=== PATIENT | female | born 1950 | race Caucasian/White ===

== ENCOUNTER 2019-08-09 06:57 | Observation (INO) | payer MEDICARE, SELFPAY ==
[2019-08-09] VITALS (11 sets, daily range): BP systolic 95–142; BP diastolic 59–87; PULSE 62–210; RESP 15–19; TEMP 36.4–36.6; O2SAT 92–100; BMI 33.6
--- NOTE | 2019-08-09 07:05 | ED_ITS ---
Entered by Idalia Carreon, acting as scribe for Bertin Pineda DO HPI - Arrhythmia/Palpitations General: Chief Complaint: Chest Pain Stated Complaint: Chest pain Time Seen by Provider: 08/09/19 07:04 Source: patient and family Mode of arrival: ambulatory Limitations: no limitations History of Present Illness: HPI narrative: 69 yo female presents with a high heart rate and palpitations. pt states she woke up and felt her heart racing. pt states nothing made this better or worse. pt has had nausea in ED. pt denies any other symptoms at this time. pt has a HX of atrial fib. 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) Duration: constant Severity: moderate Context: occurred during rest Arrhythmia history: atrial fibrillation Associated symptoms: Reports nausea and short of breath; Deny anxiety or syncope Review of Systems Const: Denies: fever, chills, body aches, fatigue, malaise or night sweats Eyes: Denies: change in vision or blurry vision ENMT: Denies: throat pain, oral sores/lesions, dental pain, nasal discharge or nasal congestion Card: Denies: edema, syncope or leg pain with exertion Resp: Denies: productive cough, non-productive cough or wheezing GI: Reports: nausea; Denies: abdominal pain, vomiting blood, coffee grounds in vomit, difficulty sw allowing, heartburn/indigestion, diarrhea, constipation, cramping, blood in stool or black tarry stool : Denies: flank pain, painful urination, urinary frequency, urinary urgency, urinary incontinence or blood in urine Musc: Denies: neck pain, back pain, extremity pain, extremity swelling, joint pain or joint swelling Skin/Breast: Denies: rash, itching or redness Neuro: Denies: headache, numbness in extremities, weakness in extremities, changes in sensation, lack of coordination, difficulty walking, frequent falls, dizziness, vertigo or confusion Psych: Denies: anxiety, depression, loss of interest, visual hallucinations, auditory hallucinations, suicidal ideation or homicidal ideation Endo: Denies: excessive urination, excessive thirst, tired all the time or cold intolerance Sergey/Lymph: Denies: easy bruising, easy bleeding, petechiae, enlarged lymph nodes or tender lymph nodes PFSH ED PFSH: Statuses (acute, chronic, etc) shown below reflect problem list status as previously entered and may not be historically accurate Medical History Atrial fibrillation (Acute) Physical Exam Const: COMMON NORMALS: average body habitus, oriented x3 and alert GENERAL APPEARANCE: cooperative, comfortable, well kempt and well developed NUTRITIONAL APPEARANCE: obese ORIENTATION/CONSCIOUSNESS: Yes awake, Yes oriented to person and Yes oriented to place HENMT: COMMON NORMALS: normocephalic, head/scalp atraumatic, EAC's normal, TM's normal bilaterally, external nose normal, moist oral mucous membranes and oropharynx normal HEAD & SCALP: normocephalic and atraumatic NOSE: external nose normal EXTERNAL AUDITORY CANAL: EAC's normal TYMPANIC MEMBRANE: TM's normal bilaterally MOUTH: oral and palatal mucosa normal, lip normal and tongue normal THROAT: posterior oropharynx normal and tonsils normal Eye: COMMON NORMALS: PERRL, EOMs intact bilaterally, conjunctivae normal and no scleral icterus CONJUNCTIVA: Yes conjunctivae normal PUPIL: Yes PERRL Neck/C-Spine: COMMON NORMALS: full ROM, no lymphadenopathy, supple, no meningeal signs and thyroid normal THYROID: thyroid normal and asymmetrical Lymph: LYMPHATIC: no lymphadenopathy noted Resp: COMMON NORMALS: normal respiratory effort, no retractions, no use of accessory muscles and clear to auscultation bilaterally AUSCULTATION: clear to auscultation bilaterally Cardio: RATE: tachycardic (212) RHYTHM: abnormal rhythm GI: COMMON NORMALS: normal to inspection, nondistended, normoactive bowel sounds, soft to palpation and no hepatosplenomegaly PALPATION: Yes soft and Yes no hepatosplenomegaly : COMMON NORMALS: Yes no CVA tenderness BLADDER/KIDNEY EXAM: Yes no CVA tenderness Back/Pelvis: COMMON NORMALS: no CVA tenderness LUMBAR SPINE/LOWER BACK: Yes normal to inspection Extremity: COMMON NORMALS: no clubbing, cyanosis or edema, no calf tenderness and no pedal edema Neuro: COMMON NORMALS: oriented x3 SENSORIUM/ORIENTATION: Yes alert, Yes oriented to person and Yes oriented to place MENINGEAL SIGNS: Yes no meningeal signs Psych: APPEARANCE: Yes well kempt Skin: COMMON NORMALS: no rashes or lesions noted and skin turgor normal GENERAL SKIN EXAM: no rashes or lesions noted and turgor normal Course ED course: On initial presentation patient was in SVT. IV placed bilaterally in the antecubital fossa patient given 6 mg of adenosine with no significant response this was given in the right arm was given another 12 mg of adenosine again with no significant response at that point a question whether or not the IV was patent nurse did find that it was infiltrated. Patient was given 12 mg of adenosine in the left arm with conversion to a normal sinus rhythm with tach ycardia initially in the 130s but it settled down to the 80s after that. The troponin came back with a delta of almost 34 decided to monitor the patient overnight and repeat stress testing Vital Signs: Vital signs: Vital Signs Temperature 97.9 F 08/09/19 11:21 Pulse Rate 70 08/09/19 11:21 Respiratory Rate 16 08/09/19 11:21 Blood Pressure 133/87 08/09/19 11:21 Pulse Oximetry 98 08/09/19 11:21 MDM - Arrhythmia/Palpitations Lab Data: Labs: Lab Results 08/09/19 08/09/19 08/09/19 Range/Units 07:38 07:38 07:38 WBC 5.6 (4.0-10.0) 10^3/ uL RBC 3.54 L (4.1-5.3) 10^6/u L Hgb 10.3 L (11.5-15.3) g/dL Hct 32.2 L (37.0-47.0) % MCV 91.0 (81-99) fL MCH 29.1 (28.0-34.0) pg MCHC 32.0 (30.0-36.0) g/dL RDW 12.9 (12.1-15.1) % Plt Count 198 (130-400) 10^3/c mm MPV 11.2 H (7.4-10.4) fL Neut % (Auto) 58.1 % Lymph % (Auto) 31.8 % [place] % (Auto) 7.1 % Eos % (Auto) 2.1 % Baso % (Auto) 0.5 % Neut # (Auto) 3.3 (1.8-7.7) 10^3/u L Lymph # (Auto) 1.8 (0.8-4.8) 10^3/u L [place] # (Auto) 0.4 (0.2-0.9) 10^3/u L Eos # (Auto) 0.1 (0.0-0.8) 10^3/u L Baso # (Auto) 0.0 (0.0-0.1) 10^3/u L Nucleated RBC % (a uto) 0 % Nucleated RBCs # 0.0 /100WBC Sodium 138 (136-145) mmol/L Potassium 2.8 L* (3.5-5.1) mmol/L Chloride 104 (98-107) mmol/L Carbon Dioxide 18 L (22-29) mmol/L Anion Gap 18.8 (5-19) BUN 25 H (8-23) mg/dL Creatinine 1.1 H (0.5-0.9) mg/dL GFR Calculation 49.4 L (90-130) mL/min Glucose 195 H (74-106) mg/dL Calcium 8.3 L (8.8-10.2) mg/Dl Magnesium (1.7-2.3) mg/dL Total Bilirubin 0.5 (0.15-1.2) mg/dL AST 13 (0-32) U/L ALT 11 (0-33) U/L Alkaline Phosphata se 65 (35-105) IU/L Troponin T Baselin e 18 H (0-10) ng/mL Troponin T 120 Min [place] (0-10) ng/mL Delta Troponin T (0-10) ABS# Total Protein 6.1 L (6.6-8.7) g/dL Albumin 3.7 (3.5-5.2) g/dL Globulin 2.4 (1.3-4.6) g/dL 08/09/19 08/09/19 Range/Units 09:37 09:37 WBC (4.0-10.0) 10^3/ uL RBC (4.1-5.3) 10^6/u L Hgb (11.5-15.3) g/dL Hct (37.0-47.0) % MCV (81-99) fL MCH (28.0-34.0) pg MCHC (30.0-36.0) g/dL RDW (12.1-15.1) % Plt Count (130-400) 10^3/c mm MPV (7.4-10.4) fL Neut % (Auto) % Lymph % (Auto) % [place] % (Auto) % Eos % (Auto) % Baso % (Auto) % Neut # (Auto) (1.8-7.7) 10^3/u L Lymph # (Auto) (0.8-4.8) 10^3/u L [place] # (Auto) (0.2-0.9) 10^3/u L Eos # (Auto) (0.0-0.8) 10^3/u L Baso # (Auto) (0.0-0.1) 10^3/u L Nucleated RBC % (a uto) % Nucleated RBCs # /100WBC Sodium (136-145) mmol/L Potassium 5.2 H (3.5-5.1) mmol/L Chloride (98-107) mmol/L Carbon Dioxide (22-29) mmol/L Anion Gap (5-19) BUN (8-23) mg/dL Creatinine (0.5-0.9) mg/dL GFR Calculation (90-130) mL/min Glucose (74-106) mg/dL Calcium (8.8-10.2) mg/Dl Magnesium 1.8 (1.7-2.3) mg/dL Total Bilirubin (0.15-1.2) mg/dL AST (0-32) U/L ALT (0-33) U/L Alkaline Phosphata se (35-105) IU/L Troponin T Baselin e (0-10) ng/mL Troponin T 120 Min [place] 51.98 H (0-10) ng/mL Delta Troponin T 33.98 H* (0-10) ABS# Total Protein (6.6-8.7) g/dL Albumin (3.5-5.2) g/dL Globulin (1.3-4.6) g/dL Imaging Data^: CXR: Radiologist's impression: [address] [address] XRay Report Signed Patient: Mindy Cueva AUnnuvia #: [id number] : 1Acct#:[id number] Age/Sex: 69 / FADM Date: 08/09/19 Loc: ERRoom/Bed: Attending Dr: Ordering Provider/Ordering MD: Bertin Pineda DO Date of Service: 08/09/19 Procedure(s): XR chest 1V portable [id number] Accession Number(s): [id number] Report Number: [id number] PROCEDURE INFORMATION: Exam: XR Chest, 1 View Exam date and time: 08/09/2019 7:45 AM Age: 69 years old Clinical indication: Chest pain; Type not specified; Additional info: Chest pain, svt TECHNIQUE: Imaging protocol: XR of the chest Views: 1 view. COMPARISON: CR Chest 2 views* [id number] 02/11/2018 10:20 AM FINDINGS: There is moderate hiatal hernia. Otherwise no focal pulmonary consolidation is demonstrated on this single frontal image. No significant obscuration of the lateral costophrenic angles is demonstrated. No significant vascular congestion is demonstrated. Visualized cardiac silhouette size appears within normal limits. Thoracic aorta is unfolded. XR/XR chest 1V portable [id number] IMPRESSION: No acute pulmonary process is demonstrated. There is moderate hiatal hernia. Dictated By:Alexsandra Neely MD Signed By:Alexsandra Neely MDSigned Date/Time:08/09/19829 DD/ 9 Discharge Plan Discharge Patient Disposition: Admitted As Inpatient Admit Provider: Aditya Lange Clinical Impression: Sustained SVT, Acute non-ST elevation myocardial infarction (NSTEMI) Condition: Stable Referrals: Yoshi Fulton MD [Primary Care Provider] - Sacha Gaytan DO [Family Provider] - Interventions: ED Discharge Assessment Last Done: 08/09/19 11:21 Discharge Date/Time: 08/09/19 11:23 Coding Level of Care Code ED Child Nutrition Assistant for Chg Fwd Exam Problem Focused The documentation recorded by the Lauri acosta Bridget Annette, accurately reflects the service I personally performed and the decisions made by Edwin hdez Curtis L, DO Aug 09, 2019 06:57
[2019-08-09] MEDS: adenosine 3 mg/mL SDV 2mL 6 MG (07:13)
[2019-08-09] MEDS: adenosine 3 mg/mL SDV 2mL 12 MG IVP ×2 (07:15→07:17)
--- NOTE | 2019-08-09 07:20 | XRR_ITS ---
PROCEDURE INFORMATION: Exam: XR Chest, 1 View Exam date and time: 08/09/2019 7:45 AM Age: 69 years old Clinical indication: Chest pain; Type not specified; Additional info: Chest pain, svt TECHNIQUE: Imaging protocol: XR of the chest Views: 1 view. COMPARISON: CR Chest 2 views* [id number] 02/11/2018 10:20 AM FINDINGS: There is moderate hiatal hernia. Otherwise no focal pulmonary consolidation is demonstrated on this single frontal image. No significant obscuration of the lateral costophrenic angles is demonstrated. No significant vascular congestion is demonstrated. Visualized cardiac silhouette size appears within normal limits. Thoracic aorta is unfolded. XR/XR chest 1V portable [id number] IMPRESSION: No acute pulmonary process is demonstrated. There is moderate hiatal hernia.
--- NOTE | 2019-08-09 07:22 | ECG_ITS ---
Measurements Intervals [place] Rate: 73 P: 48 W[place]: 173 QRS: -6 QRSD: 76 T: 30 QT: 391 QTc: 431 SINUS RHYTHM INFERIOR MYOCARDIAL INFARCTION [40+ ms Q WAVE AND/OR ST/T ABNORMALITY IN II/aVF], OF INDETERMINATE AGE WITH POSTERIOR EXTENSION Compared to ECG 08/09/2019 09:10:09 No significant changes Electronically Signed On 08-10-2019 9:23:29 STRIPPING MACHINE OPERATOR by Kurtis Palomares M.D. [id number]
[2019-08-09 07:43] LABS: Basophils % 0.5 %; Eosinophils # 0.1 10^3/uL (0.0-0.8); Eosinophils % 2.1 %; Hematocrit 32.2 % (37.0-47.0); Hemoglobin 10.3 g/dL (11.5-15.3); Lymphocytes # 1.8 10^3/uL (0.8-4.8); Lymphocytes % 31.8 %; Mean Corpuscular Hemoglobin 29.1 pg (28.0-34.0); Mean Platelet Volume 11.2 fL (7.4-10.4); Monocytes # 0.4 10^3/uL (0.2-0.9); Monocytes % 7.1 %; Neutrophils # 3.3 10^3/uL (1.8-7.7); Neutrophils % 58.1 %; Nucleated Red Blood Cells % 0 %; Platelet Count 198 10^3/cmm (130-400); Red Blood Count 3.54 10^6/uL (4.1-5.3); Red Cell Distribution Width 12.9 % (12.1-15.1); White Blood Count 5.6 10^3/uL (4.0-10.0)
[2019-08-09 08:07] LABS: Alanine Aminotransferase 11 U/L (0-33); Albumin Level 3.7 g/dL (3.5-5.2); Alkaline Phosphatase 65 IU/L (35-105); Anion Gap 18.8 (5-19); Aspartate Amino Transferase 13 U/L (0-32); Blood Urea Nitrogen 25 mg/dL (8-23); Calcium 8.3 mg/Dl (8.8-10.2); Carbon Dioxide 18 mmol/L (22-29); Chloride 104 mmol/L (98-107); Globulin 2.4 g/dL (1.3-4.6); Glomerular Filtration Rate 49.4 mL/min (90-130); Glucose 195 mg/dL (74-106); Sodium 138 mmol/L (136-145); Total Bilirubin 0.5 mg/dL (0.15-1.2); Total Protein 6.1 g/dL (6.6-8.7)
[2019-08-09 08:08] LABS: Troponin(5th) Baseline 18 ng/mL (0-10)
[2019-08-09 08:13] LABS: Potassium 2.8 mmol/L (3.5-5.1)
[2019-08-09] MEDS: potassium chloride oral liq 20 mEq/15 mL UDC 60 MEQ PO (08:48)
--- NOTE | 2019-08-09 09:22 | ECG_ITS ---
Measurements Intervals [place] Rate: 84 P: 42 [place]: 185 QRS: -10 QRSD: 79 T: 27 QT: 364 QTc: 431 SINUS RHYTHM INFERIOR MYOCARDIAL INFARCTION , OF INDETERMINATE AGE WITH POSTERIOR EXTENSION [40+ ms Q WAVE AND/OR ST/T ABNORMALITY IN II/aV Compared to ECG 02/11/2018 10:15:41 No significant changes Electronically Signed On 08-09-2019 11:34:04 APPRENTICE by Kurtis Palomares M.D. [id number]
[2019-08-09 10:05] LABS: Troponin 5 2HR 51.98 ng/mL (0-10)
[2019-08-09 10:23] LABS: Troponin 5 2HR Delta 33.98 ABS# (0-10)
[2019-08-09 11:04] LABS: Magnesium 1.8 mg/dL (1.7-2.3); Potassium 5.2 mmol/L (3.5-5.1)
--- NOTE | 2019-08-09 11:42 | P.HP_ITS ---
Providers/Chief Complaint Admitting Physician: Aditya Lange Primary Care Provider: Yoshi Fulton Chief Complaint: Chest pain History of Present Illness Mindy Cueva is a 69 year old female with past medical history of [place] in 2015, episode of atrial fibrillation at that time, but not since, normally following with Dr. Florian in office, also with hypertension, chronic lower back pain, anxiety, gout presented to the emergency department after an episode of severe palpitations, tachycardia, chest discomfort at home. Reports it started around 6 AM. She says she woke up asymptomatic, then when rising from a chair to walk to the restroom began experiencing the above symptoms. Reports that she felt her heart was beating very fast which is unusual for her. She reports that she has been having some episodes of heartburn the week prior, however, otherwise has been in her usual state of health. Does report some very mild dry cough which has not been very bothersome to her. She denies any recent changes in her medications. In ER noted to be in SVT, heart rates in 220s, for which received a dose of adenosine, although first dose was ineffective, dose was attempted to be repeated, however, IV infiltrated, had to be replaced to the other arm, then after third (second effective) dose heart rates dropped down to 130s, then converted back to sinus rhythm in the 80s. Her symptoms resolved. She denies any remaining feelings of palpitations or chest discomfort. No shortness of breath. Noted to be hypokalemic, potassium 2.8 for which she received 60 mill equivalent oral liquid replacement. Troponin noted to be elevated in ER, baseline with trace elevation at 18, but with positive delta of 33.98, up to 51.98 troponin at 2 hours. Request for observation was made by ER physician. Review of Systems Const: Denies: fever, chills, body aches or malaise Eyes: Denies: change in vision or eye redness ENMT: Denies: throat pain, oral sores/lesions or ear pain Card: Denies: chest pain, edema, pre-syncope or shortness of breath on exertion Resp: Reports: non-productive cough (Mild); Denies: shortness of breath, productive cough, change in phlegm color or coughing up blood GI: Reports: heartburn/indigestion (Last week); Denies: abdominal pain, nausea, vomiting, diarrhea, constipation, blood in stool or black tarry stool : Denies: flank pain, urinary frequency or blood in urine Musc: Denies: back pain, joint swelling or redness Skin/Breast: Denies: rash, sores or new lesion Neuro: Denies: headache, numbness in extremities, weakness in extremities, dizziness, confusion or seizure-like activity Endo: Denies: excessive urination or excessive thirst Sergey/Lymph: Denies: easy bleeding or purpura All/Imm: Denies: hives, throat swelling or tongue swelling Medications/Allergies Home Medications Medication Instructions Recorded Confirmed Last Taken Type allopurinol 100 mg PO DAILY 08/09/19 08/09/19 08/09/19 History alprazolam 0.5 mg PO BID PRN 08/09/19 08/09/19 08/08/19 History aspirin 2 tab PO DAILY 08/09/19 08/09/19 08/09/19 History ibuprofen 800 mg PO TID 08/09/19 08/09/19 08/08/19 History lisinopril 10 mg PO DAILY 08/09/19 08/09/19 08/09/19 History metoprolol tartrate 50 mg PO BID 08/09/19 08/09/19 08/09/19 History tramadol 50 mg PO Q4H PRN 08/09/19 08/09/19 Unknown History triamterene-hydrochlorothiazid 1 tab PO DAILY 08/09/19 08/09/19 08/08/19 History Allergies Allergy/AdvReac Type Severity Reaction Status Date / Time No Known Allergies Allergy Verified 08/09/19 07:09 PFSH Acute PFSH: Statuses (acute, chronic, etc) shown below reflect problem list status as previously entered and may not be historically accurate Medical History (Updated 08/09/19 @ 12:17 by Aditya Lange MD) Acute non-ST elevation myocardial infarction (NSTEMI) (Acute) Anxiety (Chronic) Atrial fibrillation (Acute) Chronic low back pain (Chronic) Gout (Chronic) HTN (hypertension) (Chronic) Surgical History History of appendectomy (Acute) History of back surgery (Acute) History of cholecystectomy (Acute) Status post right knee replacement (Acute) Family History Mother Cerebral hemorrhage Myocardial infarction Social History (Updated 08/09/19 @ 12:16 by Aditya Lange MD) Smoking and tobacco status: never smoked Alcohol intake: never Substance/Drug Use: never Household members: spouse Marital status: Current occupational status: retired Vitals/I&O/Wt Last Vital Signs Temp 97.9 F 08/09/19 11:21 Pulse 70 08/09/19 11:21 Resp 16 08/09/19 11:21 BP 133/87 08/09/19 11:21 Pulse Ox 98 08/09/19 11:21 Weight last 48 hrs Weight 97.522 kg Physical Exam Const: COMMON NORMALS: no apparent distress and oriented x3 NUTRITIONAL APPEARANCE: overweight HENMT: COMMON NORMALS: oropharynx normal Neck/C-Spine: COMMON NORMALS: no JVD Resp: COMMON NORMALS: normal respiratory effort and clear to auscultation bilaterally AUSCULTATION: clear to auscultation bilaterally Cardio: COMMON NORMALS: no JVD, regular rhythm, S1 normal heart sound, S2 normal heart sound and no murmurs RHYTHM: regular rhythm HEART SOUNDS: S1 normal and S2 normal GI: COMMON NORMALS: normal to inspection, nondistended, normoactive bowel sounds, soft to palpation and non-tender PALPATION: Yes soft Extremity: COMMON NORMALS: no joint enlargement and no pedal edema Neuro: COMMON NORMALS: oriented x3 and moves all extremities Skin: COMMON NORMALS: no rashes or lesions noted GENERAL SKIN EXAM: no rashes or lesions noted Data : 08/09/19 07:38 08/09/19 09:37 A&P Assessment and plan (1) Troponin level elevated: After episode of sustained SVT. She was symptomatic during the episode, currently without any chest pressure. There is minimal elevation of troponin, with significant delta, although level at 2 hours still only 51.98. She has history of coronary disease, with last stress test and angiogram in 2014. She is placed in observation, we will complete the troponin and EKG series. Monitor for recurrence of any symptoms. Assess with TTE. She is agreeable with plan for subsequent assessment by stress testing for risk stratification for progression of coronary disease sometime early next week. Status: Acute Code(s): R79.89 - Other specified abnormal findings of blood chemistry (2) Sustained SVT: Resolved after 2 doses of adenosine (1 dose ineffective due to infiltrated IV). Currently in sinus rhythm, heart rates in the 80s. Asymptomatic. Hypokalemic. This was replaced. Monitor on telemetry. Assess TTE. Hold HCTZ for now. May need potassium supplementation at home. Check TSH. Has some dry cough, however, without any sign of pneumonia, no sign of active infection or sepsis on vital signs or laboratory work-up. Status: Acute Code(s): I47.1 - Supraventricular tachycardia (3) Hypokalemia: Replaced. Check magnesium. Hold HCTZ. Status: Acute Code(s): E87.6 - Hypokalemia (4) HTN (hypertension): Status: Chronic Code(s): I10 - Essential (primary) hypertension (5) Gout: Status: Chronic Code(s): M10.9 - Gout, unspecified (6) Anxiety: Status: Chronic Code(s): F41.9 - Anxiety disorder, unspecified (7) Chronic low back pain: Status: Chronic Code(s): M54.5 - Low back pain; G89.29 - Other chronic pain Attestations Medical Necessity Statement*: Place in observation. Coding Level of Care Code Acute Dredge Pipe Installer for Chg Fwd Diagnoses Troponin level elevated R79.89 Sustained SVT I47.1 Hypokalemia E87.6 HTN (hypertension) I10 Gout M10.9 Anxiety F41.9 Chronic low back pain M54.5; G89.29
--- NOTE | 2019-08-09 12:12 | USCV_ITS ---
Mindy Cueva Age: 69 Gender: F : 1950 Exam Date: 08/09/2019 12:35 Ordering Phys: Aditya Lange MD Technologist: Maureen Winn Exam Location: [facility] [place] Indication: SVT BP: 133 / 87 HR: 67 Rhythm: Sinus Technical Quality: Technically difficult study MEASUREMENTS (Male / Female) Normal Values 2D ECHO LV Diastolic Diameter PLAX 3.6 cm 4.2 - 5.9 / 3.9 - 5.3 cm LV Systolic Diameter PLAX 1.8 cm LV Chamber Size 3.4 cm IVS Diastolic Thickness 1.5 cm 0.6 - 1.0 / 0.6 - 0.9 cm IVS Systolic Thickness 2.1 cm LVPW Diastolic Thickness 0.9 cm 0.6 - 1.0 / 0.6 - 0.9 cm LVPW Systolic Thickness 1.0 cm RV Chamber Size 2.3 cm LVOT Diameter 2.0 cm LV Ejection Fraction 2D Teich 81.1 % LA Diameter 2.2 cm LA Width 3.2 cm LA Height 5.1 cm RA Width 3.1 cm RA Height 4.3 cm Aorta at Sinotubular Diameter 2.8 cm M-MODE LV Diastolic Diameter MM 4.2 cm 4.2 - 5.9 / 3.9 - 5.3 cm LV Systolic Diameter MM 2.2 cm LV Ejection Fraction MM Teich 78.3 % IVS Diastolic Thickness MM 1.3 cm 0.6 - 1.0 / 0.6 - 0.9 cm IVS Systolic Thickness MM 1.6 cm LVPW Diastolic Thickness MM 1.1 cm 0.6 - 1.0 / 0.6 - 0.9 cm LVPW Systolic Thickness MM 1.5 cm RV Diastolic Diameter MM 2.0 cm Aortic Annulus Diameter 3.1 cm LA Ao Ratio MM 0.7 MV E Point Septal Separation 0.4 cm DOPPLER AV Peak Velocity 88.0 cm/s LVOT Peak Velocity 54.0 cm/s AV Area Cont Eq vti 1.9 cm squared AV Area Cont Eq pk 1.9 cm squared MV Area PHT 4.4 cm squared Mitral E to A Ratio 1.6 MV E' Velocity 9.0 cm/s Mitral E to MV E' Ratio 7.2 Mitral E to LV E' Lateral Ratio 6.7 Mitral E to LV E' Septal Ratio 7.8 TR Peak Velocity 224.0 cm/s TR Peak Gradient 20.1 mmHg TV Peak E Velocity 70.0 cm/s Right Atrial Pressure 3.0 mmHg Pulmonary Artery Systolic Pressu 23.1 mmHg PV Peak Velocity 51.0 cm/s RV Acceleration Time 0.1 s RV Ejection Time 0.3 s RV AcT/ET 0.2 FINDINGS Left Ventricle Normal left ventricular size, systolic function and wall thickness, with no regional wall motion abnormalities. Normal left ventricular wall thickness. Normal diastolic filling pattern. Left ventricular ejection fraction is estimated at 65 %. Right Ventricle The right ventricle is normal in size and function. Normal right ventricular systolic pressure. Right Atrium The right atrium is normal in size. Left Atrium The left atrium is normal in size. Mitral Valve Structurally normal mitral valve. Mild mitral valve regurgitation. Aortic Valve Structurally normal aortic valve without significant sclerosis or stenosis. There is no aortic regurgitation. Tricuspid Valve Structurally normal tricuspid valve. Mild tricuspid valve regurgitation. Pulmonic Valve Pulmonic valve not well visualized. Pericardium Normal pericardium without effusion. Aorta Normal ascending aorta dimension. CONCLUSIONS Normal left ventricular size, systolic function and wall thickness, with no regional wall motion abnormalities. Normal left ventricular wall thickness. Normal diastolic filling pattern. Left ventricular ejection fraction is estimated at 65 %. Structurally normal mitral valve. Mild mitral valve regurgitation. There are no prior echocardiogram studies to compare. Dr. Kurtis Palomares MD (Electronically Signed) Final Date: 10 August 2019 09:13 S
[2019-08-09] MEDS: heparin 5,000 unit/mL INJ 1 mL 5000 UNIT SUBCUT ×2 (14:14→21:40)
[2019-08-09 14:17] LABS: Troponin 5 6HR 73.58 ng/L (0-10)
[2019-08-09 14:21] LABS: Troponin 5 6HR Delta 55.58 ng/L (0-12)
[2019-08-09 15:39] LABS: Chol HDL Ratio 4.85 mg/dL (0.0-4.40); Cholesterol 223 mg/dL (0-200); HDL Cholesterol 46 mg/dL (60-100); LDL Cholesterol Calculated 130 mg/dL (50-129); LDL HDL Ratio 2.83 RATIO (0.00-3.22); Magnesium 1.8 mg/dL (1.7-2.3); Triglycerides 235 mg/dL (0-150)
[2019-08-09] MEDS: metoprolol tartrate 25 mg Tablet PO (17:48)
[2019-08-10] VITALS: BP 112/73; PULSE 78; RESP 17; TEMP 36.9; O2SAT 97
[2019-08-10 04:00] VITALS: BP 107/77; PULSE 77; RESP 18; TEMP 36.7; O2SAT 95
[2019-08-10] MEDS: heparin 5,000 unit/mL INJ 1 mL 5000 UNIT SUBCUT (04:43)
[2019-08-10 05:08] VITALS: BMI 33.8
[2019-08-10 05:32] LABS: Anion Gap 14.9 (5-19); Blood Urea Nitrogen 20 mg/dL (8-23); Calcium 9.8 mg/Dl (8.8-10.2); Carbon Dioxide 23 mmol/L (22-29); Chloride 104 mmol/L (98-107); Glomerular Filtration Rate 49.4 mL/min (90-130); Glucose 116 mg/dL (74-106); Potassium 3.9 mmol/L (3.5-5.1); Sodium 138 mmol/L (136-145)
[2019-08-10 08:00] VITALS: BP 108/71; PULSE 86; RESP 21; O2SAT 94
[2019-08-10] MEDS: metoprolol tartrate 25 mg Tablet PO (09:12)
[2019-08-10] MEDS: aspirin 81 mg EC Tablet PO (09:12)
[2019-08-10] MEDS: allopurinol 100 mg Tablet PO (09:13)
[2019-08-10 12:00] VITALS: BP 121/81; PULSE 88; RESP 18
--- NOTE | 2019-08-10 12:26 | P.DS_ITS ---
Discharge Providers Date of Admission: 08/09/19 10:39 Date of Discharge: 08/10/19 Attending Provider at Admission: Aditya Lange Attending Provider at Discharge: Aditya Lange Primary Care Provider: Yoshi Fulton Diagnoses at Discharge Discharge Diagnosis (1) Troponin level elevated: Status: Acute (2) Sustained SVT: Status: Acute (3) Hypokalemia: Status: Acute (4) HTN (hypertension): Status: Chronic (5) Gout: Status: Chronic (6) Anxiety: Status: Chronic (7) Chronic low back pain: Status: Chronic Reason for Visit Reason for Visit: Reason For Visit: Chest pain Physical Exam Const: COMMON NORMALS: no apparent distress and oriented x3 NUTRITIONAL APPEARANCE: overweight HENMT: COMMON NORMALS: oropharynx normal Neck/C-Spine: COMMON NORMALS: no JVD Resp: COMMON NORMALS: normal respiratory effort and clear to auscultation bilaterally AUSCULTATION: clear to auscultation bilaterally Cardio: COMMON NORMALS: no JVD, regular rhythm, S1 normal heart sound, S2 normal heart sound and no murmurs RHYTHM: regular rhythm HEART SOUNDS: S1 normal and S2 normal GI: COMMON NORMALS: normal to inspection, nondistended, normoactive bowel sounds, soft to palpation and non-tender PALPATION: Yes soft Extremity: COMMON NORMALS: no joint enlargement and no pedal edema Neuro: COMMON NORMALS: oriented x3 and moves all extremities Skin: COMMON NORMALS: no rashes or lesions noted GENERAL SKIN EXAM: no rashes or lesions noted Discharge Data Data Completed and Pending: Completed Studies During Hospitalization Category Date Time Status XR chest 1V obi ble [id number] Stat Exams 08/09/19 07:20 Completed CV echo complete* [id number] Routine Ultrasound 08/09/19 12:12 Completed Labs from last 24 hours 08/10/19 08/09/19 08/09/19 04:35 13:32 13:32 Sodium 138 Potassium 3.9 Chloride 104 Carbon Dioxide 23 Anion Gap 14.9 BUN 20 Creatinine 1.1 H GFR Calculation 49.4 L Glucose 116 H Calcium 9.8 Magnesium 1.8 Troponin I 6 Hour 73.58 H Troponin I Hi Sens Del 55.58 H* Triglycerides 235 H Cholesterol 223 H LDL Cholesterol, C alc 130 H HDL Cholesterol 46 L LDL/HDL Ratio 2.83 Cholesterol/HDL Ra rafita 4.85 H TSH 2.30 Vitals: Last Vital Signs Temp 98.1 F 08/10/19 04:00 Pulse 86 08/10/19 08:00 Resp 21 H 08/10/19 08:00 BP 108/71 08/10/19 08:00 Pulse Ox 94 08/10/19 08:00 Discharge Plan Discharge Patient Disposition: Home, Self-Care Condition: Stable Prescriptions: New Slow-Mag 71.5 mg tablet,delayed release (DR/EC) 71.5 mg PO BID Qty: 20 RF: 0 potassium chloride [Klor-Con M20] 20 mEq tablet,ER particles/crystals 20 meq PO DAILY Qty: 7 RF: 0 atorvastatin 40 mg tablet 40 mg PO QPM Qty: 30 RF: 0 Continued allopurinol 100 mg tablet 100 mg PO DAILY RF: 0 tramadol 50 mg Tablet 50 mg PO Q4H PRN (Reason: Pain) RF: 0 alprazolam 0.5 mg tablet 0.5 mg PO BID PRN (Reason: Anxiety) RF: 0 aspirin 81 mg Tablet,Chewable 2 tab PO DAILY RF: 0 Changed metoprolol tartrate 50 mg tablet 25 mg PO BID Qty: 0 RF: 0 Held ibuprofen 800 mg tablet 800 mg PO TID RF: 0 Hold Instructions: Resume on 08/17/19. Discontinued lisinopril 10 mg tablet 10 mg PO DAILY RF: 0 triamterene-hydrochlorothiazid 37.5-25 mg tablet 1 tab PO DAILY RF: 0 Discharge Orders: Discharge Order (Routine); Ordered 08/10/19 Ordered By: Aditya Lange Other Ambulatory Orders: Sestamibi Stress Test Request (Routine) Timeframe: 1 Day Facility: [facility] - Location: Cardiac Diagnostic Laboratory Ordered By: Aditya Lange Referrals: Yoshi Fulton MD [Primary Care Provider] - Sacha Gaytan DO [Family Provider] - 4-7 days Tommy Florian MD [Physician] - 1 week (SVT, abnormal troponin, stress test) Discharge Diet: Cardiac and Low Salt Activity Restrictions/Additional Instructions: Lisinopril, triamterene-HCTZ are on hold for now since blood pressures are well controlled, to avoid low blood pressures. Since blood pressures on the soft side, metoprolol dose is decreased to 25 mg. Please continue to maintain low- salt, heart healthy diet. Please continue to monitor blood pressures 3 times daily, record values to bring to her appointment. If your blood pressure levels arise, restart lisinopril first, if still elevated the next day consider restarting triamterene-HCTZ. In case of recurrence of symptoms of palpitations, non-resolving chest pain, or other abnormal symptoms seek medical attention without delay. Discharge Attestations Time Spent in Discharge Care*: greater than 30 min Quality Metrics Clinical Quality Measures During this hospital stay, did patient experience: None Coding Level of Care Code Acute Drapery Inspector for Chg Fwd Diagnoses Troponin level elevated R79.89 Sustained SVT I47.1 Hypokalemia E87.6 HTN (hypertension) I10 Gout M10.9 Anxiety F41.9 Chronic low back pain M54.5; G89.29
--- NOTE | 2019-08-10 12:42 | PC.CHAP ---
Pastoral Care Encounter/Spiritual Assessment Type of Contact [] Declined rumper visit [] Patient/Family/Request visit [] Outpatient visit [] Follow-up visit [] Physician referral [] Code/Alert [] Routine visit [] Staff referral [] Actively dying [] Patient sleeping [] Family support [] [] Out of room [] Palliative care [] [] Receiving care in room [] Pre-surgical visit [] Trauma [] Long length of stay [] ICU visit [] Other: Relational/Emotional Strength [x] Patient feels connected with others/family/visitors/staff [] Distress [] Loneliness/isolation [] Abandonment Spirituality of Patient [x] Person of Jackie [] Attends Jain of their Jackie [x] Believes in Prayer [] Reads Bible or Mu-Ism materials [] There are Spiritual issues to be addressed Vascular Radiologist Interventions [x] Prayer [x] Active listening [x] Non-anxious presence [x] Spiritual/emotional support [] Crisis/trauma care [] Spiritual counseling [] Bereavement support [] Provided bereavement packet [] Provided Bible/devotional materials [] Provided toy/stuffed animal, coloring book to patient or family member [x] Completed spiritual assessment [] Provided Communion [] Anointing/[place] [] Salvation [] Other: Impact on Illness or Injury [] Angry [] Fearful [] Anxious [] Often cries [] Exhaustion [] Unable to work [] Unable to attend gnosticism [] Unable to walk/stand [] Unable to read [] Unable to drive [] Unable to eat/drink [] Unable to sleep [] Unable to be with family [x] Other: 4 family members present. Summary Chaplains prayed with patient and family members present. Time spent with patient 15 minutes.
--- NOTE | 2019-08-10 12:49 | PM.DCS ---
Discharge Providers Date of Admission: 08/09/19 10:39 Date of Discharge: 08/10/19 Attending Provider at Admission: Adtiya Lange Attending Provider at Discharge: Aditya Lange Primary Care Provider: Sacha Fulton Diagnoses at Discharge Discharge Diagnosis (1) Troponin level elevated: Status: Acute (2) Sustained SVT: Status: Acute (3) Hypokalemia: Status: Acute (4) HTN (hypertension): Status: Chronic (5) Gout: Status: Chronic (6) Anxiety: Status: Chronic (7) Chronic low back pain: Status: Chronic Reason for Visit Reason for Visit: Reason For Visit: Chest pain Hospital Course Hospital Course: 69-year-old pleasant lady with reported history of possible small heart attack in the past, around 2014, at which point she had a coronary angiogram, although on review reported with normal coronaries, history of episode of atrial fibrillation at that time, but without recurrence, HTN, chronic low back pain 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 Her symptoms of chest pressure which were present during tachycardia had resolved. She did have troponin abnormality secondary to cardiac demand, 18-51.98-73.58. She was noted hypokalemic which was replaced. TSH was normal. HCTZ was held. In the hospital blood pressures with low sodium diet were soft, and her blood pressure medications are being held. She started on potassium and magnesium replacement. Due to troponin leak she is continued on aspirin, metoprolol with decreased dose down to 25 mg. She is remained asymptomatic, is feeling well and is wanting to return home. Due to troponin leak stress test will be assessed for possible underlying coronary disease developed since 2014. Please follow the results. Due to hypercholesterolemia she is started on statin. Physical Exam Const: COMMON NORMALS: no apparent distress and oriented x3 NUTRITIONAL APPEARANCE: overweight HENMT: COMMON NORMALS: oropharynx normal Neck/C-Spine: COMMON NORMALS: no JVD Resp: COMMON NORMALS: normal respiratory effort and clear to auscultation bilaterally AUSCULTATION: clear to auscultation bilaterally Cardio: COMMON NORMALS: no JVD, regular rhythm, S1 normal heart sound, S2 normal heart sound and no murmurs RHYTHM: regular rhythm HEART SOUNDS: S1 normal and S2 normal GI: COMMON NORMALS: normal to inspection, nondistended, normoactive bowel sounds, soft to palpation and non-tender PALPATION: Yes soft Extremity: COMMON NORMALS: no joint enlargement and no pedal edema Neuro: COMMON NORMALS: oriented x3 and moves all extremities Skin: COMMON NORMALS: no rashes or lesions noted GENERAL SKIN EXAM: no rashes or lesions noted Discharge Data Data Completed and Pending: Completed Studies During Hospitalization Category Date Time Status XR chest 1V obi ble [id number] Stat Exams 08/09/19 07:20 Completed CV echo complete* [id number] Routine Ultrasound 08/09/19 12:12 Completed Labs from last 24 hours 08/10/19 08/09/19 08/09/19 04:35 13:32 13:32 Sodium 138 Potassium 3.9 Chloride 104 Carbon Dioxide 23 Anion Gap 14.9 BUN 20 Creatinine 1.1 H GFR Calculation 49.4 L Glucose 116 H Calcium 9.8 Magnesium 1.8 Troponin I 6 Hour 73.58 H Troponin I Hi Sens Del 55.58 H* Triglycerides 235 H Cholesterol 223 H LDL Cholesterol, C alc 130 H HDL Cholesterol 46 L LDL/HDL Ratio 2.83 Cholesterol/HDL Ra rafita 4.85 H TSH 2.30 Vitals: Last Vital Signs Temp 98.1 F 08/10/19 04:00 Pulse 86 08/10/19 08:00 Resp 21 H 08/10/19 08:00 BP 108/71 08/10/19 08:00 Pulse Ox 94 08/10/19 08:00 Discharge Plan Discharge Patient Disposition: Home, Self-Care Condition: Stable Prescriptions: New Slow-Mag 71.5 mg tablet,delayed release (DR/EC) 71.5 mg PO BID Qty: 20 RF: 0 potassium chloride [Klor-Con M20] 20 mEq tablet,ER particles/crystals 20 meq PO DAILY Qty: 7 RF: 0 atorvastatin 40 mg tablet 40 mg PO QPM Qty: 30 RF: 0 Continued allopurinol 100 mg tablet 100 mg PO DAILY RF: 0 tramadol 50 mg Tablet 50 mg PO Q4H PRN (Reason: Pain) RF: 0 alprazolam 0.5 mg tablet 0.5 mg PO BID PRN (Reason: Anxiety) RF: 0 aspirin 81 mg Tablet,Chewable 2 tab PO DAILY RF: 0 Changed metoprolol tartrate 50 mg tablet 25 mg PO BID Qty: 0 RF: 0 Held ibuprofen 800 mg tablet 800 mg PO TID RF: 0 Hold Instructions: Resume on 08/17/19. Discontinued lisinopril 10 mg tablet 10 mg PO DAILY RF: 0 triamterene-hydrochlorothiazid 37.5-25 mg tablet 1 tab PO DAILY RF: 0 Discharge Orders: Discharge Order (Routine); Ordered 08/10/19 Ordered By: Aditya Lange Other Ambulatory Orders: Sestamibi Stress Test Request (Routine) Timeframe: 1 Day Facility: [facility] - Location: Cardiac Diagnostic Laboratory Ordered By: Aditya Lange Referrals: Yoshi Fulton MD [Primary Care Provider] - Tommy Florian MD [Physician] - 1 week (SVT, abnormal troponin, stress test) Sacha Gaytan DO [Family Provider] - 4-7 days Discharge Diet: Cardiac and Low Salt Activity Restrictions/Additional Instructions: Lisinopril, triamterene-HCTZ are on hold for now since blood pressures are well controlled, to avoid low blood pressures. Since blood pressures on the soft side, metoprolol dose is decreased to 25 mg. Please continue to maintain low-salt, heart healthy diet. Please continue to monitor blood pressures 3 times daily, record values to bring to her appointment. If your blood pressure levels arise, restart lisinopril first, if still elevated the next day consider restarting triamterene-HCTZ. In case of recurrence of symptoms of palpitations, non-resolving chest pain, or other abnormal symptoms seek medical attention without delay. Discharge Attestations Time Spent in Discharge Care*: greater than 30 min Quality Metrics Clinical Quality Measures During this hospital stay, did patient experience: None Coding Level of Care Code Acute Decorating Supervisor for Chg Fwd Diagnoses Troponin level elevated R79.89 Sustained SVT I47.1 Hypokalemia E87.6 HTN (hypertension) I10 Gout M10.9 Anxiety F41.9 Chronic low back pain M54.5; G89.29
[2019-08-10 13:22] VITALS: PULSE 83; O2SAT 96
[2019-08-10 13:42] VITALS: BP 121/81; PULSE 83; RESP 18; TEMP 36.7; O2SAT 96
== END 2019-08-10 14:28 | disposition home or self-care (01) ==
LOC: ER 07:12 → CSU 11:22
PROVIDERS: Admitting Provider Internal Medicine; Emergency Provider Family Medicine; Family Provider Electrodiagnostic Medicine; PCP Specialist; Visit Provider Internal Medicine
DX: I47.1 Supraventricular tachycardia (principal); R79.89 Other specified abnormal findings of blood chemistry; E87.6 Hypokalemia; I10 Essential (primary) hypertension; M10.9 Gout, unspecified; F41.9 Anxiety disorder, unspecified; I48.91 Unspecified atrial fibrillation; I25.2 Old myocardial infarction; R07.89 Other chest pain; G89.29 Other chronic pain; M54.5 Low back pain; Z79.82 Long term (current) use of aspirin
CPT/HCPCS: 12345; 36415; 71045; 80048; 80053; 80061; 83735; 84132; 84443; 84484; 85025; 93005; 93306; 96372; 96374; 99283; 99291; G0378; J0153; J1644

== ENCOUNTER 2019-08-19 08:01 | Outpatient (CLI) | payer MEDICARE, SELFPAY ==
--- NOTE | 2019-08-19 08:28 | ECG_ITS ---
NAME OF STUDY: LEXISCAN SESTAMIBI STRESS TEST INDICATION: Chest Pain, NOTE: Please note that this is the electrocardiogram portion of the Lexiscan/Sestamibi stress test. The perfusion scan will be documented separately. DATA: Baseline heart rate was 98 beats per minute. Baseline blood pressure was 146/90 millimeters of mercury. Target heart rate was 152. Maximum heart rate achieved was 122. which was 80 % of the predicted target heart rate. Maximum blood pressure was 166/95 millimeters of mercury. The reason for ending the test was completion of the protocol. The patient did not experience any symptoms. ELECTROCARDIOGRAM: BASELINE: Sinus rhythm. Normal axis. Otherwise, no ST-T changes suggestive of ischemia noted. No arrhythmia noted. EXERCISE: After Lexiscan injection, no ST-T changes suggestive of ischemic noted. No arrhythmia noted. 1. EKG not suggestive of ischemia 2. Lexiscan injection unremarkable. 3. Perfusion scan will be documented separately. Electronically Signed On 08-19-2019 10:22:14 MUSIC VIDEO DIRECTOR by Tommy Florian M.D. [id number]
--- NOTE | 2019-08-19 08:28 | NMCV_ITS ---
NM genesis perf SPECT r/s* [id number] Mindy Cueva Age: 69 Gender: F : 1950 Exam Date: 08/19/2019 09:16 Ordering Phys: Aditya Lange MD Technologist: KARON Mora Exam Location: [facility] Indications: Abnormal troponin, difficulty ambulating STRESS TEST Please see separate stress test report in [facility] for full findings IMAGE PROTOCOL Rest/Stress 1 Lexiscan Day Radiopharmaceutical Dose (mCi) Administration Site Administered by Rest: Tc-99m 10.5 IV KARON Mora Sestamibi Stress:Tc-99m 32.6 IV KARON Mora Sestamibi Rest: 19-Aug-2019 60 Discovery 630 Stress: 19-Aug-2019 60 Discovery 630 0.4mg Lexiscan. Images obtained in supine and prone position. SPECT RESULTS Technical Quality: Good Raw Data Analysis: Breast attenuation Image Corrections: Patient motion artifact - motion correction applied to supine stress images Summed Stress Score: 2 Summed Rest Score: 1 Summed Difference Score: 1 PERFUSION FINDINGS SPECT images demonstrate homogeneous tracer distribution throughout the myocardium. FUNCTIONAL RESULTS (calculated via Gated SPECT) Stress Image LV EF (%): 100 Stress EDV (mL):40 TID: 0.88 Stress ESV (mL):0 Rest Image LV EF (%): 95 FUNCTIONAL FINDINGS: There is normal left ventricular systolic function. IMPRESSIONS Myocardial perfusion imaging is normal and low probability for obstructive coronary artery disease. EKG segment will be document separately. Tommy Florian MD (Electronically Signed) Final Date: 19 August 2019 19:10 S
[2019-08-19 08:31] VITALS: BMI 28.5
[2019-08-19 10:03] VITALS: BP 165/86; PULSE 110
[2019-08-19] MEDS: regadenoson 0.4 Mg/5 ml Syringe IVP (10:03)
== END 2019-08-19 08:02 | disposition home or self-care (01) ==
LOC: CDL 08:04
PROVIDERS: Family Provider Electrodiagnostic Medicine; PCP Specialist; Visit Provider Internal Medicine
DX: R79.89 Other specified abnormal findings of blood chemistry (principal); R07.9 Chest pain, unspecified
CPT/HCPCS: 78452; 93017; A9500; J2785

== ENCOUNTER 2020-07-24 20:50 | Observation (INO) | payer MEDICARE, SELFPAY ==
[2020-07-24] VITALS (8 sets, daily range): BP systolic 124–182; BP diastolic 84–106; PULSE 92–141; RESP 17–20; TEMP 36.6–36.7; O2SAT 94–100; BMI 34.4
--- NOTE | 2020-07-24 21:03 | XRR_ITS ---
PROCEDURE INFORMATION: Exam: XR Chest, 1 View Exam date and time: 07/24/2020 9:24 PM Age: 70 years old Clinical indication: Chest pain; Type not specified; Additional info: Cp TECHNIQUE: Imaging protocol: XR of the chest Views: 1 view. COMPARISON: CR XR chest 1V portable [id number] 08/09/2019 7:34 AM FINDINGS: Lungs: Lungs are clear. Pleural space: There is no pleural effusion or pneumothorax. Heart/Mediastinum: There is a small sliding-type hiatal hernia. Cardiomediastinal contours are unremarkable. Bones/joints: Bones are unremarkable. XR/XR chest 1V portable [id number] IMPRESSION: 1. No acute findings. 2. Hiatal hernia.
--- NOTE | 2020-07-24 21:03 | ECG_ITS ---
[facility] Test Date: 2020-07-24 Pat Name: Mindy Cueva Department: Room: 259 Gender: Female Machine Pan Greaser: : 1950 Requested By: Jeremy Bridges Order Number: [id number] Antony MD: Juarez Gotti M.D. Measurements Intervals [place] Rate: 127 P: 46 MS: 148 QRS: -17 QRSD: 75 T: 53 QT: 312 QTc: 455 Interpretive Statements SINUS TACHYCARDIA INFERIOR MYOCARDIAL INFARCTION [40+ ms Q WAVE AND/OR ST/T ABNORMALITY IN II/aVF], OF INDETERMINATE AGE Compared to ECG 08/09/2019 14:07:41 Sinus tachycardia now present Electronically Signed On 07-25-2020 17:53:27 QUALITY IMPROVEMENT MANAGER by Juarez Gotti M.D. [id number]
[2020-07-24 21:28] LABS: Basophils # 0.1 10^3/uL (0.0-0.1); Basophils % 0.3 %; Eosinophils % 0.1 %; Hematocrit 22.2 % (37.0-47.0); Lymphocytes # 2.9 10^3/uL (0.8-4.8); Lymphocytes % 15.2 %; Mean Corpuscular HGB Conc 26.1 g/dL (30.0-36.0); Mean Corpuscular Hemoglobin 18.9 pg (28.0-34.0); Mean Corpuscular Volume 72.3 fL (81-99); Mean Platelet Volume 10.2 fL (7.4-10.4); Monocytes # 0.9 10^3/uL (0.2-0.9); Monocytes % 4.8 %; Neutrophils # 14.74 10^3/uL (1.8-7.7); Neutrophils % 77.8 %; Nucleated Red Blood Cells # 0.1 /100WBC; Nucleated Red Blood Cells % 0.6 %; Platelet Count 354 10^3/cmm (130-400); Red Blood Count 3.07 10^6/uL (4.1-5.3); Red Cell Distribution Width 19.9 % (12.1-15.1); White Blood Count 18.9 10^3/uL (4.0-10.0)
[2020-07-24] MEDS: metoprolol tartrate 1 mg/1 mL SDV 5 mL 5 MG IV (21:31)
[2020-07-24 21:41] LABS: INR 1.06 (0.8-1.2)
[2020-07-24 21:44] LABS: D Dimer 0.74 ug/mIFEU (0-0.59)
[2020-07-24 21:49] LABS: Troponin(5th) Baseline 7 ng/L (0-10)
--- NOTE | 2020-07-24 21:52 | PC.NURSE ---
Pt c/o about feeling weak and just out of it .
[2020-07-24 21:54] LABS: Hemoglobin 5.8 g/dL (11.5-15.3)
[2020-07-24 21:57] LABS: Alanine Aminotransferase 13 U/L (0-33); Albumin Level 3.9 g/dL (3.5-5.2); Alkaline Phosphatase 87 IU/L (35-105); Blood Urea Nitrogen 31 mg/dL (8-23); Calcium 8.9 mg/dL (8.5-10.5); Carbon Dioxide 21 mmol/L (22-29); Chloride 98 mmol/L (98-107); Creatine Phosphokinase 46 U/L (26-192); Globulin 2.4 g/dL (1.3-4.6); Glomerular Filtration Rate 62.1 mL/min (90-130); Glucose 264 mg/dL (65-115); NT Pro B Type Natriuretic Pept 67 pg/mL (0-125); Osmolality Calculated 296 mOsm/kg (285-295); Sodium 135 mmol/L (136-145); Thyroid Stimulating Hormone 2.16 uIU/mL (0.27-4.20); Total Bilirubin 0.3 mg/dL (0.15-1.2); Total Protein 6.3 g/dL (6.6-8.7)
[2020-07-24 22:00] LABS: Anion Gap 20.9 (5-19); Aspartate Amino Transferase 30 U/L (0-32); Potassium 4.9 mmol/L (3.5-5.1)
--- NOTE | 2020-07-24 22:21 | PC.NURSE ---
Pt aware of low blood count, has hx of anemia with testing and no answer why per pt.
--- NOTE | 2020-07-24 22:39 | W.ED.CHESTPA ---
HPI - Chest Pain General: Chief Complaint: Chest Pain Stated Complaint: covid+ on 06/23/chest pressure/sob Time Seen by Provider: 07/24/20 21:02 History of Present Illness: HPI narrative: 70-year-old female with no prior history of coronary disease. She presents with chest discomfort radiating down her left arm today. She has been short of breath increasing over the past 4 to 6 weeks. She was tested positive for COVID-19 on 06/23. She says she has been sick since 2-weeks before then, but has progressively and slowly gotten worse. She has noticed significant shortness of breath even with trying to make it down the [place]ro in her house or to the bathroom. She complains of generalized weakness. Her daughter has noted that she is pale as well. He does have a history of anemia but does not know what her last or most recent blood count was. She does have a history of PSVT. MD complaint: chest pain Pertinent past history: other Onset (ago): day(s) Timing of current episode: episodic and increasing Prior episodes: No Onset: during rest and during exertion Pain location: left chest Pain radiation: left arm Quality: heaviness Relieving factors: nothing Exacerbating factors: exertion Context: recent illness Associated symptoms: Reports dyspnea; Deny fever(s), nausea, palpitations or vomiting Review of Systems Const: Denies: fever(s) or chills Eyes: Denies: change in vision Card: Reports: chest pain; Denies: palpitations, edema or swelling of feet/ankles Resp: Reports: dyspnea GI: Denies: nausea or vomiting Neuro: Reports: weakness in extremities; Denies: numbness in extremities [facility] ED PFSH: Medical History (Updated 07/25/20 @ 02:03 by Jeremy Saldivar DO) Acute non-ST elevation myocardial infarction (NSTEMI) Anxiety Atrial fibrillation Chronic low back pain Family history of heart disease Gout HTN (hypertension) Hyperlipidemia Paroxysmal SVT (supraventricular tachycardia) Surgical History (Updated 07/25/20 @ 00:58 by Tommy Carrington MD) History of appendectomy History of back surgery History of cholecystectomy S/P shoulder surgery left Status post glaucoma surgery Status post right knee replacement Family History Mother Cerebral hemorrhage Myocardial infarction Social History Smoking and tobacco status: never smoked Alcohol intake: never Household members: spouse Marital status: Current occupational status: retired Physical Exam Const: GENERAL APPEARANCE: ill appearing and other (pale) ORIENTATION/CONSCIOUSNESS: Yes oriented to person, Yes oriented to place and Yes oriented to time HENMT: COMMON NORMALS: normocephalic, external ears normal and Normal external nose present HEAD & SCALP: normocephalic FACE & SINUS: normal facial exam NOSE: Normal external nose present and No nasal discharge present EXTERNAL EAR: Yes external ears normal Eye: COMMON NORMALS: Equal, round and reactive pupils present, EOMs intact bilaterally and conjunctivae normal EYELID: eyelids normal CONJUNCTIVA: Yes conjunctivae normal PUPIL: Yes Equal, round and reactive pupils present Neck/C-Spine: GENERAL: No tracheal deviation Chest: COMMONS NORMALS: normal inspection of the chest CHEST: No tenderness Resp: COMMON NORMALS: clear to auscultation bilaterally EFFORT & INSPECTION: Yes tachypneic, No respiratory distress, No retractions, No uses accessory muscles and No tracheal deviation AUSCULTATION: clear to auscultation bilaterally, no rhonchi, no wheezes and lung sounds not diminished Cardio: COMMON NORMALS: regular rate and regular rhythm RATE: regular rate and tachycardic RHYTHM: regular rhythm HEART SOUNDS: Murmur heart sound present (flow) PERIPHERAL PULSES: radial pulses present GI: INSPECTION: No abdominal distension AUSCULTATION: No Hyperactive bowel sounds present and No Hypoactive bowel sounds present PALPATION: No Guarding due to palpation present (GI) and No Rigid due to palpation PERCUSSION: no dullness to percussion and no tympanic to percussion Neuro: SENSORIUM/ORIENTATION: Yes oriented to person, Yes oriented to place and Yes oriented to time Psych: COMMON NORMALS: mental status grossly normal Skin: COMMON NORMALS: no rashes or lesions noted GENERAL SKIN EXAM: no rashes or lesions noted Course Consultations: Consultation #1: marina Vital Signs: Vital signs: Vital Signs Temperature 97.6 F 07/25/20 01:30 Pulse Rate 114 H 07/25/20 01:30 Respiratory Rate 18 07/25/20 01:30 Blood Pressure 156/86 07/25/20 01:30 Pulse Oximetry 96 07/25/20 01:30 MDM - Chest Pain MDM Narrative: Medical decision making narrative: 70-year-old female with increasing shortness of breath and chest pain. Her EKG showed a sinus tachycardia without acute ST change. Her white blood cell count is 18.9. She has been on steroids, however. Her hemoglobin is 5.8. This is likely the cause of most of her symptoms. Her chest x-ray is negative for any acute change. She is crossmatched for 2 units of blood. She will be observed in the hospital for transfusion and further anemia work-up. Lab Data: Labs: Lab Results 07/24/20 07/24/20 07/24/20 Range/Units 21:20 21:20 21:20 WBC 18.9 H (4.0-10.0) 10^3/ uL RBC 3.07 L (4.1-5.3) 10^6/u L Hgb 5.8 L* (11.5-15.3) g/dL Hct 22.2 L (37.0-47.0) % MCV 72.3 L (81-99) fL MCH 18.9 L (28.0-34.0) pg MCHC 26.1 L (30.0-36.0) g/dL RDW 19.9 H (12.1-15.1) % Plt Count 354 (130-400) 10^3/c mm MPV 10.2 (7.4-10.4) fL Neut % (Auto) 77.8 % Lymph % (Auto) 15.2 % [place] % (Auto) 4.8 % Eos % (Auto) 0.1 % Baso % (Auto) 0.3 % Neut # (Auto) 14.74 H (1.8-7.7) 10^3/u L Lymph # (Auto) 2.9 (0.8-4.8) 10^3/u L [place] # (Auto) 0.9 (0.2-0.9) 10^3/u L Eos # (Auto) 0.0 (0.0-0.8) 10^3/u L Baso # (Auto) 0.1 (0.0-0.1) 10^3/u L Nucleated RBC % (a uto) 0.6 % Nucleated RBCs # 0.1 /100WBC PT 14.10 (12.1-14.9) SECO NDS INR 1.06 (0.8-1.2) APTT 25.0 (23.9-36.7) SECO NDS D-Dimer 0.74 H (0-0.59) ug/mIFE U Sodium 135 L (136-145) mmol/L Potassium 4.9 (3.5-5.1) mmol/L Chloride 98 (98-107) mmol/L Carbon Dioxide 21 L (22-29) mmol/L Anion Gap 20.9 H (5-19) BUN 31 H (8-23) mg/dL Creatinine 0.9 (0.5-0.9) mg/dL GFR Calculation 62.1 L (90-130) mL/min Glucose 264 H (65-115) mg/dL Calculated Osmolal ity 296 H (285-295) mOsm/k g Calcium 8.9 (8.5-10.5) mg/dL Iron (37-145) ug/dL TIBC mcg/dl % Saturation (20-50) % Unsat Iron Binding (112-347) ug/dL Ferritin (15-150) ng/mL Total Bilirubin 0.3 (0.15-1.2) mg/dL AST 30 (0-32) U/L ALT 13 (0-33) U/L Alkaline Phosphata se 87 (35-105) IU/L Creatine Kinase 46 (26-192) U/L Troponin T Baselin e (0-10) ng/L Troponin T 120 Min [place] (0-10) ng/L Delta Troponin T (0-10) ABS# NT-Pro-B Natriuret Pep 67 (0-125) pg/mL Total Protein 6.3 L (6.6-8.7) g/dL Albumin 3.9 (3.5-5.2) g/dL Globulin 2.4 (1.3-4.6) g/dL Vitamin B12 (232-1245) pg/mL TSH 2.16 (0.27-4.20) uIU/ mL Blood Type Rho(D) Type Antibody Screen Crossmatch 07/24/20 07/24/20 07/24/20 Range/Units 21:20 21:20 22:08 WBC (4.0-10.0) 10^3/ uL RBC (4.1-5.3) 10^6/u L Hgb (11.5-15.3) g/dL Hct (37.0-47.0) % MCV (81-99) fL MCH (28.0-34.0) pg MCHC (30.0-36.0) g/dL RDW (12.1-15.1) % Plt Count (130-400) 10^3/c mm MPV (7.4-10.4) fL Neut % (Auto) % Lymph % (Auto) % [place] % (Auto) % Eos % (Auto) % Baso % (Auto) % Neut # (Auto) (1.8-7.7) 10^3/u L Lymph # (Auto) (0.8-4.8) 10^3/u L [place] # (Auto) (0.2-0.9) 10^3/u L Eos # (Auto) (0.0-0.8) 10^3/u L Baso # (Auto) (0.0-0.1) 10^3/u L Nucleated RBC % (a uto) % Nucleated RBCs # /100WBC PT (12.1-14.9) SECO NDS INR (0.8-1.2) APTT (23.9-36.7) SECO NDS D-Dimer (0-0.59) ug/mIFE U Sodium (136-145) mmol/L Potassium (3.5-5.1) mmol/L Chloride (98-107) mmol/L Carbon Dioxide (22-29) mmol/L Anion Gap (5-19) BUN (8-23) mg/dL Creatinine (0.5-0.9) mg/dL GFR Calculation (90-130) mL/min Glucose (65-115) mg/dL Calculated Osmolal ity (285-295) mOsm/k g Calcium (8.5-10.5) mg/dL Iron 17 L (37-145) ug/dL TIBC 478 mcg/dl % Saturation 3.5 L (20-50) % Unsat Iron Binding 461 H (112-347) ug/dL Ferritin 5 L (15-150) ng/mL Total Bilirubin (0.15-1.2) mg/dL AST (0-32) U/L ALT (0-33) U/L Alkaline Phosphata se (35-105) IU/L Creatine Kinase (26-192) U/L Troponin T Baselin e 7 (0-10) ng/L Troponin T 120 Min [place] (0-10) ng/L Delta Troponin T (0-10) ABS# NT-Pro-B Natriuret Pep (0-125) pg/mL Total Protein (6.6-8.7) g/dL Albumin (3.5-5.2) g/dL Globulin (1.3-4.6) g/dL Vitamin B12 290 (232-1245) pg/mL TSH (0.27-4.20) uIU/ mL Blood Type O Positive Rho(D) Type Positive Antibody Screen Negative Crossmatch See Detail 07/24/20 Range/Units 23:04 WBC (4.0-10.0) 10^3/ uL RBC (4.1-5.3) 10^6/u L Hgb (11.5-15.3) g/dL Hct (37.0-47.0) % MCV (81-99) fL MCH (28.0-34.0) pg MCHC (30.0-36.0) g/dL RDW (12.1-15.1) % Plt Count (130-400) 10^3/c mm MPV (7.4-10.4) fL Neut % (Auto) % Lymph % (Auto) % [place] % (Auto) % Eos % (Auto) % Baso % (Auto) % Neut # (Auto) (1.8-7.7) 10^3/u L Lymph # (Auto) (0.8-4.8) 10^3/u L [place] # (Auto) (0.2-0.9) 10^3/u L Eos # (Auto) (0.0-0.8) 10^3/u L Baso # (Auto) (0.0-0.1) 10^3/u L Nucleated RBC % (a uto) % Nucleated RBCs # /100WBC PT (12.1-14.9) SECO NDS INR (0.8-1.2) APTT (23.9-36.7) SECO NDS D-Dimer (0-0.59) ug/mIFE U Sodium (136-145) mmol/L Potassium (3.5-5.1) mmol/L Chloride (98-107) mmol/L Carbon Dioxide (22-29) mmol/L Anion Gap (5-19) BUN (8-23) mg/dL Creatinine (0.5-0.9) mg/dL GFR Calculation (90-130) mL/min Glucose (65-115) mg/dL Calculated Osmolal ity (285-295) mOsm/k g Calcium (8.5-10.5) mg/dL Iron (37-145) ug/dL TIBC mcg/dl % Saturation (20-50) % Unsat Iron Binding (112-347) ug/dL Ferritin (15-150) ng/mL Total Bilirubin (0.15-1.2) mg/dL AST (0-32) U/L ALT (0-33) U/L Alkaline Phosphata se (35-105) IU/L Creatine Kinase (26-192) U/L Troponin T Baselin e (0-10) ng/L Troponin T 120 Min [place] 8.21 (0-10) ng/L Delta Troponin T 1.21 (0-10) ABS# NT-Pro-B Natriuret Pep (0-125) pg/mL Total Protein (6.6-8.7) g/dL Albumin (3.5-5.2) g/dL Globulin (1.3-4.6) g/dL Vitamin B12 (232-1245) pg/mL TSH (0.27-4.20) uIU/ mL Blood Type Rho(D) Type Antibody Screen Crossmatch Discharge Plan Discharge Patient Disposition: Admitted As Inpatient Admit Provider: Tommy Carrington Clinical Impression: Acute on chronic anemia Chest pain Qualifiers: Chest pain type: unspecified Qualified Code(s): R07.9 - Chest pain, unspecified Condition: Stable Coding Level of Care Code ED Mandarin Chinese Teacher for g Fwd Exam Comprehensive
--- NOTE | 2020-07-24 23:03 | ECG_ITS ---
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 Measurements Intervals [place] Rate: 94 P: 38 DE: 155 QRS: -5 QRSD: 73 T: 41 QT: 346 QTc: 434 Interpretive Statements SINUS RHYTHM POSSIBLE RIGHT VENTRICULAR CONDUCTION DELAY [RSR (QR) IN V1/V2] MINIMAL VOLTAGE CRITERIA FOR LVH, CONSIDER NORMAL VARIANT [MEETS CRITERIA IN ONE OF: R(aVL), S(V1), R(V5), R(V5/V6)+S(V1)] SEPTAL MYOCARDIAL INFARCTION , OF INDETERMINATE AGE [40+ ms Q WAVE IN V1/V2] Compared to ECG 08/09/2019 14:07:41 No significant changes Electronically Signed On 07-25-2020 18:00:46 FIREFIGHTER by Juarez Gotti M.D. [id number]
[2020-07-24] MEDS: acetaminophen 325 mg Tablet 650 MG PO (23:28)
[2020-07-24] MEDS: diphenhydrAMINE 50 mg/mL SDV 1mL 12.5 MG IVP (23:28)
[2020-07-24] MEDS: sodium chloride 0.9% 100 mL Bag 50 ML IV (23:29)
--- NOTE | 2020-07-24 23:33 | P.HP_ITS ---
Providers/Chief Complaint Primary Care Provider: Joseline Dominique APN Chief Complaint: covid+ on 06/23/chest pressure/sob History of Present Illness Mindy Cueva is a 70 year old female who has history of chronic microcytic anemia recently had EGD and colonoscopy about 3 months ago which revealed normal EGD and 3 polyps were removed, tubular adenoma, presented today with chief complaint of generalized fatigue and presyncope. Patient is stating that her hemoglobin has been trickling down for last 6 months for which she went for EGD and colonoscopy that was done at [place]. She is currently not taking any iron tablets. She has not noticed any hematuria, hematemesis, hemoptysis, dark-colored stool or bright bleed per rectum. No history of splenomegaly, bone marrow cancers, she is endorsing adequate p.o. intake, no po stmenopausal bleeding. Today when she was in the shower she started feeling extremely short of breath and weak, she thought she will pass out hence she supported herself in the bathroom, she also experienced diaphoresis, chest discomfort which was radiating towards left arm she is describing as achy in nature, it lasted until she rested, she also felt nauseous but no vomiting. She was in the middle of her shower when all these events took place. Due to these concerns she decided to come to the hospital for further evaluation. She did not experience any syncopal events. Currently she is only taking baby aspirin otherwise not taking NSAIDs. There is history of peptic ulcer disease or H. pylori infection. Of note, she was tested positive for COVID-19 pneumonia on 06/23 for which she has received ceftriaxone, azithromycin and steroid burst course. Diagnostics in the ER revealed leukocytosis, hemoglobin 5.8, microcytosis, no active bleeding was noticed, anion gap 20.9, iron panel was requested which is consistent with iron deficiency anemia x-ray unremarkable other than hiatal jean ia, TSH normal, negative EKG for any ischemia or infarction, troponins not significantly high Review of Systems Const: Reports: chills, body aches, fatigue and malaise; Denies: fever(s) Eyes: Denies: change in vision ENMT: Denies: throat pain Card: Reports: chest pain and dyspnea on exertion; Denies: irregular heart rhythm, swelling of feet/ankles or orthopnea Resp: Reports: dyspnea GI: Reports: nausea; Denies: abdominal pain, diarrhea or constipation : Denies: flank pain Musc: Denies: neck pain or extremity swelling Skin/Breast: Denies: skin tenderness or sores Neuro: Denies: headache(s) Psych: Denies: anxiety Endo: Denies: polyuria Sergey/Lymph: Denies: easy bruising All/Imm: Denies: urticaria Medications/Allergies Home Medications Medication Instructions Recorded Confirmed Last Taken Type alprazolam 0.5 mg PO BID PRN 08/09/19 02/17/20 08/08/19 History tramadol 50 mg PO Q4H PRN 08/09/19 02/17/20 Unknown History atorvastatin 40 mg PO QPM #30 tab 08/10/19 02/17/20 Unknown Rx magnesium chloride [Slow-Mag] 71.5 mg PO BID #20 tab 08/10/19 02/17/20 Unknown Rx potassium chloride [Klor-Con M20] 20 meq PO DAILY #7 tab 08/10/19 02/17/20 Unknown Rx aspirin 81 mg tablet,delayed 81 mg PO QDAY 08/20/19 02/17/20 Unknown History release lisinopril 20 mg tablet 20 mg PO QDAY 08/20/19 02/17/20 Unknown History nitroglycerin 0.4 mg sublingual 0.4 mg SUBLINGUAL DIRECTED tab 08/20/19 02/17/20 Unknown History tablet allopurinol 100 mg tablet 300 mg PO DAILY tab 02/17/20 02/17/20 Unknown History metoprolol tartrate 50 mg tablet 50 mg PO BID #180 tab 02/17/20 02/17/20 Unknown Rx pantoprazole 40 mg tablet,delayed 40 mg PO DAILY tab 02/17/20 02/17/20 Unknown History release triamterene 37.5 1 tab PO DAILY PRN tab 02/17/20 02/17/20 Unknown History mg-hydrochlorothiazide 25 mg tablet Allergies Allergy/AdvReac Type Severity Reaction Status Date / Time No Known Allergies Allergy Verified 02/17/20 15:08 PFSH Acute PFSH: Medical History Acute non-ST elevation myocardial infarction (NSTEMI) Anxiety Atrial fibrillation Chronic low back pain Gout HTN (hypertension) Hyperlipidemia Paroxysmal SVT (supraventricular tachycardia) Surgical History History of appendectomy History of back surgery History of cholecystectomy Status post right knee replacement Family History Mother Cerebral hemorrhage Myocardial infarction Social History Smoking and tobacco status: never smoked Alcohol intake: never Household members: spouse Marital status: Current occupational status: retired Vitals/I&O/Wt Last Vital Signs Temp 98.0 F 07/24/20 20:57 Pulse 96 07/24/20 22:30 Resp 20 H 07/24/20 22:30 BP 129/85 07/24/20 22:30 Pulse Ox 98 07/24/20 22:30 Weight last 48 hrs Weight 99.79 kg Physical Exam Narrative: EXAM NARRATIVE: Very pleasant middle-aged female Well-hydrated, well-built, no active distress S1, S2 no sinus tachycardia or signs of heart failure Abdomen soft nontender bowel sound present Right focal point tenderness around right subcostal area Pallor positive no sign of active bleeding Lower extremity no edema gangrene ulcer No neurological deficit Appropriate mood and affect Awake alert oriented x3 GCS 15 Bilateral breath sounds without adventitious rhonchi or crackles No active joint pains or swelling Data : 07/24/20 21:20 07/24/20 21:20 A&P Assessment and plan (1) Microcytic anemia: Status: Acute (2) Acute on chronic anemia: Status: Acute Additional A&P Information Acute on chronic microcytic anemia In July last year her hemoglobin was 10 current hemoglobin 5.8 Symptomatic anemia Recent EGD colonoscopy did not reveal active source of bleeding No history of GI cancer Not taking NSAIDs no history of peptic ulcer disease liver cirrhosis, hepatitis Iron panel is consistent with iron deficiency anemia B12 low normal will request methylmalonic acid level and folic acid level I do suspect leukocytosis is compensated response to anemia no active signs of sepsis or infection Protonix 40 IV twice daily N.p.o. Transfuse 2 units PRBC Requested fecal occult blood test, patient denying any active source of b leeding, dark stool or bright bleed per rectum No splenomegaly on clinical exam, her diet includes multivitamin, does not look cachectic, she is well-built with high BMI I do not suspect poor p.o. intake or malabsorption to be the cause of ideations anemia No active signs of hemolytic anemia bilirubin normal Hemodynamically stable, I do suspect this is chronic bleeding, there is no bone marrow suppression signs, no active signs of infection, she would benefit from enteroscopy Recent COVID-19 pneumonia Received ceftriaxone azithromycin and steroid burst therapy Short-term steroid therapy would unlikely to cause gastric ulcer and bleeding Chest discomfort: I do believe this is secondary to anemia due to increase work of heart, EKG without ischemic or infarctive changes troponin not significantly high DVT prophylaxis SCDs N.p.o. Full code Attestations Medical Necessity Statement*: Anticipating discharge in less than 48 hours need blood transfusion for symptomatic anemia Time Spent in Patient Care: (>than 50% of time spent in counselling and/or direct pt care on unit) . 50mins Coding Level of Care Code Acute Curing Machine Operator for Chg Fwd Diagnoses Microcytic anemia D50.9 Acute on chronic anemia D64.9
[2020-07-24 23:38] LABS: Troponin 5 2HR 8.21 ng/L (0-10); Troponin 5 2HR Delta 1.21 ABS# (0-10)
--- NOTE | 2020-07-24 23:47 | PC.NURSE ---
Verified blood transfusion, with LATRELL Kurtz. Pt signed consent and review S/S of reaction to blood transfusion. Pt pre-medicated with Bendryl and Tylenol
--- NOTE | 2020-07-24 23:52 | PC.NURSE ---
Admitting provider at bedside
[2020-07-25] VITALS (17 sets, daily range): BP systolic 102–156; BP diastolic 67–95; PULSE 73–114; RESP 12–21; TEMP 36.4–37.4; O2SAT 92–99
[2020-07-25] LABS: Ferritin 5 ng/mL (15-150); Iron 17 ug/dL (37-145)
[2020-07-25 00:02] LABS: Percent Saturation 3.5 % (20-50); Total Iron Binding Capacity 478 mcg/dl; Unsaturated Iron Binding 461 ug/dL (112-347)
[2020-07-25 00:15] LABS: Vitamin B12 290 pg/mL (232-1245)
--- NOTE | 2020-07-25 01:05 | PC.NURSE ---
blood completed no Reaction noted. Pt stated I feel better Less weakness
[2020-07-25 02:03] LABS: Folate Level 18.3 ng/mL (4.8-37.3)
[2020-07-25] MEDS: lisinopril 20 mg Tablet PO ×2 (03:09→08:44)
[2020-07-25 06:59] LABS: Basophils # 0.1 10^3/uL (0.0-0.1); Basophils % 0.3 %; Eosinophils # 0.1 10^3/uL (0.0-0.8); Eosinophils % 0.5 %; Hematocrit 26.9 % (37.0-47.0); Lymphocytes # 3.5 10^3/uL (0.8-4.8); Lymphocytes % 24.5 %; Mean Corpuscular HGB Conc 28.6 g/dL (30.0-36.0); Mean Corpuscular Hemoglobin 21.5 pg (28.0-34.0); Mean Corpuscular Volume 75.1 fL (81-99); Mean Platelet Volume 9.6 fL (7.4-10.4); Monocytes % 7.1 %; Neutrophils # 9.48 10^3/uL (1.8-7.7); Nucleated Red Blood Cells # 0.1 /100WBC; Nucleated Red Blood Cells % 0.8 %; Platelet Count 276 10^3/cmm (130-400); Red Blood Count 3.58 10^6/uL (4.1-5.3); Red Cell Distribution Width 19.4 % (12.1-15.1); White Blood Count 14.4 10^3/uL (4.0-10.0)
[2020-07-25 07:12] LABS: Hemoglobin 7.7 g/dL (11.5-15.3)
[2020-07-25 07:57] LABS: Blood Urea Nitrogen 28 mg/dL (8-23); Calcium 8.7 mg/dL (8.5-10.5); Carbon Dioxide 26 mmol/L (22-29); Chloride 103 mmol/L (98-107); Glomerular Filtration Rate 71.1 mL/min (90-130); Glucose 123 mg/dL (65-115); Osmolality Calculated 295 mOsm/kg (285-295); Sodium 139 mmol/L (136-145)
[2020-07-25 07:58] LABS: Troponin 5 6HR 8.68 ng/L (0-10)
[2020-07-25 08:12] LABS: Troponin 5 6HR Delta 1.7 ng/L (0-12)
[2020-07-25] MEDS: pantoprazole 40 mg SDV IVP ×2 (08:43→23:41)
[2020-07-25] MEDS: cyanocobalamin 1,000 mcg Tablet 500 MCG PO (08:44)
[2020-07-25] MEDS: metoprolol tartrate 50 mg Tablet PO ×2 (08:44→17:24)
--- NOTE | 2020-07-25 10:59 | P.PN_ITS ---
Subjective Subjective: Interval history: Deny any SOB,dizziness, chest pain, nausea, vomiting, black stool.BRBPR. S/P 2 U PRBC . Vitals and labs have been reviewed Vitals/I&O/Wt Last Vital Signs Temp 97.9 F 07/25/20 08:00 Pulse 86 07/25/20 08:00 Resp 16 07/25/20 08:00 BP 120/79 07/25/20 08:00 Pulse Ox 95 07/25/20 08:00 07/24/20 07/25/20 07/25/20 22:59 06:59 14:59 Intake Total 700 / 700 Output Total 200 / 200 Balance 500 / 500 Weight last 48 hrs Weight 99.79 kg Physical Exam Const: COMMON NORMALS: patient oriented x3 HENMT: COMMON NORMALS: normocephalic, atraumatic, hearing grossly normal bilaterally and external ears normal HEAD & SCALP: normocephalic and atraumatic EXTERNAL EAR: Yes external ears normal Eye: COMMON NORMALS: no scleral icterus GENERAL EYE: appearance normal, both eyes and all related structures Chest: COMMONS NORMALS: normal inspection of the chest and normal palpation of entire chest wall CHEST: Yes Symmetrical chest wall rise Resp: COMMON NORMALS: normal respiratory effort, No retractions, No use of accessory muscles and clear to auscultation bilaterally EFFORT & INSPECTION: Yes symmetric chest movement AUSCULTATION: clear to auscultation bilaterally Cardio: COMMON NORMALS: regular rate, regular rhythm, S1 normal heart sound present, S2 normal heart sound present, No gallops present (Cardio), No murmurs present (Cardio), No rub (Cardio) and Peripheral pulses 2+ throughout RATE: regular rate RHYTHM: regular rhythm HEART SOUNDS: S1 normal heart sound present and S2 normal heart sound present PERIPHERAL PULSES: Peripheral pulses 2+ throughout GI: COMMON NORMALS: Normal to inspection, nondistended, normoactive bowel sounds present, Soft to palpation, non-tender, No hepatosplenomegaly present and no masses AUSCULTATION: Yes normoactive bowel sounds PALPATION: Yes Soft to palpation and Yes No hepatosplenomegaly present RECTAL EXAM: deferred Extremity: COMMON NORMALS: no clubbing, cyanosis or edema and no pedal edema Neuro: COMMON NORMALS: patient oriented x3 Data : 07/25/20 06:42 07/25/20 06:42 A&P Assessment and plan (1) Microcytic anemia: Severe Symptomatic Microcytic IVAN Status: Acute (2) Acute on chronic anemia: Status: Acute Additional A&P Information Acute on chronic microcytic anemia In July last year her hemoglobin was 10 current hemoglobin 5.8 Symptomatic anemia Recent EGD colonoscopy did not reveal active source of bleeding No history of GI cancer Not taking NSAIDs no history of peptic ulcer disease liver cirrhosis, hepatitis Iron panel is consistent with iron deficiency anemia B12 low normal will request methylmalonic acid level and folic acid level I do suspect leukocytosis is compensated response to anemia no active signs of sepsis or infection Protonix 40 IV twice daily Transfuse 2 units PRBC Requested fecal occult blood test, patient denying any active source of bleeding, dark stool or bright bleed per rectum No splenomegaly on clinical exam, her diet includes multivitamin, does not look cachectic, she is well-built with high BMI I do not suspect poor p.o. intake or malabsorption to be the cause of ideations anemia No active signs of hemolytic anemia bilirubin normal Hemodynamically stable, I do suspect this is chronic bleeding, there is no bone marrow suppression signs, no active signs of infection, she would benefit from enteroscopy Recent COVID-19 pneumonia Received ceftriaxone azithromycin and steroid burst therapy Short-term steroid therapy would unlikely to cause gastric ulcer and bleeding Chest discomfort: I do believe this is secondary to anemia due to increase work of heart, EKG without ischemic or infarctive changes troponin not significantly high DVT prophylaxis SCDs CLD . Full code Attestations Medical Necessity Statement*: Patient needs to be in hospital for the management of severe Iron deficiency anemia Coding Level of Care Code Acute Help Desk Assistant for [facility] Fwd Diagnoses Microcytic anemia D50.9 Acute on chronic anemia D64.9
[2020-07-25] MEDS: ferric carboxy (IVPB) 750 MG in sodium chloride 0.9% (100 ml) 100 ML 460 MG IV (14:15)
[2020-07-25] MEDS: cyanocobalamin 1,000 mcg/mL SDV 1000 MCG SUBCUT (22:16)
[2020-07-26] VITALS: BP 105/68; PULSE 67; RESP 18; TEMP 36.6; O2SAT 92
[2020-07-26 04:00] VITALS: BP 103/70; PULSE 69; RESP 18; TEMP 36.6; O2SAT 94
[2020-07-26 05:38] LABS: Basophils # 0.1 10^3/uL (0.0-0.1); Basophils % 0.6 %; Eosinophils # 0.3 10^3/uL (0.0-0.8); Eosinophils % 2.2 %; Hematocrit 27.4 % (37.0-47.0); Hemoglobin 7.7 g/dL (11.5-15.3); Lymphocytes # 3.3 10^3/uL (0.8-4.8); Lymphocytes % 27.8 %; Mean Corpuscular HGB Conc 28.1 g/dL (30.0-36.0); Mean Corpuscular Hemoglobin 21.6 pg (28.0-34.0); Mean Corpuscular Volume 76.8 fL (81-99); Mean Platelet Volume 9.7 fL (7.4-10.4); Monocytes # 0.9 10^3/uL (0.2-0.9); Monocytes % 7.2 %; Neutrophils # 7.22 10^3/uL (1.8-7.7); Nucleated Red Blood Cells # 0.1 /100WBC; Nucleated Red Blood Cells % 0.7 %; Platelet Count 266 10^3/cmm (130-400); Red Blood Count 3.57 10^6/uL (4.1-5.3); Red Cell Distribution Width 20.4 % (12.1-15.1); White Blood Count 11.8 10^3/uL (4.0-10.0)
[2020-07-26 06:11] LABS: Alanine Aminotransferase 8 U/L (0-33); Albumin Level 3.5 g/dL (3.5-5.2); Alkaline Phosphatase 71 IU/L (35-105); Anion Gap 12.8 (5-19); Aspartate Amino Transferase 10 U/L (0-32); Blood Urea Nitrogen 24 mg/dL (8-23); Calcium 8.6 mg/dL (8.5-10.5); Carbon Dioxide 25 mmol/L (22-29); Chloride 102 mmol/L (98-107); Globulin 2.3 g/dL (1.3-4.6); Glomerular Filtration Rate 49.2 mL/min (90-130); Glucose 102 mg/dL (65-115); Osmolality Calculated 286 mOsm/kg (285-295); Potassium 3.8 mmol/L (3.5-5.1); Sodium 136 mmol/L (136-145); Total Bilirubin 0.4 mg/dL (0.15-1.2); Total Protein 5.8 g/dL (6.6-8.7)
[2020-07-26 08:00] VITALS: BP 106/69; PULSE 65; RESP 18; TEMP 36.3; O2SAT 94
[2020-07-26] MEDS: pantoprazole DR 40 mg Tablet PO ×2 (08:34→18:38)
[2020-07-26] MEDS: cyanocobalamin 1,000 mcg Tablet 500 MCG PO (08:34)
[2020-07-26] MEDS: metoprolol tartrate 50 mg Tablet PO ×2 (08:34→18:38)
[2020-07-26] MEDS: lisinopril 20 mg Tablet PO (08:34)
--- NOTE | 2020-07-26 11:00 | PC.NURSE ---
Front Desk Auxiliary entered patient room for rounding. Patient asked when physician was going to be in to see her today. I informed patient that she had a different hospitalist from yesterday. The name of the hospitalists that would be seeing her today was Dr. Marinelli. I explained to patient that sometimes doctors have complicated cases on other floors of the hospital and they get caught up with them. I assured patient that Dr. Marinelli would be in to see her as soon as she could.
[2020-07-26 12:00] VITALS: BP 110/73; PULSE 67; RESP 16; TEMP 36.6; O2SAT 93
--- NOTE | 2020-07-26 14:00 | PC.NURSE ---
Patient called nurse into room and voiced that she was upset a doctor had not been in to see her yet. Patient stated that her daughters have tried to call up here and get an update on what is going on and they have gotten nowhere. I apologized to patient and informed her that I was unaware that they had tried calling to speak with me but I would make sure to reach out to them barbie and update them the best I could. I also informed patient that I would be contacting Dr. Marinelli and get an update as to when she may be up to the floor to see patient. Patient appreciative. Dr. Marinelli notified that patient was becoming upset and would like to be seen soon. Dr. Marinelli presented to the floor and spoke to this nurse in person in regards to patient's case. Dr. Marinelli stated that she had a few other patient's to see and then she would go to see patient.
--- NOTE | 2020-07-26 15:29 | PM.PN ---
Subjective Subjective: Interval history: Chart reviewed, VSS, afebrile, stable Hg at 7.7, noted slight worsening in Cr today. at bedside, patient tearful and upset as apparently she assumed she was going to be seen by provider earlier this AM and reports that she does not know what is going on despite being hospitalized for 2 days. This provider attempted to explain care plan, with constant interruptions from patient and , stating they should have sought care at [facility] where she was seen previously. Eventually asked provider to leave and want to be discharged. About an hour later, contacted by patient care nurse who states that patient would now like alternative provider. Given time ([id number]), will need to follow up on this in the morning. Medications: Reviewed: Yes Medication Review Details: Active Medications Generic Name Dose Route Start Last Admin Trade Name Freq PRN Reason Stop Dose Admin Alprazolam 0.5 mg 07/25/20 01:22 Alprazolam 0.5 M g Tablet PO BID PRN Anxiety Atorvastatin Calci um 40 mg 07/25/20 18:00 07/25/20 17:30 Atorvastatin 40 Mg Tablet PO Not Given QPM DARRICK Cyanocobalamin 500 mcg 07/25/20 09:00 07/26/20 08:34 Cyanocobalamin 1 ,000 Mcg Tablet PO 500 mcg DAILY DARRICK Administration Cyanocobalamin 1,000 mcg 07/25/20 21:00 07/25/20 22:16 Cyanocobalamin 1 ,000 Mcg/Ml Sdv SUBCUT 07/31/20 21:01 1,000 mcg Q24H DARRICK Administration Ferric Sodium Gluc everette 125 mg 110 mls @ 110 mls /hr 07/26/20 15:30 / Sodium Chlorid e IV 08/02/20 16:29 Q24H DARRICK Lisinopril 20 mg 07/25/20 01:22 07/26/20 08:34 Lisinopril 20 Mg Tablet PO 20 mg DAILY DARRICK Administration Metoprolol Tartrat e 50 mg 07/25/20 09:00 07/26/20 08:34 Metoprolol Tartr ate 50 Mg Tablet PO 50 mg BID DARRICK Administration Nitroglycerin 0.4 mg 07/25/20 01:22 Nitroglycerin 0. 4 Mg Sublingual Ta blet SUBLINGUAL DIRECTED DARRICK Pantoprazole Sodiu m 40 mg 07/26/20 09:00 07/26/20 08:[address] 40 Mg Tablet PO 40 mg BID DARRICK Administration No Known Allergies Allergy (Verified 07/25/20 10:48) Vitals/I&O/Wt Last Vital Signs Temp 97.9 F 07/26/20 12:00 Pulse 67 07/26/20 12:00 Resp 16 07/26/20 12:00 BP 110/73 07/26/20 12:00 Pulse Ox 93 07/26/20 12:00 07/26/20 07/26/20 07/26/20 06:59 14:59 22:59 Intake Total 720 / 720 Balance 720 / 720 Weight last 48 hrs Weight 99.79 kg Physical Exam Narrative: EXAM NARRATIVE: -minimal PE given events mentioned above Const: COMMON NORMALS: no acute distress, patient oriented x3 and alert GENERAL APPEARANCE: cooperative and comfortable NUTRITIONAL APPEARANCE: obese morbidly obese ORIENTATION/CONSCIOUSNESS: Yes awake OTHER: -anxious, tearful and emotional HENMT: COMMON NORMALS: normocephalic, atraumatic and hearing grossly normal bilaterally HEAD & SCALP: normocephalic and atraumatic Eye: COMMON NORMALS: Equal, round and reactive pupils present and conjunctivae normal CONJUNCTIVA: Yes conjunctivae normal PUPIL: Yes Equal, round and reactive pupils present Neck/C-Spine: GENERAL: Yes normal visual inspection and Yes trachea midline Resp: COMMON NORMALS: normal respiratory effort, No retractions and No use of accessory muscles EFFORT & INSPECTION: Yes able to speak in complete sentences, Yes symmetric chest movement and No tachypneic OTHER: -on RA GI: INSPECTION: Yes central obesity Extremity: COMMON NORMALS: normal to inspection, no clubbing, cyanosis or edema and no pedal edema Neuro: COMMON NORMALS: patient oriented x3, moves all extremities, no focal motor deficits and no sensory deficits noted SENSORIUM/ORIENTATION: Yes alert Psych: COMMON NORMALS: mental status grossly normal, Normal thought process present, cooperative, normal affect and speech normal SPEECH: Yes normal speech THOUGHT PROCESS: Normal thought process present Skin: COMMON NORMALS: no rashes or lesions noted, no jaundice, no petechiae and no mottling GENERAL SKIN EXAM: no rashes or lesions noted Data : 07/26/20 04:48 07/26/20 04:48 Micro: Microbiology 07/26/20 09:43 Occult Blood (FIT) - Final Stool Routine Collection A&P Assessment and plan (1) Acute on chronic blood loss anemia: -has known hx of chronic blood loss anemia; prior baseline Hg from about 1 yr ago was 10 -reported recent EGD (about 3 months ago) which was normal, noted tubular adenoma and removal of 3 polyps following colonoscopy. No active bleeding source -may benefit from small capsule endoscopy -s/p 2 units of PRBCs -H/H stable at 7.7; continue to monitor closely; may need additional blood products -low normal B12, on supplementation -continue iron replacement, iron panel noted -no active bleeding currently -no NSAIDS, antiplaletet therapy, AC due to bleeding risk; previously on ASA 81 mg -on PPI Status: Acute (2) HTN (hypertension): -VSS: continue to monitor -continue oral hypertensives Status: Chronic Qualifiers: Hypertension type: essential hypertension Qualified Code(s): I10 - Essential (primary) hypertension (3) Hyperlipidemia: -continue statin Status: Chronic Qualifiers: Hyperlipidemia type: unspecified Qualified Code(s): E78.5 - Hyperlipidemia, unspecified (4) CKD (chronic kidney disease) stage 2, GFR 60-89 ml/min: -renal function at baseline Status: Chronic Additional A&P Information -Morbid obesity: BMI-35 kg/m2 -hx of SVT; on BB, Echo: EF=65%, no RWMA, mild MR, mild TR -recent COVID-19 pneumonia (06/23); treated with course of steroids, antibiotics (Ceftriaxone, Azithromycin); respiratory status stable -cardiac diet as tolerated -GI ppx with PPI -DVT ppx with SCDs, no AC due to bleeding risk -Dispo: home -Code status: FULL code Attestations Medical Necessity Statement*: Patient requires hospitalization for continued monitoring of hemoglobin given acute on chronic blood loss anemia, may require transfusion of additional blood products. Time Spent in Patient Care: 16 - 35 minutes (>than 50% of time spent in counselling and/or direct pt care on unit). Coding Level of Care Code Acute Dye Can Operator for [facility] Fwd Exam Comprehensive Diagnoses Acute on chronic blood loss anemia D62 HTN (hypertension) I10 Hypertension type: essential hypertension Hyperlipidemia E78.5 Hyperlipidemia type: unspecified CKD (chronic kidney disease) stage 2, GFR 60-89 ml/min N18.2
[2020-07-26 16:00] VITALS: BP 115/76; PULSE 71; RESP 17; TEMP 36.9; O2SAT 90
--- NOTE | 2020-07-26 16:30 | PC.NURSE ---
New order in patient chart for patient to be given IV iron gluconate. Tissue Technician presented to patient room and started to provide medication education to patient. Patient stopped nurse and asked Is the doctor going to be in to see me ? I apologized to the patient and that I had assumed the doctor had been in. Patient reports that she has not seen a doctor as of yet and that she is not going to take the IV iron until she is told by a doctor why she needs it. It had been explained to patient earlier today that her hemoglobin levels are still low. Patient was reminded that she understands that the medication is to help correct her low hemoglobin levels but she still wants to see a doctor. Patient stresses that she is not upset with any of the nurses. Patient reports that she is only upset that she is being left to lay in her room without being told anything and that she would assume to leave and seek treatment elsewhere if this is how she is going to be treated by the doctor. Dr. Marinelli notified again that the patient is requesting to see her and that she is refusing to take the IV iron gluconate until she is seen. Dr. Marinelli was also informed that patient is so upset that she is talking about leaving and seeking treatment elsewhere. Dr. Marinelli said she had several other patients to see then she would be in to see patient. Patient updated and Nursing Dry Boss Mindy spoke with patient. Patient informed Mindy that she would just assume not be seen by Dr. Marinelli at this point. Patient was informed that staff would try to get someone in to see patient as soon as they could.
--- NOTE | 2020-07-26 17:00 | PC.NURSE ---
Dr. Zamarripa notified that patient is requesting to be seen by another provider if Dr. Marinelli could not see her soon. Dr. Zamarripa is unable to come to the floor at this time due to patient load on another unit. Dr. Marinelli in to see patient shortly after and told nurse after seeing patient that if she wants to leave AMA then she could but she would not be putting in discharge orders for patient to leave the facility as she is not medically stable. Nurse went into patient room to follow up with patient about her visit with Dr. Marinelli. Patient was not happy with the way Dr. Marinelli spoke to her. Patient reported that she made it seem like she had no idea why she was even in the hospital and does not trust to be treated by her. I asked patient if she was thinking about leaving the facility. Patient stated that she does not want to leave and that she knows she needs medical treatment and that she knows insurance may not cover her stay if she chooses to leave against medical advice. Patient states she would like to stay as long as she is going to be seen by another provider. I informed patient that we could definitely start that process but she would not be seen by another provider until tomorrow morning at an undetermined time. Dr. Marinelli informed that patient is requesting another provider to see her. Dr. Marinelli stated that she would talk to Dr. Zamarripa tomorrow and see if another provider would take her case. Patient is ok with this plan.
[2020-07-26 20:15] VITALS: BP 137/80; PULSE 81; RESP 18; TEMP 37.2; O2SAT 96
[2020-07-26] MEDS: cyanocobalamin 1,000 mcg/mL SDV 1000 MCG SUBCUT (22:09)
[2020-07-27] VITALS (8 sets, daily range): BP systolic 99–118; BP diastolic 61–76; PULSE 69–80; RESP 18–20; TEMP 36.4–36.6; O2SAT 95–99
[2020-07-27 05:26] LABS: Basophils # 0.1 10^3/uL (0.0-0.1); Basophils % 0.5 %; Eosinophils # 0.2 10^3/uL (0.0-0.8); Eosinophils % 1.4 %; Hematocrit 29.5 % (37.0-47.0); Hemoglobin 8.2 g/dL (11.5-15.3); Lymphocytes # 2.8 10^3/uL (0.8-4.8); Lymphocytes % 22.2 %; Mean Corpuscular HGB Conc 27.8 g/dL (30.0-36.0); Mean Corpuscular Hemoglobin 21.6 pg (28.0-34.0); Mean Corpuscular Volume 77.8 fL (81-99); Monocytes % 7.7 %; Neutrophils # 8.41 10^3/uL (1.8-7.7); Nucleated Red Blood Cells # 0.1 /100WBC; Nucleated Red Blood Cells % 0.5 %; Platelet Count 296 10^3/cmm (130-400); Red Blood Count 3.79 10^6/uL (4.1-5.3); White Blood Count 12.6 10^3/uL (4.0-10.0)
[2020-07-27 05:53] LABS: Alanine Aminotransferase 9 U/L (0-33); Albumin Level 3.6 g/dL (3.5-5.2); Alkaline Phosphatase 75 IU/L (35-105); Anion Gap 12.7 (5-19); Aspartate Amino Transferase 11 U/L (0-32); Blood Urea Nitrogen 21 mg/dL (8-23); Calcium 8.8 mg/dL (8.5-10.5); Carbon Dioxide 26 mmol/L (22-29); Chloride 104 mmol/L (98-107); Globulin 2.5 g/dL (1.3-4.6); Glomerular Filtration Rate 49.2 mL/min (90-130); Glucose 82 mg/dL (65-115); Osmolality Calculated 290 mOsm/kg (285-295); Potassium 3.7 mmol/L (3.5-5.1); Sodium 139 mmol/L (136-145); Total Bilirubin 0.4 mg/dL (0.15-1.2); Total Protein 6.1 g/dL (6.6-8.7)
[2020-07-27] MEDS: cyanocobalamin 1,000 mcg Tablet 500 MCG PO (09:27)
[2020-07-27] MEDS: pantoprazole DR 40 mg Tablet PO (09:28)
[2020-07-27] MEDS: lisinopril 20 mg Tablet PO (09:28)
[2020-07-27] MEDS: metoprolol tartrate 50 mg Tablet PO (09:28)
--- NOTE | 2020-07-27 12:16 | PM.DCS ---
Discharge Providers Date of Admission: 07/25/20 00:38 Date of Discharge: July 27, 2020 Attending Provider at Admission: Tommy Carrington MD Attending Provider at Discharge: Marco Zamarripa MD Primary Care Provider: Joseline Dominique APN Diagnoses at Discharge Discharge Diagnosis (1) Acute on chronic blood loss anemia: Status: Acute (2) HTN (hypertension): Status: Chronic Qualifiers: Hypertension type: essential hypertension Qualified Code(s): I10 - Essential (primary) hypertension (3) Hyperlipidemia: Status: Chronic Qualifiers: Hyperlipidemia type: unspecified Qualified Code(s): E78.5 - Hyperlipidemia, unspecified (4) CKD (chronic kidney disease) stage 2, GFR 60-89 ml/min: Status: Chronic Reason for Visit Reason for Visit: covid+ on 06/23/chest pressure/sob Hospital Course Hospital Course Mindy is a 70-year-old female who presented to the hospital on July 24 with fatigue, shortness of breath on exertion. And work-up in the emergency department significant anemia was noted. She had recently undergone an EGD and colonoscopy demonstrating a hiatal hernia and several colon polyps which were removed. She denied any blood in her stool. She reported she had been anemic for at least a year or more. She also related a history of a recent Covid infection earlier in June. Hemoglobin was 5.8. She was transfused 2 units of packed red blood cells. Stool Hemoccult was done and negative. Anemia was microcytic, and panel demonstrated significant iron deficiency. She was transfused iron at the hospital. Subsequent days of her hospital stay her hemoglobin remained stable. Symptomatology was improved. It was thought she could be discharged on July 27 for follow-up with hematology for her anemia as well as her primary care provider for another CBC in 3 days. Her Protonix was increased to twice daily. She was taken off aspirin. She was told to avoid all anti-inflammatories. Lisinopril was also decreased on discharge secondary to soft blood pressures. Further work-up for anemia will be directed by hematology as an outpatient. Physical Exam Narrative: EXAM NARRATIVE: General exam no apparent distress Cardiovascular regular rate and rhythm without murmur Lungs clear Abdomen is soft, positive bowel sounds Extremities no cyanosis clubbing or edema Discharge Data Data Completed and Pending: Completed Studies During Hospitalization Category Date Time Status XR chest 1V obi ble [id number] Stat Exams 07/24/20 21:03 Completed Pending at discharge Category Date Time Status CMP [Comprehensiv e Metabolic Panel] AM LABS Lab 07/28/20 04:00 Ordered Complete Blood Co unt w/Auto AM LABS Lab 07/28/20 04:00 Ordered Methylmalonic Aci d Stat Lab 07/25/20 06:42 Received Labs from last 24 hours 07/27/20 07/27/20 04:43 04:43 WBC 12.6 H RBC 3.79 L Hgb 8.2 L Hct 29.5 L MCV 77.8 L MCH 21.6 L MCHC 27.8 L RDW 22.0 H Plt Count 296 MPV 10.0 Neut % (Auto) 67.0 Lymph % (Auto) 22.2 [place] % (Auto) 7.7 Eos % (Auto) 1.4 Baso % (Auto) 0.5 Neut # (Auto) 8.41 H Lymph # (Auto) 2.8 [place] # (Auto) 1.0 H Eos # (Auto) 0.2 Baso # (Auto) 0.1 Nucleated RBC % (a uto) 0.5 Nucleated RBCs # 0.1 Sodium 139 Potassium 3.7 Chloride 104 Carbon Dioxide 26 Anion Gap 12.7 BUN 21 Creatinine 1.1 H GFR Calculation 49.2 L Glucose 82 Calculated Osmolal ity 290 Calcium 8.8 Total Bilirubin 0.4 AST 11 ALT 9 Alkaline Phosphata se 75 Total Protein 6.1 L Albumin 3.6 Globulin 2.5 Vitals: Last Vital Signs Temp 97.5 F L 07/27/20 11:29 Pulse 80 07/27/20 11:34 Resp 20 H 07/27/20 11:29 BP 112/67 07/27/20 11:34 Pulse Ox 95 07/27/20 11:29 Discharge Plan Discharge Patient Disposition: Home Condition: Stable Prescriptions: New lisinopril 10 mg tablet 10 mg PO DAILY Qty: 30 RF: 0 pantoprazole 40 mg Tablet,Delayed Release (Dr/Ec) 40 mg PO BID Qty: 60 RF: 0 ferrous sulfate 325 mg (65 mg iron) tablet 325 mg PO BID Qty: 60 RF: 0 Continued tramadol 50 mg Tablet 50 mg PO Q4H PRN (Reason: Pain) RF: 0 alprazolam 0.5 mg tablet 0.5 mg PO BID PRN (Reason: Anxiety) RF: 0 multivitamin Tablet 1 tab PO DAILY@08 RF: 0 terbinafine HCl 250 mg tablet 250 mg PO DAILY@08 RF: 0 Vitamin C 500 mg Tablet 500 mg PO DAILY@08 RF: 0 metoprolol tartrate 50 mg tablet 50 mg PO Q12H RF: 0 allopurinol 300 mg tablet 300 mg PO DAILY@08 RF: 0 albuterol sulfate 90 mcg/actuation HFA aerosol inhaler 2 puff INHALATION QID PRN (Reason: Shortness Of Breath) RF: 0 ondansetron 4 mg tablet,disintegrating 4 mg PO TID PRN (Reason: Nausea) RF: 0 Discontinued nitroglycerin [Nitrostat] 0.4 mg tablet, sublingual 0.4 mg SUBLINGUAL DIRECTED PRN (Reason: Chest Pain) RF: 0 lisinopril 20 mg tablet 20 mg PO DAILY@08 RF: 0 pantoprazole 40 mg tablet,delayed release (DR/EC) 40 mg PO DAILY@08 RF: 0 triamterene-hydrochlorothiazid 37.5-25 mg tablet 1 tab PO DAILY@08 RF: 0 aspirin [Adult Low Dose Aspirin] 81 mg tablet,delayed release (DR/EC) 81 mg PO DAILY@08 RF: 0 azithromycin 250 mg tablet See Rx Instructions .ROUTE .COMPLEX RF: 0 methylprednisolone 4 mg tablets,dose pack See Rx Instructions .ROUTE .COMPLEX RF: 0 Discharge Orders: Discharge Order (Routine); Ordered 07/27/20 Ordered By: Marco Zamarripa Referrals: Lisandro Goodrich MD [Hospitalist] - 2 weeks (follow up of anemia) Dominique,MERRILL Trevizo [Primary Care Provider] - 4-7 days (CBC on Sunday for follow-up) Discharge Diet: Cardiac Discharge Activity: Increase activity as tolerated Activity Restrictions/Additional Instructions: Take all medicine as prescribed. Avoid all anti-inflammatories. Keep follow-up 3 to 5 days with CBC. 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
[2020-07-29 09:28] LABS: Methylmalonic Acid 321 nmol/L (87-318)
== END 2020-07-27 15:06 | disposition home or self-care (01) ==
LOC: ER 21:09 → MEDSURG 07-25 00:38
PROVIDERS: Internal Medicine; Admitting Provider Internal Medicine; Emergency Provider Emergency Medicine; PCP Nurse Practitioner Family; Visit Provider Internal Medicine
DX: D50.9 Iron deficiency anemia, unspecified (principal); D64.9 Anemia, unspecified; D62 Acute posthemorrhagic anemia; E78.5 Hyperlipidemia, unspecified; I12.9 Hypertensive chronic kidney disease with stage 1 through stage 4 chronic kidney disease, or unspecified chronic kidney disease; N18.2 Chronic kidney disease, stage 2 (mild); Z79.82 Long term (current) use of aspirin; I48.91 Unspecified atrial fibrillation; Z86.19 Personal history of other infectious and parasitic diseases; E66.01 Morbid (severe) obesity due to excess calories; Z68.35 Body mass index [BMI] 35.0-35.9, adult
CPT/HCPCS: 12345; 36415; 36430; 71045; 80048; 80053; 82274; 82550; 82607; 82728; 82746; 83540; 83550; 83880; 83921; 84443; 84484; 85025; 85378; 85610; 85730; 86850; 86900; 86920; 93005; 96365; 96372; 96375; 99283; 99285; C9113; G0378; J1200; J1439; J3420; J3490; P9016

== ENCOUNTER 2020-08-04 12:27 | Outpatient (CLI) | payer MEDICARE, SELFPAY ==
[2020-08-04 12:59] LABS: Basophils % 0.5 %; Eosinophils % 0.4 %; Hematocrit 30.6 % (37.0-47.0); Hemoglobin 8.8 g/dL (11.5-15.3); Lymphocytes # 2.7 10^3/uL (0.8-4.8); Lymphocytes % 34.1 %; Mean Corpuscular HGB Conc 28.8 g/dL (30.0-36.0); Mean Corpuscular Hemoglobin 24.1 pg (28.0-34.0); Mean Corpuscular Volume 83.8 fL (81-99); Mean Platelet Volume 9.9 fL (7.4-10.4); Monocytes # 0.7 10^3/uL (0.2-0.9); Monocytes % 8.5 %; Nucleated Red Blood Cells % 0 %; Platelet Count 248 10^3/cmm (130-400); Red Blood Count 3.65 10^6/uL (4.1-5.3); Red Cell Distribution Width 28.5 % (12.1-15.1); White Blood Count 7.9 10^3/uL (4.0-10.0)
--- NOTE | 2020-08-04 14:38 | ONC CON_ITS ---
Dr. Roberto New Patient Note Patient: Mindy Cueva Unit #: [id number]: [id number] Dicatated By: Randy Roberto M.D.Date of Visit: Aug 04, 2020 Onc MED New Patient/Consult Referring Physician: Marco Zamarripa M.D. History of Present Illness: Ms. Mindy Cueva, is a 70-year-old female with a history of progressive anemia since November 2019, as per patient initially she was told about low hemoglobin and her PMD has been following but recently she started feeling weak and tired and off and on lightheaded subsequently had a fall, and eventually started having chest discomfort radiating to her left arm finally went to [facility] on July 25, 2020 and her lab work-up done in [facility] showed white blood count 18.9 hemoglobin 5.8 g hematocrit 23.9 MCV 72.3 platelets 354,000 iron studies shows iron 17, iron saturation 3.5% ferritin 5, TIBC 478, she was admitted to hospital she was given 2 units of packed RBCs and parenteral iron x1 and discharged home on oral iron. As per patient she had her CBC done in her PMDs office last week and her hemoglobin was 9.6 g. Patient denies any melena or hematochezia, denies any hemoptysis or hematemesis denies any jaundice patient had EGD and colonoscopy done in [place], as per patient it showed mild hiatal hernia and polyps in the colon. Denies alcohol use or smoking Denies any night sweats, denies any recurrent fever denies any weight loss. Denies any peripheral lymphadenopathy denies any vaginal bleeding denies any dysuria or hematuria Past Medical History: Ms. Cueva's medical history consists of anxiety, atrial fibrillation, chronic kidney disease (stage 2), chronic low back pain, gout, hyperlipidemia, hypertension, myocardial infarction, paroxysmal SVT, and Covid 19 in 2020. Past Surgical History: Ms. Cueva's surgical/procedural history consists of appendectomy, back surgery, cholecystectomy, glaucoma surgery, left shoulder surgery, and right knee replacement. Medications: Albuterol Sulfate HFA 2 Puff(s) (of 108 (90 base) mcg/act) Aerosol, solution Inhalation four times a day, Allopurinol 1 Tablet (of 300 mg) Oral daily, ALPRAZolam 1 Tablet (of 0.5 mg) Oral b.i.d. PRN, Ferrous Sulfate 1 Tablet (of 325 (65 fe) mg) Oral b.i.d., Lisinopril 1 Tablet (of 10 mg) Oral daily, Metoprolol Tartrate 1 Tablet (of 50 mg) Oral q 12 hours, Multivitamin 1 Tablet Oral daily, Ondansetron HCl 1 Tablet (of 4 mg) Oral t.i.d. PRN, Pantoprazole Sodium 1 Tablet (of 40 mg) Tablet, enteric coated Oral b.i.d., Terbinafine HCl 1 Tablet (of 250 mg) Oral daily, traMADol HCl 1 Tablet (of 50 mg) Oral q 4 hours PRN, Vitamin C 1 Capsule (of 500 mg) Oral daily Allergies: No Known Allergies. Social History: Ms. Cueva is . Ms. Cueva has never smoked. She has no history of drinking. Family History: There is no documented family history. Review Of Symptoms: Constitutional - Appetite is good and weight is stable. No fever, night sweats, or hot flashes. Energy level is fair, ENMT - No sinus congestion/drainage. No mouth sores. No sore throat. Positive for difficulty swallowing, Hematologic/Lymphatic - No abnormal bruising or bleeding, Respiratory - Positive for shortness of breath. No cough. No pleuritic pain or hemoptysis, Cardiovascular - No angina pain. No palpitations, Gastrointestinal - Positive for nausea, no vomiting. Positive for heartburn and acid reflux. No diarrhea or constipation. No blood in the stool or black stools, Genitourinary (F) - No dysuria or hematuria. No urinary frequency. No urgency or incontinence, Musculoskeletal - Positive for joint pain, Neurologic - No headache. Positive for dizziness. No numbness or tingling. No other focal neurologic symptoms, Psychiatric - Positive for anxiety and insomnia. Vital Signs: Performed on Aug 04, 2020 13:48: 0, 35.15 (HIGH), 2.12 sq.m, 67 in, 96 %, 118 /min (HIGH), 16 /min, 157/88 mm(hg) (HIGH), 100.3 F (HIGH), and 224.4 lbs (HIGH). Performance Status: 1 - No physically strenuous activity, but ambulatory and able to carry out light or sedentary work (e.g. office work, light house work). (ECOG) Physical Examination: ENMT - No mouth sores, no thrush, no jaundice, Respiratory - Lungs are clear to auscultation, Cardiovascular - Regular rate and rhythm of heart, Abdomen - Soft, bowel sounds present, Extremities - No visible edema. Lab/Imaging: Most recent lab results are not available for this patient. Impression: Microcytic hypochromic anemia due to iron deficiency per labs done on July 25, 2020 in [facility] hemoglobin was 5.8 g hematocrit 22.2 MCV 72.3 iron studies done showed ferritin 5, iron saturation 3.5%, iron 17, TIBC 478, Patient was given 2 units of packed RBCs and parenteral iron x1 History of atrial fibrillation, history of chronic back pain, next history of hypertension Paroxysmal SVTs Plan: Discussed with patient regarding her labs white blood count 7.9 hemoglobin 8.8 hematocrit 30.6 platelets 248,000 MCV 83.8 Clinically, patient is doing reasonably well, her follow-up labs shows hemoglobin 8.8 g compared to 9.6 g in her PMDs office last week but patient denies any evidence of GI bleeding, no melena or hematochezia but darker stools due to oral iron, clinically it appears patient may be losing blood from GI tract especially unexplored small bowel area as EGD and colonoscopy showed no active bleeding site. We will obtain records from Dr. Alcala, human resources operations manager in [facility] and also inquire if they do capsule endoscopy to assess small bowel for AVM or other pathology, if not, will refer her to [place] for small bowel capsule endoscopy. Patient will return to clinic in 1 week with CBC and iron studies and B12, patient was given loading dose of B12 with weekly B12 injection x3 for B12 on the low side of normal range and will continue with monthly maintenance dose of B12.She was also advised to stop oral iron due to related side effects If her iron studies shows low iron, will consider parenteral iron weekly x2 Patient was advised to conserve energy until her hemoglobin improves and also call us in case there is a worsening of symptoms or any evidence of bleeding. Patient is off aspirin since discharge from the hospital. Signed By: Randy Roberto M.D. <<Signature on File>>
== END 2020-08-04 12:28 | disposition home or self-care (01) ==
LOC: ONCMED 12:31
PROVIDERS: PCP Nurse Practitioner Family; Visit Provider Internal Medicine Hematology & Oncology
DX: D50.9 Iron deficiency anemia, unspecified (principal); I48.91 Unspecified atrial fibrillation; G89.29 Other chronic pain; M54.5 Low back pain; I10 Essential (primary) hypertension; I47.1 Supraventricular tachycardia; Z79.899 Other long term (current) drug therapy
CPT/HCPCS: 36415; 85025; 99204

== ENCOUNTER 2020-08-08 11:28 | Inpatient (IN) | payer MEDICARE, SELFPAY ==
[2020-08-08] VITALS (17 sets, daily range): BP systolic 107–152; BP diastolic 70–86; PULSE 68–106; RESP 14–24; TEMP 36.6–39.2; O2SAT 90–100; BMI 34.4
--- NOTE | 2020-08-08 12:07 | ED_ITS ---
HPI - Weakness General: Chief complaint: Weakness Stated complaint: WEAKNESS, N/V Time Seen by Provider: 08/08/20 11:44 Source: patient and family (daughter) Mode of arrival: ambulatory Limitations: no limitations History of Present Illness: HPI Narrative: This patient is a 70-year-old female with a history of chronic kidney disease, hypertension, who was recently diagnosed 6 weeks ago with COVID-19. About 2 weeks ago she was admitted to the hospital for severe anemia requiring 2 units of packed red blood cells. Further evaluation of the cause of the anemia showed she was iron deficient and she was also given an iron infusion. She has since followed up with the refrigeration brazer/solderer outpatient and he is working her up. She had a colonoscopy which was negative for any cause of bleeding. For the last few days she has been really weak and not able to get out of bed much. The daughter says that she has had episodes of coughing spells and last night coughed up to 1 hour continuously. Her daughter said this morning her pulse rate was 120 and her oxygen saturation was about 84%. MD Complaint: generalized weakness Onset (ago): week(s) Duration: constant Location: generalized Migration: none Relieving factors: none Exacerbating factors: none Context: recent illness Associated symptoms: Denies chest pain, chills, confusion, melena, decreased appetite, diaphoresis, dysuria, easy bruising, fever(s), headache(s), myalgias, nausea, rash, short of breath, syncope or vomiting Review of Systems General: Reports: 10 or more systems reviewed and unremarkable except in HPI and below Const: Denies: fever(s), chills or diaphoresis Eyes: Denies: change in vision or blurry vision ENMT: Denies: throat pain, enlarged tonsils, odynophagia, hoarseness, mouth pain or swelling of lips/tongue Card: Denies: chest pain or syncope Resp: Denies: dyspnea, productive cough or non-productive cough GI: Denies: nausea, vomiting or melena : Denies: dysuria Musc: Denies: neck pain, back pain or extremity swelling Skin/Breast: Denies: rash, pruritus or erythema Neuro: Denies: headache(s) or confusion Endo: Denies: polyuria, polydipsia or tired all the time Sergey/Lymph: Denies: easy bruising PFSH ED PFSH: Medical History Acute non-ST elevation myocardial infarction (NSTEMI) Anxiety Atrial fibrillation Chronic low back pain Family history of heart disease Gout HTN (hypertension) Hyperlipidemia Paroxysmal SVT (supraventricular tachycardia) Surgical History History of appendectomy History of back surgery History of cholecystectomy S/P shoulder surgery left Status post glaucoma surgery Status post right knee replacement Family History Mother Cerebral hemorrhage Myocardial infarction Social History Smoking and tobacco status: never smoked Alcohol intake: never Household members: spouse Marital status: Current occupational status: retired Physical Exam Const: COMMON NORMALS: no acute distress, average body habitus, patient oriented x3, no limitations, healthy appearing, alert and well nourished HENMT: COMMON NORMALS: normocephalic, atraumatic and moist oral mucous membranes HEAD & SCALP: normocephalic and atraumatic Eye: COMMON NORMALS: Equal, round and reactive pupils present, EOMs intact bilaterally, conjunctivae normal and no scleral icterus CONJUNCTIVA: Yes conjunctivae normal PUPIL: Yes Equal, round and reactive pupils present Neck/C-Spine: COMMON NORMALS: no meningeal signs and no JVD Resp: COMMON NORMALS: normal respiratory effort, No retractions, No use of accessory muscles, clear to auscultation bilaterally and percussion normal AUSCULTATION: clear to auscultation bilaterally PERCUSSION: percussion normal Cardio: COMMON NORMALS: no JVD, regular rate, regular rhythm, S1 normal heart sound present, S2 normal heart sound present, No gallops present (Cardio), No clicks present (Cardio), No murmurs present (Cardio), No rub (Cardio) and Peripheral pulses 2+ throughout RATE: regular rate RHYTHM: regular rhythm HEART SOUNDS: S1 normal heart sound present and S2 normal heart sound present PERIPHERAL PULSES: Peripheral pulses 2+ throughout GI: COMMON NORMALS: Normal to inspection, nondistended, normoactive bowel sounds present, Soft to palpation, non-tender, No hepatosplenomegaly present, no masses and no bruits PALPATION: Yes Soft to palpation and Yes No hepatosplenomegaly present Extremity: COMMON NORMALS: normal to inspection, full ROM, capillary refill normal, no calf tenderness and no pedal edema Neuro: COMMON NORMALS: patient oriented x3 SENSORIUM/ORIENTATION: Yes alert MENINGEAL SIGNS: Yes no meningeal signs Skin: COMMON NORMALS: no rashes or lesions noted, no wounds, turgor normal, no jaundice, no petechiae and no mottling GENERAL SKIN EXAM: no rashes or lesions noted and turgor normal Course Reevaluation(s): Reevaluation #1: Discussed her lab and imaging findings with her - she continues to be anemic but of concern is that her hemoglobin has dropped from 8.8 to 7.0 in about 4 days with no obvious cause of her bleeding. She also likely has a UTI but that will not explain the drop in hemoglobin. I discussed potential disposition options-admission to the hospital for further evaluation and monitoring of her hemoglobin and possible blood transfusion versus discharge and follow-up with her outpatient providers. The patient really wanted to be discharged home as she has an appointment with her primary care provider tomorrow and with the refrigeration brazer/solderer in 4 days. She understands that her symptoms could worsen especially as she is significantly anemic, however she still insists on being discharged. She will return if her symptoms get worse. Based on my interaction with her and going through her chart she appears to be a reliable patient who will follow up appropriately tomorrow and I think it is reasonable for her to be discharged. She is however strongly counseled to return for any concerns, even if it's today. Patient and her daughter voiced understanding and they are in agreement with the plan. Her hemoglobin is not really low enough to require transfusion but it is just on the cusp. Time: 14:36 Reevaluation #2: Patient changed her mind and would like to be admitted to the hospital even if it is just overnight for evaluation. She would like to be safe. We will call the hospitalist on admit the patient. Time: 15:21 Consultations: Consultation #1: Discussed the patient with Dr. White and he kindly accepted the patient to his service. Time: 15:37 Vital Signs: Vital signs: Vital Signs Temperature 98.8 F 08/08/20 19:10 Pulse Rate 68 01/17/21 21:33 Respiratory Rate 18 08/08/20 21:33 Blood Pressure 107/70 08/08/20 21:25 Pulse Oximetry 95 08/08/20 21:33 MDM - Weakness MDM Narrative: Medical decision making narrative: Ms. Cueva is a 70-year-old female patient with a recent history of anemia requiring 2 units of blood transfusion. She presents today with generalized weakness and extreme fatigue. On evaluation she was noted to be significantly anemic, with a hemoglobin of 7. 4 days ago her hemoglobin was 8.8. She was also noted to be hypoxic and required oxygen at 2 L/min. Investigations in the emergency department at her prior hospital admission did not reveal any cause for her anemia. She also has a UTI. She is admitted to the hospitalist service for further evaluation and management. Medical Records: Attestation: I reviewed the patient's medical records. Lab Data: Attestation: I reviewed the patient's lab results. Labs: Lab Results 08/08/20 08/08/20 08/08/20 Range/Units 11:53 12:12 12:12 WBC 6.6 (4.0-10.0) 10^3/ uL RBC 2.82 L (4.1-5.3) 10^6/u L Hgb 7.0 L (11.5-15.3) g/dL Hct 24.4 L (37.0-47.0) % MCV 86.5 (81-99) fL MCH 24.8 L (28.0-34.0) pg MCHC 28.7 L (30.0-36.0) g/dL RDW 29.4 H (12.1-15.1) % Plt Count 285 (130-400) 10^3/c mm MPV 10.1 (7.4-10.4) fL Neut % (Auto) 68.5 % Lymph % (Auto) 21.3 % Kingman % (Auto) 9.0 % Eos % (Auto) 0.0 % Baso % (Auto) 0.3 % Neut # (Auto) 4.49 (1.8-7.7) 10^3/u L Lymph # (Auto) 1.4 (0.8-4.8) 10^3/u L Kingman # (Auto) 0.6 (0.2-0.9) 10^3/u L Eos # (Auto) 0.0 (0.0-0.8) 10^3/u L Baso # (Auto) 0.0 (0.0-0.1) 10^3/u L Nucleated RBC % (a uto) 0 % Nucleated RBCs # 0.0 /100WBC ESR (0-15) mm/hr PT 13.10 (12.1-14.9) SECO NDS INR 0.97 (0.8-1.2) Specimen Type Sample Site ABG pH (7.35-7.45) ABG pCO2 (35-45) mmHg ABG pO2 (80.0-100.0) mmH g ABG HCO3 (22-26) mmol/L ABG Base Excess (-2.0-2.0) mmol/ L Errol Test Hematocrit (37-47) % O2 Delivery Device FiO2 % Observer Electrical Prospecting ID Sodium (136-145) mmol/L Potassium (3.5-5.1) mmol/L Chloride (98-107) mmol/L Carbon Dioxide (22-29) mmol/L Anion Gap (5-19) BUN (8-23) mg/dL Creatinine (0.5-0.9) mg/dL GFR Calculation (90-130) mL/min Glucose (65-115) mg/dL Calculated Osmolal ity (285-295) mOsm/k g Calcium (8.5-10.5) mg/dL Magnesium (1.7-2.3) mg/dL Total Bilirubin (0.15-1.2) mg/dL AST (0-32) U/L ALT (0-33) U/L Alkaline Phosphata se (35-105) IU/L Creatine Kinase (26-192) U/L C-Reactive Protein (0.0-4.9) mg/L NT-Pro-B Natriuret Pep (0-125) pg/mL Total Protein (6.6-8.7) g/dL Albumin (3.5-5.2) g/dL Globulin (1.3-4.6) g/dL Procalcitonin (0-0.5) ng/mL TSH (0.27-4.20) uIU/ mL Urine Color Dark yellow (Yellow) Urine Appearance Hazy A (CLEAR) Urine pH 5 (5-7) Ur Specific Gravit y 1.020 (1.005-1.030) Urine Protein Neg (Negative) Urine Glucose (UA) Norm (Normal) Urine Ketones Negative (Negative) Urine Blood Neg (Negative) Urine Nitrate Negative (Negative) Urine Bilirubin Neg (Negative) Urine Urobilinogen 4 H (Negative) mg/dL Ur Leukocyte Philomena ase 1+ H (Negative) Urine RBC None (0-2) /hpf Urine WBC 40-55 H (0-5) /hpf Ur Squamous Epith Cells 5-10 H (0-5) /hpf Amorphous Sediment Not Reportable Urine Bacteria 2+ H (NONE) /hpf Urine Mucus 1+ /hpf Blood Type Rho(D) Type Antibody Screen Crossmatch 08/08/20 08/08/20 08/08/20 Range/Units 12:12 12:12 12:12 WBC (4.0-10.0) 10^3/ uL RBC (4.1-5.3) 10^6/u L Hgb (11.5-15.3) g/dL Hct (37.0-47.0) % MCV (81-99) fL MCH (28.0-34.0) pg MCHC (30.0-36.0) g/dL RDW (12.1-15.1) % Plt Count (130-400) 10^3/c mm MPV (7.4-10.4) fL Neut % (Auto) % Lymph % (Auto) % Kingman % (Auto) % Eos % (Auto) % Baso % (Auto) % Neut # (Auto) (1.8-7.7) 10^3/u L Lymph # (Auto) (0.8-4.8) 10^3/u L Kingman # (Auto) (0.2-0.9) 10^3/u L Eos # (Auto) (0.0-0.8) 10^3/u L Baso # (Auto) (0.0-0.1) 10^3/u L Nucleated RBC % (a uto) % Nucleated RBCs # /100WBC ESR 72 H (0-15) mm/hr PT (12.1-14.9) SECO NDS INR (0.8-1.2) Specimen Type Sample Site ABG pH (7.35-7.45) ABG pCO2 (35-45) mmHg ABG pO2 (80.0-100.0) mmH g ABG HCO3 (22-26) mmol/L ABG Base Excess (-2.0-2.0) mmol/ L Errol Test Hematocrit (37-47) % O2 Delivery Device FiO2 % Observer Electrical Prospecting ID Sodium 135 L (136-145) mmol/L Potassium 3.3 L (3.5-5.1) mmol/L Chloride 97 L (98-107) mmol/L Carbon Dioxide 27 (22-29) mmol/L Anion Gap 14.3 (5-19) BUN 12 (8-23) mg/dL Creatinine 0.9 (0.5-0.9) mg/dL GFR Calculation 62.1 L (90-130) mL/min Glucose 130 H (65-115) mg/dL Calculated Osmolal ity 282 L (285-295) mOsm/k g Calcium 7.9 L (8.5-10.5) mg/dL Magnesium 1.7 (1.7-2.3) mg/dL Total Bilirubin 0.6 (0.15-1.2) mg/dL AST 19 (0-32) U/L ALT 11 (0-33) U/L Alkaline Phosphata se 69 (35-105) IU/L Creatine Kinase 129 (26-192) U/L C-Reactive Protein 80.4 H 83.1 H (0.0-4.9) mg/L NT-Pro-B Natriuret Pep 144 H (0-125) pg/mL Total Protein 6.1 L (6.6-8.7) g/dL Albumin 3.2 L (3.5-5.2) g/dL Globulin 2.9 (1.3-4.6) g/dL Procalcitonin 0.15 0.15 (0-0.5) ng/mL TSH 1.75 (0.27-4.20) uIU/ mL Urine Color (Yellow) Urine Appearance (CLEAR) Urine pH (5-7) Ur Specific Gravit y (1.005-1.030) Urine Protein (Negative) Urine Glucose (UA) (Normal) Urine Ketones (Negative) Urine Blood (Negative) Urine Nitrate (Negative) Urine Bilirubin (Negative) Urine Urobilinogen (Negative) mg/dL Ur Leukocyte Philomena ase (Negative) Urine RBC (0-2) /hpf Urine WBC (0-5) /hpf Ur Squamous Epith Cells (0-5) /hpf Amorphous Sediment Urine Bacteria (NONE) /hpf Urine Mucus /hpf Blood Type Rho(D) Type Antibody Screen Crossmatch 08/08/20 08/08/20 Range/Units 12:12 12:16 WBC (4.0-10.0) 10^3/ uL RBC (4.1-5.3) 10^6/u L Hgb (11.5-15.3) g/dL Hct (37.0-47.0) % MCV (81-99) fL MCH (28.0-34.0) pg MCHC (30.0-36.0) g/dL RDW (12.1-15.1) % Plt Count (130-400) 10^3/c mm MPV (7.4-10.4) fL Neut % (Auto) % Lymph % (Auto) % Kingman % (Auto) % Eos % (Auto) % Baso % (Auto) % Neut # (Auto) (1.8-7.7) 10^3/u L Lymph # (Auto) (0.8-4.8) 10^3/u L Kingman # (Auto) (0.2-0.9) 10^3/u L Eos # (Auto) (0.0-0.8) 10^3/u L Baso # (Auto) (0.0-0.1) 10^3/u L Nucleated RBC % (a uto) % Nucleated RBCs # /100WBC ESR (0-15) mm/hr PT (12.1-14.9) SECO NDS INR (0.8-1.2) Specimen Type Arterial Sample Site Radial, left ABG pH 7.46 H (7.35-7.45) ABG pCO2 40.7 (35-45) mmHg ABG pO2 53.8 L (80.0-100.0) mmH g ABG HCO3 28.8 H (22-26) mmol/L ABG Base Excess 4.6 H (-2.0-2.0) mmol/ L Errol Test Pos Hematocrit 21.1 L (37-47) % O2 Delivery Device Room air FiO2 21.0 % Observer Electrical Prospecting ID Ed Sodium (136-145) mmol/L Potassium (3.5-5.1) mmol/L Chloride (98-107) mmol/L Carbon Dioxide (22-29) mmol/L Anion Gap (5-19) BUN (8-23) mg/dL Creatinine (0.5-0.9) mg/dL GFR Calculation (90-130) mL/min Glucose (65-115) mg/dL Calculated Osmolal ity (285-295) mOsm/k g Calcium (8.5-10.5) mg/dL Magnesium (1.7-2.3) mg/dL Total Bilirubin (0.15-1.2) mg/dL AST (0-32) U/L ALT (0-33) U/L Alkaline Phosphata se (35-105) IU/L Creatine Kinase (26-192) U/L C-Reactive Protein (0.0-4.9) mg/L NT-Pro-B Natriuret Pep (0-125) pg/mL Total Protein (6.6-8.7) g/dL Albumin (3.5-5.2) g/dL Globulin (1.3-4.6) g/dL Procalcitonin (0-0.5) ng/mL TSH (0.27-4.20) uIU/ mL Urine Color (Yellow) Urine Appearance (CLEAR) Urine pH (5-7) Ur Specific Gravit y (1.005-1.030) Urine Protein (Negative) Urine Glucose (UA) (Normal) Urine Ketones (Negative) Urine Blood (Negative) Urine Nitrate (Negative) Urine Bilirubin (Negative) Urine Urobilinogen (Negative) mg/dL Ur Leukocyte Philomena ase (Negative) Urine RBC (0-2) /hpf Urine WBC (0-5) /hpf Ur Squamous Epith Cells (0-5) /hpf Amorphous Sediment Urine Bacteria (NONE) /hpf Urine Mucus /hpf Blood Type O Positive Rho(D) Type Positive Antibody Screen Negative Crossmatch See Detail Imaging Data^: CT Abd/Pel: Attestation: I personally reviewed and interpreted this imaging study as follows: Radiologist's impression: [address] [address] [address] Scan Report Signed Patient: Mindy Cueva AUnit #: [id number] : 1Acct#:[id number] Age/Sex: 70 / FADM Date: 08/08/20 Loc: ERRoom/Bed: Attending Dr: Ordering Provider/Ordering MD: Danika Martinez MD, [facility] Date of Service: 08/08/20 Procedure(s): CT angio abdomen pelvis 37721 Accession Number(s): [id number] Report Number: [id number] PROCEDURE INFORMATION: Exam: CT Angiography Abdomen and Pelvis With Contrast Exam date and time: 08/08/2020 1:30 PM Age: 70 years old Clinical indication: Sternal or substernal pain; Abdominal pain; Generalized; Prior surgery; Additional info: Abdominal pain, anemia TECHNIQUE: Imaging protocol: Computed tomographic angiography of the abdomen and pelvis with intravenous contrast material. 3D rendering (Not supervised by radiologist): MIP and/or 3D reconstructed images were created by the technologist. Radiation optimization: All CT scans at this facility use at least one of these dose optimization techniques: automated exposure control; mA and/or kV adjustment per patient size (includes targeted exams where dose is matched to clinical indication); or iterative reconstruction. Contrast material: OMNIPAQUE 350; Contrast volume: 95 ml; Contrast route: INTRAVENOUS (IV); COMPARISON: CR (CHEST, ) 08/08/2020 12:23 PM RADIATION DOSE METRICS: Total DLP (mGy-cm): 1413.12 FINDINGS: Lungs: There is bibasilar atelectasis. Mediastinal space: There is a large hiatal hernia. Aorta: No aortic aneurysm. No aortic dissection. Celiac trunk and mesenteric arteries: No occlusion or significant stenosis. Renal arteries: No occlusion or significant stenosis. Right iliac arteries: No occlusion or significant stenosis. Left iliac arteries: No occlusion or significant stenosis. Liver: There is decreased density of the liver indicating fatty liver. No liver masses are seen. Gallbladder and bile ducts: Cholecystectomy. Normal bile ducts. Pancreas: Unremarkable. No mass. No ductal dilation. Spleen: Unremarkable. No splenomegaly. Adrenals: Unremarkable. No mass. Kidneys and ureters: Unremarkable. No solid mass. No hydronephrosis. Stomach and bowel: Unremarkable. No obstruction. No mucosal thickening. Appendix: No evidence of appendicitis. Intraperitoneal space: Unremarkable. No free air. No significant fluid collection. Lymph nodes: Unremarkable. No enlarged lymph nodes. Urinary bladder: Unremarkable. No mass. Reproductive: Hysterectomy. No adnexal masses. 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 Soft tissues: Tiny fat containing umbilical hernia. CT/CT angio abdomen pelvis 82392 IMPRESSION: 1. Fatty liver. 2. Large hiatal hernia. 3. Bibasilar atelectasis. 4. Normal abdominal aortogram. 5. No acute abnormalities are seen in the abdomen and pelvis. Radiation Dose CTDIVOL = (mGy): DLP = 1413.12 (mGy-cm) Dictated By:Randolph Amaya Signed By:Mellisa Amaya Date/Time:08/08/20 140 DD/ 140 CXR: Attestation: I personally reviewed and interpreted this imaging study as follows: Radiologist's impression: [address] [address] XRay Report Signed Patient: Mindy Cueva #: [id number] : 1950cct#:[id number] Age/Sex: 70 / FADM Date: 08/08/20 Loc: ERRoom/Bed: Attending Dr: Ordering Provider/Ordering MD: Danika [place] [facility] [place] Service: 08/08/20 Procedure(s): XR chest 2V* 81417 Accession Number(s): [id number] Report Number: [id number] PROCEDURE INFORMATION: Exam: XR Chest, 2 Views Exam date and time: 08/08/2020 12:29 PM Age: 70 years old Clinical indication: Cough; Additional info: Cough, weakness TECHNIQUE: Imaging protocol: XR of the chest Views: 2 views. COMPARISON: CR (CHEST, ) 07/24/2020 9:13 PM FINDINGS: Lungs: Unremarkable. No consolidation. Pleural space: Unremarkable. No pleural effusion. No pneumothorax. Heart/Mediastinum: There is a hiatal hernia. The heart is normal in size. Bones/joints: Unremarkable. XR/XR chest 2V* [id number] IMPRESSION: Hiatal hernia. No acute abnormality. Dictated By:Randolph Amaya Signed By:Mellisa Amaya Date/Time:08/08/20 1248 DD/ 1246 EKG Data^: EKG 1: Attestation: I personally reviewed and interpreted this EKG as follows: EKG interpretation date: 08/08/20 EKG interpretation time: 12:19 Prior EKG tracings: not available for review Interpretation: Sinus tachycardia. Heart rate [address] changes. Normal axis. Discharge Plan Discharge Patient Disposition: Admitted As Inpatient Admit Provider: Armani Jauregui Clinical Impression: Acute on chronic anemia, UTI (urinary tract infection), Pre-syncope Condition: Stable Coding Level of Care Code ED Design Tech for Chg Fwd Exam Comprehensive
--- NOTE | 2020-08-08 12:15 | ECG_ITS ---
[facility] Test Date: 2020-08-08 Pat Name: Mindy Cueva Department: Room: Gender: Female Whipped Topping Mixer: : 1950 Requested By: Danika Martinez I Order Number: [id number] Antony MD: Nancy Read M.D. Measurements Intervals Independence Rate: 103 P: 29 OR: 153 QRS: -14 QRSD: 85 T: 31 QT: 314 QTc: 413 Interpretive Statements SINUS TACHYCARDIA ABNORMAL RHYTHM ECG Compared to ECG 07/24/2020 23:09:28 Sinus rhythm no longer present Myocardial infarct finding no longer present Electronically Signed On 08-08-2020 20:21:49 NURSERY TEACHER by Nancy Read M.D. [id number]
[2020-08-08 12:26] LABS: ABG PCO2 40.7 mmHg (35-45); ABG PH Result 7.46 (7.35-7.45); Arterial Blood Gas Hematocrit 21.1 % (37-47); Base Excess ABG 4.6 mmol/L (-2.0-2.0); Blood Gas Allen Test Pos; Blood Gas Sample Type Arterial; HCO3 ABG 28.8 mmol/L (22-26); PO2 ABG 53.8 mmHg (80.0-100.0)
[2020-08-08 12:27] LABS: Blood Gas Operator Identificat ED; Blood Gas Sample Site Radial, left; Oxygen Device ROOM AIR
[2020-08-08 12:35] LABS: Basophils % 0.3 %; Hematocrit 24.4 % (37.0-47.0); Lymphocytes # 1.4 10^3/uL (0.8-4.8); Lymphocytes % 21.3 %; Mean Corpuscular HGB Conc 28.7 g/dL (30.0-36.0); Mean Corpuscular Hemoglobin 24.8 pg (28.0-34.0); Mean Corpuscular Volume 86.5 fL (81-99); Mean Platelet Volume 10.1 fL (7.4-10.4); Monocytes # 0.6 10^3/uL (0.2-0.9); Neutrophils # 4.49 10^3/uL (1.8-7.7); Neutrophils % 68.5 %; Nucleated Red Blood Cells % 0 %; Platelet Count 285 10^3/cmm (130-400); Red Blood Count 2.82 10^6/uL (4.1-5.3); Red Cell Distribution Width 29.4 % (12.1-15.1); White Blood Count 6.6 10^3/uL (4.0-10.0)
[2020-08-08 12:45] LABS: Urine Appearance Hazy (CLEAR); pH Urine 5 (5-7)
[2020-08-08 12:46] LABS: Add Urine Microscopic? YES; Bilirubin Urine Neg (Negative); Blood Urine Neg (Negative); Glucose Urine UA Norm (Normal); Ketones Urine Negative (Negative); Leukocyte Esterase Urine 1+ (Negative); Nitrate Urine Negative (Negative); Protein Urine Neg (Negative); Urine Color Dark Yellow (Yellow); Urobilinogen Urine 4 mg/dL (Negative)
[2020-08-08 12:47] LABS: WBC Urine 40-55 /hpf (0-5)
[2020-08-08 12:48] LABS: Add Urine Culture? Yes; Bacteria Urine 2+ /hpf; Mucus Urine 1+ /hpf
[2020-08-08 12:49] LABS: INR 0.97 (0.8-1.2)
[2020-08-08 13:02] LABS: NT Pro B Type Natriuretic Pept 144 pg/mL (0-125); Procalcitonin 0.15 ng/mL (0-0.5); Thyroid Stimulating Hormone 1.75 uIU/mL (0.27-4.20)
--- NOTE | 2020-08-08 13:03 | PC.NURSE ---
No acute distress. Resting with lights off. Daughter at bedside.
[2020-08-08 13:13] LABS: Alanine Aminotransferase 11 U/L (0-33); Albumin Level 3.2 g/dL (3.5-5.2); Alkaline Phosphatase 69 IU/L (35-105); Anion Gap 14.3 (5-19); Aspartate Amino Transferase 19 U/L (0-32); Blood Urea Nitrogen 12 mg/dL (8-23); C Reactive Protein 80.4 mg/L (0.0-4.9); Calcium 7.9 mg/dL (8.5-10.5); Carbon Dioxide 27 mmol/L (22-29); Chloride 97 mmol/L (98-107); Creatine Phosphokinase 129 U/L (26-192); Globulin 2.9 g/dL (1.3-4.6); Glomerular Filtration Rate 62.1 mL/min (90-130); Glucose 130 mg/dL (65-115); Magnesium 1.7 mg/dL (1.7-2.3); Osmolality Calculated 282 mOsm/kg (285-295); Potassium 3.3 mmol/L (3.5-5.1); Sodium 135 mmol/L (136-145); Total Bilirubin 0.6 mg/dL (0.15-1.2); Total Protein 6.1 g/dL (6.6-8.7)
--- NOTE | 2020-08-08 13:25 | CTR_ITS ---
PROCEDURE INFORMATION: Exam: CT Angiography Abdomen and Pelvis With Contrast Exam date and time: 08/08/2020 1:30 PM Age: 70 years old Clinical indication: Sternal or substernal pain; Abdominal pain; Generalized; Prior surgery; Additional info: Abdominal pain, anemia TECHNIQUE: Imaging protocol: Computed tomographic angiography of the abdomen and pelvis with intravenous contrast material. 3D rendering (Not supervised by radiologist): MIP and/or 3D reconstructed images were created by the technologist. Radiation optimization: All CT scans at this facility use at least one of these dose optimization techniques: automated exposure control; mA and/or kV adjustment per patient size (includes targeted exams where dose is matched to clinical indication); or iterative reconstruction. Contrast material: OMNIPAQUE 350; Contrast volume: 95 ml; Contrast route: INTRAVENOUS (IV); COMPARISON: CR (CHEST, ) 08/08/2020 12:23 PM RADIATION DOSE METRICS: Total DLP (mGy-cm): 1413.12 FINDINGS: Lungs: There is bibasilar atelectasis. Mediastinal space: There is a large hiatal hernia. Aorta: No aortic aneurysm. No aortic dissection. Celiac trunk and mesenteric arteries: No occlusion or significant stenosis. Renal arteries: No occlusion or significant stenosis. Right iliac arteries: No occlusion or significant stenosis. Left iliac arteries: No occlusion or significant stenosis. Liver: There is decreased density of the liver indicating fatty liver. No liver masses are seen. Gallbladder and bile ducts: Cholecystectomy. Normal bile ducts. Pancreas: Unremarkable. No mass. No ductal dilation. Spleen: Unremarkable. No splenomegaly. Adrenals: Unremarkable. No mass. Kidneys and ureters: Unremarkable. No solid mass. No hydronephrosis. Stomach and bowel: Unremarkable. No obstruction. No mucosal thickening. Appendix: No evidence of appendicitis. Intraperitoneal space: Unremarkable. No free air. No significant fluid collection. Lymph nodes: Unremarkable. No enlarged lymph nodes. Urinary bladder: Unremarkable. No mass. Reproductive: Hysterectomy. No adnexal masses. 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 Soft tissues: Tiny fat containing umbilical hernia. CT/CT angio abdomen pelvis 31654 IMPRESSION: 1. Fatty liver. 2. Large hiatal hernia. 3. Bibasilar atelectasis. 4. Normal abdominal aortogram. 5. No acute abnormalities are seen in the abdomen and pelvis. Radiation Dose CTDIVOL = (mGy): DLP = 1413.12 (mGy-cm)
[2020-08-08] MEDS: iohexol 350 mg/mL 100 mL Btl IV (13:45)
[2020-08-08] MEDS: cefTRIAXone 1,000 MG in sodium chloride 0.9% (plus) 50 ML 100 MG IV (14:48)
--- NOTE | 2020-08-08 16:43 | P.HP_ITS ---
Providers/Chief Complaint Admitting Physician: Armani Jauregui MD Primary Care Provider: Joseline Dominique APN Chief Complaint: COVID SYMPTOMS, WEAKNESS, N/V History of Present Illness Mindy Cueva is a 70 year old female with a past medical history of chronic anemia, atrial fibrillation, chronic low back pain, gout, hypertension, paroxysmal SVT, GERD, gout, who presents to [facility] due to complaints of fatigue, weakness, malaise. Patient states that this morning her daughter checked up on her, found that her oxygen saturations were low 80s on room air, heart rates were in the 120s, she was looking unwell, so she decided to bring her to the emergency room. Patient for the last 6 months has been feeling fatigue, malaise, lightheadedness, dizziness. She tells me that this fatigue weakness has become so pronounced that with taking a few steps she just feels so tired, she does feel short of breath also with a few steps. She tells me that a few days ago, she was going into the garage, when she turned around and she felt lightheaded, denies passing out, but did fall and hit her head. She tells me that she has had some presyncopal episodes, some near misses, near falls. She has an ongoing work-up for anemia, on her last admission she required 2 units PRBC, her colonoscopy and EGD was unremarkable, she is supposed to have a capsule endoscopy, there is no plans on having a bone marrow biopsy as of yet. Denies any bloody or black stools. Denies any personal family history of colon cancer. Denies any personal family history of any significant cancers. She did test positive for Covid in May, she did not require any admission, but received Rocephin and azithromycin. She did have a fever this morning. Does complain of dysuria. Review of Systems Const: Reports: fever(s) and malaise; Denies: chills or fatigue Eyes: Denies: change in vision or blurry vision ENMT: Denies: nasal congestion Card: Reports: pre-syncope and dyspnea on exertion; Denies: chest pain or palpitations Resp: Reports: dyspnea; Denies: productive cough, non-productive cough or wheezing GI: Denies: abdominal pain, nausea, vomiting, hematemesis, diarrhea, constipation, hematochezia or melena : Denies: flank pain, dysuria or urinary frequency Musc: Denies: neck pain or back pain Skin/Breast: Denies: rash Neuro: Denies: headache(s), dizziness or vertigo Psych: Denies: anxiety or depression Endo: Denies: polyuria or polydipsia Medications/Allergies Home Medications Medication Instructions Recorded Confirmed Last Taken Type alprazolam 0.5 mg PO BID PRN 08/09/19 08/08/20 08/08/20 History tramadol 50 mg PO Q4H PRN 08/09/19 08/08/20 08/07/20 History albuterol sulfate 2 puff INHALATION QID PRN 07/25/20 08/08/20 Unknown History allopurinol 300 mg PO DAILY@08 07/25/20 08/08/20 08/07/20 History ascorbic acid (vitamin C) [Vitamin 500 mg PO DAILY@08 07/25/20 08/08/20 08/07/20 History C] metoprolol tartrate 50 mg PO Q12H 07/25/20 08/08/20 08/07/20 History multivitamin 1 tab PO DAILY@08 07/25/20 08/08/20 08/07/20 History ondansetron 4 mg PO TID PRN 07/25/20 08/08/20 08/07/20 History ferrous sulfate 325 mg PO BID@0800,1800 08/08/20 08/08/20 08/07/20 History lisinopril 10 mg PO DAILY@0800 08/08/20 08/08/20 08/07/20 History pantoprazole 40 mg PO BID@0800,1800 08/08/20 08/08/20 08/07/20 History Allergies Allergy/AdvReac Type Severity Reaction Status Date / Time No Known Allergies Allergy Verified 07/25/20 10:48 PFSH Acute PFSH: Medical History Acute non-ST elevation myocardial infarction (NSTEMI) Anxiety Atrial fibrillation Chronic low back pain Family history of heart disease Gout HTN (hypertension) Hyperlipidemia Paroxysmal SVT (supraventricular tachycardia) Surgical History History of appendectomy History of back surgery History of cholecystectomy S/P shoulder surgery left Status post glaucoma surgery Status post right knee replacement Family History Mother Cerebral hemorrhage Myocardial infarction Social History Smoking and tobacco status: never smoked Alcohol intake: never Household members: spouse Marital status: Current occupational status: retired Vitals/I&O/Wt Last Vital Signs Temp 100.1 F H 08/08/20 16:37 Pulse 93 08/08/20 16:37 Resp 16 08/08/20 16:37 BP 121/84 08/08/20 16:37 Pulse Ox 98 08/08/20 16:37 08/08/20 08/08/20 08/08/20 06:59 14:59 22:59 Intake Total 50 / 50 Balance 50 / 50 Weight last 48 hrs Weight 99.79 kg Physical Exam Const: COMMON NORMALS: no acute distress and patient oriented x3 GENERAL APPEARANCE: cooperative and comfortable HENMT: COMMON NORMALS: normocephalic HEAD & SCALP: normocephalic Eye: COMMON NORMALS: Equal, round and reactive pupils present and EOMs intact bilaterally GENERAL EYE: appearance normal, both eyes and all related s tructures PUPIL: Yes Equal, round and reactive pupils present OTHER: conjunctivae pallor Neck/C-Spine: COMMON NORMALS: full ROM, no lymphadenopathy, no JVD and Thyroid normal THYROID: Thyroid normal Lymph: LYMPHATIC: no lymphadenopathy noted Resp: COMMON NORMALS: normal respiratory effort, No retractions, No use of accessory muscles and clear to auscultation bilaterally AUSCULTATION: clear to auscultation bilaterally Cardio: COMMON NORMALS: no JVD, regular rate, regular rhythm, S1 normal heart sound present, S2 normal heart sound present, No gallops present (Cardio), No clicks present (Cardio) and No murmurs present (Cardio) RATE: regular rate RHYTHM: regular rhythm HEART SOUNDS: S1 normal heart sound present and S2 normal heart sound present GI: COMMON NORMALS: Normal to inspection, nondistended, normoactive bowel sounds present, Soft to palpation, non-tender and No hepatosplenomegaly present PALPATION: Yes Soft to palpation and Yes No hepatosplenomegaly present Extremity: COMMON NORMALS: normal to inspection, full ROM and no pedal edema Neuro: COMMON NORMALS: patient oriented x3, CN's II-XII intact bilaterally, moves all extremities and no focal motor deficits Psych: COMMON NORMALS: mental status grossly normal, Normal thought process p resent and cooperative THOUGHT PROCESS: Normal thought process present Data : 08/08/20 12:12 08/08/20 12:12 A&P Assessment and plan (1) Acute on chronic anemia: -Had a unremarkable EGD and colonoscopy on last admission -Is set to have a capsule endoscopy, but she has to go up to [place] to have it scheduled -No plans for bone marrow biopsy -On last admission received 2 units PRBC -Has received IV Venofer here, currently on oral iron -Gets B12 injections -No bloody or black stools -CTA of the abdomen pelvis had no acute findings, hiatal hernia, fatty liver Plan: -Transfuse 1 unit PRBC -Monitor hemoglobin -Continue Protonix 40 twice daily -Full code -SCDs for DVT prophylaxis, anticoagulation contraindicated due to anemia Status: Acute (2) Hypokalemia: Will give oral potassium Status: Acute (3) Hypoxia: -Hypoxia seen on ABG on room air -Currently on 2 L -Had Covid back in May -Chest x-ray unremarkable for no focal pneumonia -Echocardiogram this year showed no diastolic dysfunction, EF of 65% -Given her history of Covid, will do a CT angiogram of the chest tomorrow to rule out pulmonary emboli, cannot do one today as she already received a CTA of abdomen pelvis Status: Acute (4) CKD (chronic kidney disease) stage 2, GFR 60-89 ml/min: Start some gentle IV hydration Status: Chronic (5) HTN (hypertension): Continue home meds Status: Chronic Qualifiers: Hypertension type: essential hypertension Qualified Code(s): I10 - Essential (primary) hypertension (6) Hyperlipidemia: Status: Chronic Qualifiers: Hyperlipidemia type: unspecified Qualified Code(s): E78.5 - Hyperlipidemia, unspecified (7) Paroxysmal SVT (supraventricular tachycardia): Status: Acute (8) Fall: Likely secondary to anemia, TSH within normal limits, sodium within normal limits, will do CT of the head as she hit her head Status: Acute (9) Pre-syncope: Likely related to anemia Status: Acute (10) UTI (urinary tract infection): Start Rocephin, urine cultures, blood cultures, pro-John, ESR, CRP,'s rapid flu, Covid, Covid PCR, given fever 100.1 Status: Acute Attestations Medical Necessity Statement*: Patient requires hospitalization for hypoxia, an emia, hypokalemia, fevers, falls, presyncope Coding Level of Care 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
--- NOTE | 2020-08-08 16:52 | CTR_ITS ---
PROCEDURE INFORMATION: Exam: CT Head Without Contrast Exam date and time: 08/08/2020 5:13 PM Age: 70 years old Clinical indication: Injury or trauma; Fall; Blunt trauma (contusions or hematomas); Consciousness not specified TECHNIQUE: Imaging protocol: Computed tomography of the head without contrast. Radiation optimization: All CT scans at this facility use at least one of these dose optimization techniques: automated exposure control; mA and/or kV adjustment per patient size (includes targeted exams where dose is matched to clinical indication); or iterative reconstruction. COMPARISON: No relevant prior studies available. RADIATION DOSE METRICS: Total DLP (mGy-cm): 781.27 FINDINGS: Brain: There are mild periventricular and subcortical lucencies consistent with chronic microvascular ischemic changes. The mckeon-white differentiation is maintained. No hemorrhage. No edema. Multiple hyperdensities with calcifications in the scalp likely representing sebaceous cysts. Cerebral ventricles: No ventriculomegaly. Bones/joints: Unremarkable. No acute fracture. Paranasal sinuses: Visualized sinuses are unremarkable. No fluid levels. Mastoid air cells: Visualized mastoid air cells are well aerated. Soft tissues: See Brain finding. CT/CT head wo con* [id number] IMPRESSION: No acute intracranial abnormality. Chronic microvascular ischemic changes. Radiation Dose CTDIVOL = (mGy): DLP = 781.27 (mGy-cm)
--- NOTE | 2020-08-08 16:53 | USCV_ITS ---
Anay Mindy Age: 70 Gender: F : 1950 Exam Date: 08/08/2020 17:24 Ordering Phys: Armani Jauregui MD Technologist: Maureen Winn Exam Location: [facility] [place] Indication: Pre-syncope, fall Risk Factors: Unknown Previous Vascular Surgery: None Right Brachial BP: / Left Brachial BP: / Right Left Velocity (cm/s) Spectral Plaque Velocity (cm/s) Spectral Plaque Syst/Diast Broadening Syst/Diast Broadening 78.30/ 29.80 Prox CCA 80.50 / 30.90 71.70/ 29.80 Mid CCA 82.70 / 32.00 88.20/ 35.30 Distal CCA 84.90 / 29.80 69.50/ 23.20 Prox ICA 61.70 / 28.70 93.30/ 40.80 Mid ICA 93.70 / 37.50 73.90/ 32.20 Distal ICA 65.80 / 33.90 77.00 ECA 67.30 1.06 ICA/CCA 1.10 Antegrade Vertebral Antegrade 59.00/ 26.40 cm/s 66.80/ 20.20 cm/s Tri Subclavian Tri 83.80 101.2 0 FINDINGS Comparison: none available. See measurements listed above. Minimal plaques bilaterally at the bifurcations and internal carotid arteries. Intimal thickening in the common carotid arteries bilaterally. Antegrade flow in the vertebral arteries bilaterally Normal Doppler flow velocities in the external carotid and the subclavian arteries bilaterally with normal Doppler flow signals CONCLUSIONS Minimal plaques bilaterally at the bifurcations and internal carotid arteries. No significant stenosis, based on the above findings Dr Nancy Read MD FAC (Electronically Signed) Final Date: 08 August 2020 20:15 S
[2020-08-08 17:46] LABS: Procalcitonin 0.15 ng/mL (0-0.5)
[2020-08-08 17:57] LABS: C Reactive Protein 83.1 mg/L (0.0-4.9)
[2020-08-08 18:05] LABS: Erythrocyte Sedimentation Rate 72 mm/hr (0-15)
[2020-08-08] MEDS: potassium chloride ER 20 mEq Tablet 40 MEQ PO (19:23)
[2020-08-08] MEDS: metoprolol tartrate 50 mg Tablet PO (19:24)
[2020-08-08] MEDS: pantoprazole DR 40 mg Tablet PO (19:28)
[2020-08-08] MEDS: ferrous sulfate EC 325 mg Tablet PO (19:28)
[2020-08-08] MEDS: sodium chloride 0.9% (100 ml) 100 ML 75 ML (19:32)
[2020-08-08] MEDS: sodium chloride 0.9% 1,000 ML 75 ML IV (21:50)
[2020-08-08] MEDS: pneumococcal (23 valent) SDV 0.5 mL IM (21:52)
[2020-08-08 22:51] LABS: Influenza A by IFA Negative (Negative); Influenza B by IFA Negative (Negative)
[2020-08-09] VITALS (13 sets, daily range): BP systolic 97–120; BP diastolic 62–77; PULSE 67–98; RESP 16–18; TEMP 36.7–38.6; O2SAT 93–99
[2020-08-09 06:42] LABS: Basophils % 0.2 %; Eosinophils % 0.5 %; Hematocrit 24.7 % (37.0-47.0); Hemoglobin 7.3 g/dL (11.5-15.3); Lymphocytes # 1.5 10^3/uL (0.8-4.8); Lymphocytes % 25.7 %; Mean Corpuscular HGB Conc 29.6 g/dL (30.0-36.0); Mean Corpuscular Hemoglobin 25.9 pg (28.0-34.0); Mean Corpuscular Volume 87.6 fL (81-99); Mean Platelet Volume 10.7 fL (7.4-10.4); Monocytes # 0.5 10^3/uL (0.2-0.9); Monocytes % 8.7 %; Neutrophils # 3.87 10^3/uL (1.8-7.7); Neutrophils % 64.6 %; Nucleated Red Blood Cells % 0 %; Platelet Count 256 10^3/cmm (130-400); Red Blood Count 2.82 10^6/uL (4.1-5.3)
[2020-08-09 06:54] LABS: Anion Gap 9.1 (5-19); Blood Urea Nitrogen 15 mg/dL (8-23); Calcium 7.5 mg/dL (8.5-10.5); Carbon Dioxide 28 mmol/L (22-29); Chloride 103 mmol/L (98-107); Glomerular Filtration Rate 62.1 mL/min (90-130); Glucose 132 mg/dL (65-115); Osmolality Calculated 285 mOsm/kg (285-295); Potassium 4.1 mmol/L (3.5-5.1); Sodium 136 mmol/L (136-145)
[2020-08-09] MEDS: iohexol 350 mg/mL 100 mL Btl IV (08:52)
[2020-08-09] MEDS: ascorbic acid 500 mg Tablet PO (09:20)
[2020-08-09] MEDS: multivitamin therapeutic Tablet 1 TAB PO (09:20)
[2020-08-09] MEDS: pantoprazole DR 40 mg Tablet PO ×2 (09:20→18:29)
[2020-08-09] MEDS: ferrous sulfate EC 325 mg Tablet PO ×2 (09:20→18:29)
[2020-08-09] MEDS: lisinopril 10 mg Tablet PO (09:20)
[2020-08-09] MEDS: allopurinol 300 mg Tablet PO (09:20)
--- NOTE | 2020-08-09 10:38 | PC.OT ---
Patient MOd I with all ADL's and mobility. NO OT needs identified.
--- NOTE | 2020-08-09 11:09 | P.PN_ITS ---
Subjective Subjective: Interval history: Last 24 H : Patient is spiking Temperature:Tmax: 102.5 She deny any chest pain,SOB,Nausea,vomiting,abdominal pain, urinary complain. Her other vitals and labs have been reviewed. Medications: Reviewed: Yes Vitals/I&O/Wt Last Vital Signs Temp 99.1 F 08/09/20 07:31 Pulse 78 08/09/20 09:05 Resp 18 08/09/20 09:05 BP 106/70 08/09/20 07:31 Pulse Ox 98 08/09/20 09:05 08/08/20 08/09/20 08/09/20 22:59 06:59 14:59 Intake Total 700 / 700 240 / 240 Output Total 0 / 0 Balance 700 / 700 0 / 700 240 / 240 Weight last 48 hrs Weight 99.79 kg Physical Exam Const: COMMON NORMALS: patient oriented x3 HENMT: COMMON NORMALS: normocephalic and atraumatic HEAD & SCALP: normocephalic and atraumatic Chest: COMMONS NORMALS: normal inspection of the chest CHEST: Yes Symmetrical chest wall rise Resp: COMMON NORMALS: normal respiratory effort, No retractions, No use of accessory muscles and clear to auscultation bilaterally EFFORT & INSPECTION: Yes symmetric chest movement AUSCULTATION: clear to auscultation bilaterally Cardio: COMMON NORMALS: regular rate, regular rhythm, S1 normal heart sound present, S2 normal heart sound present, No gallops present (Cardio), No murmurs present (Cardio), No rub (Cardio) and Peripheral pulses 2+ throughout RATE: regular rate RHYTHM: regular rhythm HEART SOUNDS: S1 normal heart sound present and S2 normal heart sound present PERIPHERAL PULSES: Peripheral p ulses 2+ throughout GI: COMMON NORMALS: Normal to inspection, nondistended, normoactive bowel sounds present, Soft to palpation, non-tender, No hepatosplenomegaly present and no masses AUSCULTATION: Yes normoactive bowel sounds PALPATION: Yes Soft to palpation and Yes No hepatosplenomegaly present RECTAL EXAM: deferred Extremity: COMMON NORMALS: no clubbing, cyanosis or edema and no pedal edema Neuro: COMMON NORMALS: patient oriented x3 Data : 08/09/20 05:50 08/09/20 05:50 Micro: Microbiology 08/08/20 11:53 Urine Culture - Preliminary Urine,Clean Catch 01/17/21 21:31 Blood Culture - Preliminary Blood SPECIMEN COLLECTED 08/08/20 21:30 Blood Culture - Preliminary Blood SPECIMEN COLLECTED A&P Assessment and plan (1) Sepsis: Sepsis likley 08/24 to PNA/UTI r/o other causes ( Possible G.I translocation from GIB ) Patient is currently on 2ls Oxygen Temp Kenrick C.T chest : Is consistent with PNA Blood Culture : NTD Sputum Culture: Pending Urine Culture :Pending Procal : 0.15 Lactic acid :Pending 2D echo : MRSA PCR rapid flu:Negative Covid PCR:Pending Vancomycin ( 08/09) Zosyn (08/09 ) Status: Acute (2) Acute on chronic anemia: -Had a unremarkable EGD and colonoscopy on last admission -Is set to have a capsule endoscopy, but she has to go up to [place] to have it scheduled -No plans for bone marrow biopsy -On last admission received 2 units PRBC -Has received IV Venofer here, currently on oral iron -Gets B12 injections -No bloody or black stools -CTA of the abdomen pelvis had no acute findings, hiatal hernia, fatty liver Plan: -Transfuse 2 unit PRBC -Monitor hemoglobin -Continue Protonix 40 twice daily -Full code -SCDs for DVT prophylaxis, anticoagulation contraindicated due to anemia Status: Acute (3) UTI (urinary tract infection): Status: Acute Qualifiers: Hematuria presence: without hematuria Urinary tract infection type: acute cystitis Qualified Code(s): N30.00 - Acute cystitis without hematuria (4) Hypoxia: -Hypoxia seen on ABG on room air -Currently on 2 L -Had Covid back in May -Echocardiogram ( 08/09) : showed no diastolic dysfunction, EF of 65% -CT angiogram of the chest:No P.E. Numerous scattered opacifications throughout both lobes. These are groundglass opacifications with areas of increasing con solidation or pneumonia. Mild dependent changes and pleural thickening at the lung bases. Bilateral hilar lymph nodes are mildly prominent. The largest at the RIGHT hilum measures 11 mm. Bronchial wall thickening extends along the RIGHT lower lobe bronchovascular bundle. Status: Acute (5) Hypokalemia: Will give oral potassium Status: Acute (6) CKD (chronic kidney disease) stage 2, GFR 60-89 ml/min: Start some gentle IV hydration Status: Chronic (7) HTN (hypertension): Continue home meds Status: Chronic Qualifiers: Hypertension type: essential hypertension Qualified Code(s): I10 - Essential (primary) hypertension (8) Hyperlipidemia: Status: Chronic Qualifiers: Hyperlipidemia type: unspecified Qualified Code(s): E78.5 - Hyperlipidemia, unspecified (9) Paroxysmal SVT (supraventricular tachycardia): Status: Acute (10) Fall: Likely secondary to anemia, TSH within normal limits, sodium within normal limits, will do CT of the head as she hit her head Status: Acute (11) Pre-syncope: Likely related to anemia. 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
--- NOTE | 2020-08-09 12:00 | CT_ITS ---
WS: [id number] CT CHEST ANGIOGRAPHY WITH REFORMATS HISTORY: hypoxia TECHNIQUE: Contiguous axial images are obtained through the chest during arterial injection of intrav enous contrast. Images are reconstructed to evaluate the pulmonary arteries. MIP imaging also reviewe d. All CT scans at [facility] use at least one of these dose optimization techniques: aut omated exposure control; mA and/or kV adjustment per patient size (includes targeted exams where dose is matched to clinical indication); or iterative reconstruction. CONTRAST: Omnipaque 350; 95 mL IV. DLP: 577.37 mGy.cm COMPARISON: None available. Very good opacification of the pulmonary artery. No pulmonary emboli. Normal size pulmonary artery. M ild atherosclerosis thoracic aorta with no aneurysm. Mild enlargement of the heart. No pericardial or pleural effusion. There are numerous scattered opacifications throughout both lobes. These are groun dglass opacifications with areas of increasing consolidation or pneumonia. Mild dependent changes and pleural thickening at the lung bases. Bilateral hilar lymph nodes are mildly prominent. The largest at the RIGHT hilum measures 11 mm. Bronchial wall thickening extends along the RIGHT lower lobe bronc hovascular bundle. 1 cm LEFT thyroid nodule. Large hiatal hernia. Hepatomegaly and mild hepatic steatosis. Prior cholecystectomy. No adrenal mass. Mild perinephric str anding around the upper poles of each kidney. Nonobstructing calcifications in the upper poles. Pancr eas is mildly atrophic. No osteoblastic or osteolytic bone disease. CT/CT angio chest PE protcl [id number] IMPRESSION: 1. No pulmonary embolism. 2. Diffuse pulmonary opacifications consistent with history of Covid. 3. Indeterminate hilar lymph nodes. Probably reactive. 4. Large hiatal hernia. 5. Prior cholecystectomy. 6. Hepatomegaly and hepatic steatosis.
[2020-08-09] MEDS: sodium chloride 0.9% 1,000 ML 75 ML IV (14:28)
[2020-08-09] MEDS: cefTRIAXone 1,000 MG in sodium chloride 0.9% (plus) 50 ML 100 MG IV (14:28)
[2020-08-09] MEDS: ALPRAZolam 0.5 mg Tablet PO (18:29)
--- NOTE | 2020-08-09 20:22 | PC.NURSE ---
updated daughter on pt condition, labs, vitals, and treatment, along with treatment goals. daughter was upset due to having delay receiving blood due to miscommunication between nurse and physician. daughter suggested an occult sample to be collected and to ask physician about possibility of this.
--- NOTE | 2020-08-09 22:42 | PC.PHAR ---
Vancomycin is dosed at 1000mg IVPB every 12 hours to produce a predicted trough level of 16.93 (population based pharmacokinetic analysis). A trough level has been ordered from the lab to be obtained before the fourth dose to confirm and adjust if needed.
[2020-08-09] MEDS: sodium chloride 0.9% (100 ml) 100 ML 50 ML (22:53)
[2020-08-09] MEDS: acetaminophen 325 mg Tablet 650 MG PO ×2 (23:15)
[2020-08-10] VITALS (21 sets, daily range): BP systolic 107–135; BP diastolic 63–84; PULSE 71–93; RESP 16–20; TEMP 36.6–38.2; O2SAT 80–98
[2020-08-10] MEDS: vancomycin 1,000 MG in sodium chloride 0.9% 250 ML 250 MG IV ×3 (01:15→23:13)
[2020-08-10] MEDS: FUROsemide 10 mg/mL SDV 2mL 20 MG IVP (02:58)
[2020-08-10] MEDS: piperacillin-tazobactam 3.375 GM in sodium chloride 0.9% (plus) 50 ML IV ×3 (02:59→17:20)
[2020-08-10] MEDS: sodium chloride 0.9% (100 ml) 100 ML 150 ML (05:14)
[2020-08-10] MEDS: metoprolol tartrate 50 mg Tablet PO ×2 (07:15→17:20)
[2020-08-10 07:35] LABS: Basophils % 0.3 %; Eosinophils % 0.5 %; Hematocrit 34.2 % (37.0-47.0); Hemoglobin 10.1 g/dL (11.5-15.3); Lymphocytes # 1.7 10^3/uL (0.8-4.8); Lymphocytes % 25.2 %; Mean Corpuscular HGB Conc 29.5 g/dL (30.0-36.0); Mean Corpuscular Volume 87.9 fL (81-99); Mean Platelet Volume 9.9 fL (7.4-10.4); Monocytes # 0.5 10^3/uL (0.2-0.9); Monocytes % 8.1 %; Neutrophils # 4.27 10^3/uL (1.8-7.7); Neutrophils % 65.3 %; Nucleated Red Blood Cells % 0 %; Platelet Count 266 10^3/cmm (130-400); Red Blood Count 3.89 10^6/uL (4.1-5.3); Red Cell Distribution Width 24.1 % (12.1-15.1); White Blood Count 6.5 10^3/uL (4.0-10.0)
[2020-08-10 08:06] LABS: Alanine Aminotransferase 10 U/L (0-33); Albumin Level 2.9 g/dL (3.5-5.2); Alkaline Phosphatase 71 IU/L (35-105); Anion Gap 13.8 (5-19); Aspartate Amino Transferase 20 U/L (0-32); Blood Urea Nitrogen 12 mg/dL (8-23); Calcium 7.7 mg/dL (8.5-10.5); Carbon Dioxide 26 mmol/L (22-29); Chloride 100 mmol/L (98-107); Glomerular Filtration Rate 49.2 mL/min (90-130); Glucose 121 mg/dL (65-115); Osmolality Calculated 283 mOsm/kg (285-295); Potassium 3.8 mmol/L (3.5-5.1); Sodium 136 mmol/L (136-145); Total Bilirubin 0.6 mg/dL (0.15-1.2); Total Protein 5.9 g/dL (6.6-8.7)
[2020-08-10 08:21] LABS: Lactate (Lactic Acid level) 1.6 mmol/L (0.5-2.2)
[2020-08-10] MEDS: allopurinol 300 mg Tablet PO (09:15)
[2020-08-10] MEDS: lisinopril 10 mg Tablet PO (09:15)
[2020-08-10] MEDS: ascorbic acid 500 mg Tablet PO (09:15)
[2020-08-10] MEDS: multivitamin therapeutic Tablet 1 TAB PO (09:15)
[2020-08-10] MEDS: ferrous sulfate EC 325 mg Tablet PO ×2 (09:15→17:20)
[2020-08-10] MEDS: pantoprazole DR 40 mg Tablet PO ×2 (09:15→17:20)
[2020-08-10 15:10] LABS: Coronavirus Test Green County DETECTED
[2020-08-10] MEDS: acetaminophen 325 mg Tablet 650 MG PO (17:20)
[2020-08-10] MEDS: albuterol 8 gm MDI 2 PUFF INHALATION ×2 (17:34→20:30)
[2020-08-10] MEDS: FUROsemide 10 mg/mL SDV 4mL 40 MG IVP (17:55)
--- NOTE | 2020-08-10 18:16 | XR_ITS ---
WS: [id number] Portable AP supine chest, 08/10/2020 Clinical Data: sob Comparison: AP chest, 08/08/2020 Findings: Bilateral pulmonary opacities are present. The heart is enlarged. The aortic arch and desce nding aorta are tortuous. There is a hiatal hernia behind the heart. No nodules, masses or effusions are seen. There are monitor leads on the chest wall. XR/XR chest 1V portable [id number] Impression: 1. Bilateral interstitial pulmonary opacities consistent with pneumonia. 2. Cardiomegaly and atherosclerosis.
--- NOTE | 2020-08-10 18:48 | ECG_ITS ---
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 Measurements Intervals [place] Rate: 80 P: 48 CA: 168 QRS: 1 QRSD: 84 T: 43 QT: 362 QTc: 420 Interpretive Statements SINUS RHYTHM Compared to ECG 08/08/2020 12:19:33 Sinus tachycardia no longer present Electronically Signed On 08-20-2020 22:17:59 EPIC SPECIALIST by Gladis Bello M.D. [id number]
--- NOTE | 2020-08-10 21:05 | PC.NURSE ---
RT IN ROOM WITH PT.
--- NOTE | 2020-08-10 21:16 | PM.PN ---
Subjective Subjective: Interval history: was felling SOB as well she has been more tired today. She continues to have temperature spike. Tmax: 100.7 Medications: Reviewed: Yes Vitals/I&O/Wt Last Vital Signs Temp 98.5 F 08/10/20 20:00 Pulse 80 08/10/20 20:40 Resp 20 H 08/10/20 20:40 BP 107/63 08/10/20 20:00 Pulse Ox 94 08/10/20 20:40 08/10/20 08/10/20 08/10/20 06:59 14:59 22:59 Intake Total 1150 / 2390 530 / 530 240 / 770 Balance 1150 / 2390 530 / 530 240 / 770 Physical Exam Const: COMMON NORMALS: patient oriented x3 HENMT: COMMON NORMALS: normocephalic, atraumatic, hearing grossly normal bilaterally and external ears normal HEAD & SCALP: normocephalic and atraumatic EXTERNAL EAR: Yes external ears normal Eye: COMMON NORMALS: no scleral icterus GENERAL EYE: appearance normal, both eyes and all related structures Chest: COMMONS NORMALS: normal inspection of the chest and normal palpation of entire chest wall CHEST: Yes Symmetrical chest wall rise Resp: COMMON NORMALS: normal respiratory effort, No retractions and clear to auscultation bilaterally EFFORT & INSPECTION: Yes symmetric chest movement AUSCULTATION: clear to auscultation bilaterally Cardio: COMMON NORMALS: regular rate, regular rhythm, S1 normal heart sound present, S2 normal heart sound present, No gallops present (Cardio), No murmurs present (Cardio), No rub (Cardio) and Peripheral pulses 2+ throughout RATE: regular rate RHYTHM: regular rhythm HEART SOUNDS: S1 normal heart sound present and S2 normal heart sound present PERIPHERAL PULSES: Peripheral pulses 2+ throughout OTHER: B/L Crackles present in both lung valderrama. Predominantly at bases. GI: COMMON NORMALS: Normal to inspection, nondistended, normoactive bowel sounds present, Soft to palpation, non-tender, No hepatosplenomegaly present and no masses AUSCULTATION: Yes normoactive bowel sounds PALPATION: Yes Soft to palpation and Yes No hepatosplenomegaly present RECTAL EXAM: deferred Extremity: COMMON NORMALS: no clubbing, cyanosis or edema and no pedal edema Neuro: COMMON NORMALS: patient oriented x3 Data : 08/10/20 07:27 08/10/20 07:27 Micro: Microbiology 08/08/20 11:53 Urine Culture - Final Urine,Clean Catch 08/08/20 21:31 Blood Culture - Preliminary Blood NEGATIVE TO DATE 08/08/20 21:30 Blood Culture - Preliminary Blood NEGATIVE TO DATE A&P Assessment and plan (1) Sepsis: Sepsis likley 2/2 to PNA/UTI r/o other causes ( Possible G.I translocation from GIB ) Patient is currently on 2ls Oxygen Temp Kenrick C.T chest : Is consistent with PNA Blood Culture : NTD Repeat Blood Culture ordered on 08/10 Repeat Sputum culture Repaet urine culture Procal : 0.15 Lactic acid :Pending 2D Echo : Technically difficult study.but grossly fine,with Preserved E.F MRSA PCR Xray chest pending Trend Troponin Repeat ABG : pH : 7.47 , pco2: 34, po2; 73 ON 2ls NC rapid flu:Negative Covid PCR:Positive Vancomycin ( 08/09) Zosyn (08/09 ) Azit:(08/10) Solumedrol 60 i.v daily Lasix 40 mg I.V * 1DOSE Advair/Spirivia/Ventolin q4h Status: Acute (2) Acute on chronic anemia: -Had a unremarkable EGD and colonoscopy on last admission -Is set to have a capsule endoscopy, but she has to go up to [place] to have it scheduled -No plans for bone marrow biopsy -On last admission received 2 units PRBC -Has received IV Venofer here, currently on oral iron -Gets B12 injections -No bloody or black stools -CTA of the abdomen pelvis had no acute findings, hiatal hernia, fatty liver Plan: -Transfuse 2 unit PRBC -Monitor hemoglobin -Continue Protonix 40 twice daily -Full code -SCDs for DVT prophylaxis, anticoagulation contraindicated due to anemia Status: Acute (3) UTI (urinary tract infection): Status: Acute Qualifiers: Hematuria presence: without hematuria Urinary tract infection type: acute cystitis Qualified Code(s): N30.00 - Acute cystitis without hematuria (4) Hypoxia: -Hypoxia seen on ABG on room air -Currently on 2 L -Had Covid back in May -Echocardiogram ( 08/09) : showed no diastolic dysfunction, EF of 65% -CT angiogram of the chest:No P.E. Numerous scattered opacifications throughout both lobes. These are groundglass opacifications with areas of increasing consolidation or pneumonia. Mild dependent changes and pleural thickening at the lung bases. Bilateral hilar lymph nodes are mildly prominent. The largest at the RIGHT hilum measures 11 mm. Bronchial wall thickening extends along the RIGHT lower lobe bronchovascular bundle. Status: Acute (5) Hypokalemia: Will give oral potassium Status: Acute (6) CKD (chronic kidney disease) stage 2, GFR 60-89 ml/min: Start some gentle IV hydration Status: Chronic (7) HTN (hypertension): Continue home meds Status: Chronic Qualifiers: Hypertension type: essential hypertension Qualified Code(s): I10 - Essential (primary) hypertension (8) Hyperlipidemia: Status: Chronic Qualifiers: Hyperlipidemia type: unspecified Qualified Code(s): E78.5 - Hyperlipidemia, unspecified (9) Paroxysmal SVT (supraventricular tachycardia): Status: Acute (10) Fall: Likely secondary to anemia, TSH within normal limits, sodium within normal limits, will do CT of the head as she hit her head Status: Acute (11) Pre-syncope: Likely related to anemia. CV carotid duplex: Non occlusive Status: Acute Additional A&P Information DVT PPX:SCD Code status :Full Code Disposition :Home Attestations Medical Necessity Statement*: Patient needs to be in hospital for the management of Sepsis and R/F Coding Level of Care Code Acute Color Printer Operator for Chg Fwd Diagnoses Sepsis A41.9 Acute on chronic anemia D64.9 UTI (urinary tract infection) N30.00 Hematuria presence: without hematuria Urinary tract infection type: acute cystitis Hypoxia R09.02 Hypokalemia E87.6 CKD (chronic kidney disease) stage 2, GFR 60-89 ml/min N18.2 HTN (hypertension) I10 Hypertension type: essential hypertension Hyperlipidemia E78.5 Hyperlipidemia type: unspecified Paroxysmal SVT (supraventricular tachycardia) I47.1 Fall W19.XXXA Pre-syncope R55
[2020-08-10] MEDS: azithromycin 500 MG in sodium chloride 0.9% 250 ML 250 MG IV (21:20)
[2020-08-10 21:41] LABS: ABG PCO2 34.4 mmHg (35-45); ABG PH Result 7.47 (7.35-7.45); Alveolar-Arterial Oxygen Gradi 4.5 mmHg (5-10); Arterial Blood Gas Hematocrit 31.4 % (37-47); Base Excess ABG 1.4 mmol/L (-2.0-2.0); Blood Gas Allen Test Pos; Blood Gas Sample Site Brachial, left; Blood Gas Sample Type Arterial; Carboxyhemoglobin 1.5 %THgb (0.4-20.1); HCO3 ABG 24.9 mmol/L (22-26); HGB O2 Sat 95.1 % (95-100); Ionized Calcium Level - ABG 1.1 mmol/L (1.1-1.4); Methemoglobin 0.6 % (0.4-1.5); Oxygen Device NC; Oxygen Saturation ABG 97.1; PO2 ABG 73.6 mmHg (80.0-100.0); Potassium Level - ABG 3.2 mmol/L (3.5-5.0); Total Hemoglobin 10.2 g/dL (12-16)
--- NOTE | 2020-08-10 22:27 | USCV_ITS ---
Mindy Cueva Age: 70 Gender: F : 1950 Exam Date: 08/10/2020 06:20 Ordering Phys: Lg Madison MD Technologist: Lore Stein Exam Location: [facility] [place] Indication: SOB BP: 126 / 81 HR: 85 Rhythm: Sinus Technical Quality: Technically difficult study MEASUREMENTS (Male / Female) Normal Values 2D ECHO LV Diastolic Diameter PLAX 3.9 cm 4.2 - 5.9 / 3.9 - 5.3 cm LV Systolic Diameter PLAX 3.0 cm LV Chamber Size 2.8 cm IVS Diastolic Thickness 1.1 cm 0.6 - 1.0 / 0.6 - 0.9 cm IVS Systolic Thickness 1.1 cm LVPW Diastolic Thickness 1.4 cm 0.6 - 1.0 / 0.6 - 0.9 cm LVPW Systolic Thickness 1.3 cm RV Chamber Size 3.1 cm LVOT Diameter 2.0 cm LV Ejection Fraction 2D Teich 45.2 % LV Ejection Fraction MOD 2C 66.3 % LV Ejection Fraction 2C AL 67.7 % LA Diameter 3.1 cm LA Width 2.8 cm LA Height 4.8 cm RA Width 3.1 cm RA Height 4.0 cm Aorta at Sinotubular Diameter 3.1 cm M-MODE LV Diastolic Diameter MM 5.3 cm 4.2 - 5.9 / 3.9 - 5.3 cm LV Systolic Diameter MM 3.4 cm LV Ejection Fraction MM Teich 64.4 % IVS Diastolic Thickness MM 1.2 cm 0.6 - 1.0 / 0.6 - 0.9 cm IVS Systolic Thickness MM 1.7 cm LVPW Diastolic Thickness MM 1.4 cm 0.6 - 1.0 / 0.6 - 0.9 cm LVPW Systolic Thickness MM 1.8 cm RV Diastolic Diameter MM 2.1 cm Aortic Annulus Diameter 3.3 cm LA Ao Ratio MM 1.1 MV E Point Septal Separation 0.3 cm DOPPLER AV Peak Velocity 118.0 cm/s LVOT Peak Velocity 81.0 cm/s AV Area Cont Eq vti 2.1 cm squared AV Area Cont Eq pk 2.2 cm squared MV Area PHT 3.6 cm squared Mitral E to A Ratio 1.1 MV E' Velocity 41.0 cm/s Mitral E to MV E' Ratio 7.1 Mitral E to LV E' Lateral Ratio 7.4 Mitral E to LV E' Septal Ratio 6.9 TR Peak Velocity 197.6 cm/s TR Peak Gradient 15.6 mmHg TR Mean Velocity 165.3 cm/s TR Mean Gradient 11.9 mmHg TR Velocity Time Integral 65.1 cm TV Peak E Velocity 70.0 cm/s Right Atrial Pressure 3.0 mmHg Pulmonary Artery Systolic Pressu 18.6 mmHg PV Peak Velocity 60.0 cm/s RV Acceleration Time 0.2 s RV Ejection Time 0.3 s RV AcT/ET 0.5 FINDINGS Left Ventricle Normal left ventricular size and systolic function with no regional wall motion abnormalities. LVEF is 55 to 60%. Normal diastolic filling pattern. Right Ventricle The right ventricle is normal in size and function. Right Atrium The right atrium is normal in size. Left Atrium The left atrium is normal in size. Mitral Valve Structurally normal mitral valve without significant stenosis or prolapse. There is trace mitral regurgitation. Aortic Valve Structurally normal aortic valve without significant sclerosis or stenosis. There is no aortic regurgitation. Tricuspid Valve Structurally normal tricuspid valve without significant stenosis. There is trace tricuspid regurgitation. RVSP is 20- 25 mmHg. Pulmonic Valve Structurally normal pulmonic valve without significant stenosis. There is no pulmonic regurgitation. Pericardium Normal pericardium without effusion. Aorta Normal ascending aorta dimension. CONCLUSIONS LV systolic function is normal with EF of 55 to 60%. Normal diastolic function. Trace mitral and tricuspid regurgitation. Normal RVSP. Compared to prior study from 08/09/2019, no significant changes are seen. Juarez Gotti MD (Electronically Signed) Final Date: 10 August 2020 09:32 S
[2020-08-11] VITALS (92 sets, daily range): BP systolic 98–134; BP diastolic 57–83; PULSE 76–99; RESP 16–19; TEMP 36.2–37.6; O2SAT 91–98
[2020-08-11] MEDS: albuterol 8 gm MDI 2 PUFF INHALATION ×5 (00:35→20:30)
[2020-08-11] MEDS: piperacillin-tazobactam 3.375 GM in sodium chloride 0.9% (plus) 50 ML IV ×3 (01:19→18:19)
[2020-08-11 02:06] LABS: Troponin(5th) Baseline 10 ng/L (0-10)
[2020-08-11 04:21] LABS: Basophils % 0.1 %; Eosinophils % 0.1 %; Hematocrit 33.5 % (37.0-47.0); Hemoglobin 10.1 g/dL (11.5-15.3); Lymphocytes # 0.8 10^3/uL (0.8-4.8); Lymphocytes % 12.5 %; Mean Corpuscular HGB Conc 30.1 g/dL (30.0-36.0); Mean Corpuscular Hemoglobin 26.2 pg (28.0-34.0); Mean Platelet Volume 10.8 fL (7.4-10.4); Monocytes # 0.2 10^3/uL (0.2-0.9); Monocytes % 2.8 %; Neutrophils # 5.62 10^3/uL (1.8-7.7); Neutrophils % 83.9 %; Nucleated Red Blood Cells % 0 %; Platelet Count 279 10^3/cmm (130-400); Red Blood Count 3.85 10^6/uL (4.1-5.3); Red Cell Distribution Width 23.9 % (12.1-15.1); White Blood Count 6.7 10^3/uL (4.0-10.0)
[2020-08-11 04:54] LABS: Alanine Aminotransferase 13 U/L (0-33); Albumin Level 2.7 g/dL (3.5-5.2); Alkaline Phosphatase 69 IU/L (35-105); Aspartate Amino Transferase 25 U/L (0-32); Blood Urea Nitrogen 13 mg/dL (8-23); Calcium 7.5 mg/dL (8.5-10.5); Carbon Dioxide 24 mmol/L (22-29); Chloride 100 mmol/L (98-107); Globulin 3.3 g/dL (1.3-4.6); Glomerular Filtration Rate 49.2 mL/min (90-130); Glucose 185 mg/dL (65-115); Osmolality Calculated 285 mOsm/kg (285-295); Sodium 135 mmol/L (136-145); Total Bilirubin 0.6 mg/dL (0.15-1.2)
[2020-08-11 04:59] LABS: Troponin 5 2HR 10.19 ng/L (0-10); Troponin 5 2HR Delta 0.19 ABS# (0-10)
[2020-08-11 05:42] LABS: Anion Gap 14.6 (5-19); Potassium 3.6 mmol/L (3.5-5.1)
[2020-08-11] MEDS: metoprolol tartrate 50 mg Tablet PO ×2 (05:48→18:00)
[2020-08-11 08:05] LABS: Troponin 5 6HR 11.15 ng/L (0-10)
[2020-08-11] MEDS: multivitamin therapeutic Tablet 1 TAB PO (08:11)
[2020-08-11] MEDS: ascorbic acid 500 mg Tablet PO (08:11)
[2020-08-11] MEDS: pantoprazole DR 40 mg Tablet PO ×2 (08:11→18:00)
[2020-08-11 08:19] LABS: Troponin 5 6HR Delta 1.15 ng/L (0-12)
[2020-08-11 08:42] LABS: SARS Covid-2 Antigen Negative (Negative)
[2020-08-11] MEDS: lisinopril 10 mg Tablet PO (09:33)
[2020-08-11] MEDS: allopurinol 300 mg Tablet PO (09:33)
[2020-08-11] MEDS: ferrous sulfate EC 325 mg Tablet PO ×2 (09:33→18:02)
[2020-08-11] MEDS: FUROsemide 10 mg/mL SDV 4mL 40 MG IVP (10:57)
[2020-08-11] MEDS: vancomycin 1,000 MG in sodium chloride 0.9% 250 ML 250 MG IV ×2 (12:02→23:36)
[2020-08-11] MEDS: azithromycin 500 MG in sodium chloride 0.9% 250 ML 250 MG IV (18:02)
--- NOTE | 2020-08-11 18:23 | USCV_ITS ---
Anay Mindy Age: 70 Gender: F : 1950 Exam Date: 08/11/2020 07:17 Ordering Phys: Lg Madison MD Technologist: Juan Ramon Thomas Exam Location: [facility] – [place] Indication: dvt PROCEDURES: Venous duplex imaging was performed in only the left lower extremity. The following venous structures were evaluated: common femoral vein, profunda vein, proximal portion of the greater saphenous vein, superficial femoral vein, and the popliteal vein. In addition, the posterior tibial and peroneal trunk were evaluated. Serial compression, augmentation maneuvers, and spectral Doppler flow evaluation were performed. FINDINGS: DVT noted in the left posterior tibial veins. All other veins examined appear free of thrombus at this time. CONCLUSIONS DVT left posterior tibial vein. Dr. Breana Bronson DO (Electronically Signed) Final Date: 11 August 2020 08:14 S
--- NOTE | 2020-08-11 21:31 | P.PN_ITS ---
Subjective Subjective: Interval history: SOB has improved,she has remained afebrile in the last 12 hrs. Tmax: 100.7. Has good urine output : 2650 ml . H/H has remained stable. Other Vitals and labs have been reviewed. Medications: Reviewed: Yes Vitals/I&O/Wt Last Vital Signs Temp 97.2 F L 08/11/20 07:08 Pulse 90 08/11/20 20:35 Resp 18 08/11/20 20:30 BP 115/83 08/11/20 16:00 Pulse Ox 93 08/11/20 20:30 08/11/20 08/11/20 08/11/20 06:59 14:59 22:59 Intake Total 300 / 1620 780 / 780 640 / 1420 Output Total 1000 / 1000 1650 / 1650 Balance -700 / 620 780 / 780 -1010 / -230 Physical Exam Const: COMMON NORMALS: patient oriented x3 HENMT: COMMON NORMALS: normocephalic, atraumatic, hearing grossly normal bilaterally and external ears normal HEAD & SCALP: normocephalic and atraumatic EXTERNAL EAR: Yes external ears normal Eye: COMMON NORMALS: no scleral icterus GENERAL EYE: appearance normal, both eyes and all related structures Chest: COMMONS NORMALS: normal inspection of the chest and normal palpation of entire chest wall CHEST: Yes Symmetrical chest wall rise Resp: COMMON NORMALS: normal respiratory effort, No retractions and clear to auscultation bilaterally EFFORT & INSPECTION: Yes symmetric chest movement AUSCULTATION: clear to auscultation bilaterally Cardio: COMMON NORMALS: regular rate, regular rhythm, S1 normal heart sound present, S2 normal heart sound present, No gallops present (Cardio), No murmurs present (Cardio), No rub (Cardio) and Peripheral pulses 2+ throughout RATE: regular rate RHYTHM: regular rhythm HEART SOUNDS: S1 normal heart sound present and S2 normal heart sound present PERIPHERAL PULSES: Peripheral pulses 2+ throughout OTHER: B/L Crackles present in both lung valderrama. Predominantly at bases. GI: COMMON NORMALS: Normal to inspection, nondistended, normoactive bowel sounds present, Soft to palpation, non-tender, No hepatosplenomegaly present and no masses AUSCULTATION: Yes normoactive bowel sounds PALPATION: Yes Soft to palpation and Yes No hepatosplenomegaly present RECTAL EXAM: deferred Extremity: COMMON NORMALS: no clubbing, cyanosis or edema and no pedal edema Neuro: COMMON NORMALS: patient oriented x3 Urinary Catheter Management^: Yuen: Cath Placed During This Visit: yes Reason for Continuing Indwelling Catheter: Accurate Measurement of Urinary Output in Critically Ill Patients Urinary Catheter Date of Insertion: 08/10/20 Urinary Catheter Time of Insertion: 22:15 Data : 08/11/20 03:15 08/11/20 03:15 Micro: Microbiology 08/10/20 00:48 Blood Culture - Preliminary Blood SPECIMEN COLLECTED 08/10/20 00:56 Blood Culture - Preliminary Blood SPECIMEN COLLECTED 08/10/20 22:15 Legionella Urinary Antigen - Final Urine,Voided Bacterial Antigens - Final A&P Assessment and plan (1) Sepsis: Sepsis likley 2/ to PNA/UTI r/o other causes Patient is currently on 2ls Oxygen Temp Kenrick C.T chest : Is consistent with PNA Xray chest ( 08/10 ) : Consistent with B/L Air space disease Blood Culture : NTD Repeat Blood Culture ordered on 08/10:NTD Repeat Sputum culture Repaet urine culture Urine Legionella :Negative Urine bacterial ag :Negative rapid flu:Negative Covid PCR:Positive Procal : 0.15 Lactic acid : 1.6 2D Echo : Technically difficult study.but grossly fine,with Preserved E.F MRSA PCR :Pending Troponin: 10, 10.19, Delta :0.19, 6H:11.15 , 6H D: 1.15 Repeat ABG : pH : 7.47 , pco2: 34, po2; 73 ON 2ls NC Vancomycin ( 08/09) Zosyn (08/09 ) Azit:(08/10) Solumedrol 60 i.v daily Lasix 40 mg I.V Daily Advair/Spirivia/Ventolin q4h Status: Acute (2) Acute on chronic anemia: -Had a unremarkable EGD and colonoscopy on last admission -Is set to have a capsule endoscopy, but she has to go up to [place] to have it scheduled -No plans for bone marrow biopsy -On last admission received 2 units PRBC -Has received IV Venofer here, currently on oral iron -Gets B12 injections -No bloody or black stools -CTA of the abdomen pelvis had no acute findings, hiatal hernia, fatty liver Plan: -Transfuse 2 unit PRBC -Monitor hemoglobin -Continue Protonix 40 twice daily -Full code -SCDs for DVT prophylaxis, anticoagulation contraindicated due to anemia Status: Acute (3) DVT (deep venous thrombosis): B/L L/E Doppler Vein ( 08/10 ) : Ac DVT left posterior tibial vein. Case discussed with .Currently will hold Ac as she is being worked up for possible G.I Bleed and has required multiple units Blood transfusion. Benefits outweigh risk. No need for IVC Filter as the clot is below knee. Plan is to do repeat Doppler in 1 week. She will continue to follow as outpatient. Status: Acute (4) Heart failure: Decompensated HFpEF. B/L Crackles present in both lung valderrama SOB Plan : Continue Lasix 40 mg I.V Daily Status: Acute (5) UTI (urinary tract infection): Status: Acute Qualifiers: Hematuria presence: without hematuria Urinary tract infection type: acute cystitis Qualified Code(s): N30.00 - Acute cystitis without hematuria (6) Hypoxia: -Hypoxia seen on ABG on room air -Currently on 2 L -Had Covid back in May -Echocardiogram ( 08/09) : showed no diastolic dysfunction, EF of 65% -CT angiogram of the chest:No P.E. Numerous scattered opacifications throughout both lobes. These are groundglass opacifications with areas of increasing consolidation or pneumonia. Mild dependent changes and pleural thickening at the lung bases. Bilateral hilar lymph nodes are mildly prominent. The largest at the RIGHT hilum measures 11 mm. Bronchial wall thickening extends along the RIGHT lower lobe bronchovascular bundle. Status: Acute (7) Hypokalemia: Will give oral potassium Status: Acute (8) CKD (chronic kidney disease) stage 2, GFR 60-89 ml/min: Start some gentle IV hydration Status: Chronic (9) HTN (hypertension): Continue home meds Status: Chronic Qualifiers: Hypertension type: essential hypertension Qualified Code(s): I10 - Essential (primary) hypertension (10) Hyperlipidemia: Status: Chronic Qualifiers: Hyperlipidemia type: unspecified Qualified Code(s): E78.5 - Hyperli pidemia, unspecified (11) Paroxysmal SVT (supraventricular tachycardia): Status: Acute (12) Fall: Likely secondary to anemia, TSH within normal limits, sodium within normal limits, will do CT of the head as she hit her head Status: Acute (13) Pre-syncope: Likely related to anemia. CV carotid duplex: Non occlusive Status: Acute Additional A&P Information DVT PPX:SCD Code status :Full Code Disposition :Home Attestations Medical Necessity Statement*: Patient needs to be in hospital for the managment of R/F 2/2 PNA Coding Level of Care Code Acute Drier Transfer Car Operator for Chg Fwd Diagnoses Sepsis A41.9 Acute on chronic anemia D64.9 DVT (deep venous thrombosis) I82.409 Heart failure I50.9 UTI (urinary tract infection) N30.00 Hematuria presence: without hematuria Urinary tract infection type: acute cystitis Hypoxia R09.02 Hypokalemia E87.6 CKD (chronic kidney disease) stage 2, GFR 60-89 ml/min N18.2 HTN (hypertension) I10 Hypertension type: essential hypertension Hyperlipidemia E78.5 Hyperlipidemia type: unspecified Paroxysmal SVT (supraventricular tachycardia) I47.1 Fall W19.XXXA Pre-syncope R55
[2020-08-11 23:14] LABS: Vancomycin Trough 16.2 ug/mL (10-15)
[2020-08-12] VITALS (153 sets, daily range): BP systolic 100–122; BP diastolic 66–85; PULSE 75–115; RESP 13–29; TEMP 36.4–36.8; O2SAT 87–96
[2020-08-12] MEDS: albuterol 8 gm MDI 2 PUFF INHALATION ×6 (00:46→20:09)
[2020-08-12] MEDS: piperacillin-tazobactam 3.375 GM in sodium chloride 0.9% (plus) 50 ML IV ×3 (02:06→18:59)
[2020-08-12 03:48] LABS: Basophils % 0.1 %; Hematocrit 32.5 % (37.0-47.0); Lymphocytes # 0.9 10^3/uL (0.8-4.8); Lymphocytes % 13.5 %; Mean Corpuscular HGB Conc 30.8 g/dL (30.0-36.0); Mean Corpuscular Hemoglobin 26.4 pg (28.0-34.0); Mean Corpuscular Volume 85.8 fL (81-99); Mean Platelet Volume 10.4 fL (7.4-10.4); Monocytes # 0.3 10^3/uL (0.2-0.9); Monocytes % 4.8 %; Neutrophils % 80.9 %; Nucleated Red Blood Cells % 0 %; Platelet Count 320 10^3/cmm (130-400); Red Blood Count 3.79 10^6/uL (4.1-5.3); Red Cell Distribution Width 23.2 % (12.1-15.1); White Blood Count 6.8 10^3/uL (4.0-10.0)
[2020-08-12 04:17] LABS: Alanine Aminotransferase 13 U/L (0-33); Albumin Level 2.8 g/dL (3.5-5.2); Alkaline Phosphatase 68 IU/L (35-105); Anion Gap 13.6 (5-19); Aspartate Amino Transferase 20 U/L (0-32); Blood Urea Nitrogen 18 mg/dL (8-23); Calcium 7.7 mg/dL (8.5-10.5); Carbon Dioxide 26 mmol/L (22-29); Chloride 102 mmol/L (98-107); Globulin 3.2 g/dL (1.3-4.6); Glomerular Filtration Rate 49.2 mL/min (90-130); Glucose 323 mg/dL (65-115); Osmolality Calculated 300 mOsm/kg (285-295); Potassium 3.6 mmol/L (3.5-5.1); Sodium 138 mmol/L (136-145); Total Bilirubin 0.3 mg/dL (0.15-1.2)
[2020-08-12] MEDS: metoprolol tartrate 50 mg Tablet PO ×2 (06:18→18:57)
[2020-08-12] MEDS: pantoprazole DR 40 mg Tablet PO ×2 (09:18→19:01)
[2020-08-12] MEDS: ferrous sulfate EC 325 mg Tablet PO ×2 (09:19→18:57)
[2020-08-12] MEDS: ascorbic acid 500 mg Tablet PO (09:19)
[2020-08-12] MEDS: allopurinol 300 mg Tablet PO (09:19)
[2020-08-12] MEDS: multivitamin therapeutic Tablet 1 TAB PO (09:19)
[2020-08-12] MEDS: lisinopril 10 mg Tablet PO (09:19)
[2020-08-12] MEDS: FUROsemide 10 mg/mL SDV 4mL 40 MG IVP ×2 (09:20→18:58)
--- NOTE | 2020-08-12 11:11 | P.PN_ITS ---
Subjective Subjective: Interval history: SOB has improved,she has remained afebrile Has good urine output. H/H has remained stable. Other Vitals and labs have been reviewed. Medications: Reviewed: Yes Vitals/I&O/Wt Last Vital Signs Temp 97.9 F 08/12/20 08:00 Pulse 92 08/12/20 08:58 Resp 18 08/12/20 08:57 BP 120/84 08/12/20 08:00 Pulse Ox 96 08/12/20 08:57 08/11/20 08/12/20 08/12/20 22:59 06:59 14:59 Intake Total 860 / 1640 320 / 1960 480 / 480 Output Total 1700 / 1700 675 / 2375 Balance -840 / -60 -355 / -415 480 / 480 Physical Exam Const: COMMON NORMALS: patient oriented x3 HENMT: COMMON NORMALS: normocephalic and atraumatic HEAD & SCALP: normocephalic and atraumatic Eye: GENERAL EYE: appearance normal, both eyes and all related structures Chest: CHEST: Yes Symmetrical chest wall rise Resp: COMMON NORMALS: normal respiratory effort OTHER: B/L Crackles Present in both lung valderrama predominantly at bases Cardio: COMMON NORMALS: regular rate, regular rhythm, S1 normal heart sound present, S2 normal heart sound present, No gallops present (Cardio), No murmurs present (Cardio), No rub (Cardio) and Peripheral pulses 2+ throughout RATE: regular rate RHYTHM: regular rhythm HEART SOUNDS: S1 normal heart sound present and S2 normal heart sound present PERIPHERAL PULSES: Peripheral pulses 2+ throughout GI: COMMON NORMALS: Normal to inspection, nondistended, normoactive bowel sounds present, Soft to palpation, non-tender, No hepatosplenomegaly present and no masses AUSCULTATION: Yes normoactive bowel sounds PALPATION: Yes Soft to palpation and Yes No hepatosplenomegaly present RECTAL EXAM: deferred Extremity: COMMON NORMALS: no clubbing, cyanosis or edema and no pedal edema Neuro: COMMON NORMALS: patient oriented x3 Urinary Catheter Management^: Yuen: Cath Placed During This Visit: yes Reason for Continuing Indwelling Catheter: Accurate Measurement of Urinary Output in Critically Ill Patients Urinary Catheter Date of Insertion: 08/10/20 Urinary Catheter Time of Insertion: 22:15 Data : 08/12/20 02:50 08/12/20 02:50 Micro: Microbiology 08/10/20 22:15 Urine Culture - Preliminary Urine Catheterized 08/10/20 00:48 Blood Culture - Preliminary Blood NEGATIVE TO DATE 08/10/20 00:56 Blood Culture - Preliminary Blood NEGATIVE TO DATE A&P Assessment and plan (1) Sepsis: Sepsis [facility] 08/24 to PNA/UTI r/o other causes Patient is currently on 2ls Oxygen Temp Kenrick C.T chest : Is consistent with PNA Xray chest ( 08/10 ) : Consistent with B/L Air space disease Blood Culture : NTD Repeat Blood Culture ordered on 08/10:NTD Repeat Sputum culture Repaet urine culture: Negative ( T. D ) Urine Legionella :Negative Urine bacterial ag :Negative rapid flu:Negative Covid PCR:Positive Rapid :Negative Procal : 0.15 Lactic acid : 1.6 2D Echo : Technically difficult study.but grossly fine,with Preserved E.F MRSA PCR :Pending Troponin: 10, 10.19, Delta :0.19, 6H:11.15 , 6H D: 1.15 Repeat ABG : pH : 7.47 , pco2: 34, po2; 73 ON 2ls NC Vancomycin ( 08/09) Zosyn (08/09 ) Azit:(08/10) Solumedrol 60 i.v daily Lasix 40 mg I.V Daily Advair/Spirivia/Ventolin q4h Status: Acute (2) Acute on chronic anemia: -Had a unremarkable EGD and colonoscopy on last admission -Is set to have a capsule endoscopy in aug at [place] ( Dr. Alcala ) -No plans for bone marrow biopsy -On last admission received 2 units PRBC -Has received IV Venofer here -Oral iron stopped per hematology recommendation -Gets B12 injections -No bloody or black stools -CTA of the abdomen pelvis had no acute findings, hiatal hernia, fatty liver Plan: -Transfuse to maintain h/h 7 -Monitor hemoglobin -Continue Protonix 40 twice daily -Full code -SCDs for DVT prophylaxis, anticoagulation contraindicated due to anemia Status: Acute (3) DVT (deep venous thrombosis): B/L L/E Doppler Vein ( 08/10 ) : Sarthak DVT left posterior tibial vein. Case discussed with .Currently will hold Ac as she is being worked up for possible G.I Bleed and has required multiple units Blood transfusion. Benefits outweigh risk. No need for IVC Filter as the clot is below knee. Plan is to do repeat Doppler in 1 week. She will continue to follow as outpatient. Status: Acute (4) Heart failure: Decompensated HFpEF. B/L Crackles present in both lung valderrama SOB Plan : Continue Lasix 40 mg I.V Daily I/O Daily weight Status: Acute (5) UTI (urinary tract infection): Status: Acute Qualifiers: Hematuria presence: without hematuria Urinary tract infection type: acute cystitis Qualified Code(s): N30.00 - Acute cystitis without hematuria (6) Hypoxia: -Hypoxia seen on ABG on room air -Currently on 2 L -Had Covid back in May -Echocardiogram ( 08/09) : showed no diastolic dysfunction, EF of 65% -CT angiogram of the chest:No P.E. Numerous scattered opacifications throughout both lobes. These are groundglass opacifications with areas of increasing consolidation or pneumonia. Mild dependent changes and pleural thickening at the lung bases. Bilateral hilar lymph nodes are mildly prominent. The largest at the RIGHT hilum measures 11 mm. Bronchial wall thickening extends along the RIGHT lower lobe bronchovascular bundle. Status: Acute (7) Hypokalemia: Will give oral potassium Status: Acute (8) CKD (chronic kidney disease) stage 2, GFR 60-89 ml/min: Start some gentle IV hydration Status: Chronic (9) HTN (hypertension): Continue home meds Status: Chronic Qualifiers: Hypertension type: essential hypertension Qualified Code(s): I10 - Essential (primary) hypertension (10) Hyperlipidemia: Status: Chronic Qualifiers: Hyperlipidemia type: unspecified Qualified Code(s): E78.5 - Hyperlipidemia, unspecified (11) Paroxysmal SVT (supraventricular tachycardia): Status: Acute (12) Fall: Likely secondary to anemia, TSH within normal limits, sodium within normal limits, will do CT of the head as she hit her head Status: Acute (13) Pre-syncope: Likely related to anemia. CV carotid duplex: Non occlusive Status: Acute Additional A&P Information DVT PPX:SCD Code status :Full Code Disposition :Home Attestations Medical Necessity Statement*: Patient needs to be in hospital for the management of sepsis 2/2 PNA/UTI Coding Level of Care Code Acute Rf Microwave Engineer for Chg Fwd Exam Comprehensive Diagnoses Sepsis A41.9 Acute on chronic anemia D64.9 DVT (deep venous thrombosis) I82.409 Heart failure I50.9 UTI (urinary tract infection) N30.00 Hematuria presence: without hematuria Urinary tract infection type: acute cystitis Hypoxia R09.02 Hypokalemia E87.6 CKD (chronic kidney disease) stage 2, GFR 60-89 ml/min N18.2 HTN (hypertension) I10 Hypertension type: essential hypertension Hyperlipidemia E78.5 Hyperlipidemia type: unspecified Paroxysmal SVT (supraventricular tachycardia) I47.1 Fall W19.XXXA Pre-syncope R55
[2020-08-12] MEDS: vancomycin 1,000 MG in sodium chloride 0.9% 250 ML 250 MG IV (11:20)
[2020-08-12] MEDS: azithromycin 500 MG in sodium chloride 0.9% 250 ML 250 MG IV (18:57)
--- NOTE | 2020-08-12 19:15 | PC.NURSE ---
Evening meds late due to pt. refusing to take meds from primary nurse. Charge nurse, administered evening meds.
[2020-08-12] MEDS: vancomycin 1,000 MG in sodium chloride 0.9% 250 ML 125 MG IV (22:56)
[2020-08-13] VITALS (80 sets, daily range): BP systolic 113–134; BP diastolic 70–90; PULSE 65–91; RESP 11–41; TEMP 36.4–36.8; O2SAT 86–96
[2020-08-13] MEDS: albuterol 8 gm MDI 2 PUFF INHALATION ×7 (01:00→23:11)
[2020-08-13] MEDS: piperacillin-tazobactam 3.375 GM in sodium chloride 0.9% (plus) 50 ML IV ×3 (02:47→20:32)
[2020-08-13] MEDS: metoprolol tartrate 50 mg Tablet PO ×2 (05:41→17:45)
--- NOTE | 2020-08-13 08:43 | PC.SOCIAL ---
IMM Update Pg.2 of IMM updated and reviewed with patient over the phone. She verbalized understanding. Initialed, dated, and timed, and attached to facesheet to be scanned into EMR.
[2020-08-13] MEDS: ascorbic acid 500 mg Tablet PO (09:02)
[2020-08-13] MEDS: allopurinol 300 mg Tablet PO (09:02)
[2020-08-13] MEDS: lisinopril 10 mg Tablet PO (09:02)
[2020-08-13] MEDS: multivitamin therapeutic Tablet 1 TAB PO (09:02)
[2020-08-13] MEDS: acetaminophen 325 mg Tablet 650 MG PO (09:02)
[2020-08-13] MEDS: FUROsemide 10 mg/mL SDV 4mL 40 MG IVP ×2 (09:03→20:30)
[2020-08-13] MEDS: pantoprazole DR 40 mg Tablet PO ×2 (09:09→17:25)
[2020-08-13] MEDS: ferrous sulfate EC 325 mg Tablet PO ×2 (09:09→17:25)
[2020-08-13 10:13] LABS: Magnesium 2.1 mg/dL (1.7-2.3)
--- NOTE | 2020-08-13 12:14 | PM.PN ---
Subjective Subjective: Interval history: SOB has improved,she has remained afebrile Has good urine output. H/H has remained stable. Other Vitals and labs have been reviewed. Medications: Reviewed: Yes Vitals/I&O/Wt Last Vital Signs Temp 98.3 F 08/13/20 11:20 Pulse 75 08/13/20 11:20 Resp 20 H 08/13/20 11:20 BP 117/87 08/13/20 11:20 Pulse Ox 95 08/13/20 11:20 08/12/20 08/13/20 08/13/20 22:59 06:59 14:59 Intake Total 530 / 1790 350 / 2140 120 / 120 Output Total 1200 / 1200 2050 / 3250 450 / 450 Balance -670 / 590 -1700 / -1110 -330 / -330 Physical Exam Const: COMMON NORMALS: patient oriented x3 HENMT: COMMON NORMALS: normocephalic and atraumatic HEAD & SCALP: normocephalic and atraumatic Eye: COMMON NORMALS: no scleral icterus GENERAL EYE: appearance normal, both eyes and all related structures Chest: COMMONS NORMALS: normal inspection of the chest and normal palpation of entire chest wall CHEST: Yes Symmetrical chest wall rise Resp: COMMON NORMALS: normal respiratory effort EFFORT & INSPECTION: Yes symmetric chest movement OTHER: B/L Crackles Present in both lung valderrama predominantly at bases Cardio: COMMON NORMALS: regular rate, regular rhythm, S1 normal heart sound present, S2 normal heart sound present, No gallops present (Cardio), No murmurs present (Cardio), No rub (Cardio) and Peripheral pulses 2+ throughout RATE: regular rate RHYTHM: regular rhythm HEART SOUNDS: S1 normal heart sound present and S2 normal heart sound present PERIPHERAL PULSES: Peripheral pulses 2+ throughout OTHER: B/L Crackles present in both lung valderrama. Predominantly at bases. GI: COMMON NORMALS: Normal to inspection, nondistended, normoactive bowel sounds present, Soft to palpation, non-tender, No hepatosplenomegaly present and no masses AUSCULTATION: Yes normoactive bowel sounds PALPATION: Yes Soft to palpation and Yes No hepatosplenomegaly present RECTAL EXAM: deferred Extremity: COMMON NORMALS: no clubbing, cyanosis or edema and no pedal edema Neuro: COMMON NORMALS: patient oriented x3 Urinary Catheter Management^: Yuen: Cath Placed During This Visit: yes Reason for Continuing Indwelling Catheter: Accurate Measurement of Urinary Output in Critically Ill Patients Urinary Catheter Date of Insertion: 08/10/20 Urinary Catheter Time of Insertion: 22:15 Data : 08/13/20 11:30 08/13/20 11:30 Micro: Microbiology 08/10/20 22:15 Urine Culture - Final Urine Catheterized A&P Assessment and plan (1) Sepsis: Sepsis likley 2/2 to PNA/UTI r/o other causes Patient is currently on 2ls Oxygen Temp Kenrick C.T chest : Is consistent with PNA Xray chest ( 08/10 ) : Consistent with B/L Air space disease Blood Culture : NTD Repeat Blood Culture ordered on 08/10:NTD Repeat Sputum culture Repaet urine culture: Negative ( T. D ) Urine Legionella :Negative Urine bacterial ag :Negative rapid flu:Negative Covid PCR:Positive Rapid :Negative Procal : 0.15 Lactic acid : 1.6 2D Echo : Technically difficult study.but grossly fine,with Preserved E.F MRSA PCR :Pending Troponin: 10, 10.19, Delta :0.19, 6H:11.15 , 6H D: 1.15 Repeat ABG : pH : 7.47 , pco2: 34, po2; 73 ON 2ls NC Vancomycin ( 08/09) Zosyn (08/09 ) Azit:(08/10-08/12) Solumedrol 40 i.v daily Lasix Increased to 40 mg I.V Q12 H DAILY from 40 mg I.V Daily Advair/Spirivia/Ventolin q4h Status: Acute (2) Acute on chronic anemia: -Had a unremarkable EGD and colonoscopy on last admission -Is set to have a capsule endoscopy in aug at [place] ( Dr. Alcala ) -No plans for bone marrow biopsy -On last admission received 2 units PRBC -Has received IV Venofer here -Oral iron stopped per hematology recommendation -Gets B12 injections -No bloody or black stools -CTA of the abdomen pelvis had no acute findings, hiatal hernia, fatty liver Plan: -Transfuse to maintain h/h 7 -Monitor hemoglobin -Continue Protonix 40 twice daily -Full code -SCDs for DVT prophylaxis, anticoagulation contraindicated due to anemia Status: Acute (3) DVT (deep venous thrombosis): B/L L/E Doppler Vein ( 1/19 ) : Ac DVT left posterior tibial vein. Case discussed with .Currently will hold Ac as she is being worked up for possible G.I Bleed and has required multiple units Blood transfusion. Benefits outweigh risk. No need for IVC Filter as the clot is below knee. Plan is to do repeat Doppler in 1 week. She will continue to follow as outpatient. Status: Acute (4) Heart failure: Decompensated HFpEF. B/L Crackles present in both lung valderrama SOB Plan : Lasix 40 mg I.V q12 h Daily I/O Daily weight Status: Acute (5) UTI (urinary tract infection): Status: Acute Qualifiers: Hematuria presence: without hematuria Urinary tract infection type: acute cystitis Qualified Code(s): N30.00 - Acute cystitis without hematuria (6) Hypoxia: -Hypoxia seen on ABG on room air -Currently on 2 L -Had Covid back in May -Echocardiogram ( 08/09) : showed no diastolic dysfunction, EF of 65% -CT angiogram of the chest:No P.E. Numerous scattered opacifications throughout both lobes. These are groundglass opacifications with areas of increasing consolidation or pneumonia. Mild dependent changes and pleural thickening at the lung bases. Bilateral hilar lymph nodes are mildly prominent. The largest at the RIGHT hilum measures 11 mm. Bronchial wall thickening extends along the RIGHT lower lobe bronchovascular bundle. Status: Acute (7) Hypokalemia: Will give oral potassium Status: Acute (8) CKD (chronic kidney disease) stage 2, GFR 60-89 ml/min: Start some gentle IV hydration Status: Chronic (9) HTN (hypertension): Continue home meds Status: Chronic Qualifiers: Hypertension type: essential hypertension Qualified Code(s): I10 - Essential (primary) hypertension (10) Hyperlipidemia: Status: Chronic Qualifiers: Hyperlipidemia type: unspecified Qualified Code(s): E78.5 - Hyperlipidemia, unspecified (11) Paroxysmal SVT (supraventricular tachycardia): Status: Acute (12) Fall: Likely secondary to anemia, TSH within normal limits, sodium within normal limits, will do CT of the head as she hit her head Status: Acute (13) Pre-syncope: Likely related to anemia. CV carotid duplex: Non occlusive Status: Acute (14) Abdominal pain: RUQ Abdominal Pain Likely MSK U/S Abdomen LFT : Normal Status: Acute Additional A&P Information DVT PPX:SCD Code status :Full Code Disposition :Home Attestations Medical Necessity Statement*: Patient needs to be in hospital for the management of Sepsis,PNA, Heart failure Coding Level of Care Code Acute Fancy Needleworker for Chg Fwd Diagnoses Sepsis A41.9 Acute on chronic anemia D64.9 DVT (deep venous thrombosis) I82.409 Heart failure I50.9 UTI (urinary tract infection) N30.00 Hematuria presence: without hematuria Urinary tract infection type: acute cystitis Hypoxia R09.02 Hypokalemia E87.6 CKD (chronic kidney disease) stage 2, GFR 60-89 ml/min N18.2 HTN (hypertension) I10 Hypertension type: essential hypertension Hyperlipidemia E78.5 Hyperlipidemia type: unspecified Paroxysmal SVT (supraventricular tachycardia) I47.1 Fall W19.XXXA Pre-syncope R55 Abdominal pain R10.9
[2020-08-13 12:24] LABS: Basophils % 0.1 %; Hematocrit 33.8 % (37.0-47.0); Hemoglobin 10.3 g/dL (11.5-15.3); Lymphocytes # 1.4 10^3/uL (0.8-4.8); Lymphocytes % 11.6 %; Mean Corpuscular HGB Conc 30.5 g/dL (30.0-36.0); Mean Corpuscular Hemoglobin 25.9 pg (28.0-34.0); Mean Corpuscular Volume 85.1 fL (81-99); Mean Platelet Volume 10.6 fL (7.4-10.4); Monocytes # 0.8 10^3/uL (0.2-0.9); Monocytes % 6.4 %; Neutrophils # 9.53 10^3/uL (1.8-7.7); Nucleated Red Blood Cells % 0 %; Platelet Count 400 10^3/cmm (130-400); Red Blood Count 3.97 10^6/uL (4.1-5.3); Red Cell Distribution Width 23.3 % (12.1-15.1); White Blood Count 11.8 10^3/uL (4.0-10.0)
[2020-08-13 12:50] LABS: Alanine Aminotransferase 15 U/L (0-33); Albumin Level 3.1 g/dL (3.5-5.2); Alkaline Phosphatase 70 IU/L (35-105); Anion Gap 16.8 (5-19); Aspartate Amino Transferase 20 U/L (0-32); Blood Urea Nitrogen 23 mg/dL (8-23); Calcium 8.2 mg/dL (8.5-10.5); Carbon Dioxide 28 mmol/L (22-29); Chloride 95 mmol/L (98-107); Globulin 2.8 g/dL (1.3-4.6); Glomerular Filtration Rate 49.2 mL/min (90-130); Glucose 336 mg/dL (65-115); Osmolality Calculated 299 mOsm/kg (285-295); Potassium 3.8 mmol/L (3.5-5.1); Sodium 136 mmol/L (136-145); Total Bilirubin 0.3 mg/dL (0.15-1.2); Total Protein 5.9 g/dL (6.6-8.7)
[2020-08-13] MEDS: vancomycin 1,000 MG in sodium chloride 0.9% 250 ML 125 MG IV ×2 (13:39→22:02)
[2020-08-13] MEDS: azithromycin 500 MG in sodium chloride 0.9% 250 ML 250 MG IV (17:21)
[2020-08-14] VITALS (24 sets, daily range): BP systolic 105–129; BP diastolic 72–93; PULSE 61–86; RESP 11–22; TEMP 36.7–36.9; O2SAT 89–95
[2020-08-14] MEDS: piperacillin-tazobactam 3.375 GM in sodium chloride 0.9% (plus) 50 ML IV ×3 (02:57→18:06)
[2020-08-14] MEDS: albuterol 8 gm MDI 2 PUFF INHALATION ×6 (04:05→23:40)
[2020-08-14 04:38] LABS: Basophils % 0.2 %; Hematocrit 32.4 % (37.0-47.0); Hemoglobin 9.9 g/dL (11.5-15.3); Lymphocytes # 1.3 10^3/uL (0.8-4.8); Lymphocytes % 13.1 %; Mean Corpuscular HGB Conc 30.6 g/dL (30.0-36.0); Mean Corpuscular Hemoglobin 25.8 pg (28.0-34.0); Mean Corpuscular Volume 84.6 fL (81-99); Mean Platelet Volume 10.3 fL (7.4-10.4); Monocytes # 0.7 10^3/uL (0.2-0.9); Monocytes % 6.5 %; Neutrophils # 8.02 10^3/uL (1.8-7.7); Neutrophils % 78.4 %; Nucleated Red Blood Cells % 0 %; Platelet Count 411 10^3/cmm (130-400); Red Blood Count 3.83 10^6/uL (4.1-5.3); White Blood Count 10.2 10^3/uL (4.0-10.0)
[2020-08-14 05:07] LABS: Alanine Aminotransferase 20 U/L (0-33); Albumin Level 2.9 g/dL (3.5-5.2); Alkaline Phosphatase 78 IU/L (35-105); Anion Gap 15.6 (5-19); Aspartate Amino Transferase 24 U/L (0-32); Blood Urea Nitrogen 27 mg/dL (8-23); Carbon Dioxide 30 mmol/L (22-29); Chloride 95 mmol/L (98-107); Globulin 3.1 g/dL (1.3-4.6); Glomerular Filtration Rate 44.5 mL/min (90-130); Glucose 383 mg/dL (65-115); Osmolality Calculated 305 mOsm/kg (285-295); Potassium 3.6 mmol/L (3.5-5.1); Sodium 137 mmol/L (136-145); Total Bilirubin 0.3 mg/dL (0.15-1.2)
[2020-08-14] MEDS: metoprolol tartrate 50 mg Tablet PO ×2 (05:49→18:05)
--- NOTE | 2020-08-14 07:00 | USR_ITS ---
PROCEDURE INFORMATION: Exam: US Abdomen Complete Exam date and time: 08/14/2020 8:03 AM Age: 70 years old Clinical indication: Abdominal pain; Prior surgery; Surgery date: 6+ months; Surgery type: Cholecystectomy, appy; Additional info: Ruq pain TECHNIQUE: Imaging protocol: Real-time ultrasound of the abdomen with image documentation. COMPARISON: CT angio abdomen pelvis [id number] 08/08/2020 1:30 PM FINDINGS: Liver: Fatty infiltration of the liver. Gallbladder: Status post cholecystectomy. Common bile duct: Normal caliber of the incompletely visualized common bile duct measuring 5 mm in diameter. Pancreas: Fatty infiltration of the pancreas which is partially obscured by bowel gas. Kidneys: lobulated renal morphology. No hydronephrosis. Spleen: No splenomegaly. Aorta: No abdominal aortic aneurysm. Inferior vena cava: Unremarkable IVC. US/US abdomen complete* [id number] IMPRESSION: No acute sonographic abnormality in the visualized abdomen.
--- NOTE | 2020-08-14 07:14 | XRR_ITS ---
PROCEDURE INFORMATION: Exam: XR Chest, 1 View Exam date and time: 08/14/2020 7:42 AM Age: 70 years old Clinical indication: Shortness of breath; Additional info: Pna TECHNIQUE: Imaging protocol: XR of the chest Views: 1 view. COMPARISON: CR XR chest 1V portable [id number] 08/10/2020 11:51 PM FINDINGS: Lungs: Interval improvement in left sided airspace disease. Residual interstitial prominence. Pleural space: no significant pleural effusion. Heart/Mediastinum: Hiatal hernia. No cardiomegaly. Bones/joints: Degenerative change. XR/XR chest 1V portable [id number] IMPRESSION: Interval improvement in left sided airspace disease.
--- NOTE | 2020-08-14 09:18 | PM.PN ---
Subjective Subjective: Interval history: SOB has improved,she has remained afebrile Has good urine output. H/H has remained stable. Other Vitals and labs have been reviewed. Medications: Reviewed: Yes Vitals/I&O/Wt Last Vital Signs Temp 98.0 F 08/14/20 04:01 Pulse 79 08/14/20 08:57 Resp 18 08/14/20 08:57 BP 105/75 08/14/20 04:01 Pulse Ox 93 08/14/20 08:57 08/13/20 08/14/20 08/14/20 22:59 06:59 14:59 Intake Total 1640 / 1950 148 / 2098 240 / 240 Output Total 2600 / 3050 250 / 3300 Balance -960 / -1100 -102 / -1202 240 / 240 Physical Exam Const: COMMON NORMALS: patient oriented x3 HENMT: COMMON NORMALS: normocephalic and atraumatic HEAD & SCALP: normocephalic and atraumatic Eye: COMMON NORMALS: no scleral icterus GENERAL EYE: appearance normal, both eyes and all related structures Chest: COMMONS NORMALS: normal inspection of the chest and normal palpation of entire chest wall CHEST: Yes Symmetrical chest wall rise Resp: COMMON NORMALS: normal respiratory effort EFFORT & INSPECTION: Yes symmetric chest movement OTHER: B/L Crackles Present in both lung valderrama predominantly at bases Cardio: COMMON NORMALS: regular rate, regular rhythm, S1 normal heart sound present, S2 normal heart sound present, No gallops present (Cardio), No murmurs present (Cardio), No rub (Cardio) and Peripheral pulses 2+ throughout RATE: regular rate RHYTHM: regular rhythm HEART SOUNDS: S1 normal heart sound present and S2 normal heart sound present PERIPHERAL PULSES: Peripheral pulses 2+ throughout OTHER: B/L Crackles present in both lung valderrama. Predominantly at bases. GI: COMMON NORMALS: Normal to inspection, nondistended, normoactive bowel sounds present, Soft to palpation, non-tender, No hepatosplenomegaly present and no masses AUSCULTATION: Yes normoactive bowel sounds PALPATION: Yes Soft to palpation and Yes No hepatosplenomegaly present RECTAL EXAM: deferred Extremity: COMMON NORMALS: no clubbing, cyanosis or edema and no pedal edema Neuro: COMMON NORMALS: patient oriented x3 Urinary Catheter Management^: Yuen: Cath Placed During This Visit: yes Reason for Continuing Indwelling Catheter: Accurate Measurement of Urinary Output in Critically Ill Patients Urinary Catheter Date of Insertion: 08/10/20 Urinary Catheter Time of Insertion: 22:15 Data : 08/14/20 03:15 08/14/20 03:15 Micro: Microbiology 08/08/20 21:31 Blood Culture - Final Blood NO GROWTH AFTER 5 DAYS 08/08/20 21:30 Blood Culture - Final Blood NO GROWTH AFTER 5 DAYS 08/10/20 22:15 Urine Culture - Final Urine Catheterized A&P Assessment and plan (1) Sepsis: Sepsis likley 2/ to PNA/UTI r/o other causes Patient is currently on 2ls Oxygen Temp Kenrick C.T chest : Is consistent with PNA Xray chest ( 08/10 ) : Consistent with B/L Air space disease Blood Culture : NTD Repeat Blood Culture ordered on 08/10:NTD Repeat Sputum culture Repaet urine culture: Negative ( T. D ) Urine Legionella :Negative Urine bacterial ag :Negative rapid flu:Negative Covid PCR:Positive Rapid :Negative Procal : 0.15 Lactic acid : 1.6 2D Echo : Technically difficult study.but grossly fine,with Preserved E.F MRSA PCR :Pending Troponin: 10, 10.19, Delta :0.19, 6H:11.15 , 6H D: 1.15 Repeat ABG : pH : 7.47 , pco2: 34, po2; 73 ON 2ls NC Vancomycin ( 08/09-08/14) Zosyn (08/09 ) Azit:(08/10-08/12) Solumedrol 40 i.v daily ( Stopped on 08/14 ) Lasix Increased to 40 mg I.V Q12 H DAILY from 40 mg I.V Daily Advair/Spirivia/Ventolin q4h Status: Acute (2) Acute on chronic anemia: -Had a unremarkable EGD and colonoscopy on last admission -Is set to have a capsule endoscopy in aug at [place] ( Dr. Alacla ) -No plans for bone marrow biopsy -On last admission received 2 units PRBC -Has received IV Venofer here -Oral iron stopped per hematology recommendation -Gets B12 injections -No bloody or black stools -CTA of the abdomen pelvis had no acute findings, hiatal hernia, fatty liver Plan: -Transfuse to maintain h/h 7 -Monitor hemoglobin -Continue Protonix 40 twice daily -Full code -SCDs for DVT prophylaxis, anticoagulation contraindicated due to anemia Status: Acute (3) DVT (deep venous thrombosis): B/L L/E Doppler Vein ( 08/10 ) : Ac DVT left posterior tibial vein. Case discussed with .Currently will hold Ac as she is being worked up for possible G.I Bleed and has required multiple units Blood transfusion. Benefits outweigh risk. No need for IVC Filter as the clot is below knee. Plan is to do repeat Doppler in 1 week. She will continue to follow as outpatient. Status: Acute (4) Heart failure: Decompensated HFpEF. B/L Crackles present in both lung valderrama SOB Plan : Lasix 40 mg I.V q12 h Daily I/O Daily weight Status: Acute (5) UTI (urinary tract infection): Status: Acute Qualifiers: Hematuria presence: without hematuria Urinary tract infection type: acute cystitis Qualified Code(s): N30.00 - Acute cystitis without hematuria (6) Hypoxia: -Hypoxia seen on ABG on room air -Currently on 2 L -Had Covid back in May -Echocardiogram ( 08/09) : showed no diastolic dysfunction, EF of 65% -CT angiogram of the chest:No P.E. Numerous scattered opacifications throughout both lobes. These are groundglass opacifications with areas of increasing consolidation or pneumonia. Mild dependent changes and pleural thickening at the lung bases. Bilateral hilar lymph nodes are mildly prominent. The largest at the RIGHT hilum measures 11 mm. Bronchial wall thickening extends along the RIGHT lower lobe bronchovascular bundle. Status: Acute (7) Hypokalemia: Will give oral potassium Status: Acute (8) CKD (chronic kidney disease) stage 2, GFR 60-89 ml/min: Start some gentle IV hydration Status: Chronic (9) HTN (hypertension): Continue home meds Status: Chronic Qualifiers: Hypertension type: essential hypertension Qualified Code(s): I10 - Essential (primary) hypertension (10) Hyperlipidemia: Status: Chronic Qualifiers: Hyperlipidemia type: unspecified Qualified Code(s): E78.5 - Hyperlipidemia, unspecified (11) Paroxysmal SVT (supraventricular tachycardia): Status: Acute (12) Fall: Likely secondary to anemia, TSH within normal limits, sodium within normal limits, will do CT of the head as she hit her head Status: Acute (13) Pre-syncope: Likely related to anemia. CV carotid duplex: Non occlusive Status: Acute (14) Abdominal pain: RUQ Abdominal Pain Likely MSK U/S Abdomen: WNL LFT : Normal Status: Acute Additional A&P Information DVT PPX:SCD Code status :Full Code Disposition :Home Attestations Medical Necessity Statement*: Patient needs to be in hospital for the mangement of r/f 2/2 PNA/CHF Exacerbation Coding Level of Care Code Acute Hazardous Waste Material Technician for Chg Fwd Exam Comprehensive Diagnoses Sepsis A41.9 Acute on chronic anemia D64.9 DVT (deep venous thrombosis) I82.409 Heart failure I50.9 UTI (urinary tract infection) N30.00 Hematuria presence: without hematuria Urinary tract infection type: acute cystitis Hypoxia R09.02 Hypokalemia E87.6 CKD (chronic kidney disease) stage 2, GFR 60-89 ml/min N18.2 HTN (hypertension) I10 Hypertension type: essential hypertension Hyperlipidemia E78.5 Hyperlipidemia type: unspecified Paroxysmal SVT (supraventricular tachycardia) I47.1 Fall W19.XXXA Pre-syncope R55 Abdominal pain R10.9
[2020-08-14] MEDS: ascorbic acid 500 mg Tablet PO (10:35)
[2020-08-14] MEDS: FUROsemide 10 mg/mL SDV 4mL 40 MG IVP ×2 (10:35→20:37)
[2020-08-14] MEDS: allopurinol 300 mg Tablet PO (10:36)
[2020-08-14] MEDS: multivitamin therapeutic Tablet 1 TAB PO (10:36)
[2020-08-14] MEDS: lisinopril 10 mg Tablet PO (10:36)
[2020-08-14] MEDS: pantoprazole DR 40 mg Tablet PO ×2 (10:36→18:05)
[2020-08-14] MEDS: ferrous sulfate EC 325 mg Tablet PO ×2 (10:39→18:05)
[2020-08-14] MEDS: vancomycin 1,000 MG in sodium chloride 0.9% 250 ML 125 MG IV (11:56)
[2020-08-15] VITALS (11 sets, daily range): BP systolic 100–120; BP diastolic 66–88; PULSE 64–80; RESP 12–18; TEMP 36.4–37.1; O2SAT 87–95
[2020-08-15] MEDS: piperacillin-tazobactam 3.375 GM in sodium chloride 0.9% (plus) 50 ML IV ×2 (02:31→10:39)
[2020-08-15] MEDS: albuterol 8 gm MDI 2 PUFF INHALATION ×3 (03:05→16:11)
[2020-08-15 05:27] LABS: Basophils % 0.3 %; Eosinophils % 0.1 %; Hemoglobin 11.3 g/dL (11.5-15.3); Lymphocytes # 1.8 10^3/uL (0.8-4.8); Lymphocytes % 15.2 %; Mean Corpuscular HGB Conc 30.5 g/dL (30.0-36.0); Mean Corpuscular Hemoglobin 26.2 pg (28.0-34.0); Mean Corpuscular Volume 85.6 fL (81-99); Mean Platelet Volume 10.1 fL (7.4-10.4); Monocytes # 0.7 10^3/uL (0.2-0.9); Monocytes % 5.6 %; Neutrophils # 8.89 10^3/uL (1.8-7.7); Neutrophils % 74.4 %; Nucleated Red Blood Cells % 0 %; Platelet Count 419 10^3/cmm (130-400); Red Blood Count 4.32 10^6/uL (4.1-5.3); Red Cell Distribution Width 22.6 % (12.1-15.1); White Blood Count 11.9 10^3/uL (4.0-10.0)
[2020-08-15 05:51] LABS: Alanine Aminotransferase 27 U/L (0-33); Albumin Level 3.1 g/dL (3.5-5.2); Alkaline Phosphatase 79 IU/L (35-105); Aspartate Amino Transferase 25 U/L (0-32); Blood Urea Nitrogen 28 mg/dL (8-23); Calcium 8.4 mg/dL (8.5-10.5); Carbon Dioxide 32 mmol/L (22-29); Chloride 93 mmol/L (98-107); Globulin 3.2 g/dL (1.3-4.6); Glomerular Filtration Rate 49.2 mL/min (90-130); Glucose 375 mg/dL (65-115); Osmolality Calculated 303 mOsm/kg (285-295); Sodium 136 mmol/L (136-145); Total Bilirubin 0.4 mg/dL (0.15-1.2); Total Protein 6.3 g/dL (6.6-8.7)
[2020-08-15] MEDS: FUROsemide 10 mg/mL SDV 4mL 40 MG IVP (08:42)
--- NOTE | 2020-08-15 09:26 | PC.NURSE ---
IMM Update Pg. 2 of IMM updated and reviewed with patient over the phone, verbalized understanding.
[2020-08-15] MEDS: allopurinol 300 mg Tablet PO (10:37)
[2020-08-15] MEDS: multivitamin therapeutic Tablet 1 TAB PO (10:37)
[2020-08-15] MEDS: ascorbic acid 500 mg Tablet PO (10:37)
[2020-08-15] MEDS: lisinopril 10 mg Tablet PO (10:38)
[2020-08-15] MEDS: ferrous sulfate EC 325 mg Tablet PO (10:38)
[2020-08-15] MEDS: pantoprazole DR 40 mg Tablet PO (10:38)
--- NOTE | 2020-08-15 14:41 | PM.DCS ---
Discharge Providers Date of Admission: 08/10/20 08:26 Date of Discharge: August 15, 2020 Attending Provider at Admission: Armani Jauregui MD Attending Provider at Discharge: Lg Madison MD Primary Care Provider: Joseline Dominique APN Diagnoses at Discharge Discharge Diagnosis (1) Sepsis: Status: Resolved (2) Acute on chronic anemia: Status: Chronic (3) DVT (deep venous thrombosis): Status: Acute (4) Heart failure: Status: Chronic (5) UTI (urinary tract infection): Status: Resolved Qualifiers: Hematuria presence: without hematuria Urinary tract infection type: acute cystitis Qualified Code(s): N30.00 - Acute cystitis without hematuria (6) Hypoxia: Status: Chronic (7) CKD (chronic kidney disease) stage 2, GFR 60-89 ml/min: Status: Chronic (8) HTN (hypertension): Status: Chronic Qualifiers: Hypertension type: essential hypertension Qualified Code(s): I10 - Essential (primary) hypertension (9) Hyperlipidemia: Status: Chronic Qualifiers: Hyperlipidemia type: unspecified Qualified Code(s): E78.5 - Hyperlipidemia, unspecified (10) Paroxysmal SVT (supraventricular tachycardia): Status: Chronic Reason for Visit Reason for Visit: COVID SYMPTOMS, WEAKNESS, N/V Hospital Course Hospital Course 70 year old female with PMH COVID- 19,HFpEF, HTN, Gout, Paroxysmal SVT, chronic back pain,chronic microcytic anemia recently had EGD and colonoscopy about 3 months ago which revealed normal EGD and 3 polyps were removed, tubular adenoma, presented today with chief complaint of generalized fatigue and presyncope. Patient is stating that her hemoglobin has been trickling down for last 6 months for which she went for EGD and colonoscopy that was done at [place]. She is currently not taking any iron tablets. She has not noticed any hematuria, hematemesis, hemoptysis, dark-colored stool or bright bleed per rectum. No history of splenomegaly, bone marrow cancers, she is endorsing adequate p.o. intake, no postmenopausal bleeding.On the day of admission when she was in the shower she started feeling extremely short of breath and weak, she thought she will pass out hence she supported herself in the bathroom, she also experienced diaphoresis, chest discomfort which was radiating towards left arm she is describing as achy in nature, it lasted until she rested, she also felt nauseous but no vomiting.She was admitted for the management of Acute on chronic microcytic anemia and intially was transfused 1Us PRBC and was started on I.V Protonix. FOBT has been negative. CTA of the abdomen pelvis had no acute findings, hiatal hernia, fatty liver.As she was on hypoxic and was needing 2ls oxygen and given her COVID -19 history CTA chest was done and P.E was ruled out. CTA chest as well as subsequent xray chest was more in line with PNA as well decompensated HFpEF. she was also persistently spiking temperature,hence she was managed for sepsis 2/2 PNA/UTI as well as Decompensated HFpEF.She was started on vancomycin,zosyn as well as azithromycin along with lasix I.V as well solumedrol I.V along with inhalers.Cultures were negative, urine bacterial antigen as well as urine legionella antigen was negative.At the time of discharge she has not spiked temperature for multiples days.She was discharged on levofloxacin 500 mg po daily for 5 days. She was euvloemic at the time of discharge and will continue to tyler lasix 40 mg po q12 h daily along with oral pottasium.She has appointment with tomorrow. During this hospital saty she was also diagnosed with LT l/e DVT ( left posterior tibial veins ),as per discussion with it will be prudent to monitor the DVT for now as she is not a candidate for Ac given her Pending G.I Bleed work up. She will have a repeat lower extremity doppler done in a week to see the status of the DVT.She will follow with for the further work up.Prior to discharge 6 mins walk test was done and she has qualified for 2 ls oxygen via NC on exertion. She will also follow with as an outpatient. She has responded well to the above medical management and is being discharged in stable condition to home. Physical Exam Const: COMMON NORMALS: patient oriented x3 HENMT: COMMON NORMALS: normocephalic and atraumatic HEAD & SCALP: normocephalic and atraumatic Resp: COMMON NORMALS: normal respiratory effort OTHER: Minimal B/L Basal crackles present in both valderrama Cardio: COMMON NORMALS: regular rate, regular rhythm, S1 normal heart sound present, S2 normal heart sound present, No gallops present (Cardio), No murmurs present (Cardio), No rub (Cardio) and Peripheral pulses 2+ throughout RATE: regular rate RHYTHM: regular rhythm HEART SOUNDS: S1 normal heart sound present and S2 normal heart sound present PERIPHERAL PULSES: Peripheral pulses 2+ throughout GI: COMMON NORMALS: Normal to inspection, nondistended, normoactive bowel sounds present, Soft to palpation, non-tender, No hepatosplenomegaly present and no masses AUSCULTATION: Yes normoactive bowel sounds PALPATION: Yes Soft to palpation and Yes No hepatosplenomegaly present RECTAL EXAM: deferred Extremity: COMMON NORMALS: no clubbing, cyanosis or edema and no pedal edema Neuro: COMMON NORMALS: patient oriented x3 Urinary Catheter Management^: Yuen: Cath Placed During This Visit: yes Reason for Continuing Indwelling Catheter: Accurate Measurement of Urinary Output in Critically Ill Patients Urinary Catheter Date of Insertion: 08/10/20 Urinary Catheter Time of Insertion: 22:15 Discharge Data Data Completed and Pending: Completed Studies During Hospitalization Category Date Time Status CT angio abdomen pelvis [id number] Urgen t Cat Scan 08/08/20 13:[address] angio chest PE protcl [id number] Rout ine Cat Scan 08/09/20 12:[address] head wo con* 7 0450 Routine Cat Scan 08/08/20 16:52 Completed XR chest 1V obi ble [id number] Routine Exams 08/10/20 18:16 Completed XR chest 1V obi ble [id number] Routine Exams 08/14/20 07:14 Completed XR chest 2V* 7104 6 Urgent Exams 08/08/20 12:06 Completed CV carotid duplex BI* [id number] Routine Ultrasound 08/08/20 16:53 Completed CV echo complete* [id number] Routine Ultrasound 08/10/20 22:27 [place] [id number] Routin e Ultrasound 08/11/20 18:23 Completed US abdomen comple te* [id number] Routine Ultrasound 08/14/20 07:00 Completed Pending at discharge Category Date Time Status Blood Culture Sta t Lab 08/10/20 00:48 Results Complete Blood Co unt w/Auto AM LABS Lab 08/16/20 04:00 Ordered Comprehensive Met abolic Panel AM LA BS Lab 08/16/20 04:00 Ordered Sputum Culture Ro utine Lab 08/09/20 22:23 Uncollected Labs from last 24 hours 08/15/20 08/15/20 04:45 04:45 WBC 11.9 H RBC 4.32 Hgb 11.3 L Hct 37.0 MCV 85.6 MCH 26.2 L MCHC 30.5 RDW 22.6 H Plt Count 419 H MPV 10.1 Neut % (Auto) 74.4 Lymph % (Auto) 15.2 Victoria % (Auto) 5.6 Eos % (Auto) 0.1 Baso % (Auto) 0.3 Neut # (Auto) 8.89 H Lymph # (Auto) 1.8 Victoria # (Auto) 0.7 Eos # (Auto) 0.0 Baso # (Auto) 0.0 Nucleated RBC % (a uto) 0 Nucleated RBCs # 0.0 Sodium 136 Potassium 3.0 L Chloride 93 L Carbon Dioxide 32 H Anion Gap 14.0 BUN 28 H Creatinine 1.1 H GFR Calculation 49.2 L Glucose 375 H Calculated Osmolal ity 303 H Calcium 8.4 L Total Bilirubin 0.4 AST 25 ALT 27 Alkaline Phosphata se 79 Total Protein 6.3 L Albumin 3.1 L Globulin 3.2 Vitals: Last Vital Signs Temp 97.8 F 08/15/20 11:36 Pulse 74 08/15/20 11:36 Resp 16 08/15/20 11:36 BP 120/88 08/15/20 11:36 Pulse Ox 87 L 08/15/20 14:00 Discharge Plan Discharge Patient Disposition: Home Condition: Stable Prescriptions: New Advair Diskus 250-50 mcg/dose Blister With Device 1 puff inhalation BID.RESPIRATORY 30 Days RF: 0 Spiriva with HandiHaler 18 mcg Capsule, W/Inhalation Device 18 mcg inhalation DAILY.RESPIRATORY 30 Days Qty: 30 RF: 0 Lasix 40 mg tablet 40 mg PO BID Qty: 60 RF: 0 levofloxacin 500 mg tablet 500 mg PO DAILY 5 Days RF: 0 Klor-Con 20 mEq packet 20 meq PO DAILY Qty: 30 RF: 0 Continued tramadol 50 mg Tablet 50 mg PO Q4H PRN (Reason: Pain) RF: 0 alprazolam 0.5 mg tablet 0.5 mg PO BID PRN (Reason: Anxiety) RF: 0 multivitamin Tablet 1 tab PO DAILY@08 RF: 0 ascorbic acid (vitamin C) [Vitamin C] 500 mg Tablet 500 mg PO DAILY@08 RF: 0 metoprolol tartrate 50 mg tablet 50 mg PO Q12H RF: 0 allopurinol 300 mg tablet 300 mg PO DAILY@08 RF: 0 albuterol sulfate 90 mcg/actuation HFA aerosol inhaler 2 puff INHALATION QID PRN (Reason: Shortness Of Breath) RF: 0 ondansetron 4 mg tablet,disintegrating 4 mg PO TID PRN (Reason: Nausea) RF: 0 pantoprazole 40 mg tablet,delayed release (DR/EC) 40 mg PO BID@0800,1800 RF: 0 lisinopril 10 mg tablet 10 mg PO DAILY@0800 RF: 0 Discontinued ferrous sulfate 325 mg (65 mg iron) tablet 325 mg PO BID@0800,1800 RF: 0 Discharge Orders: Discharge Order (Routine); Ordered 08/15/20 Ordered By: Lg Madison Other Ambulatory Orders: DME: Oxygen (Order) Location: None Selected Ordered By: Lg Madison Referrals: Dr. Alcala [Other] - 09/15/20 4:00 pm (This appointment is scheduled for you to come in and do a Capsule Endoscopy. The appointment is for September 15 2020 at 4:00 PM. ) Mesha Kilgore MD [Referring] - 08/18/20 12:30 pm (Establishing Care Apt. ) Zaheer Blanco MD [Physician] - 2 weeks Tommy Florian MD [Physician] - 1 week Discharge Diet: Low Salt Discharge Activity: Increase activity as tolerated Patient Instructions: Hypertension, Heart Failure (DC), Deep Venous Thrombosis (DC), Anemia (DC), Hyperlipidemia (DC) Discharge Attestations Time Spent in Discharge Care*: greater than 30 min Specific Discharge Activities: educating patient, educating and/or supporting family/caregiver, discussing with pcp/other providers, discussing with machine adjuster leader case trim/social workers/dc planners, documenting/other paperwork and evaluating patient/reviewing data Status at Discharge: Cognitive status at discharge: cognitively intact, Behavioral status at discharge: cooperative, Functional status at discharge: independent ambulation Overall status at discharge: patient is back to baseline Quality Metrics Clinical Quality Measures During this hospital stay, did patient experience: None Coding Level of Care Code Acute 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
== END 2020-08-15 17:45 | disposition home or self-care (01) | DRG 871 ==
LOC: ER 12:55 → MEDSURG 19:05 → MS 2A 08-10 17:48
PROVIDERS: Hospitalist; Admitting Provider Family Medicine; Emergency Provider Family Medicine; PCP Nurse Practitioner Family; Visit Provider Internal Medicine
DX: A41.9 Sepsis, unspecified organism (principal); J18.9 Pneumonia, unspecified organism; I50.33 Acute on chronic diastolic (congestive) heart failure; N30.00 Acute cystitis without hematuria; I13.0 Hypertensive heart and chronic kidney disease with heart failure and stage 1 through stage 4 chronic kidney disease, or unspecified chronic kidney disease; I47.1 Supraventricular tachycardia; N18.2 Chronic kidney disease, stage 2 (mild); Z86.718 Personal history of other venous thrombosis and embolism; E78.5 Hyperlipidemia, unspecified; G89.29 Other chronic pain; M54.9 Dorsalgia, unspecified; D50.9 Iron deficiency anemia, unspecified; K21.9 Gastro-esophageal reflux disease without esophagitis; Z86.16 Personal history of COVID-19; F41.9 Anxiety disorder, unspecified; I48.91 Unspecified atrial fibrillation; Z96.651 Presence of right artificial knee joint; E87.6 Hypokalemia; Z91.81 History of falling
CPT/HCPCS: 12345; 36415; 36430; 36600; 51702; 70450; 71045; 71046; 71275; 74174; 76700; 80048; 80051; 80053; 80202; 81001; 82330; 82550; 82803; 82805; 83605; 83735; 83880; 84145; 84443; 84484; 85025; 85610; 85651; 86140; 86403; 86850; 86900; 86920; 87040; 87081; 87086; 87426; 87449; 87635; 87804; 90471; 90686; 90732; 93005; 93306; 93880; 93970; 94640; 94760; 97110; 97161; 99283; G0378; J0456; J0696; J1940; J2543; J2920; J2930; J3370; J3535; J7030; J7050; P9016; Q9967

== ENCOUNTER → 2020-08-16 16:35 | Outpatient (BNVA) | payer MEDICARE, SELFPAY | PROVIDERS: PCP Internal Medicine; Visit Provider Internal Medicine Cardiovascular Disease | DX: I82.409 Acute embolism and thrombosis of unspecified deep veins of unspecified lower extremity (principal) | CPT/HCPCS: 85379 ==

== ENCOUNTER 2020-08-19 05:58 | Outpatient (CLI) | payer MEDICARE, SELFPAY ==
[2020-08-19 09:45] LABS: Basophils # 0.1 10^3/uL (0.0-0.1); Basophils % 0.4 %; Eosinophils # 0.3 10^3/uL (0.0-0.8); Eosinophils % 1.9 %; Hematocrit 37.2 % (37.0-47.0); Hemoglobin 11.4 g/dL (11.5-15.3); Lymphocytes # 2.6 10^3/uL (0.8-4.8); Lymphocytes % 18.2 %; Mean Corpuscular HGB Conc 30.6 g/dL (30.0-36.0); Mean Corpuscular Hemoglobin 26.3 pg (28.0-34.0); Mean Corpuscular Volume 85.9 fL (81-99); Mean Platelet Volume 10.3 fL (7.4-10.4); Monocytes # 1.3 10^3/uL (0.2-0.9); Monocytes % 9.3 %; Neutrophils # 9.77 10^3/uL (1.8-7.7); Neutrophils % 67.7 %; Nucleated Red Blood Cells % 0 %; Platelet Count 348 10^3/cmm (130-400); Red Blood Count 4.33 10^6/uL (4.1-5.3); Red Cell Distribution Width 22.9 % (12.1-15.1); White Blood Count 14.4 10^3/uL (4.0-10.0)
[2020-08-19 11:00] LABS: Ferritin 589 ng/mL (15-150); Iron 89 ug/dL (37-145); Percent Saturation 35.1 % (20-50); Total Iron Binding Capacity 253 mcg/dl; Unsaturated Iron Binding 164 ug/dL (112-347)
[2020-08-19 11:10] LABS: Vitamin B12 803 pg/mL (232-1245)
--- NOTE | 2020-08-29 16:57 | ONC FU_ITS ---
[facility] Patient Note Patient: Mindy Cueva Unit #: [id number]: 1950 Dictated By: Maria Luisa BoothDate of Visit: Aug 19, 2020 Onc MED Follow-Up/Prog Note Chief Complaint: Iron deficiency anemia History of Present Illness: Ms. Cueva is a 70-year-old female with a history of progressive anemia since November 2019. She reports initially she was told about a low hemoglobin and had been following with her PMD. She presented to [facility] ER on July 25, 2020 for weakness and chest pain and her lab work-up done in [facility] [place] [place] ER showed white blood count 18.9 hemoglobin 5.8 g hematocrit 23.9 MCV 72.3 platelets 354,000 iron studies shows iron 17, iron saturation 3.5% ferritin 5, TIBC 47. She was admitted to hospital and given 2 units of packed RBCs, parenteral iron x1 and discharged home on oral iron. She was seen by Dr Roberto for followup on August 04, 2020 for iron deficiency anemia her hemoglobin at that time was 8.8. She reported that she had had follow-up with Dr. Alcala in [facility] and had EGD and colonoscopy. A records request was sent at the August 04, 2020 visit for records to see if a capsule endoscopy may be indicated for small bowel AVM or other pathology. Those records have not yet been obtained as per our chart review. Ms Cueva denies any melena or hematochezia, hemoptysis or hematemesis. She denies any jaundice. She denies a history of alcohol use or smoking. Ms. Cueva is here today for follow-up. She was admitted to [facility] on August 10, 2020 and discharged on August 15, 2020. Her admitting diagnosis was sepsis, acute/chronic anemia, DVT, heart failure and UTI. It is also noted that she had chronic hypoxia, stage II chronic kidney disease and hypertension. She also has a history of COVID-19 by PCR on 08/08/2020. She had Covid diagnosed back in June 2020 as well. As she was hypoxic she did have a CTA which was negative for PE but she was diagnosed with left lower extremity DVT left posterior tibial veins. She was not placed on anticoagulation given her GI bleeding and pending work-up. She was discharged on oxygen 2 L per nasal cannula. She presents today for post hospital/1 week follow-up. She states overall she is feeling much better. Her breathing is much better. She denies any left lower extremity pain or swelling. She denies any recent symptoms of GI bleeding or abdominal pain. She states her appetite is good. Energy is fair. She has no new concerns today. Her ECOG is 2 but she states she is getting stronger every day. Past Medical History: Anxiety Atrial fibrillation Chronic kidney disease (stage 2) Chronic low back pain Gout Hyperlipidemia Hypertension Myocardial infarction Paroxysmal SVT Covid 19 in 2019 Past Surgical History: Appendectomy Back surgery Cholecystectomy Glaucoma surgery Left shoulder surgery Right knee replacement Allergies: No Known Allergies. Medications: Advair Diskus 1 Inhalation (of 250-50 mcg/dose) Aerosol Powder, Breath Activated Inhalation b.i.d. Albuterol Sulfate HFA 2 Puff(s) (of 108 (90 base) mcg/act) Aerosol, solution Inhalation four times a day Allopurinol 1 Tablet (of 300 mg) Oral daily ALPRAZolam 1 Tablet (of 0.5 mg) Oral b.i.d. PRN K-Tab 1 Tablet (of 20 meq) Tablet, controlled release Oral daily Lasix 1 Tablet (of 40 mg) Oral b.i.d. Lisinopril 1 Tablet (of 10 mg) Oral daily Metoprolol Tartrate 1 Tablet (of 50 mg) Oral q 12 hours Multivitamin 1 Tablet Oral daily Ondansetron HCl 1 Tablet (of 4 mg) Oral t.i.d. PRN Pantoprazole Sodium 1 Tablet (of 40 mg) Tablet, enteric coated Oral b.i.d. Spiriva HandiHaler 1 Inhalation (of 18 mcg) Capsule Inhalation daily Terbinafine HCl 1 Tablet (of 250 mg) Oral daily traMADol HCl 1 Tablet (of 50 mg) Oral q 4 hours PRN Vitamin C 1 Capsule (of 500 mg) Oral daily Family History: Social History: Ms. Cueva is . Ms. Cueva has never smoked. She has no history of drinking. Review Of Symptoms: Constitutional Denies fevers, chills, night sweats, excessive fatigue or weight loss. ENMT Denies changes in hearing, sore throat, mouth sores, difficulty or changes in swallowing ability, and/or sinus drainage. Hematologic/Lymphatic Denies easy bruising or bleeding. The patient denies any tender or palpable lymph nodes. Respiratory Denies dyspnea on exertion, chest pain, cough or hemoptysis. Denies orthopnea. Cardiovascular Denies anginal chest pain, palpitations or orthopnea. Gastrointestinal Denies nausea, vomiting, diarrhea, GI bleeding, or constipation. Denies change in bowel habits and/or stool color, no heartburn or early satiety. Genitourinary (F) No hematuria, hesitancy, incontinence, vaginal bleeding, discharge or other problems with urination. Musculoskeletal Denies joint pain, swelling or redness. No decreased range of motion. Integumentary Denies chronic rashes, inflammation, ulcerations or skin changes. Neurologic Denies headache, blurred vision, and no areas of focal weakness or numbness. Normal gait. No sensory problems. Psychiatric Denies insomnia, depression, meagan or mood swings. Vital Signs: Performed on Aug 19, 2020 11:25 Height - 67.00 in Weight - 219.4 lbs (LOW) BSA - 2.10 sq.m BMI - 34.36 (HIGH) Temperature - 97.6 F (LOW) Pulse - 112 /min (HIGH) Respiration - 22 /min BP - 150/72 mm(hg) (HIGH) O2 Sat - 95 % (LOW) Pain - 0 Fatigue - 5,2 - Ambulatory/capable of all self-care, unable to perform any work activities. Up and about more than 50% of waking hours. (ECOG) Physical Examination: Constitutional Alert, oriented, no acute distress. Skin pink, warm and dry. Head Normocephalic; atraumatic. Eyes Conjunctivae and sclerae are clear and without icterus. Pupils are reactive and equal. ENMT No oral exudates, ulcers, masses, thrush or mucositis. Oropharynx clear. Tongue normal. Hematologic/Lymphatic No petechiae or purpura. No tender or palpable lymph nodes in the cervical or supraclavicular areas. Respiratory Lungs are clear to auscultation without rhonchi or wheezing. Cardiovascular Regular rate and rhythm of heart without murmurs,clicks, gallops or rubs. Abdomen Non-tender, non-distended, no masses or ascites. Good bowel sounds noted in all quads. No guarding or rebound tenderness. No pulsatile masses. Back/Spine Non-tender to palpation. Extremities No visible deformities, no cyanosis, clubbing or edema. Musculoskeletal No tenderness or swelling, normal range of motion without obvious weakness. Integumentary No rashes or lesions. Neurologic No sensory or motor deficits, normal cerebellar function, normal gait. Psychiatric Alert and oriented times three. Coherent speech. Verbalizes understanding of our discussions today. Laboratory:Test performed on Aug 19, 2020 09:28 Ferritin 589 ng/mL Iron 89 mcg/dL Vitamin B12 803 pg/mL Iron Binding Capacity (TIBC) 253 mcg/dl % Iron Saturation 35.1 % UIBC 164 mcg/dL WBC 14.4 10 3/uL RBC 4.33 10 6/uL HGB 11.4 g/dL HCT 37.2 % MCV 85.9 fL MCH 26.3 pg MCHC 30.6 g/dL RDW 22.9 % Platelet Count 348 10 3/cmm MPV 10.3 fL Neutrophils 9.77 10 3/uL Lymphocytes 2.6 10 3/uL Monocytes 1.3 10 3/uL Eosinophils 0.3 10 3/uL Basophils 0.1 10 3/uL Neutrophil % 67.7 % Lymphocyte % 18.2 % Monocyte % 9.3 % Eosinophil % 1.9 % Basophils % 0.4 % NRBC % 0 % Impression: Microcytic hypochromic anemia due to iron deficiency per labs done on July 25, 2020 in [facility] [place] [place] [facility] hemoglobin was 5.8 g hematocrit 22.2 MCV 72.3 iron studies done showed ferritin 5, iron saturation 3.5%, iron 17, TIBC 478, Patient was given 2 units of packed RBCs and parenteral iron x1 History of atrial fibrillation, history of chronic back pain, next history of hypertension Paroxysmal SVTs COVID 19 + 06/2020 and by PCR 08/08/2019. Left lower extremity DVT 07/2019-not on anticoagulation due to GI bleed workup. Plan: PROBLEMS ADDRESSED TODAY 1. Anemia A. Hemoglobin today is 11.4, iron saturation 35.1 iron level 89 ferritin 589 TIBC is 253. Her B12 is normalizing at 803. B. I did not order her Injectafer today as her iron studies are normal and her hemoglobin has improved at 11.4 from her 8.8 visit on August 04, 2020. C. She will continue B12 injections at home. D. Plan for followup with Dr Roberto in 2 weeks with CBC, CMP E. Ms Cueva was instructed to call us in the interim if questions or problems arise. Signed By: Maria Luisa Booth-, AOCNP Randy Roberto MD <<Signature on File>>
== END 2020-08-19 05:59 | disposition home or self-care (01) ==
LOC: ONCMED 05:59
PROVIDERS: Internal Medicine Hematology & Oncology; PCP Internal Medicine; Visit Provider Nurse Practitioner
DX: D50.9 Iron deficiency anemia, unspecified (principal); I48.91 Unspecified atrial fibrillation; G89.29 Other chronic pain; I47.1 Supraventricular tachycardia; Z86.16 Personal history of COVID-19; Z86.718 Personal history of other venous thrombosis and embolism
CPT/HCPCS: 36415; 82607; 82728; 83540; 83550; 85025; 99214

== ENCOUNTER 2020-08-23 14:50 | Outpatient (CLI) | payer MEDICARE, SELFPAY ==
--- NOTE | 2020-08-23 15:45 | USCV_ITS ---
Mindy Cueva Age: 70 Gender: F : 1950 Exam Date: 08/23/2020 15:04 Ordering Phys: Tommy Florian MD ([email or web address]) Technologist: Marilyn Michelle Exam Location: [facility] Indication: Left leg pain HISTORY: Lower extremity pain. PROCEDURES: Venous duplex imaging was performed in only the left lower extremity. The following venous structures were evaluated: common femoral vein, profunda vein, proximal portion of the greater saphenous vein, superficial femoral vein, and the popliteal vein. In addition, the posterior tibial and peroneal trunk were evaluated. FINDINGS: Normal 2-D Doppler and augmentation and compressibility throughout the lower extremity venous structures. Additional imaging through the proximal calf veins also reveals no thrombus. Limited evaluation of the greater saphenous vein is patent with no thrombus. CONCLUSIONS No DVT left lower extremity. Dr. Breana Bronson DO (Electronically Signed) Final Date: 23 August 2020 16:18 S
== END 2020-08-23 14:51 | disposition home or self-care (01) ==
LOC: RAD 14:55
PROVIDERS: PCP Internal Medicine; Visit Provider Internal Medicine Cardiovascular Disease
DX: M79.605 Pain in left leg (principal)
CPT/HCPCS: 93971

== ENCOUNTER 2020-08-24 06:33 | Outpatient (CLI) | payer MEDICARE, SELFPAY | END 2020-08-24 06:34 | disposition home or self-care (01) | LOC: ONCMED 06:36 | PROVIDERS: PCP Internal Medicine; Visit Provider Internal Medicine Hematology & Oncology | DX: D64.9 Anemia, unspecified (principal) | CPT/HCPCS: 96365; J1439 ==

== ENCOUNTER 2020-09-08 20:00 | Outpatient (CLI) | payer MEDICARE, SELFPAY | END 2020-09-08 20:01 | disposition home or self-care (01) | LOC: SLEEP 09-09 09:06 | PROVIDERS: PCP Internal Medicine; Visit Provider Internal Medicine | DX: G47.10 Hypersomnia, unspecified (principal); R06.83 Snoring; R53.83 Other fatigue; G47.33 Obstructive sleep apnea (adult) (pediatric) | CPT/HCPCS: 95810 ==

== ENCOUNTER 2020-09-15 05:51 | Outpatient (CLI) | payer MEDICARE, SELFPAY ==
[2020-09-15 08:07] LABS: Basophils # 0.1 10^3/uL (0.0-0.1); Basophils % 0.9 %; Eosinophils # 0.1 10^3/uL (0.0-0.8); Eosinophils % 1.4 %; Hematocrit 35.4 % (37.0-47.0); Hemoglobin 11.2 g/dL (11.5-15.3); Lymphocytes # 2.5 10^3/uL (0.8-4.8); Lymphocytes % 31.8 %; Mean Corpuscular HGB Conc 31.6 g/dL (30.0-36.0); Mean Corpuscular Hemoglobin 30.2 pg (28.0-34.0); Mean Corpuscular Volume 95.4 fL (81-99); Mean Platelet Volume 10.2 fL (7.4-10.4); Monocytes # 0.8 10^3/uL (0.2-0.9); Monocytes % 10.2 %; Neutrophils # 4.36 10^3/uL (1.8-7.7); Neutrophils % 55.1 %; Nucleated Red Blood Cells % 0 %; Platelet Count 205 10^3/cmm (130-400); Red Blood Count 3.71 10^6/uL (4.1-5.3); Red Cell Distribution Width 20.7 % (12.1-15.1); White Blood Count 7.9 10^3/uL (4.0-10.0)
[2020-09-15 08:37] LABS: Alanine Aminotransferase 18 U/L (0-33); Albumin Level 4.3 g/dL (3.5-5.2); Alkaline Phosphatase 80 IU/L (35-105); Anion Gap 12.5 (5-19); Aspartate Amino Transferase 19 U/L (0-32); Blood Urea Nitrogen 15 mg/dL (8-23); Calcium 9.5 mg/dL (8.5-10.5); Carbon Dioxide 28 mmol/L (22-29); Chloride 102 mmol/L (98-107); Globulin 2.5 g/dL (1.3-4.6); Glomerular Filtration Rate 49.2 mL/min (90-130); Glucose 156 mg/dL (65-115); Osmolality Calculated 292 mOsm/kg (285-295); Potassium 3.5 mmol/L (3.5-5.1); Sodium 139 mmol/L (136-145); Total Bilirubin 0.8 mg/dL (0.15-1.2); Total Protein 6.8 g/dL (6.6-8.7)
--- NOTE | 2020-09-15 11:05 | ONC FU_ITS ---
Dr. Roberto follow up note Patient: Mindy Cueva Unit #: [id number]: 1950 Dicatated By: Randy Roberto M.D.Date of Visit:Sep 15, 2020 Onc Med Follow-up/Prog Note History of Present Illness: Ms. Cueva is a 70-year-old female with a history of progressive anemia since November 2019. She reports initially she was told about a low hemoglobin and had been following with her PMD. She presented to [facility] ER on July 25, 2020 for weakness and chest pain and her lab work-up done in [facility] showed white blood count 18.9 hemoglobin 5.8 g hematocrit 23.9 MCV 72.3 platelets 354,000 iron studies shows iron 17, iron saturation 3.5% ferritin 5, TIBC 47. She was admitted to hospital and given 2 units of packed RBCs, parenteral iron x1 and discharged home on oral iron. She was seen for followup on August 04, 2020 for iron deficiency anemia her hemoglobin at that time was 8.8. She reported that she had had follow-up with Dr. Alcala in [facility] and had EGD and colonoscopy. A records request was sent at the August 04, 2020 visit for records to see if a capsule endoscopy may be indicated for small bowel AVM or other pathology. Those records have not yet been obtained as per our chart review. Ms Cueva denies any melena or hematochezia, hemoptysis or hematemesis. She denies any jaundice. She denies a history of alcohol use or smoking. She was admitted to [facility] on August 10, 2020 and discharged on August 15, 2020. Her admitting diagnosis was sepsis, acute/chronic anemia, DVT, heart failure and UTI. It is also noted that she had chronic hypoxia, stage II chronic kidney disease and hypertension. She also has a history of COVID-19 by PCR on 08/08/2020. She had Covid diagnosed back in June 2020 as well. As she was hypoxic she did have a CTA which was negative for PE but she was diagnosed with left lower extremity DVT left posterior tibial veins. She was not placed on anticoagulation given her GI bleeding and pending work-up. She was discharged on oxygen 2 L per nasal cannula. Came for follow-up, denies any specific complaints, overall feeling much better, more energetic, denies any melena or hematochezia denies any nausea or vomiting denies any palpitation or shortness of breath at rest, denies any hematuria or hemoptysis or hematemesis denies any jaundice, overall feeling much better, she tolerated 1 dose of Injectafer well as second dose was not given as follow-up labs shows good response and normalization of iron stores. Medications: Advair Diskus 1 Inhalation (of 250-50 mcg/dose) Aerosol Powder, Breath Activated Inhalation b.i.d., Albuterol Sulfate HFA 2 Puff(s) (of 108 (90 base) mcg/act) Aerosol, solution Inhalation four times a day, Allopurinol 1 Tablet (of 300 mg) Oral daily, ALPRAZolam 1 Tablet (of 0.5 mg) Oral b.i.d. PRN, K-Tab 1 Tablet (of 20 meq) Tablet, controlled release Oral daily, Lasix 1 Tablet (of 40 mg) Oral b.i.d., Lisinopril 1 Tablet (of 10 mg) Oral daily, Metoprolol Tartrate 1 Tablet (of 50 mg) Oral q 12 hours, Multivitamin 1 Tablet Oral daily, Ondansetron HCl 1 Tablet (of 4 mg) Oral t.i.d. PRN, Pantoprazole Sodium 1 Tablet (of 40 mg) Tablet, enteric coated Oral b.i.d., Spiriva HandiHaler 1 Inhalation (of 18 mcg) Capsule Inhalation daily, Terbinafine HCl 1 Tablet (of 250 mg) Oral daily, traMADol HCl 1 Tablet (of 50 mg) Oral q 4 hours PRN, Vitamin C 1 Capsule (of 500 mg) Oral daily Allergies: No Known Allergies. Review of Systems: Review of Systems is not available for this patient. Vital Signs: Performed on Sep 15, 2020 10:16 Height - 67.00 in Weight - 221.4 lbs (HIGH) BSA - 2.11 sq.m BMI - 34.68 (HIGH) Temperature - 97.5 F (LOW) Pulse - 105 /min (HIGH) Respiration - 18 /min BP - 143/74 mm(hg) (HIGH) O2 Sat - 98 % Pain - 0 Fatigue - 4 Performance Status: 1 - No physically strenuous activity, but ambulatory and able to carry out light or sedentary work (e.g. office work, light house work). (ECOG) Physical Examination: ENMT - No mouth sores, no thrush, no jaundice, Respiratory - Lungs are clear to auscultation, Cardiovascular - Regular rate and rhythm of heart, Abdomen - Soft, bowel sounds present, Extremities - No visible edema. Lab/Imaging: Test performed on Aug 19, 2020 09:28 Ferritin 589 ng/mL Iron 89 mcg/dL Vitamin B12 803 pg/mL Iron Binding Capacity (TIBC) 253 mcg/dl % Iron Saturation 35.1 % UIBC 164 mcg/dL WBC 14.4 10 3/uL RBC 4.33 10 6/uL HGB 11.4 g/dL HCT 37.2 % MCV 85.9 fL MCH 26.3 pg MCHC 30.6 g/dL RDW 22.9 % Platelet Count 348 10 3/cmm MPV 10.3 fL Neutrophils 9.77 10 3/uL Lymphocytes 2.6 10 3/uL Monocytes 1.3 10 3/uL Eosinophils 0.3 10 3/uL Basophils 0.1 10 3/uL Neutrophil % 67.7 % Lymphocyte % 18.2 % Monocyte % 9.3 % Eosinophil % 1.9 % Basophils % 0.4 % NRBC % 0 % Impression: Microcytic hypochromic anemia due to iron deficiency per labs done on July 25, 2020 in [facility] hemoglobin was 5.8 g hematocrit 22.2 MCV 72.3 iron studies done showed ferritin 5, iron saturation 3.5%, iron 17, TIBC 478, Patient was given 2 units of packed RBCs and parenteral iron x1 History of atrial fibrillation, history of chronic back pain, next history of hypertension Paroxysmal SVTs COVID 19 + 06/2020 and by PCR 08/08/2019. Left lower extremity DVT 07/2019-not on anticoagulation due to GI bleed workup. Plan: Discussed with patient regarding her labs white blood count 7.9 hemoglobin 11.2 hematocrit 35.4 platelets 205,000 MCV 95.4 CMP within normal limits Clinically, patient doing well with no new signs symptoms or follow-up labs shows hemoglobin is stable at 11.2 g compared to 11.4 g on August 19, 2020 and 8.8 g on August 04, 2020 She will return to clinic in 1 month with CBC and iron studies. Signed By: Randy Roberto M.D. <<Signature on File>>
== END 2020-09-15 05:52 | disposition home or self-care (01) ==
LOC: ONCMED 05:53
PROVIDERS: PCP Internal Medicine; Visit Provider Internal Medicine Hematology & Oncology
DX: D50.9 Iron deficiency anemia, unspecified (principal)
CPT/HCPCS: 80053; 85025; G0463

== ENCOUNTER 2020-09-17 14:49 | Outpatient (CLI) | payer MEDICARE, SELFPAY ==
--- NOTE | 2020-09-17 15:00 | USCV_ITS ---
Anay Mindy Age: 70 Gender: F : 1950 Exam Date: 09/17/2020 15:00 Ordering Phys: Tommy Florian MD ([email or web address]) Technologist: Griselda Quiros [place] [facility] [place]ication: CHRONIC EMBOLISM HISTORY: History of deep venous thrombosis. PROCEDURES: Venous duplex imaging was performed in bilateral lower extremities. The following venous structures were evaluated: common femoral vein, profunda vein, proximal portion of the greater saphenous vein, superficial femoral vein, and the popliteal vein. In addition, the posterior tibial and peroneal trunk were evaluated. Serial compression, augmentation maneuvers, and spectral Doppler flow evaluation were performed. FINDINGS: Normal 2-D Doppler and augmentation and compressibility throughout the lower extremity venous structures. Additional imaging through the proximal calf veins also reveals no thrombus. Limited evaluation of the greater saphenous vein is patent with no thrombus.. CONCLUSIONS No evidence of right lower extremity DVT. No evidence of left lower extremity DVT. Richard Rendon MD (Electronically Signed) Final Date: 17 September 2020 17:33 S
== END 2020-09-17 14:50 | disposition home or self-care (01) ==
PROVIDERS: PCP Internal Medicine; Visit Provider Internal Medicine Cardiovascular Disease
DX: I82.542 Chronic embolism and thrombosis of left tibial vein (principal)
CPT/HCPCS: 93970

== ENCOUNTER 2020-09-28 20:00 | Outpatient (CLI) | payer MEDICARE, SELFPAY | END 2020-09-28 20:01 | disposition home or self-care (01) | LOC: SLEEP 09-29 08:40 | PROVIDERS: PCP Internal Medicine; Visit Provider Internal Medicine | DX: G47.33 Obstructive sleep apnea (adult) (pediatric) (principal) | CPT/HCPCS: 95811 ==

== ENCOUNTER 2020-09-30 09:49 | Outpatient (CLI) | payer MEDICARE, SELFPAY ==
--- NOTE | 2020-09-30 10:00 | CT_ITS ---
WS: [id number] CT ABDOMEN AND PELVIS WITH CONTRAST HISTORY: RIGHT UPPER QUADRANT PAIN TECHNIQUE: Imaging performed of the abdomen and pelvis with IV contrast. Single phase imaging of the abdomen. Coronal and sagittal reformats are submitted. All CT scans at [facility] use at least one of these dose optimization techniques: automated exposure control; mA and/or kV adjustment per patient size (includes targeted exams where dose is matched to clinical indication); or iterativ e reconstruction. IV CONTRAST: Visipaque 320; 95 mL IV. Oral contrast: Yes. DLP: 1136.18 mGycm COMPARISON: 08/08/2020 Lower thorax: Lung bases are clear. Heart is normal size. Large hiatal hernia. Hiatal hernia contains oral contrast. No ischemic changes. Similar to the prior study. Liver/biliary system: Mild hepatomegaly with mild diffuse hepatic steatosis. Gallbladder: Status post cholecystectomy. Pancreas: Normal. Spleen: Normal. Adrenal glands: Normal. Right kidney: Mildly lobulated cortex. No mass or obstruction. No calcifications. There is a small co rtical cyst in the mid kidney anteriorly measuring 8 mm. Left kidney: Very mild perinephric stranding. No obstruction or mass. Aorta: Normal. Lymphadenopathy: None. Free fluid: None. GI tract: Status post post appendectomy. No GI tract obstruction. No significant diverticular disease . Abdominal wall: Small fat-containing umbilical hernia. Pelvis: Prior hysterectomy. No pelvic mass or fluid. Urinary bladder is not distended. Bones: Mild narrowing of the hip joints bilaterally. Bilateral facet joint arthritis is moderate at L 4-5 and L5-S1. CT/CT abdomen pelvis w con* [id number] IMPRESSION: 1. No acute abdominal or pelvic abnormalities are identified. 2. Large hiatal hernia. No increase in size since 08/08/2020. 3. Mild hepatomegaly and hepatic steatosis. 4. Prior cholecystectomy and appendectomy.
[2020-09-30] MEDS: iohexol 300 mg/mL 50 mL Btl PO (10:34)
[2020-09-30] MEDS: iodixanol 320 mg/mL 100mL Btl IV (11:30)
== END 2020-09-30 09:50 | disposition home or self-care (01) ==
LOC: RADWPI 10:11
PROVIDERS: PCP Internal Medicine; Visit Provider Internal Medicine
DX: R10.11 Right upper quadrant pain (principal); K44.9 Diaphragmatic hernia without obstruction or gangrene; R16.0 Hepatomegaly, not elsewhere classified; K76.0 Fatty (change of) liver, not elsewhere classified; Z90.49 Acquired absence of other specified parts of digestive tract; Q42.8 Congenital absence, atresia and stenosis of other parts of large intestine
CPT/HCPCS: 74177; Q9967

== ENCOUNTER 2020-10-04 14:28 | Outpatient (CLI) | payer MEDICARE, SELFPAY ==
--- NOTE | 2020-10-04 14:39 | MM_ITS ---
WS: [id number] BILATERAL DIGITAL SCREENING MAMMOGRAPHY WITH CAD CLINICAL INFORMATION: SCREENING HISTORY: Screening mammogram. No current complaints. COMPARISON: February 28, 2013 TECHNIQUE: Bilateral CC and MLO views. FINDINGS: Scattered fibroglandular densities bilaterally. 9mm ovoid nodular density upper outer left breast is new from 2013. Recommend spot compression views and ultrasound for further evaluation. Right breast is unremarkable. MM/[place] [id number] IMPRESSION: BI-RADS: 0-Incomplete: Need additional imaging evaluation FOLLOW UP: Need Additional Imaging Recommend LEFT diagnostic mammography and ultrasound for further evaluation
--- NOTE | 2020-10-04 15:05 | XR_ITS ---
WS: [id number] Bone mineral density performed on a [employer], today Clinical data: ASYMPTOMATIC POSTMENOPAUSAL STATUS Findings: The first 4 lumbar vertebral bodies demonstrated the bone mineral density of 1.413 g/cm2 for a young adult T score of 1.9. Measurement of the left hip reveals a bone mineral density of 1.076 g/cm2 with a young adult T score of 0.5. Measurement of the right hip reveals the bone mineral density of 1.103 g/cm2 for young adult T score of 0.8. XR/XR DEXA axial skeleton* [id number] Impression: Normal bone mineral density of the lumbar spine and both hips.
== END 2020-10-04 14:29 | disposition home or self-care (01) ==
PROVIDERS: PCP Internal Medicine; Visit Provider Internal Medicine
DX: Z12.31 Encounter for screening mammogram for malignant neoplasm of breast (principal); Z78.0 Asymptomatic menopausal state; N63.21 Unspecified lump in the left breast, upper outer quadrant
CPT/HCPCS: 77067; 77080

== ENCOUNTER 2020-10-13 13:21 | Outpatient (CLI) | payer MEDICARE, SELFPAY ==
[2020-10-13 13:47] LABS: Basophils # 0.1 10^3/uL (0.0-0.1); Basophils % 0.9 %; Eosinophils # 0.1 10^3/uL (0.0-0.8); Eosinophils % 1.1 %; Hematocrit 36.5 % (37.0-47.0); Hemoglobin 11.7 g/dL (11.5-15.3); Lymphocytes # 2.7 10^3/uL (0.8-4.8); Lymphocytes % 33.5 %; Mean Corpuscular HGB Conc 32.1 g/dL (30.0-36.0); Mean Corpuscular Hemoglobin 31.4 pg (28.0-34.0); Mean Corpuscular Volume 97.9 fL (81-99); Mean Platelet Volume 10.7 fL (7.4-10.4); Monocytes # 0.7 10^3/uL (0.2-0.9); Monocytes % 8.1 %; Neutrophils % 56.2 %; Nucleated Red Blood Cells % 0 %; Platelet Count 274 10^3/cmm (130-400); Red Blood Count 3.73 10^6/uL (4.1-5.3); Red Cell Distribution Width 13.8 % (12.1-15.1); White Blood Count 8.2 10^3/uL (4.0-10.0)
[2020-10-13 14:29] LABS: Alanine Aminotransferase 18 U/L (0-33); Albumin Level 4.3 g/dL (3.5-5.2); Alkaline Phosphatase 80 IU/L (35-105); Anion Gap 19.8 (5-19); Aspartate Amino Transferase 19 U/L (0-32); Blood Urea Nitrogen 21 mg/dL (8-23); Calcium 10.2 mg/dL (8.5-10.5); Carbon Dioxide 23 mmol/L (22-29); Chloride 102 mmol/L (98-107); Ferritin 225 ng/mL (15-150); Globulin 2.8 g/dL (1.3-4.6); Glomerular Filtration Rate 44.5 mL/min (90-130); Glucose 211 mg/dL (65-115); Iron 63 ug/dL (37-145); Osmolality Calculated 301 mOsm/kg (285-295); Percent Saturation 20.7 % (20-50); Potassium 3.8 mmol/L (3.5-5.1); Sodium 141 mmol/L (136-145); Total Bilirubin 0.4 mg/dL (0.15-1.2); Total Iron Binding Capacity 303 mcg/dl; Total Protein 7.1 g/dL (6.6-8.7); Unsaturated Iron Binding 240 ug/dL (112-347)
[2020-10-13 14:49] LABS: Folate Level 10.7 ng/mL (4.8-37.3)
== END 2020-10-13 13:22 | disposition home or self-care (01) ==
LOC: ONCMED 13:23
PROVIDERS: PCP Internal Medicine; Visit Provider Internal Medicine Hematology & Oncology
DX: D50.9 Iron deficiency anemia, unspecified (principal)
CPT/HCPCS: 80053; 82728; 82746; 83540; 83550; 85025

== ENCOUNTER 2020-10-14 05:52 | Outpatient (CLI) | payer MEDICARE, SELFPAY ==
--- NOTE | 2020-10-14 09:44 | ONC FU_ITS ---
[facility] Patient Note Patient: Mindy Cueva Unit #: [id number]: 1950 Dictated By: Maria Luisa BoothDate of Visit: Oct 14, 2020 Onc MED Follow-Up/Prog Note Chief Complaint: Iron deficiency anemia History of Present Illness: Ms. Cueva is a 70-year-old female with a history of progressive anemia since November 2019. She reports initially she was told about a low hemoglobin and had been following with her PMD. She presented to [facility] ER on July 25, 2020 for weakness and chest pain and her lab work-up done in [facility] showed white blood count 18.9 hemoglobin 5.8 g hematocrit 23.9 MCV 72.3 platelets 354,000 iron studies shows iron 17, iron saturation 3.5% ferritin 5, TIBC 47. She was admitted to hospital and given 2 units of packed RBCs, parenteral iron x1 and discharged home on oral iron. She was seen for followup on August 04, 2020 for iron deficiency anemia her hemoglobin at that time was 8.8. She reported that she had had follow-up with Dr. Alcala in [facility] and had EGD and colonoscopy. A records request was sent at the August 04, 2020 visit for records to see if a capsule endoscopy may be indicated for small bowel AVM or other pathology. Those records have not yet been obtained as per our chart review. Ms Cueva denies any melena or hematochezia, hemoptysis or hematemesis. She denies any jaundice. She denies a history of alcohol use or smoking. She was admitted to [facility] on August 10, 2020 and discharged on August 15, 2020. Her admitting diagnosis was sepsis, acute/chronic anemia, DVT, heart failure and UTI. It is also noted that she had chronic hypoxia, stage II chronic kidney disease and hypertension. She also has a history of COVID-19 by PCR on 08/08/2020. She had Covid diagnosed back in June 2020 as well. As she was hypoxic she did have a CTA which was negative for PE but she was diagnosed with left lower extremity DVT left posterior tibial veins. She was not placed on anticoagulation given her GI bleeding and pending work-up. She was discharged on oxygen 2 L per nasal cannula. Mrs. Cueva was given 1 unit of Injectafer 750 mg on August 24, 2020. Her hemoglobin at that time was 11.4. She is here today for follow-up. She states overall she is doing well. She has no new concerns. She denies any fever or chills. She denies any new shortness of breath orthopnea. She denies any melena. She denies any hemoptysis. She denies cough. She has had no fever or chills. She is eating well and remains active. She has no complaints of pain. She denies any diarrhea or constipation. She has no rash, mouth sores or skin changes. Her ECOG is 1. Past Medical History: Anxiety Atrial fibrillation Chronic kidney disease (stage 2) Chronic low back pain Gout Hyperlipidemia Hypertension Myocardial infarction Paroxysmal SVT Covid 19 in 2019 Past Surgical History: Appendectomy Back surgery Cholecystectomy Glaucoma surgery Left shoulder surgery Right knee replacement Allergies: No Known Allergies. Medications: Advair Diskus 1 Inhalation (of 250-50 mcg/dose) Aerosol Powder, Breath Activated Inhalation b.i.d. Albuterol Sulfate HFA 2 Puff(s) (of 108 (90 base) mcg/act) Aerosol, solution Inhalation four times a day Allopurinol 1 Tablet (of 300 mg) Oral daily ALPRAZolam 1 Tablet (of 0.5 mg) Oral b.i.d. PRN K-Tab 1 Tablet (of 20 meq) Tablet, controlled release Oral daily Lasix 1 Tablet (of 40 mg) Oral b.i.d. Lisinopril 1 Tablet (of 10 mg) Oral daily Metoprolol Tartrate 1 Tablet (of 50 mg) Oral q 12 hours Multivitamin 1 Tablet Oral daily Ondansetron HCl 1 Tablet (of 4 mg) Oral t.i.d. PRN Pantoprazole Sodium 1 Tablet (of 40 mg) Tablet, enteric coated Oral b.i.d. traMADol HCl 1 Tablet (of 50 mg) Oral q 4 hours PRN Vitamin C 1 Capsule (of 500 mg) Oral daily Family History: Social History: Ms. Cueva is . Ms. Cueva has never smoked. She has no history of drinking. Review Of Symptoms: Constitutional Denies fevers, chills, night sweats, excessive fatigue or weight loss. ENMT Denies changes in hearing, sore throat, mouth sores, difficulty or changes in swallowing ability, and/or sinus drainage. Hematologic/Lymphatic Denies easy bruising or bleeding. The patient denies any tender or palpable lymph nodes. Respiratory Denies dyspnea on exertion, chest pain, cough or hemoptysis. Denies orthopnea. Cardiovascular Denies anginal chest pain, palpitations or orthopnea. Gastrointestinal Denies nausea, vomiting, diarrhea, GI bleeding, or constipation. Denies change in bowel habits and/or stool color, no heartburn or early satiety. Genitourinary (F) No hematuria, hesitancy, incontinence, vaginal bleeding, discharge or other problems with urination. Musculoskeletal Denies joint pain, swelling or redness. No decreased range of motion. Integumentary Denies chronic rashes, inflammation, ulcerations or skin changes. Neurologic Denies headache, blurred vision, and no areas of focal weakness or numbness. Normal gait. No sensory problems. Psychiatric Denies insomnia, depression, meagan or mood swings. Vital Signs: Performed on Oct 14, 2020 09:04 Height - 67.00 in Weight - 220.6 lbs (LOW) BSA - 2.11 sq.m BMI - 34.55 (HIGH) Temperature - 98.2 F (LOW) Pulse - 116 /min (HIGH) Respiration - 21 /min BP - 113/77 mm(hg) O2 Sat - 96 % Pain - 0,1 - No physically strenuous activity, but ambulatory and able to carry out light or sedentary work (e.g. office work, light house work). (ECOG) Physical Examination: Constitutional Alert, oriented, no acute distress. Skin pink, warm and dry. Head Normocephalic; atraumatic. Eyes Conjunctivae and sclerae are clear and without icterus. Pupils are reactive and equal. Hematologic/Lymphatic No petechiae or purpura. Respiratory Lungs are clear to auscultation without rhonchi or wheezing. Cardiovascular Regular rate and rhythm of heart without murmurs,clicks, gallops or rubs. Abdomen Non-tender, non-distended, no masses or ascites. Back/Spine Non-tender to palpation. Extremities No visible deformities, no cyanosis, clubbing or edema. Musculoskeletal No tenderness or swelling, normal range of motion without obvious weakness. Integumentary No rashes or lesions. Neurologic No sensory or motor deficits, normal cerebellar function, normal gait. Psychiatric Alert and oriented times three. Coherent speech. Verbalizes understanding of our discussions today. Laboratory:Test performed on Oct 13, 2020 13:31 Ferritin 225 ng/mL Folate, Serum 10.7 ng/mL Iron 63 mcg/dL Sodium 141 mmol/L Iron Binding Capacity (TIBC) 303 mcg/dl Potassium 3.8 mmol/L % Iron Saturation 20.7 % Chloride 102 mmol/L CO2 23 mmol/L UIBC 240 mcg/dL Anion Gap 19.8 BUN 21 mg/dL Creatinine 1.2 mg/dL Cr Clearance (Est) 70.1500 mL/min eGFR 44.5 mL/min Glucose 211 mg/dL Osmolality - Calculated 301 mOsm/kg Calcium 10.2 mg/dL Protein, Total 7.1 g/dL Albumin 4.3 g/dL Globulin 2.8 g/dL Bilirubin, Total 0.4 mg/dL ALT (SGPT) 18 U/L AST (SGOT) 19 U/L Alkaline Phosphatase 80 IU/L WBC 8.2 10 3/uL RBC 3.73 10 6/uL HGB 11.7 g/dL HCT 36.5 % MCV 97.9 fL MCH 31.4 pg MCHC 32.1 g/dL RDW 13.8 % Platelet Count 274 10 3/cmm MPV 10.7 fL Neutrophils 4.60 10 3/uL Lymphocytes 2.7 10 3/uL Monocytes 0.7 10 3/uL Eosinophils 0.1 10 3/uL Basophils 0.1 10 3/uL Neutrophil % 56.2 % Lymphocyte % 33.5 % Monocyte % 8.1 % Eosinophil % 1.1 % Basophils % 0.9 % NRBC % 0 % Impression: Microcytic hypochromic anemia due to iron deficiency per labs done on July 25, 2020 in [facility] hemoglobin was 5.8 g hematocrit 22.2 MCV 72.3 iron studies done showed ferritin 5, iron saturation 3.5%, iron 17, TIBC 478, Patient was given 2 units of packed RBCs and parenteral iron x1 History of atrial fibrillation, history of chronic back pain, next history of hypertension Paroxysmal SVTs COVID 19 + 06/2020 and by PCR 08/08/2019. Left lower extremity DVT 07/2019-not on anticoagulation due to GI bleed workup. Plan: PROBLEMS ADDRESSED TODAY 1. Anemia A. Hemoglobin from 10/13/2020 is 11.7, iron saturation 20.7 iron level 63 ferritin 225 TIBC is 303. Chemistry is unremarkable. The labs were reviewed in detail and discussed with Ms. Cueva and a copy was given to her. B. She is currently following with Dr. Gamble for routine bilateral screening mammogram. The left mammogram recommends diagnostic mammography and ultrasound for further evaluation of the BI-RADS 0. She states that this is not unusual she had to repeat her ultrasound again last year. She did have a bone density on 10/04/2020 which reported normal bone mineral density of the lumbar spine and both hips. Her T score of the left hip is 0.5 T score of the right hip is 0.8. She also had a CT of the abdomen on September 30, 2020 for right upper quadrant pain which shows no acute abdominal or pelvic abnormalities. She has a large hiatal hernia no increase in size since August 08, 2020 mild hepatomegaly and hepatic steatosis and prior cholecystectomy and appendectomy. C. She will continue B12 injections at home. D. Plan for followup with Dr Roberto in 2 months with CBC, CMP and iron studies. Ms. land states that she is follows with Dr. Gamble monthly for her labs. She will recheck CBC and iron studies with Dr. Gamble's office in 1 month. Her iron saturation is dropping compared to July but her hemoglobin remains normal. We may want to proceed with Injectafer again if her iron sats keep dropping to avoid her becoming so anemic in the future. E. Ms Cueva was instructed to call us in the interim if questions or problems arise. Signed By: Maria Luisa Booth-MELISSA, CHANA Roberto MD <<Signature on File>>
== END 2020-10-14 05:53 | disposition home or self-care (01) ==
LOC: ONCMED 05:54
PROVIDERS: PCP Internal Medicine; Visit Provider Nurse Practitioner
DX: D50.9 Iron deficiency anemia, unspecified (principal); I48.91 Unspecified atrial fibrillation; I47.1 Supraventricular tachycardia; K44.9 Diaphragmatic hernia without obstruction or gangrene; R16.0 Hepatomegaly, not elsewhere classified; K76.0 Fatty (change of) liver, not elsewhere classified; Z86.16 Personal history of COVID-19; Z86.718 Personal history of other venous thrombosis and embolism
CPT/HCPCS: 99214

== ENCOUNTER 2020-10-22 10:13 | Outpatient (CLI) | payer MEDICARE, SELFPAY ==
--- NOTE | 2020-10-22 10:22 | US_ITS ---
WS: [id number] LEFT DIGITAL MAMMOGRAPHY WITH CAD CLINICAL INFORMATION: ABNORMAL LEFT MAMMOGRAM COMPARISON: October 04, 2020 TECHNIQUE: 3 views of the left breast were obtained. FINDINGS: Scattered fibroglandular densities of the left breast. Again seen is the 9 mm ovoid nodular density u pper outer left breast. Ultrasound is pending. ULTRASOUND BREAST LEFT TECHNIQUE: Ultrasound left breast focused area of concern. CLINICAL INFORMATION: ABNORMAL LEFT MAMMOGRAM COMPARISON: None. FINDINGS: Ultrasound left breast at the 12 to 3:00 position. No suspicious findings. No underlying cyst or haider d lesions. Incidental intramammary 7 mm lymph node at the 3:00 position corresponds to the mammograph ic abnormality. No lesions to target for biopsy. Recommend return to annual screening mammography. US/US breast LT limited* [id number] IMPRESSION: BI-RADS: 2-Benign FOLLOW UP: 1 Year Follow-up Recommend return to annual screening mammography.
== END 2020-10-22 10:14 | disposition home or self-care (01) ==
LOC: RADSHAW 10:19
PROVIDERS: PCP Internal Medicine; Visit Provider Nurse Practitioner Family
DX: R92.8 Other abnormal and inconclusive findings on diagnostic imaging of breast (principal)
CPT/HCPCS: 76642; 77065

== ENCOUNTER 2020-12-10 11:19 | Outpatient (CLI) | payer MEDICARE, SELFPAY ==
--- NOTE | 2020-12-10 11:26 | USCV_ITS ---
AnayMindy Age: 70 Gender: F : 1950 Exam Date: 12/10/2020 11:39 Ordering Phys: Mesha Kilgore MD Technologist: Griselda Quiros [place] [facility] [place]: AYAAN, edema, ASHD BP: 120 / 80 HR: 89 Rhythm: Sinus Technical Quality: Adequate MEASUREMENTS (Male / Female) Normal Values 2D ECHO LV Diastolic Diameter PLAX 4.4 cm 4.2 - 5.9 / 3.9 - 5.3 cm LV Systolic Diameter PLAX 2.7 cm IVS Diastolic Thickness 0.8 cm 0.6 - 1.0 / 0.6 - 0.9 cm IVS Systolic Thickness 2.1 cm LVPW Diastolic Thickness 1.1 cm 0.6 - 1.0 / 0.6 - 0.9 cm LVPW Systolic Thickness 1.6 cm LVOT Diameter 2.0 cm LV Ejection Fraction 2D Teich 68.9 % LV Ejection Fraction MOD 2C 66.4 % LV Ejection Fraction 2C AL 68.5 % LA Diameter 2.8 cm LA Width 2.4 cm LA Height 3.7 cm RA Width 2.5 cm RA Height 3.4 cm Aorta at Sinotubular Diameter 3.1 cm M-MODE Aortic Annulus Diameter 3.1 cm LA Ao Ratio MM 1.0 MV E Point Septal Separation 0.4 cm DOPPLER AV Peak Velocity 129.0 cm/s LVOT Peak Velocity 96.0 cm/s AV Area Cont Eq vti 2.9 cm squared AV Area Cont Eq pk 2.4 cm squared MV Peak Velocity 83.0 cm/s MV Area PHT 3.5 cm squared Mitral E to A Ratio 0.7 MV E' Velocity 31.0 cm/s Mitral E to MV E' Ratio 10.3 Mitral E to LV E' Lateral Ratio 9.3 Mitral E to LV E' Septal Ratio 11.8 TR Peak Velocity 167.2 cm/s TR Peak Gradient 11.2 mmHg TR Mean Velocity 150.8 cm/s TR Mean Gradient 10.9 mmHg TR Velocity Time Integral 43.4 cm Right Atrial Pressure 3.0 mmHg Pulmonary Artery Systolic Pressu 14.2 mmHg PV Peak Velocity 77.0 cm/s RV Acceleration Time 0.0 s RV Ejection Time 0.3 s RV AcT/ET 0.2 FINDINGS Left Ventricle Normal left ventricular cavity size. Normal left ventricular systolic function. No regional wall motion abnormalities. Left ventricular ejection fraction is estimated at 68 %. Grade I/IV diastolic dysfunction (abnormal relaxation filling pattern), normal to mildly elevated filling pressures. Right Ventricle The right ventricle is normal in size and function. Right Atrium The right atrium is normal in size. Left Atrium The left atrium is normal in size. Mitral Valve Moderately thickened mitral valve. No mitral valve stenosis. Mild mitral valve regurgitation. Aortic Valve Moderate aortic valve calcification. No aortic valve stenosis. Trace aortic valve regurgitation. Tricuspid Valve Mild tricuspid valve regurgitation. Pulmonic Valve Structurally normal pulmonic valve without significant stenosis. There is no pulmonic regurgitation. Pericardium Normal pericardium without effusion. Aorta Normal ascending aorta dimension. CONCLUSIONS 1-Normal left ventricular cavity size. Normal left ventricular systolic function. No regional wall motion abnormalities. Left ventricular ejection fraction is estimated at 68 %. Grade I/IV diastolic dysfunction (abnormal relaxation filling pattern), normal to mildly elevated filling pressures. 2-Moderate aortic valve calcification. No aortic valve stenosis. Trace aortic valve regurgitation. 3-Moderately thickened mitral valve. No mitral valve stenosis. Mild mitral valve regurgitation. 4-Pulmonary artery systolic pressure is within normal limits. 5-There is no pericardial effusion. 6-Right atrial pressure is around 5 mm of mercury. 7-No significant change since the prior echocardiogram study of 08/10/20. Tommy Florian MD (Electronically Signed) Final Date: 11 Dec 2020 23:00 S
== END 2020-12-10 11:20 | disposition home or self-care (01) ==
LOC: RAD 11:22
PROVIDERS: PCP Internal Medicine; Visit Provider Internal Medicine
DX: G47.33 Obstructive sleep apnea (adult) (pediatric) (principal); R60.0 Localized edema; I25.10 Atherosclerotic heart disease of native coronary artery without angina pectoris; I08.0 Rheumatic disorders of both mitral and aortic valves
CPT/HCPCS: 93306

== ENCOUNTER 2020-12-21 09:37 | Outpatient (CLI) | payer MEDICARE, SELFPAY ==
[2020-12-21 10:02] VITALS: BMI 35.2
--- NOTE | 2020-12-21 10:02 | ECG_ITS ---
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 Interpretive Statements NAME OF STUDY: LEXISCAN SESTAMIBI STRESS TEST INDICATION: Athrosclerotic Heart Disease, PROCEDURE: At the baseline, the EKG revealed normal sinus rhythm with normal ST-T's. Possible lead V1 to V3 reversal. The baseline blood pressure was 154/91 mm Hg with a heart rate of 89 beats/min. Lexiscan was infused over a period of 20 seconds. A total of 0.4 milligrams of Lexiscan was infused. The stress phase was continued for a total of 5 minutes. Heart rate at the end of the stress phase was 103 with a blood pressure 176/110. The EKG at the peak infusion revealed no significant changes. Sestamibi was injected 20 seconds after the Lexiscan infusion. Blood pressure at the end of the recovery phase was 169/108 with a heart rate of 98 per minute. CONCLUSION: 1. No significant EKG changes with the LexiScan infusion 2. No LexiScan induced chest pain or cardiac arrhythmia 3. Normal blood pressure and heart rate response 4. Sestamibi/sestamibi perfusion scan pending; see separate report. Electronically Signed On 12-23-2020 20:22:55 CDT by Nancy Read M.D. [email or web address]
--- NOTE | 2020-12-21 10:03 | NMCV_ITS ---
NM genesis perf SPECT r/s* [id number] Mindy Cueva Age: 70 Gender: F : 1950 Exam Date: 12/21/2020 11:13 Ordering Phys: Mesha Kilgore MD Technologist: KARON Mora Exam Location: [facility] [address] Indications: ASHD STRESS TEST Please [facility] for [facility] findings IMAGE PROTOCOL Rest/Stress 1 Lexiscan Day Radiopharmaceutical Dose (mCi) Administration Site Administered by Rest: Tc-99m 10.7 IV KARON Patel Sestamibi Stress:Tc-99m 32.8 IV KARON Mora Sestamicolton Rest: 21-Dec-2020 60 Discovery 630 Stress: 21-Dec-2020 45 Discovery 630 0.4mg Lexiscan. Images obtained in supine and prone position. SPECT RESULTS Technical Quality: Good Raw Data Analysis: Breast attenuation Image Corrections: No attenuation or motion correction applied Summed Stress Score: 1 Summed Rest Score: 0 Summed Difference Score: 1 PERFUSION FINDINGS A small area of slightly decreased tracer uptake was noted in the mid inferolateral region, with reversibility in the supine position. No significant reversibility was noted with the prone imaging FUNCTIONAL RESULTS (calculated via Gated SPECT) Stress Image LV EF (%): 69 Stress EDV (mL):49 TID: 0.86 Stress ESV (mL):15 FUNCTIONAL FINDINGS: Segmental wall motion analysis revealing no gross wall motion normalities IMPRESSIONS 1. Myocardial perfusion imaging revealing a small area of inconsistent reversible defect in the mid inferolateral region, most likely represent attenuation artifact. 2. Normal LV ejection fraction 69%. 3. LV wall motion analysis revealing no gross wall motion normalities. 4. Normal LV volume. Possibly no significant coronary ischemia, based on the above findings Dr Nancy Read MD FACC (Electronically Signed) Final Date: 21 December 2020 19:24 S
[2020-12-21] MEDS: regadenoson 0.4 Mg/5 ml Syringe IVP (11:52)
[2020-12-21 12:09] VITALS: BP 169/108; PULSE 96
== END 2020-12-21 09:38 | disposition home or self-care (01) ==
PROVIDERS: PCP Internal Medicine; Visit Provider Internal Medicine
DX: I25.10 Atherosclerotic heart disease of native coronary artery without angina pectoris (principal)
CPT/HCPCS: 78452; 93017; A9500; J2785

== ENCOUNTER 2020-12-24 09:50 | Outpatient (CLI) | payer MEDICARE, SELFPAY ==
[2020-12-24 11:06] LABS: Basophils # 0.1 10^3/uL (0.0-0.1); Basophils % 0.8 %; Eosinophils # 0.1 10^3/uL (0.0-0.8); Eosinophils % 1.3 %; Hematocrit 40.8 % (37.0-47.0); Lymphocytes # 2.9 10^3/uL (0.8-4.8); Lymphocytes % 34.1 %; Mean Corpuscular HGB Conc 31.9 g/dL (30.0-36.0); Mean Corpuscular Hemoglobin 28.4 pg (28.0-34.0); Mean Corpuscular Volume 89.3 fL (81-99); Mean Platelet Volume 11.6 fL (7.4-10.4); Monocytes # 0.6 10^3/uL (0.2-0.9); Monocytes % 7.7 %; Neutrophils # 4.66 10^3/uL (1.8-7.7); Neutrophils % 55.7 %; Nucleated Red Blood Cells % 0 %; Platelet Count 301 10^3/cmm (130-400); Red Blood Count 4.57 10^6/uL (4.1-5.3); Red Cell Distribution Width 13.3 % (12.1-15.1); White Blood Count 8.4 10^3/uL (4.0-10.0)
[2020-12-24 11:24] LABS: Alanine Aminotransferase 19 U/L (0-33); Albumin Level 4.6 g/dL (3.5-5.2); Alkaline Phosphatase 95 IU/L (35-105); Anion Gap 19.6 (5-19); Aspartate Amino Transferase 20 U/L (0-32); Blood Urea Nitrogen 22 mg/dL (8-23); Calcium 9.2 mg/dL (8.5-10.5); Carbon Dioxide 26 mmol/L (22-29); Chloride 96 mmol/L (98-107); Ferritin 53 ng/mL (15-150); Globulin 3.5 g/dL (1.3-4.6); Glomerular Filtration Rate 44.5 mL/min (90-130); Glucose 165 mg/dL (65-115); Iron 63 ug/dL (37-145); Osmolality Calculated 293 mOsm/kg (285-295); Percent Saturation 16.4 % (20-50); Potassium 3.6 mmol/L (3.5-5.1); Sodium 138 mmol/L (136-145); Total Bilirubin 0.6 mg/dL (0.15-1.2); Total Iron Binding Capacity 384 mcg/dl; Total Protein 8.1 g/dL (6.6-8.7); Unsaturated Iron Binding 321 ug/dL (112-347)
== END 2020-12-24 09:51 | disposition home or self-care (01) ==
LOC: ONCMED 09:53
PROVIDERS: PCP Internal Medicine; Visit Provider Internal Medicine Hematology & Oncology
DX: D50.9 Iron deficiency anemia, unspecified (principal); I47.1 Supraventricular tachycardia; G47.30 Sleep apnea, unspecified; Z86.79 Personal history of other diseases of the circulatory system; Z79.899 Other long term (current) drug therapy; Z86.718 Personal history of other venous thrombosis and embolism
CPT/HCPCS: 36415; 80053; 82728; 83540; 83550; 85025

== ENCOUNTER 2020-12-27 05:50 | Outpatient (CLI) | payer MEDICARE, SELFPAY ==
--- NOTE | 2020-12-27 17:43 | ONC FU_ITS ---
Dr. Roberto follow up note Patient: Mindy Cueva Unit #: [id number]: 1950 Dicatated By: Randy Roberto M.D.Date of Visit:Dec 27, 2020 Onc Med Follow-up/Prog Note History of Present Illness: Ms. Cueva is a 70-year-old female with a history of progressive anemia since November 2019. She reports initially she was told about a low hemoglobin and had been following with her PMD. She presented to [facility] ER on July 25, 2020 for weakness and chest pain and her lab work-up done in [facility] ER showed white blood count 18.9 hemoglobin 5.8 g hematocrit 23.9 MCV 72.3 platelets 354,000 iron studies shows iron 17, iron saturation 3.5% ferritin 5, TIBC 47. She was admitted to hospital and given 2 units of packed RBCs, parenteral iron x1 and discharged home on oral iron. She was seen for followup on August 04, 2020 for iron deficiency anemia her hemoglobin at that time was 8.8. She reported that she had had follow-up with Dr. Alcala in [facility] and had EGD and colonoscopy. A records request was sent at the August 04, 2020 visit for records to see if a capsule endoscopy may be indicated for small bowel AVM or other pathology. Those records have not yet been obtained as per our chart review. Ms Cueva denies any melena or hematochezia, hemoptysis or hematemesis. She denies any jaundice. She denies a history of alcohol use or smoking. She was admitted to [facility] on August 10, 2020 and discharged on August 15, 2020. Her admitting diagnosis was sepsis, acute/chronic anemia, DVT, heart failure and UTI. It is also noted that she had chronic hypoxia, stage II chronic kidney disease and hypertension. She also has a history of COVID-19 by PCR on 08/08/2020. She had Covid diagnosed back in June 2020 as well. As she was hypoxic she did have a CTA which was negative for PE but she was diagnosed with left lower extremity DVT left posterior tibial veins. She was not placed on anticoagulation given her GI bleeding and pending work-up. She was discharged on oxygen 2 L per nasal cannula. Mrs. Cueva was given 1 unit of Injectafer 750 mg on August 24, 2020. Her hemoglobin at that time was 11.4. ,Repeat CBC on December 24, 2020 shows hemoglobin 13 g per crit 40.8, patient underwent capsule endoscopy on September 21, 2020 which showed normal small bowel capsule endoscopy Echo done December 10, 2020 showed ejection fraction 68% mammogram done on October 22, 2020 showed BI-RADS 2, benign, DEXA scan done on October 04, 2020 shows normal bone mineral density of the lumbar spine] CT scan of abdomen pelvis done on September 30, 2020 shows no acute abdominal or pelvic abnormality, large hiatal hernia mild hepatomegaly with hepatic steatosis Came for follow-up, denies any specific complaint except generalized weakness and fatigue, no shortness of breath or palpitation, no chest pain, no headaches blurred vision double vision, patient has history of sleep apnea for which he used BiPAP. Patient denies any melena hematochezia, denies any hemoptysis hematemesis, denies any jaundice Medications: Advair Diskus 1 Inhalation (of 250-50 mcg/dose) Aerosol Powder, Breath Activated Inhalation b.i.d., Albuterol Sulfate HFA 2 Puff(s) (of 108 (90 base) mcg/act) Aerosol, solution Inhalation four times a day, Allopurinol 1 Tablet (of 300 mg) Oral daily, ALPRAZolam 1 Tablet (of 0.5 mg) Oral b.i.d. PRN, K-Tab 1 Tablet (of 20 meq) Tablet, controlled release Oral daily, Lasix 1 Tablet (of 40 mg) Oral b.i.d., Lisinopril 1 Tablet (of 10 mg) Oral daily, Metoprolol Tartrate 1 Tablet (of 50 mg) Oral q 12 hours, Multivitamin 1 Tablet Oral daily, Ondansetron HCl 1 Tablet (of 4 mg) Oral t.i.d. PRN, Pantoprazole Sodium 1 Tablet (of 40 mg) Tablet, enteric coated Oral b.i.d., traMADol HCl 1 Tablet (of 50 mg) Oral q 4 hours PRN, Vitamin C 1 Capsule (of 500 mg) Oral daily Allergies: No Known Allergies. Review of Systems: Review of Systems is not available for this patient. Vital Signs: Performed on Dec 27, 2020 10:23 Height - 67.00 in Weight - 228 lbs (HIGH) BSA - 2.14 sq.m BMI - 35.71 (HIGH) Temperature - 98.4 F Pulse - 93 /min Respiration - 18 /min BP - 118/78 mm(hg) O2 Sat - 98 % Pain - 0 Fatigue - 6 Performance Status: 0 - Fully active, able to carry on all predisease activities without restrictions. (ECOG) Physical Examination: ENMT - No mouth sores, no thrush, no jaundice, Respiratory - Lungs are clear to auscultation, Cardiovascular - Regular rate and rhythm of heart, Abdomen - Soft, bowel sounds present, Extremities - No visible edema. Lab/Imaging: Test performed on Oct 13, 2020 13:31 Ferritin 225 ng/mL Folate, Serum 10.7 ng/mL Iron 63 mcg/dL Sodium 141 mmol/L Iron Binding Capacity (TIBC) 303 mcg/dl Potassium 3.8 mmol/L % Iron Saturation 20.7 % Chloride 102 mmol/L CO2 23 mmol/L UIBC 240 mcg/dL Anion Gap 19.8 BUN 21 mg/dL Creatinine 1.2 mg/dL Cr Clearance (Est) 70.1500 mL/min eGFR 44.5 mL/min Glucose 211 mg/dL Osmolality - Calculated 301 mOsm/kg Calcium 10.2 mg/dL Protein, Total 7.1 g/dL Albumin 4.3 g/dL Globulin 2.8 g/dL Bilirubin, Total 0.4 mg/dL ALT (SGPT) 18 U/L AST (SGOT) 19 U/L Alkaline Phosphatase 80 IU/L WBC 8.2 10 3/uL RBC 3.73 10 6/uL HGB 11.7 g/dL HCT 36.5 % MCV 97.9 fL MCH 31.4 pg MCHC 32.1 g/dL RDW 13.8 % Platelet Count 274 10 3/cmm MPV 10.7 fL Neutrophils 4.60 10 3/uL Lymphocytes 2.7 10 3/uL Monocytes 0.7 10 3/uL Eosinophils 0.1 10 3/uL Basophils 0.1 10 3/uL Neutrophil % 56.2 % Lymphocyte % 33.5 % Monocyte % 8.1 % Eosinophil % 1.1 % Basophils % 0.9 % NRBC % 0 % Test performed on Aug 19, 2020 09:28 Vitamin B12 803 pg/mL Impression: Microcytic hypochromic anemia due to iron deficiency per labs done on July 25, 2020 in [facility] ER hemoglobin was 5.8 g hematocrit 22.2 MCV 72.3 iron studies done showed ferritin 5, iron saturation 3.5%, iron 17, TIBC 478, Patient was given 2 units of packed RBCs and parenteral iron x1 History of atrial fibrillation, history of chronic back pain, next history of hypertension Paroxysmal SVTs COVID 19 + 06/2020 and by PCR 08/08/2019. Left lower extremity DVT 07/2019-not on anticoagulation due to GI bleed workup. Plan: Discussed with patient regarding her labs white blood count 8.4 hemoglobin 13 g hematocrit 40.8 platelets 301,000 CMP within normal limits except creatinine 1.2, iron studies shows iron saturation 16.4% compared to 25 7% previously iron 63, creatinine 53 compared to 225 on October 13, 2020 Clinically, patient doing well with no new signs symptom except persistent generalized weakness and fatigue which could be multifactorial including suboptimal sleep apnea management with BiPAP, as has follow-up CBC shows hemoglobin in normal range although progressive drop in her iron stores, recently underwent capsule endoscopy which showed normal small bowel study. CT scan of abdomen pelvis done recently showed no significant abnormalities except hiatal hernia. At this point we will continue to monitor and she will return to clinic in 1 month with CBC and iron studies, if there is further drop in her iron stores, will consider repeating Injectafer infusion. Otherwise monitor Signed By: Randy Roberto M.D. <<Signature on File>>
== END 2020-12-27 05:51 | disposition home or self-care (01) ==
LOC: ONCMED 05:52
PROVIDERS: PCP Internal Medicine; Visit Provider Internal Medicine Hematology & Oncology
DX: D50.9 Iron deficiency anemia, unspecified (principal); Z86.79 Personal history of other diseases of the circulatory system; I47.1 Supraventricular tachycardia; Z86.718 Personal history of other venous thrombosis and embolism
CPT/HCPCS: 99214

== ENCOUNTER 2021-01-25 09:46 | Outpatient (CLI) | payer MEDICARE, SELFPAY ==
[2021-01-25 10:12] LABS: Basophils # 0.1 10^3/uL (0.0-0.1); Basophils % 0.7 %; Eosinophils # 0.1 10^3/uL (0.0-0.8); Eosinophils % 1.7 %; Hematocrit 33.3 % (37.0-47.0); Hemoglobin 10.2 g/dL (11.5-15.3); Lymphocytes # 2.5 10^3/uL (0.8-4.8); Lymphocytes % 36.2 %; Mean Corpuscular HGB Conc 30.6 g/dL (30.0-36.0); Mean Corpuscular Hemoglobin 27.6 pg (28.0-34.0); Mean Corpuscular Volume 90.2 fL (81-99); Mean Platelet Volume 10.8 fL (7.4-10.4); Monocytes # 0.5 10^3/uL (0.2-0.9); Monocytes % 7.6 %; Neutrophils # 3.72 10^3/uL (1.8-7.7); Neutrophils % 53.2 %; Nucleated Red Blood Cells % 0 %; Platelet Count 281 10^3/cmm (130-400); Red Blood Count 3.69 10^6/uL (4.1-5.3); Red Cell Distribution Width 14.6 % (12.1-15.1)
[2021-01-25 10:32] LABS: Ferritin 22 ng/mL (15-150); Iron 22 ug/dL (37-145); Percent Saturation 5.7 % (20-50); Total Iron Binding Capacity 380 mcg/dl; Unsaturated Iron Binding 358 ug/dL (112-347)
== END 2021-01-25 09:47 | disposition home or self-care (01) ==
LOC: ONCMED 09:48
PROVIDERS: PCP Internal Medicine; Visit Provider Internal Medicine Hematology & Oncology
DX: D50.9 Iron deficiency anemia, unspecified (principal); Z86.79 Personal history of other diseases of the circulatory system; I47.1 Supraventricular tachycardia; Z86.718 Personal history of other venous thrombosis and embolism; Z86.16 Personal history of COVID-19
CPT/HCPCS: 36415; 82728; 83540; 83550; 85025

== ENCOUNTER 2021-01-27 05:52 | Outpatient (CLI) | payer MEDICARE, SELFPAY ==
--- NOTE | 2021-02-06 17:47 | ONC FU_ITS ---
Dr. Roberto follow up note Patient: Mindy Cueva Unit #: [id number]: 1950 Dicatated By: Randy Roberto M.D.Date of Visit:Jan 27, 2021 Onc Med Follow-up/Prog Note History of Present Illness: Ms. Cueva is a 70-year-old female with a history of progressive anemia since November 2019. She reports initially she was told about a low hemoglobin and had been following with her PMD. She presented to [facility] ER on July 25, 2020 for weakness and chest pain and her lab work-up done in [facility] showed white blood count 18.9 hemoglobin 5.8 g hematocrit 23.9 MCV 72.3 platelets 354,000 iron studies shows iron 17, iron saturation 3.5% ferritin 5, TIBC 47. She was admitted to hospital and given 2 units of packed RBCs, parenteral iron x1 and discharged home on oral iron. She was seen for followup on August 04, 2020 for iron deficiency anemia her hemoglobin at that time was 8.8. She reported that she had had follow-up with Dr. Alcala in [facility] and had EGD and colonoscopy. A records request was sent at the August 04, 2020 visit for records to see if a capsule endoscopy may be indicated for small bowel AVM or other pathology. Those records have not yet been obtained as per our chart review. Ms Cueva denies any melena or hematochezia, hemoptysis or hematemesis. She denies any jaundice. She denies a history of alcohol use or smoking. She was admitted to [facility] on August 10, 2020 and discharged on August 15, 2020. Her admitting diagnosis was sepsis, acute/chronic anemia, DVT, heart failure and UTI. It is also noted that she had chronic hypoxia, stage II chronic kidney disease and hypertension. She also has a history of COVID-19 by PCR on 08/08/2020. She had Covid diagnosed back in June 2020 as well. As she was hypoxic she did have a CTA which was negative for PE but she was diagnosed with left lower extremity DVT left posterior tibial veins. She was not placed on anticoagulation given her GI bleeding and pending work-up. She was discharged on oxygen 2 L per nasal cannula. Mrs. Cueva was given 1 unit of Injectafer 750 mg on August 24, 2020. Her hemoglobin at that time was 11.4. ,Repeat CBC on December 24, 2020 shows hemoglobin 13 g per crit 40.8, patient underwent capsule endoscopy on September 21, 2020 which showed normal small bowel capsule endoscopy EGD/colonoscopy done in March 2020 showed EGD was significant for 4 cm hiatal hernia and diverticulum in the second portion of duodenum. Random proximal and distal esophageal biopsies were unremarkable. Colonoscopy showed 2 colon polyps 3 to 4 mm in size both were removed and biopsy confirmed tubular adenoma and a sessile serrated adenoma. Left colon diverticulosis was also noted Echo done December 10, 2020 showed ejection fraction 68% mammogram done on October 22, 2020 showed BI-RADS 2, benign, DEXA scan done on October 04, 2020 shows normal bone mineral density of the lumbar spine] CT scan of abdomen pelvis done on September 30, 2020 shows no acute abdominal or pelvic abnormality, large hiatal hernia mild hepatomegaly with hepatic steatosis Came for follow-up, complaining of generalized weakness and fatigue, no nausea or vomiting, no diarrhea or constipation, no melena or hematochezia, no hemoptysis or hematemesis, no jaundice, no chest pain but palpitation on exertion Medications: Advair Diskus 1 Inhalation (of 250-50 mcg/dose) Aerosol Powder, Breath Activated Inhalation b.i.d., Albuterol Sulfate HFA 2 Puff(s) (of 108 (90 base) mcg/act) Aerosol, solution Inhalation four times a day, Allopurinol 1 Tablet (of 300 mg) Oral daily, K-Tab 1 Tablet (of 20 meq) Tablet, controlled release Oral daily, Lasix 1 Tablet (of 40 mg) Oral b.i.d., Lexapro 1 Tablet (of 10 mg) Oral daily, Lisinopril 1 Tablet (of 10 mg) Oral daily, Metoprolol Tartrate 1 Tablet (of 50 mg) Oral q 12 hours, Multivitamin 1 Tablet Oral daily, Ondansetron HCl 1 Tablet (of 4 mg) Oral t.i.d. PRN, Pantoprazole Sodium 1 Tablet (of 40 mg) Tablet, enteric coated Oral b.i.d., Vitamin C 1 Capsule (of 500 mg) Oral daily Allergies: No Known Allergies. Review of Systems: Review of Systems is not available for this patient. Vital Signs: Performed on Jan 27, 2021 15:08 Height - 67.00 in Weight - 225.0 lbs (LOW) BSA - 2.13 sq.m BMI - 35.24 (HIGH) Temperature - 97.9 F (LOW) Pulse - 102 /min (HIGH) Respiration - 19 /min BP - 126/80 mm(hg) O2 Sat - 94 % (LOW) Pain - 6 Performance Status: 0 - Fully active, able to carry on all predisease activities without restrictions. (ECOG) Physical Examination: ENMT - No mouth sores, no thrush, no jaundice, Respiratory - Lungs are clear to auscultation, Cardiovascular - Regular rate and rhythm of heart, Abdomen - Soft, bowel sounds present, Extremities - No visible edema. Lab/Imaging: Test performed on Oct 13, 2020 13:31 Ferritin 225 ng/mL Folate, Serum 10.7 ng/mL Iron 63 mcg/dL Sodium 141 mmol/L Iron Binding Capacity (TIBC) 303 mcg/dl Potassium 3.8 mmol/L % Iron Saturation 20.7 % Chloride 102 mmol/L CO2 23 mmol/L UIBC 240 mcg/dL Anion Gap 19.8 BUN 21 mg/dL Creatinine 1.2 mg/dL Cr Clearance (Est) 70.1500 mL/min eGFR 44.5 mL/min Glucose 211 mg/dL Osmolality - Calculated 301 mOsm/kg Calcium 10.2 mg/dL Protein, Total 7.1 g/dL Albumin 4.3 g/dL Globulin 2.8 g/dL Bilirubin, Total 0.4 mg/dL ALT (SGPT) 18 U/L AST (SGOT) 19 U/L Alkaline Phosphatase 80 IU/L WBC 8.2 10 3/uL RBC 3.73 10 6/uL HGB 11.7 g/dL HCT 36.5 % MCV 97.9 fL MCH 31.4 pg MCHC 32.1 g/dL RDW 13.8 % Platelet Count 274 10 3/cmm MPV 10.7 fL Neutrophils 4.60 10 3/uL Lymphocytes 2.7 10 3/uL Monocytes 0.7 10 3/uL Eosinophils 0.1 10 3/uL Basophils 0.1 10 3/uL Neutrophil % 56.2 % Lymphocyte % 33.5 % Monocyte % 8.1 % Eosinophil % 1.1 % Basophils % 0.9 % NRBC % 0 % Test performed on Aug 19, 2020 09:28 Vitamin B12 803 pg/mL Impression: Microcytic hypochromic anemia due to iron deficiency per labs done on July 25, 2020 in [facility] hemoglobin was 5.8 g hematocrit 22.2 MCV 72.3 iron studies done showed ferritin 5, iron saturation 3.5%, iron 17, TIBC 478, Patient was given 2 units of packed RBCs and parenteral iron x1 History of atrial fibrillation, history of chronic back pain, next history of hypertension Paroxysmal SVTs COVID 19 + 06/2020 and by PCR 08/08/2019. Left lower extremity DVT 07/2019-not on anticoagulation due to GI bleed workup. EGD/colonoscopy done in March 2020 shows no obvious cause of bleeding, 2 small benign polyps were removed from the colon and EGD showed 4 cm hiatal hernia and a diverticulum in the second portion of duodenum, Capsule endoscopy done on September 21, 2020 showed no abnormality Plan: Discussed with patient regarding her labs white blood count 7 hemoglobin 10.2 hematocrit 33.3 platelets 281,000 iron studies shows ferritin 22 compared to 53 previously iron saturation 5.7% iron 22 TIBC 380 Clinically, patient is doing reasonably well now with progressive iron deficiency anemia her follow-up labs shows there is a drop in her hemoglobin from 13 g on December 24, 2020 down to 10.2 g there is no obvious cause of bleeding and her iron studies confirm aggressive iron deficiency, in the past she responded very well to Injectafer thus we will proceed with Injectafer 750 mg weekly x2 and then she will return to clinic in 1 month after second dose with CBC and iron studies Signed By: Randy Roberto M.D. <<Signature on File>>
== END 2021-01-27 05:53 | disposition home or self-care (01) ==
LOC: ONCMED 05:54
PROVIDERS: PCP Internal Medicine; Visit Provider Internal Medicine Hematology & Oncology
DX: D50.9 Iron deficiency anemia, unspecified (principal); I48.91 Unspecified atrial fibrillation; M54.5 Low back pain; G89.29 Other chronic pain; I10 Essential (primary) hypertension; I47.1 Supraventricular tachycardia; Z79.01 Long term (current) use of anticoagulants; Z79.899 Other long term (current) drug therapy; Z86.16 Personal history of COVID-19; Z86.718 Personal history of other venous thrombosis and embolism
CPT/HCPCS: 99214

== ENCOUNTER → 2021-02-10 09:42 | Day surgery (SDC) | payer MEDICARE, SELFPAY ==
[2021-02-10 10:00] VITALS: BP 146/88; PULSE 101; RESP 18; TEMP 36.6; O2SAT 97; BMI 34.4
[2021-02-10] MEDS: ferric carboxy (IVPB) 750 MG in sodium chloride 0.9% (100 ml) 100 ML 345 MG IV (10:45)
== END ==
PROVIDERS: PCP Internal Medicine; Visit Provider Internal Medicine
DX: D50.9 Iron deficiency anemia, unspecified (principal)
CPT/HCPCS: 96365; J1439

== ENCOUNTER → 2021-02-17 09:43 | Day surgery (SDC) | payer MEDICARE, SELFPAY ==
[2021-02-17 09:58] VITALS: BP 134/82; PULSE 71; RESP 18; TEMP 36.2; O2SAT 98
[2021-02-17] MEDS: ferric carboxy (IVPB) 750 MG in sodium chloride 0.9% (100 ml) 100 ML 345 MG IV (10:12)
== END ==
PROVIDERS: PCP Internal Medicine; Visit Provider Internal Medicine
DX: D50.9 Iron deficiency anemia, unspecified (principal)
CPT/HCPCS: 96365; J1439

== ENCOUNTER 2021-07-07 10:14 | Outpatient (CLI) | payer MEDICARE, SELFPAY | END 2021-07-07 10:15 | disposition home or self-care (01) | LOC: ONCMED 10:18 | PROVIDERS: PCP Internal Medicine; Visit Provider Internal Medicine Hematology & Oncology | DX: D50.9 Iron deficiency anemia, unspecified (principal) | CPT/HCPCS: 96365 ==

== ENCOUNTER 2021-07-14 06:52 | Outpatient (CLI) | payer MEDICARE, SELFPAY ==
[2021-07-14] MEDS: ferric carboxy (IVPB) 750 MG in sodium chloride 0.9% (100 ml) 100 ML 460 MG IV (10:20)
== END 2021-07-14 06:53 | disposition home or self-care (01) ==
LOC: ONCMED 06:53
PROVIDERS: PCP Internal Medicine; Visit Provider Internal Medicine Hematology & Oncology
DX: D50.9 Iron deficiency anemia, unspecified (principal)
CPT/HCPCS: 96365; J1439

== ENCOUNTER 2021-08-18 10:10 | Outpatient (CLI) | payer MEDICARE, SELFPAY ==
[2021-08-18 10:43] LABS: Basophils # 0.1 10^3/uL (0.0-0.1); Basophils % 0.7 %; Eosinophils # 0.2 10^3/uL (0.0-0.8); Eosinophils % 1.8 %; Hematocrit 35.7 % (37.0-47.0); Hemoglobin 11.4 g/dL (11.5-15.3); Lymphocytes # 2.5 10^3/uL (0.8-4.8); Lymphocytes % 28.5 %; Mean Corpuscular HGB Conc 31.9 g/dL (30.0-36.0); Mean Corpuscular Hemoglobin 29.6 pg (28.0-34.0); Mean Corpuscular Volume 92.7 fl (81-99); Mean Platelet Volume 11.3 fL (7.4-10.4); Monocytes # 0.6 10^3/uL (0.2-0.9); Monocytes % 6.8 %; Neutrophils # 5.35 10^3/uL (1.8-7.7); Neutrophils % 61.5 %; Nucleated Red Blood Cells % 0 %; Platelet Count 248 10^3/cmm (130-400); Red Blood Count 3.85 10^6/uL (4.1-5.3); Red Cell Distribution Width 20.5 % (12.1-15.1); White Blood Count 8.7 10^3/uL (4.0-10.0)
--- NOTE | 2021-08-18 13:11 | ONC FU_ITS ---
Dr. Roberto follow up note Patient: Mindy Cueva Unit #: [id number]: 1950 Dicatated By: Randy Roberto M.D.Date of Visit:Aug 18, 2021 Onc Med Follow-up/Prog Note History of Present Illness: Ms. Cueva is a 71-year-old female with a history of progressive anemia since November 2019. She reports initially she was told about a low hemoglobin and had been following with her PMD. She presented to [facility] ER on July 25, 2020 for weakness and chest pain and her lab work-up done in [facility] showed white blood count 18.9 hemoglobin 5.8 g hematocrit 23.9 MCV 72.3 platelets 354,000 iron studies shows iron 17, iron saturation 3.5% ferritin 5, TIBC 47. She was admitted to hospital and given 2 units of packed RBCs, parenteral iron x1 and discharged home on oral iron. She was seen for followup on August 04, 2020 for iron deficiency anemia her hemoglobin at that time was 8.8. She reported that she had had follow-up with Dr. Alcala in [facility] and had EGD and colonoscopy. A records request was sent at the August 04, 2020 visit for records to see if a capsule endoscopy may be indicated for small bowel AVM or other pathology. Those records have not yet been obtained as per our chart review. Ms Cueva denies any melena or hematochezia, hemoptysis or hematemesis. She denies any jaundice. She denies a history of alcohol use or smoking. She was admitted to [facility] on August 10, 2020 and discharged on August 15, 2020. Her admitting diagnosis was sepsis, acute/chronic anemia, DVT, heart failure and UTI. It is also noted that she had chronic hypoxia, stage II chronic kidney disease and hypertension. She also has a history of COVID-19 by PCR on 08/08/2020. She had Covid diagnosed back in June 2020 as well. As she was hypoxic she did have a CTA which was negative for PE but she was diagnosed with left lower extremity DVT left posterior tibial veins. She was not placed on anticoagulation given her GI bleeding and pending work-up. She was discharged on oxygen 2 L per nasal cannula. Mrs. Cueav was given 1 unit of Injectafer 750 mg on August 24, 2020. Her hemoglobin at that time was 11.4. ,Repeat CBC on December 24, 2020 shows hemoglobin 13 g per crit 40.8, patient underwent capsule endoscopy on September 21, 2020 which showed normal small bowel capsule endoscopy EGD/colonoscopy done in March 2020 showed EGD was significant for 4 cm hiatal hernia and diverticulum in the second portion of duodenum. Random proximal and distal esophageal biopsies were unremarkable. Colonoscopy showed 2 colon polyps 3 to 4 mm in size both were removed and biopsy confirmed tubular adenoma and a sessile serrated adenoma. Left colon diverticulosis was also noted Echo done December 10, 2020 showed ejection fraction 68% mammogram done on October 22, 2020 showed BI-RADS 2, benign, DEXA scan done on October 04, 2020 shows normal bone mineral density of the lumbar spine] CT scan of abdomen pelvis done on September 30, 2020 shows no acute abdominal or pelvic abnormality, large hiatal hernia mild hepatomegaly with hepatic steatosis Status post Injectafer 750 mg IV weekly x2 in June 2021 Came for follow-up, complaining of generalized weakness and fatigue, also complaining of black sticky stools at least 2- 3 times a week. But no fresh blood per rectum, no hemoptysis hematemesis, no jaundice, mild dyspnea on exertion. As per patient her CBC done in Dr. Gamble's office about 2 weeks ago showed hemoglobin was around 13 g. Also complaining of off and on mild discomfort in her right upper quadrant.Tolerated Injectafer infusion given in June, Medications: Advair Diskus 1 Inhalation (of 250-50 mcg/dose) Aerosol Powder, Breath Activated Inhalation b.i.d., Albuterol Sulfate HFA 2 Puff(s) (of 108 (90 base) mcg/act) Aerosol, solution Inhalation four times a day, Allopurinol 1 Tablet (of 300 mg) Oral daily, K-Tab 1 Tablet (of 20 meq) Tablet, controlled release Oral daily, Lasix 1 Tablet (of 40 mg) Oral b.i.d., Lexapro 1 Tablet (of 10 mg) Oral daily, Lisinopril 1 Tablet (of 10 mg) Oral daily, Metoprolol Tartrate 1 Tablet (of 50 mg) Oral q 12 hours, Multivitamin 1 Tablet Oral daily, Ondansetron HCl 1 Tablet (of 4 mg) Oral t.i.d. PRN, Pantoprazole Sodium 1 Tablet (of 40 mg) Tablet, enteric coated Oral b.i.d., Vitamin C 1 Capsule (of 500 mg) Oral daily Allergies: No Known Allergies. Review of Systems: Review of Systems is not available for this patient. Vital Signs: Vitals are not available for this patient. Performance Status: 0 - Fully active, able to carry on all predisease activities without restrictions. (ECOG) Physical Examination: ENMT - No mouth sores, no thrush, no jaundice, Respiratory - Poor air entry otherwise clear, Cardiovascular - Regular rate and rhythm of heart, Abdomen - Soft, bowel sounds present, Extremities - No visible edema. Lab/Imaging: Most recent lab results are not available for this patient. Impression: Microcytic hypochromic anemia due to iron deficiency per labs done on July 25, 2020 in [facility] ER hemoglobin was 5.8 g hematocrit 22.2 MCV 72.3 iron studies done showed ferritin 5, iron saturation 3.5%, iron 17, TIBC 478, Patient was given 2 units of packed RBCs and parenteral iron x1, Status post Injectafer 750 mg x 2 in June 2021 History of atrial fibrillation, history of chronic back pain, next history of hypertension Paroxysmal SVTs Sleep apnea, on BiPAP COVID 19 + 06/2020 and by PCR 08/08/2019. Left lower extremity DVT 07/2019-not on anticoagulation due to GI bleed workup. EGD/colonoscopy done in March 2020 shows no obvious cause of bleeding, 2 small benign polyps were removed from the colon and EGD showed 4 cm hiatal hernia and a diverticulum in the second portion of duodenum, Capsule endoscopy done on September 21, 2020 showed no abnormality Plan: Discussed with patient regarding her labs white blood count 8.7 hemoglobin 11.4 g compared to 10.2 g in January 2021 and as per patient, 13 g about 2 weeks ago in her PMDs office Clinically, patient doing reasonably well not in acute distress but complaining of generalized weakness and fatigue, dyspnea on exertion and off and on dark-colored stools. Today's lab work-up showed hemoglobin around 11.4 g compared to 10.2 g in January 2021, that was prior to Injectafer infusion given June 2021. As per patient her CBC done at her PMDs office around July 29, 2021 showed her hemoglobin was around 13 g and now complaining of off and on dark-colored stools could be due to chronic GI blood loss., Will check her iron studies today if there is a persistent iron deficiency, will consider repeating parenteral iron again. In the meantime , we will call her caving guide Dr. Alcala in [place] and discuss regarding repeating endoscopy or capsule endoscopy She return to clinic in 1 month CBC and iron studies Signed By: Randy Roberto M.D. <<Signature on File>>
[2021-08-18 14:35] LABS: Folate Level 11.8 ng/mL (4.8-37.3)
[2021-08-18 14:36] LABS: Ferritin 256 ng/mL (15-150); Iron 50 ug/dL (37-145); Percent Saturation 16.3 % (20-50); Total Iron Binding Capacity 306 mcg/dl; Unsaturated Iron Binding 256 ug/dL (112-347); Vitamin B12 344 pg/mL (232-1245)
== END 2021-08-18 10:11 | disposition home or self-care (01) ==
PROVIDERS: PCP Internal Medicine; Visit Provider Internal Medicine Hematology & Oncology
DX: D50.9 Iron deficiency anemia, unspecified (principal); I48.91 Unspecified atrial fibrillation; G89.29 Other chronic pain; M54.9 Dorsalgia, unspecified; I10 Essential (primary) hypertension; I47.1 Supraventricular tachycardia; G47.30 Sleep apnea, unspecified; Z86.16 Personal history of COVID-19; I82.402 Acute embolism and thrombosis of unspecified deep veins of left lower extremity; R53.1 Weakness; R06.00 Dyspnea, unspecified
CPT/HCPCS: 36415; 82607; 82728; 82746; 83540; 83550; 85025; 99214

== ENCOUNTER → 2021-09-09 11:40 | Day surgery (SDC) | payer MEDICARE, SELFPAY ==
[2021-09-09 11:30] VITALS: BP 128/70; PULSE 80; RESP 18; TEMP 36.1; O2SAT 98
[2021-09-09] MEDS: acetaminophen 500 mg Tablet PO (12:16)
[2021-09-09] MEDS: diphenhydrAMINE 12.5 mg/5 mL UDC 10 mL 25 MG PO (12:16)
--- NOTE | 2021-09-09 13:45 | PC.NURSE ---
Pt to GI lab for transfusion of 2 units PRBCs. Blood bank called and stated antibody found. Dr. Kilgore notified. Transfusion postponed until Sunday09/12/21.
== END ==
PROVIDERS: PCP Internal Medicine; Visit Provider Internal Medicine
DX: D50.9 Iron deficiency anemia, unspecified (principal)
CPT/HCPCS: 36415; 80503; 86850; 86870; 86900; 86920

== ENCOUNTER → 2021-09-12 06:43 | Day surgery (SDC) | payer MEDICARE, SELFPAY ==
[2021-09-12] VITALS (9 sets, daily range): BP systolic 125–144; BP diastolic 75–98; PULSE 81–95; RESP 18; TEMP 36.3–36.8; O2SAT 94–98
[2021-09-12] MEDS: acetaminophen 500 mg Tablet PO (07:10)
[2021-09-12] MEDS: diphenhydrAMINE 25 mg Capsule PO (07:11)
[2021-09-12] MEDS: sodium chloride 0.9% (100 ml) 100 ML 10 ML ×2 (08:37→09:24)
[2021-09-12] MEDS: FUROsemide 10 mg/mL SDV 2mL 20 MG IVP (09:13)
--- NOTE | 2021-09-12 09:51 | PC.NURSE ---
Second unit PRBC's infusing without difficulty. Lasix 20 mg IVP given as ordered between units. Pt tolerating transfusion well. No reaction noted.
== END ==
PROVIDERS: PCP Internal Medicine; Visit Provider Internal Medicine
DX: D50.9 Iron deficiency anemia, unspecified (principal)
CPT/HCPCS: 36430; 86850; 86870; 86900; 86902; 86920; J1940; P9016

== ENCOUNTER 2021-09-19 13:21 | Outpatient (CLI) | payer MEDICARE, SELFPAY ==
[2021-09-19 14:03] LABS: Basophils # 0.1 10^3/uL (0.0-0.1); Basophils % 1.1 %; Eosinophils # 0.1 10^3/uL (0.0-0.8); Eosinophils % 0.7 %; Hematocrit 35.1 % (37.0-47.0); Hemoglobin 10.6 g/dL (11.5-15.3); Lymphocytes # 1.8 10^3/uL (0.8-4.8); Lymphocytes % 21.7 %; Mean Corpuscular HGB Conc 30.2 g/dL (30.0-36.0); Mean Corpuscular Hemoglobin 27.2 pg (28.0-34.0); Mean Platelet Volume 10.3 fL (7.4-10.4); Monocytes # 0.8 10^3/uL (0.2-0.9); Monocytes % 9.2 %; Neutrophils # 5.61 10^3/uL (1.8-7.7); Neutrophils % 66.8 %; Nucleated Red Blood Cells % 0 %; Platelet Count 343 10^3/cmm (130-400); Red Cell Distribution Width 15.5 % (12.1-15.1); White Blood Count 8.4 10^3/uL (4.0-10.0)
[2021-09-19 14:20] LABS: Ferritin 53 ng/mL (15-150); Iron 64 ug/dL (37-145); Percent Saturation 17.7 % (20-50); Total Iron Binding Capacity 361 mcg/dl; Unsaturated Iron Binding 297 ug/dL (112-347)
--- NOTE | 2021-09-21 17:28 | ONC FU_ITS ---
Dr. Roberto follow up note Patient: Mindy Cueva Unit #: [id number]: 1950 Dicatated By: Randy Roberto M.D.Date of Visit:Sep 19, 2021 Onc Med Follow-up/Prog Note History of Present Illness: Ms. Cueva is a 71-year-old female with a history of progressive anemia since November 2019. She reports initially she was told about a low hemoglobin and had been following with her PMD. She presented to [facility] ER on July 25, 2020 for weakness and chest pain and her lab work-up done in [facility] showed white blood count 18.9 hemoglobin 5.8 g hematocrit 23.9 MCV 72.3 platelets 354,000 iron studies shows iron 17, iron saturation 3.5% ferritin 5, TIBC 47. She was admitted to hospital and given 2 units of packed RBCs, parenteral iron x1 and discharged home on oral iron. She was seen for followup on August 04, 2020 for iron deficiency anemia her hemoglobin at that time was 8.8. She reported that she had had follow-up with Dr. Alcala in [facility] and had EGD and colonoscopy. A records request was sent at the August 04, 2020 visit for records to see if a capsule endoscopy may be indicated for small bowel AVM or other pathology. Those records have not yet been obtained as per our chart review. Ms Cueva denies any melena or hematochezia, hemoptysis or hematemesis. She denies any jaundice. She denies a history of alcohol use or smoking. She was admitted to [facility] on August 10, 2020 and discharged on August 15, 2020. Her admitting diagnosis was sepsis, acute/chronic anemia, DVT, heart failure and UTI. It is also noted that she had chronic hypoxia, stage II chronic kidney disease and hypertension. She also has a history of COVID-19 by PCR on 08/08/2020. She had Covid diagnosed back in June 2020 as well. As she was hypoxic she did have a CTA which was negative for PE but she was diagnosed with left lower extremity DVT left posterior tibial veins. She was not placed on anticoagulation given her GI bleeding and pending work-up. She was discharged on oxygen 2 L per nasal cannula. Mrs. Cueva was given 1 unit of Injectafer 750 mg on August 24, 2020. Her hemoglobin at that time was 11.4. ,Repeat CBC on December 24, 2020 shows hemoglobin 13 g per crit 40.8, patient underwent capsule endoscopy on September 21, 2020 which showed normal small bowel capsule endoscopy EGD/colonoscopy done in March 2020 showed EGD was significant for 4 cm hiatal hernia and diverticulum in the second portion of duodenum. Random proximal and distal esophageal biopsies were unremarkable. Colonoscopy showed 2 colon polyps 3 to 4 mm in size both were removed and biopsy confirmed tubular adenoma and a sessile serrated adenoma. Left colon diverticulosis was also noted Echo done December 10, 2020 showed ejection fraction 68% mammogram done on October 22, 2020 showed BI-RADS 2, benign, DEXA scan done on October 04, 2020 shows normal bone mineral density of the lumbar spine] CT scan of abdomen pelvis done on September 30, 2020 shows no acute abdominal or pelvic abnormality, large hiatal hernia mild hepatomegaly with hepatic steatosis Status post Injectafer 750 mg IV weekly x2 in June 2021 Came for follow-up, denies any specific complaint except generalized weakness and fatigue but feeling better since she received 2 units of packed RBC on September 12, 2021 for progressive severe anemia as per patient, she was feeling weak and tired, went to see her PMD Dr. Kilgore, who did lab work-up on her her hemoglobin was 8.1 g on Thursday, September 09, 2021, at that time, there was a issues regarding crossmatching because of presence of antibody, as per patient blood was ordered from [facility] which she got on Sunday, September 12, 2021. Denies any episode of GI bleeding, no gross hematuria, no hemoptysis or hematemesis, no jaundice, denies any urine or stool color changes. As per patient she has seen Dr. Alcala in [place] and underwent EGD which did not show any abnormality. Medications: Advair Diskus 1 Inhalation (of 250-50 mcg/dose) Aerosol Powder, Breath Activated Inhalation b.i.d., Albuterol Sulfate HFA 2 Puff(s) (of 108 (90 base) mcg/act) Aerosol, solution Inhalation four times a day, Allopurinol 1 Tablet (of 300 mg) Oral daily, Carafate 10 mL (of 1 g/10mL) Suspension Oral four times a day, K-Tab 1 Tablet (of 20 meq) Tablet, controlled release Oral daily, Lasix 1 Tablet (of 40 mg) Oral b.i.d., Lexapro 1 Tablet (of 10 mg) Oral daily, Lisinopril 1 Tablet (of 10 mg) Oral daily, Metoprolol Tartrate 1 Tablet (of 50 mg) Oral q 12 hours, Multivitamin 1 Tablet Oral daily, Ondansetron HCl 1 Tablet (of 4 mg) Oral t.i.d. PRN, Pantoprazole Sodium 1 Tablet (of 40 mg) Tablet, enteric coated Oral b.i.d., Vitamin C 1 Capsule (of 500 mg) Oral daily, Vitamin D Tablet Oral Take as Directed Allergies: No Known Allergies. Review of Systems: Review of Systems is not available for this patient. Vital Signs: Performed on Sep 19, 2021 16:08 Height - 67.00 in Weight - 222.4 lbs (LOW) BSA - 2.12 sq.m BMI - 34.83 (HIGH) Temperature - 97.4 F (LOW) Pulse - 88 /min Respiration - 16 /min BP - 120/74 mm(hg) O2 Sat - 98 % Pain - 6 Fatigue - 6 Performance Status: 0 - Fully active, able to carry on all predisease activities without restrictions. (ECOG) Physical Examination: ENMT - No mouth sores, no thrush, no jaundice, Respiratory - Lungs are clear to auscultation, Cardiovascular - Regular rate and rhythm of heart, Abdomen - Soft, bowel sounds present, Extremities - No visible edema. Lab/Imaging: Most recent lab results are not available for this patient. Impression: Microcytic hypochromic anemia due to iron deficiency per labs done on July 25, 2020 in [facility] hemoglobin was 5.8 g hematocrit 22.2 MCV 72.3 iron studies done showed ferritin 5, iron saturation 3.5%, iron 17, TIBC 478, Patient was given 2 units of packed RBCs and parenteral iron x1, Status post Injectafer 750 mg x 2 in June 2021 History of atrial fibrillation, history of chronic back pain, next history of hypertension Paroxysmal SVTs Sleep apnea, on BiPAP COVID 19 + 06/2020 and by PCR 08/08/2019. Left lower extremity DVT 07/2019-not on anticoagulation due to GI bleed workup. EGD/colonoscopy done in March 2020 shows no obvious cause of bleeding, 2 small benign polyps were removed from the colon and EGD showed 4 cm hiatal hernia and a diverticulum in the second portion of duodenum, Capsule endoscopy done on September 21, 2020 showed no abnormality Plan: Discussed with patient regarding her labs white blood count 8.4 hemoglobin 10.6 g compared to 6.3 g last week prior to 2 units of packed RBC, hematocrit 35.1 platelets 343,000, iron studies shows low iron saturation at 17.7, ferritin 53 compared to 256 on August 18, 2021, as mentioned above patient did receive 2 units of packed RBC last week for severe anemia, iron 64 TIBC 361 Patient underwent EGD/push enteroscopy on August 30, 2021, as per discussion with Dr. Alcala, there is no evidence of gross bleeding, or peptic ulcer disease. Clinically, she is feeling somewhat better after 2 units of packed RBC, as per patient she now developing antibodies so facing issues with crossmatching., Today's labs shows hemoglobin 10.6 g compared to 6.3 g last week prior to blood transfusion, her iron studies shows low iron saturation and significant drop in her ferritin despite of packed RBC, her ferritin is 53 compared to 256 on August 18, 2021, in that case, we will consider Injectafer 750 mg IV weekly x2 and then she will return to clinic 1 month after her second dose of Injectafer with CBC and iron studies, patient was advised in case she notices any dark-colored stools or blood in her stools, she need to call us or Dr. Alcala office., Other option would be, Referral to gastroenterology department at [facility] for second opinion. Patient will discuss with family. We will continue to monitor her blood counts, if patient develops progressive anemia despite of normal iron stores, will consider bone marrow evaluation to rule out underlying myelodysplasia. Signed By: Randy Roberto M.D. <<Signature on File>>
== END 2021-09-19 13:22 | disposition home or self-care (01) ==
PROVIDERS: PCP Internal Medicine; Visit Provider Internal Medicine Hematology & Oncology
DX: D50.9 Iron deficiency anemia, unspecified (principal); I48.91 Unspecified atrial fibrillation; I10 Essential (primary) hypertension; I47.1 Supraventricular tachycardia; G47.33 Obstructive sleep apnea (adult) (pediatric); Z79.899 Other long term (current) drug therapy
CPT/HCPCS: 36415; 82728; 83540; 83550; 85025; 99214

== ENCOUNTER 2021-09-23 08:17 | Outpatient (CLI) | payer MEDICARE, SELFPAY ==
[2021-09-23] MEDS: ferric carboxy (IVPB) 750 MG in sodium chloride 0.9% (100 ml) 100 ML 400 MG IV (09:12)
== END 2021-09-23 08:18 | disposition home or self-care (01) ==
PROVIDERS: PCP Internal Medicine; Visit Provider Internal Medicine Hematology & Oncology
DX: D50.9 Iron deficiency anemia, unspecified (principal)
CPT/HCPCS: 96365; J1439

== ENCOUNTER 2021-10-06 09:24 | Outpatient (CLI) | payer MEDICARE, SELFPAY ==
[2021-10-06] MEDS: ferric carboxy (IVPB) 750 MG in sodium chloride 0.9% (100 ml) 100 ML 460 MG IV (10:09)
== END 2021-10-06 09:25 | disposition home or self-care (01) ==
PROVIDERS: PCP Internal Medicine; Visit Provider Internal Medicine Hematology & Oncology
DX: D50.9 Iron deficiency anemia, unspecified (principal)
CPT/HCPCS: 96365; J1439

== ENCOUNTER → 2021-11-02 15:27 | Outpatient (BNVA) | payer MEDICARE, SELFPAY | PROVIDERS: PCP Internal Medicine; Visit Provider Internal Medicine Cardiovascular Disease | DX: I47.1 Supraventricular tachycardia (principal); D50.9 Iron deficiency anemia, unspecified; I82.542 Chronic embolism and thrombosis of left tibial vein; I13.0 Hypertensive heart and chronic kidney disease with heart failure and stage 1 through stage 4 chronic kidney disease, or unspecified chronic kidney disease; N18.2 Chronic kidney disease, stage 2 (mild); I50.9 Heart failure, unspecified | CPT/HCPCS: 99213; 99214 ==

== ENCOUNTER 2022-01-25 10:01 | Outpatient (CLI) | payer MEDICARE, SELFPAY ==
--- NOTE | 2022-01-25 10:08 | MM_ITS ---
WS: [id number] Bilateral screening 3D tomosynthesis digital mammogram, 01/25/2022 Clinical Data: SCREENING Comparison: 10/22/2020, 10/04/2020, 02/28/2013, 02/17/2011. Findings: The breast parenchymal pattern shows fat replacement. No spiculated masses or clustered calcification s are seen. There are no secondary signs of carcinoma. The 0.9 cm density in the upper outer quadrant left breast has not changed in size or configuration. There are mole markers on both breasts. MM/[id number] Impression: 1. Negative bilateral mammogram unchanged. 2. Recommend annual screening mammograms. BIRADS: 1-Negative FOLLOW UP: 1 Year Follow-up The CAD lumber checker was used.
== END 2022-01-25 10:02 | disposition home or self-care (01) ==
PROVIDERS: PCP Internal Medicine; Visit Provider Internal Medicine
DX: Z12.31 Encounter for screening mammogram for malignant neoplasm of breast (principal)
CPT/HCPCS: 77063; 77067

== ENCOUNTER 2022-03-05 15:59 | Observation (INO) | payer MEDICARE, SELFPAY ==
[2022-03-05] VITALS (7 sets, daily range): BP systolic 114–118; BP diastolic 57–64; PULSE 60–83; RESP 14–16; TEMP 36.7–36.8; O2SAT 91–97; BMI 35.6
--- NOTE | 2022-03-05 16:21 | ECG_ITS ---
[facility] Test Date: 2022-03-05 Pat Name: Mindy Cueva Department: Room: 277 Gender: Female Psychology Tech: : [id number] Requested By: [place] Elaine Order Number: [id number] Antony MD: Juarez Gotti M.D. Measurements Intervals [place] Rate: 76 P: 53 RI: 172 QRS: -10 QRSD: 78 T: 26 QT: 392 QTc: 441 Interpretive Statements SINUS RHYTHM Compared to ECG 08/10/2020 21:06:21 No significant changes Electronically Signed On 03-06-2022 17:38:24 CDT by Juarez Gotti M.D. [email or web address]
--- NOTE | 2022-03-05 16:23 | PM.HP ---
Providers/Chief Complaint Admitting Physician: Argentina Elaine MD Primary Care Provider: Mesha Kilgore MD Chief Complaint: direct admit History of Present Illness Mindy Cueva is a 71 year old female with past medical history of posterior tibial DVT, SVT, hypertension, COVID in 2019, microcytic anemia suspicious of GI bleed undergoing work-up at [facility] with GI services, recurrent blood transfusion and iron transfusion, atrial fibrillation, CAD, CKD stage II with last DEXA scan in December 2020 which revealed small area of inconsistent reversible defect in mid inferior lateral region which was thought to be attenuation, most echocardiogram in November 2020 showed an EF of 68% with grade 1 diastolic dysfunction, trace AI, mild MRJorge A She was transferred from outside hospital today where she presented with she had extreme dizziness and sweating at around 2 AM which woke her up from a sleep. At around 6 AM she again had central chest pressure radiating to left shoulder and neck associated with nausea. Denies any palpitations during these episodes. Denies any symptoms on rest and exertion prior to today morning. States he has been worked up at [facility] for anemia. Last iron transfusion was 4 months ago. States hemoglobin usually has been stable. But does state that her hemoglobin at outside hospital a week ago was 14 and today it was found to be 10. States has been having occasional black tarry soft bowel movements for last 2 to 4 days but denies any diarrhea. Review of Systems General: Reports: 10 or more systems reviewed and unremarkable except in HPI and below Const: Denies: fever(s), chills or body aches Eyes: Denies: change in vision, blurry vision or photophobia ENMT: Reports: hoarseness; Denies: throat pain, enlarged tonsils, odynophagia or nasal congestion Card: Denies: chest pain, palpitations, irregular heart rhythm, edema, swelling of feet/ankles, lightheadedness, pre-syncope, dyspnea on exertion or orthopnea Resp: Denies: dyspnea, productive cough, non-productive cough, wheezing, stridor, pain on inspiration, change in phlegm color, hemoptysis or chest congestion GI: Denies: abdominal pain, nausea, vomiting, hematemesis, coffee ground emesis, dysphagia, heartburn, diarrhea, constipation, GI cramping, change in stool character, hematochezia or melena : Denies: flank pain, difficulty voiding, dysuria, urinary frequency, urinary urgency, urinary hesitancy or hematuria Musc: Denies: neck pain, back pain, extremity pain, joint swelling, joint warmth or deformity Neuro: Denies: headache(s), numbness in extremities, weakness in extremities, sensory changes, difficulty walking, frequent falls, dizziness, vertigo, behavioral changes, Slurred speech present or seizure-like activity Psych: Denies: anxiety, depression, suicidal ideation or homicidal ideation Endo: Denies: polyuria, polydipsia, tired all the time, cold intolerance or hot flashes Sergey/Lymph: Denies: easy bruising or easy bleeding Medications/Allergies Home Medications Medication Instructions Recorded Confirmed Last Taken Type allopurinol 300 mg tablet 300 mg PO DAILY@08 07/25/20 03/05/22 03/04/22 History ondansetron 4 mg disintegrating 4 mg PO TID PRN Nausea 07/25/20 03/05/22 09/11/21 History tablet lisinopril 10 mg tablet 20 mg PO DAILY@0800 08/08/20 03/05/22 03/04/22 History pantoprazole 40 mg tablet,delayed 40 mg PO DAILY 08/08/20 09/12/21 09/11/21 History release Lexapro 40 mg PO DAILY anxiety 02/10/21 03/05/22 03/04/22 History furosemide 40 mg tablet (Lasix) 40 mg PO DAILY 05/26/21 03/05/22 03/04/22 History metoprolol tartrate 50 mg tablet 50 mg PO BID 11/02/21 03/05/22 03/04/22 History Allergies Allergy/AdvReac Type Severity Reaction Status Date / Time No Known Allergies Allergy Verified 09/09/21 11:38 PFSH Acute PFSH: Medical History (Updated 03/05/22 @ 17:13 by Argentina Elaine MD) Abdominal pain Acute non-ST elevation myocardial infarction (NSTEMI) Acute on chronic anemia Anemia Microcytic. Being worked up for a possible GI bleed negative on work-up so far at [facility] with GI services Anxiety Atrial fibrillation CAD (coronary artery disease) Chronic low back pain CKD (chronic kidney disease) stage 2, GFR 60-89 ml/min DVT (deep venous thrombosis) Fall Family history of heart disease Gout Heart failure History of COVID-19 HTN (hypertension) Hyperlipidemia Hypokalemia Hypoxia Paroxysmal SVT (supraventricular tachycardia) Pre-syncope Sepsis UTI (urinary tract infection) Surgical History History of appendectomy History of back surgery History of cholecystectomy S/P shoulder surgery left Status post glaucoma surgery Status post right knee replacement Family History Mother Cerebral hemorrhage Myocardial infarction Social History Smoking and tobacco status: never smoked Alcohol intake: never Household members: spouse Marital status: Current occupational status: retired Vitals/I&O/Wt Weight last 48 hrs Weight 103.419 kg Physical Exam Narrative: General: No acute distress, AO x 3 HEENT: PERRLA, pupils bilaterally equal and reactive, pallors not present Chest: Normal vesicular breath sounds, no added sounds, equal good air entry bilaterally CVS: S1-S2 regular, no murmurs, no tachycardia, no gallops, no rubs Abdomen: Soft, nontender, no organomegaly, bowel sounds present Neuro: No focal deficits, no facial deformity, AO x3, power 5/5 in all limbs A&P Assessment and plan (1) Chest pressure: Status: Acute (2) CAD (coronary artery disease): Status: Acute Qualifiers: Associated angina: without angina Coronary Disease-Associated Artery/Lesion type: grindstone artery [place] vs. 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 At that time she had reversible defect in mid inferior lateral region with an EF of 69%. Last echocardiogram done in November 2020 showed an EF of 68% with grade 1 diastolic dysfunction. Not on aspirin or statins. Check lipid panel, A1c, proBNP, D-dimer Aspirin 81 mg daily. Atorvastatin 40 mg nightly. Check Lexiscan stress test again, echocardiogram. Cycle troponins. Morphine 1 mg as needed every 4 hours for chest pain. Nitro paste as needed. Atrial fibrillation: Currently in sinus rhythm. Continue with metoprolol 50 mg twice daily. Not on anticoagulation given history of anemia with a possible GI bleed. Anemia: Being worked up at [facility]. Reportedly at outside hospital had hemoglobin of 14 a week ago. Now 10 today. Denies of having any active GI bleed. Monitor hemoglobin daily. Check iron panel, vitamin B12, folate level. Oral iron supplementation. Protonix IV daily, Carafate ACH S. Continue other chronic medications. Full code. Protonix for PUD prophylaxis. Heparin 5000 every 12 hourly for DVT prophylaxis. Attestations Medical Necessity Statement*: Admission for more than 2 midnights for management of typical chest pain in a patient with a history of GI bleed, anemia and atrial fibrillation Time Spent in Patient Care: Greater than 35 minutes Coding Level of Care Code Acute Home Appliance Technician for Chg Fwd Diagnoses Chest pressure R07.89 CAD (coronary artery disease) I25.10 Associated angina: without angina Coronary Disease-Associated Artery/Lesion type: grindstone artery [place] vs. transplanted heart: grindstone heart Atrial fibrillation I48.21 Atrial fibrillation type: permanent DVT (deep venous thrombosis) I82.542 Affected thrombotic vein of extremity: tibial Chronicity: chronic DVT location: lower extremity Laterality: left CKD (chronic kidney disease) stage 2, GFR 60-89 ml/min N18.2 Anemia D64.9 HTN (hypertension) I10 Hypertension type: essential hypertension
[2022-03-05] MEDS: pantoprazole 40 mg SDV IVP (17:31)
[2022-03-05] MEDS: morphine 4 mg/mL SDV 1 mL 1 MG IVP ×2 (17:32→21:07)
[2022-03-05] MEDS: ondansetron 2 mg/ML SDV 2 mL 4 MG IVP (17:32)
[2022-03-05] MEDS: heparin 5,000 unit/mL INJ 1 mL 5000 UNIT SUBCUT (17:40)
[2022-03-05] MEDS: docusate sodium 100 mg Capsule PO (17:42)
[2022-03-05] MEDS: metoprolol tartrate 50 mg Tablet PO (17:42)
[2022-03-05 17:44] LABS: Basophils # 0.1 10^3/uL (0.0-0.1); Basophils % 0.5 %; Eosinophils # 0.1 10^3/uL (0.0-0.8); Eosinophils % 0.9 %; Hematocrit 31.4 % (37.0-47.0); Hemoglobin 9.8 g/dL (11.5-15.3); Lymphocytes # 2.4 10^3/uL (0.8-4.8); Lymphocytes % 25.6 %; Mean Corpuscular HGB Conc 31.2 g/dL (30.0-36.0); Mean Corpuscular Volume 89.7 fl (81-99); Mean Platelet Volume 11.5 fL (7.4-10.4); Monocytes # 0.8 10^3/uL (0.2-0.9); Monocytes % 8.4 %; Neutrophils # 5.96 10^3/uL (1.8-7.7); Neutrophils % 63.7 %; Nucleated Red Blood Cells % 0 %; Platelet Count 292 10^3/cmm (130-400); Red Cell Distribution Width 14.7 % (12.1-15.1); White Blood Count 9.4 10^3/uL (4.0-10.0)
[2022-03-05 18:07] LABS: INR 0.95 (0.8-1.2)
[2022-03-05 18:19] LABS: Troponin(5th) Baseline 28 ng/L (0-10)
--- NOTE | 2022-03-05 18:21 | ECG_ITS ---
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 Measurements Intervals [place] Rate: 83 P: 48 NM: 168 QRS: -11 QRSD: 82 T: 31 QT: 374 QTc: 440 Interpretive Statements SINUS RHYTHM Compared to ECG 03/05/2022 17:00:18 No significant changes Electronically Signed On 03-06-2022 17:47:16 CDT by Juarez Gotti M.D. [id number]
[2022-03-05 18:23] LABS: Magnesium 2.1 mg/dL (1.7-2.3); Phosphorus 3.1 mg/dL (2.5-4.5)
[2022-03-05 18:24] LABS: D Dimer 0.53 ug/mIFEU (0-0.59)
[2022-03-05 18:36] LABS: Alanine Aminotransferase 16 U/L (0-33); Albumin Level 3.8 g/dL (3.5-5.2); Alkaline Phosphatase 86 IU/L (35-105); Anion Gap 16.1 (5-19); Aspartate Amino Transferase 17 U/L (0-32); Blood Urea Nitrogen 16 mg/dL (8-23); Calcium 8.8 mg/dL (8.5-10.5); Carbon Dioxide 26 mmol/L (22-29); Chloride 101 mmol/L (98-107); Globulin 2.5 g/dL (1.3-4.6); Glomerular Filtration Rate 70.9 mL/min (90-130); Glucose 144 mg/dL (65-115); Iron 47 ug/dL (37-145); NT Pro B Type Natriuretic Pept 199 pg/mL (0-125); Osmolality Calculated 292 mOsm/kg (285-295); Percent Saturation 17.6 % (20-50); Potassium 4.1 mmol/L (3.5-5.1); Sodium 139 mmol/L (136-145); Total Bilirubin 0.2 mg/dL (0.15-1.2); Total Iron Binding Capacity 267 mcg/dl; Total Protein 6.3 g/dL (6.6-8.7); Unsaturated Iron Binding 220 ug/dL (112-347); Vitamin B12 324 pg/mL (232-1245)
[2022-03-05 18:39] LABS: Folate Level 11.5 ng/mL (4.8-37.3)
[2022-03-05 20:22] LABS: Estmated Average Glucose 174; Hemoglobin A1C 7.7 % (4.0-6.0)
--- NOTE | 2022-03-05 20:55 | PC.NURSE ---
Spoke with regarding patient with diabetes, no orders for insulin or accuchecks. ordered low dose sliding scale and accuchecks ACHS.
[2022-03-05 21:03] LABS: Glucose Point of Care 299 mg/dL (70-110)
--- NOTE | 2022-03-05 22:21 | ECG_ITS ---
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 Measurements Intervals [place] Rate: 66 P: 150 MD: 173 QRS: -28 QRSD: 80 T: -30 QT: 421 QTc: 442 Interpretive Statements ECTOPIC ATRIAL RHYTHM POSSIBLE LEFT ATRIAL ENLARGEMENT [-0.1mV P-WAVE IN V1/V2] POSSIBLE ANTERIOR MYOCARDIAL INFARCTION , PROBABLY OLD [30 ms Q WAVE IN V3/V4, OR R < 0.2 mV IN V4] Compared to ECG 03/05/2022 18:23:29 Ectopic atrial rhythm now present Myocardial infarct finding now present Sinus rhythm no longer present Electronically Signed On 03-06-2022 17:45:09 CDT by Juarez Gotti M.D. [id number]
[2022-03-05] MEDS: insulin lispro 100 unit/1 mL SUBCUT (22:32)
[2022-03-06] VITALS (13 sets, daily range): BP systolic 87–163; BP diastolic 60–89; PULSE 62–77; RESP 15–24; TEMP 36.4–36.9; O2SAT 90–98; BMI 35.2
--- NOTE | 2022-03-06 | ECG_ITS ---
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 Interpretive Statements NAME OF STUDY: LEXISCAN SESTAMIBI STRESS TEST INDICATION: Angina PROCEDURE: At the baseline, the blood pressure was 106/49 mmHg with a heart rate of 55 bpm. The electrocardiogram showed sinus bradycardia, normal axis with nonspecific T wave inversion. The Lexiscan was infused over a period of 20 seconds. A total of 0.4 milligrams of Lexiscan was infused. The stress phase was continued for a total of 5 minutes. Heart rate at the end of the stress phase was 78 bpm with a blood pressure of 145/91 mmHg. The EKG at the peak infusion revealed sinus rhythm with no significant ST-T wave changes. The study was terminated due to protocol completion. Sestamibi was injected 20 seconds after the Lexiscan infusion. Blood pressure at the end of the recovery phase was 163/89 mmHg with a heart rate of 70 beats per minute. CONCLUSION: 1. No significant EKG changes with the LexiScan infusion. 2. No LexiScan induced chest pain or cardiac arrhythmia. 3. Normal blood pressure and heart rate response. 4. Sestamibi/sestamibi perfusion scan pending; see separate report. Electronically Signed On 03-07-2022 16:22:27 CDT by Gladis Bello M.D. [id number]
--- NOTE | 2022-03-06 00:03 | PC.NURSE ---
BP BP reported to pt care nurse.
--- NOTE | 2022-03-06 01:31 | PC.NURSE ---
Patient scheduled for stress test om 03/06/22, patient did have caffeine at 22:00 on 03/05. Patient made aware that the stress test will have to be postponed as she must be 24 hours with no caffeine.
[2022-03-06] MEDS: ondansetron 2 mg/ML SDV 2 mL 4 MG IVP ×3 (02:11→14:57)
[2022-03-06 05:01] LABS: Basophils # 0.1 10^3/uL (0.0-0.1); Basophils % 0.6 %; Eosinophils # 0.2 10^3/uL (0.0-0.8); Eosinophils % 1.8 %; Hematocrit 30.6 % (37.0-47.0); Lymphocytes # 2.5 10^3/uL (0.8-4.8); Mean Corpuscular HGB Conc 29.4 g/dL (30.0-36.0); Mean Corpuscular Hemoglobin 28.4 pg (28.0-34.0); Mean Corpuscular Volume 96.5 fl (81-99); Mean Platelet Volume 11.2 fL (7.4-10.4); Monocytes # 0.9 10^3/uL (0.2-0.9); Monocytes % 9.8 %; Neutrophils # 5.29 10^3/uL (1.8-7.7); Neutrophils % 59.1 %; Nucleated Red Blood Cells % 0 %; Platelet Count 249 10^3/cmm (130-400); Red Blood Count 3.17 10^6/uL (4.1-5.3); Red Cell Distribution Width 14.8 % (12.1-15.1)
[2022-03-06 05:22] LABS: Alanine Aminotransferase 14 U/L (0-33); Albumin Level 3.4 g/dL (3.5-5.2); Alkaline Phosphatase 80 IU/L (35-105); Anion Gap 15.2 (5-19); Aspartate Amino Transferase 12 U/L (0-32); Blood Urea Nitrogen 23 mg/dL (8-23); Calcium 8.7 mg/dL (8.5-10.5); Carbon Dioxide 25 mmol/L (22-29); Chloride 100 mmol/L (98-107); Chol HDL Ratio 4.59 mg/dL (0.0-4.40); Cholesterol 147 mg/dL (0-200); Globulin 2.4 g/dL (1.3-4.6); Glomerular Filtration Rate 54.8 mL/min (90-130); Glucose 238 mg/dL (65-115); HDL Cholesterol 32 mg/dL (60-100); LDL Cholesterol Calculated 49 mg/dL (50-129); LDL HDL Ratio 1.53 RATIO (0.00-3.22); Osmolality Calculated 293 mOsm/kg (285-295); Potassium 4.2 mmol/L (3.5-5.1); Sodium 136 mmol/L (136-145); Total Bilirubin 0.2 mg/dL (0.15-1.2); Total Protein 5.8 g/dL (6.6-8.7); Triglycerides 332 mg/dL (0-150)
[2022-03-06] MEDS: heparin 5,000 unit/mL INJ 1 mL 5000 UNIT SUBCUT (05:32)
[2022-03-06 06:22] LABS: Glucose Point of Care 232 mg/dL (70-110)
[2022-03-06] MEDS: allopurinol 300 mg Tablet PO (08:20)
[2022-03-06] MEDS: insulin lispro 100 unit/1 mL SUBCUT ×4 (08:21→21:28)
[2022-03-06] MEDS: lisinopril 20 mg Tablet PO (08:21)
[2022-03-06] MEDS: FUROsemide 40 mg Tablet PO (08:22)
[2022-03-06] MEDS: escitalopram 10 mg Tablet 20 MG PO (08:22)
[2022-03-06] MEDS: metoprolol tartrate 50 mg Tablet PO ×2 (08:22→17:30)
--- NOTE | 2022-03-06 09:07 | NMCV_ITS ---
NM genesis perf SPECT r/s* [id number] Mindy Cueva Age: 71 Gender: F : 1950 Exam Date: 03/06/2022 10:31 Ordering Phys: Argentina Elaine MD Technologist: KARON Patel Exam Location: [facility] Indications: CHEST PAIN STRESS TEST Please see separate stress test report in [facility] for full findings IMAGE PROTOCOL Rest/Stress 1 Lexiscan Day Radiopharmaceutical Dose (mCi) Administration Site Administered by Rest: Tc-99m 10.7 IV KARON Mora Sestamibi Stress:Tc-99m 32.8 IV KARON Mora Sestamibi Rest: 06-Mar-2022 60 Discovery 630 Stress: 06-Mar-2022 30 Discovery 630 0.4mg Lexiscan. Images obtained in supine and prone position. SPECT RESULTS Technical Quality: Excellent Raw Data Analysis: Normal Image Corrections: No attenuation or motion correction applied Summed Stress Score: 0 Summed Rest Score: 1 Summed Difference Score: 0 PERFUSION FINDINGS Small size perfusion abnormality of mild severity of mid inferolateral wall on rest images with improved tracer uptake on stress images. This is suggestive of attenuation artifact. FUNCTIONAL RESULTS (calculated via Gated SPECT) Stress Image LV EF (%): 80 Stress EDV (mL):76 TID: 1.02 Stress ESV (mL):15 FUNCTIONAL FINDINGS: The left ventricle is normal in size. Transient Ischemia Dilatation of 1. The left ventricular ejection fraction is normal with a value of 80%. There is normal left ventricular wall thickening. IMPRESSIONS 1. Myocardial perfusion imaging is normal. 2. Overall left ventricular systolic function is normal without regional wall motion abnormalities, LVEF=80%. 3. EKG portion of the study will be reported separately. 4. Scan indicates low risk for cardiac events. Gladis Bello MD (Electronically Signed) Final Date: 06 March 2022 13:52 S
--- NOTE | 2022-03-06 10:46 | PC.CHAP ---
Pastoral Care Encounter/Spiritual Assessment Type of Contact [] Declined clinical trials assistant visit [] Patient/Family/Request visit [] Outpatient visit [] Follow-up visit [] Physician referral [] Code/Alert [x] Routine visit [] Staff referral [] Actively dying [] Patient sleeping [] Family support [] [] Out of room [] Palliative care [] [] Receiving care in room [] Pre-surgical visit [] Trauma [] Long length of stay [] ICU visit [] Other: Relational/Emotional Strength [x] Patient feels connected with others/family/visitors/staff [] Distress [] Loneliness/isolation [] Abandonment Spirituality of Patient x [x] Person of Jackie [x] Attends Episcopalian of their Jackie [] Believes in Prayer [] Reads Bible or Methodist materials [] There are Spiritual issues to be addressed Tail Dogger Interventions [x] Prayer []x Active listening x[] Non-anxious presence x[] Spiritual/emotional support [] Crisis/trauma care [] Spiritual counseling [] Bereavement support [] Provided bereavement packet [] Provided Bible/devotional materials [] Provided toy/stuffed animal, coloring book to patient or family member [] Provided Communion [] Anointing/[place] [] Salvation [x] Completed spiritual assessment [] Other: Impact on Illness or Injury [] Angry [] Fearful [] Anxious [] Often cries [] Exhaustion [] Unable to work [] Unable to attend lutheran [] Unable to walk/stand [] Unable to read [] Unable to drive [] Unable to eat/drink [] Unable to sleep [] Unable to be with family [] Patient intubated [] Other: Summary Time spent with patient 10 min
[2022-03-06] MEDS: regadenoson 0.4 Mg/5 ml Syringe IVP (11:14)
[2022-03-06 12:34] LABS: Glucose Point of Care 227 mg/dL (70-110)
[2022-03-06] MEDS: morphine 4 mg/mL SDV 1 mL 1 MG IVP (14:32)
--- NOTE | 2022-03-06 15:27 | US_ITS ---
WS: [id number] Exam: US thyroid [id number] Date/Time of Exam: 03/06/2022 4:09 PM Reason For Exam: L side alfred-lat neck pain Right lobe. A 0.64 x 0.4 x 0.49 cm hypoechoic ill-defined nodular densities seen in the inferior righ t thyroid lobe. Remaining aspects of the right lobe were unremarkable. The right lobe measures 4.35 x 1.45 x 1.51 cm. The thyroid isthmus is unremarkable and measures 3 mm at greatest thickness. Left lobe. A prominent isoechoic solid nodule is seen in the interpolar region of the left thyroid lo be. This nodule measures 1.84 x 1.36 x 1.5 cm. No other significant lesion seen in the left thyroid l obe. The left lobe measures 3.51 x 1.48 x 1.83 cm. US/US thyroid [id number] IMPRESSION: 1. Prominent isoechoic solid nodule seen in the interpolar region of the left t hyroid lobe. This measures 1.84 cm at greatest dimension. Biopsy would be recom mended based on size criteria. 2. Small hypoechoic ill-defined nodular density seen in the inferior right thyr oid lobe which does not have suspicious appearance however a follow-up ultrasou nd in 6-8 months would be recommended for surveillance. This lesion measures ab out 0.64 cm at greatest dimension.
--- NOTE | 2022-03-06 16:34 | PC.NURSE ---
Discussed with Dr. Lange regarding heparin and pt history of anemia - he stated to hold heparin.
[2022-03-06] MEDS: lidocaine 5% Patch 1 PATCH TOPICAL (17:19)
[2022-03-06] MEDS: pantoprazole 40 mg SDV IVP (17:20)
--- NOTE | 2022-03-06 17:20 | USCV_ITS ---
Anay Mindy Age: 71 Gender: F : 1950 Exam Date: 03/06/2022 16:24 Ordering Phys: Argentina Elaine MD Technologist: Caio Betancur [place] [facility] [place] Indication: Unstable angina BP: 101 / 69 HR: 78 Rhythm: Sinus Technical Quality: Adequate MEASUREMENTS (Male / Female) Normal Values 2D ECHO LV Diastolic Diameter PLAX 4.8 cm 4.2 - 5.9 / 3.9 - 5.3 cm LV Systolic Diameter PLAX 3.1 cm IVS Diastolic Thickness 1.0 cm 0.6 - 1.0 / 0.6 - 0.9 cm IVS Systolic Thickness 1.1 cm LVPW Diastolic Thickness 1.1 cm 0.6 - 1.0 / 0.6 - 0.9 cm LVPW Systolic Thickness 1.3 cm LVOT Diameter 2.9 cm LV Ejection Fraction 2D Teich 65.2 % LV Ejection Fraction MOD 2C 72.7 % LV Ejection Fraction 2C AL 73.1 % LA Diameter 3.0 cm LA Width 2.8 cm LA Height 3.9 cm RA Width 2.1 cm RA Height 3.8 cm Aorta at Sinotubular Diameter 2.3 cm M-MODE Aortic Annulus Diameter 2.4 cm LA Ao Ratio MM 1.2 MV E Point Septal Separation 0.5 cm DOPPLER AV Peak Velocity 174.3 cm/s LVOT Peak Velocity 116.0 cm/s AV Area Cont Eq vti 4.6 cm squared AV Area Cont Eq pk 4.5 cm squared MV Peak Velocity 84.0 cm/s MV Area PHT 5.0 cm squared Mitral E to A Ratio 1.0 MV E' Velocity 39.5 cm/s Mitral E to MV E' Ratio 6.6 Mitral E to LV E' Lateral Ratio 7.5 Mitral E to LV E' Septal Ratio 6.0 TR Peak Velocity 326.9 cm/s TR Peak Gradient 42.7 mmHg TR Mean Velocity 247.1 cm/s TR Mean Gradient 27.4 mmHg TR Velocity Time Integral 88.6 cm Right Atrial Pressure 8.0 mmHg Pulmonary Artery Systolic Pressu 50.7 mmHg RV Acceleration Time 0.1 s RV Ejection Time 0.3 s RV AcT/ET 0.3 FINDINGS Left Ventricle Normal left ventricular size, systolic function and wall thickness, with no regional wall motion abnormalities. Left ventricular ejection fraction is estimated at 65 %. Normal diastolic function. Right Ventricle Normal right ventricular size and systolic function. Right ventricular systolic pressure 44 mmHg. Right Atrium Normal right atrial size. Left Atrium Mildly increased left atrial size. Mitral Valve Structurally normal mitral valve. No mitral valve stenosis. Trace mitral valve regurgitation. Aortic Valve Structurally normal trileaflet aortic valve. No aortic valve stenosis. No aortic valve regurgitation. Tricuspid Valve Structurally normal tricuspid valve. Trace tricuspid valve regurgitation. Pulmonic Valve Pulmonic valve not well visualized. No pulmonary valve stenosis. No significant pulmonary valve regurgitation. Pericardium No pericardial effusion. Aorta Normal size aortic root and proximal ascending aorta. IVC Inferior vena cava not visualized. CONCLUSIONS 1. Normal left ventricular size, systolic function and wall thickness, with no regional wall motion abnormalities. Left ventricular ejection fraction is estimated at 65 %. Normal diastolic function. 2. Normal right ventricular size and systolic function. 3. Upper normal pulmonary artery pressure estimated at 44 mmHg. 4. No significant valvular abnormality. 5. When compared to study dated 12/10/2020, there may not have been any significant change. Gladis Bello MD (Electronically Signed) Final Date: 07 March 2022 09:49 S
[2022-03-06 17:29] LABS: Glucose Point of Care 184 mg/dL (70-110)
[2022-03-06] MEDS: methocarbamol 500 mg Tablet PO (19:52)
--- NOTE | 2022-03-06 20:09 | PM.PN ---
Subjective Subjective: No further chest pain pressure today, however, having some lateral left neck as well as anterior left side neck pain. Somewhat worse with deep breaths. Has had prior shoulder surgery, however, no pain with active or passive left shoulder ROM. No pain on palpation. No swelling or erythema noted. Does have history of coronary disease running in the family. Has had coronary angiography in the past which was normal. Reports within the last several years, although see a record from 2014. Stress test performed today again without evidence of ischemia. She is still having some atypical symptoms. No recurrence of central chest pain pressure as she had had it last before admission. Vitals/I&O/Wt Last Vital Signs Temp 98.4 F 03/06/22 15:58 Pulse 76 03/06/22 15:58 Resp 24 H 03/06/22 15:58 BP 115/62 03/06/22 15:58 Pulse Ox 94 03/06/22 15:58 O2 Del Method 03/06/22 15:58 O2 Flow Rate 2 03/06/22 08:00 03/06/22 03/06/22 03/06/22 06:59 14:59 22:59 Intake Total 240 / 240 Balance 240 / 240 Weight last 48 hrs Weight 102.058 kg Weight 103.419 kg Physical Exam Narrative: Accompanied by her daughter at bedside. Const: COMMON NORMALS: patient oriented x3 and alert GENERAL APPEARANCE: cooperative ORIENTATION/CONSCIOUSNESS: Yes awake HENMT: COMMON NORMALS: oropharynx normal Neck/C-Spine: COMMON NORMALS: no JVD Chest: OTHER: Some pain on deep inspiration in the left side of the chest with some radiation to the back. Resp: COMMON NORMALS: normal respiratory effort and clear to auscultation bilaterally AUSCULTATION: clear to auscultation bilaterally Cardio: COMMON NORMALS: no JVD, regular rhythm, S1 normal heart sound present, S2 normal heart sound present and No murmurs present (Cardio) RHYTHM: regular rhythm HEART SOUNDS: S1 normal heart sound present and S2 normal heart sound present GI: COMMON NORMALS: Normal to inspection, nondistended, normoactive bowel sounds present, Soft to palpation and non-tender PALPATION: Yes Soft to palpation Extremity: COMMON NORMALS: no joint enlargement and no pedal edema OTHER: Good range of motion left shoulder, without pain on ROM. No pain on palpation. Neuro: COMMON NORMALS: patient oriented x3 and moves all extremities SENSORIUM/ORIENTATION: Yes alert Skin: COMMON NORMALS: no rashes or lesions noted GENERAL SKIN EXAM: no rashes or lesions noted Data : 03/06/22 04:50 03/06/22 04:50 A&P Assessment and plan (1) Chest pressure: No recurrence of central chest pain or pressure. However, today has had left-sided lateral as well as anterior neck pain. Occasionally on inspiration left side chest pain, sharp, brief. Not reproducible on palpation. Stress test negative for ischemia. Discussed results with her and her daughter. Echocardiogram still pending. She does report significant history of coronary disease in multiple family members. He is still concerned regarding her heart causing the symptoms. Discussed with her that should be less likely given subsequent stress test negative for ischemia. Discussed other possibility of vasospasm. However, keep coronary ischemia for now on differential, although again less likely. Additional work-up initially discussed with CT angiogram of the chest given past history of DVT with then disappeared and not visible on subsequent test. Again discussed D-dimer has been normal, and so likelihood of DVT is lower, although could not exclude. However, it appears also she had just had CT angiogram prior to arrival here at [facility]. Records are being entered into our hospital system. Will need to follow-up. Discussed additionally on prior imaging noted nonspecific possibly reactive lymphadenopathy which needs to be followed up. Discussed also on previous imaging noted large hiatal hernia which could be contributing. She does state that occasionally she gets intermittent cough, mild wheezing, which discussed with her possibly could be also related to intermittent/recurrent aspiration with PUD. She states that she is following up with GI specialist due to anemia who is currently investigating for the source of anemia before consideration of repair of hiatal hernia. Left shoulder/AC joint without pain on active or passive ROM, no pain on palpation. Discussed additional possibility of musculoskeletal pain. Additional assessment with CT C-spine, US soft tissue neck. Status: Acute (2) CAD (coronary artery disease): Status: Acute Qualifiers: Coronary Disease-Associated Artery/Lesion type: [place] artery [place] vs. 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 Stop subcutaneous heparin. SCDs only for DVT prophylaxis. Reportedly at outside hospital had hemoglobin of 14 a week ago. Now 10 today. Denies of having any active GI bleed. Monitor hemoglobin daily. B12 normal. Folate normal. Combination IVAN and ACD. Oral iron supplementation. Protonix IV daily, Carafate ACH S. Continue other chronic medications. Full code. Protonix for PUD prophylaxis Attestations Medical Necessity Statement*: Continue admission for assessment management of recurrent chest pain, atypical, true DVT, family history of coronary disease, additional complicating factors as above. Coding Level of Care Code Acute Events Associate for Chg Fwd Diagnoses Chest pressure R07.89 CAD (coronary artery disease) I25.10 Coronary Disease-Associated Artery/Lesion type: [place] artery [place] vs. transplanted heart: [place] heart Associated angina: without angina Atrial fibrillation I48.21 Atrial fibrillation type: permanent DVT (deep venous thrombosis) I82.542 DVT location: lower extremity Affected thrombotic vein of extremity: tibial Chronicity: chronic Laterality: left CKD (chronic kidney disease) stage 2, GFR 60-89 ml/min N18.2 Anemia D64.9 HTN (hypertension) I10 Hypertension type: essential hypertension
[2022-03-06 22:03] LABS: Glucose Point of Care 248 mg/dL (70-110)
[2022-03-07] VITALS (14 sets, daily range): BP systolic 92–120; BP diastolic 65–96; PULSE 63–80; RESP 15–23; TEMP 36.7–37; O2SAT 92–96
[2022-03-07] MEDS: heparin 5,000 unit/mL INJ 1 mL 5000 UNIT SUBCUT (05:21)
[2022-03-07 05:33] LABS: Basophils # 0.1 10^3/uL (0.0-0.1); Basophils % 0.6 %; Eosinophils # 0.2 10^3/uL (0.0-0.8); Eosinophils % 2.3 %; Hematocrit 30.7 % (37.0-47.0); Hemoglobin 9.3 g/dL (11.5-15.3); Lymphocytes # 2.6 10^3/uL (0.8-4.8); Lymphocytes % 30.5 %; Mean Corpuscular HGB Conc 30.3 g/dL (30.0-36.0); Mean Corpuscular Hemoglobin 28.4 pg (28.0-34.0); Mean Corpuscular Volume 93.9 fl (81-99); Mean Platelet Volume 11.2 fL (7.4-10.4); Monocytes # 0.8 10^3/uL (0.2-0.9); Monocytes % 9.4 %; Neutrophils # 4.77 10^3/uL (1.8-7.7); Neutrophils % 56.5 %; Nucleated Red Blood Cells % 0 %; Platelet Count 259 10^3/cmm (130-400); Red Blood Count 3.27 10^6/uL (4.1-5.3); Red Cell Distribution Width 14.9 % (12.1-15.1); White Blood Count 8.4 10^3/uL (4.0-10.0)
[2022-03-07 06:19] LABS: Anion Gap 13.1 (5-19); Blood Urea Nitrogen 24 mg/dL (8-23); Calcium 8.9 mg/dL (8.5-10.5); Carbon Dioxide 28 mmol/L (22-29); Chloride 102 mmol/L (98-107); Glomerular Filtration Rate 49.1 mL/min (90-130); Glucose 172 mg/dL (65-115); Osmolality Calculated 296 mOsm/kg (285-295); Potassium 4.1 mmol/L (3.5-5.1); Sodium 139 mmol/L (136-145)
[2022-03-07 06:54] LABS: Glucose Point of Care 183 mg/dL (70-110)
[2022-03-07] MEDS: escitalopram 10 mg Tablet 20 MG PO (08:01)
[2022-03-07] MEDS: allopurinol 300 mg Tablet PO (08:01)
[2022-03-07] MEDS: FUROsemide 40 mg Tablet PO (08:01)
[2022-03-07] MEDS: lidocaine 5% Patch 1 PATCH TOPICAL (08:01)
[2022-03-07] MEDS: metoprolol tartrate 50 mg Tablet PO (08:02)
[2022-03-07] MEDS: insulin lispro 100 unit/1 mL SUBCUT (08:02)
[2022-03-07] MEDS: lisinopril 20 mg Tablet PO (08:02)
[2022-03-07] MEDS: methocarbamol 500 mg Tablet PO (12:08)
[2022-03-07 12:10] LABS: Glucose Point of Care 183 mg/dL (70-110)
--- NOTE | 2022-03-07 15:27 | CTR_ITS ---
PROCEDURE INFORMATION: Exam: CT Cervical Spine Without Contrast Exam date and time: 03/07/2022 9:40 AM Age: 71 years old Clinical indication: Neck pain; Additional info: L side neck, L side clavicle pain, not done 03/06, dos changed to 03/07 TECHNIQUE: Imaging protocol: Computed tomography of the cervical spine without contrast. Radiation optimization: All CT scans at this facility use at least one of these dose optimization techniques: automated exposure control; mA and/or kV adjustment per patient size (includes targeted exams where dose is matched to clinical indication); or iterative reconstruction. COMPARISON: MG MM spot mag [facility] [id number] 10/22/2020 10:33 AM RADIATION DOSE METRICS: Total DLP (mGy-cm): 240.07 FINDINGS: Bones/joints: No acute fracture. Normal alignment. Chronic degenerative changes are present with disc space narrowing sclerosis and osteophytes especially at the C5-C6 level. Discs/Spinal canal/Neural foramina: There is moderate spinal stenosis at the C5-C6 level due to osteophytes. Lungs: Lung apices are normal. Soft tissues: Unremarkable. CT/CT cervical spin wo con* [id number] IMPRESSION: Chronic degenerative disease predominantly at C5-C6. No acute abnormality.
--- NOTE | 2022-03-07 22:57 | P.DS_ITS ---
Discharge Providers Date of Admission: 03/05/22 15:59 Date of Discharge: March 07, 2022 Attending Provider at Admission: Argentina Elaine MD Attending Provider at Discharge: Aditya Lange Primary Care Provider: Mseha Kilgore MD Diagnoses at Discharge Discharge Diagnosis (1) Chest pressure: Status: Acute (2) CAD (coronary artery disease): Status: Acute Qualifiers: Coronary Disease-Associated Artery/Lesion type: [place] artery [place] vs. 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 Being worked up for a possible GI bleed negative on work-up so far at [facility] with GI services (7) HTN (hypertension): Status: Acute Qualifiers: Hypertension type: essential hypertension Qualified Code(s): I10 - Essential (primary) hypertension Reason for Visit Reason for Visit: direct admit Hospital Course Hospital Course Pleasant 71-year-old lady with history of HTN, SVT, atrial fibrillation, microcytic recurrent anemia possibly from GI bleed, undergoing work-up with gastroenterology at [facility], as well as after figuring out source of blood loss, with consideration of repair of large hiatal hernia as well. She was admitted for assessment and management due to symptoms of chest pain, including episodes of central chest pain/heaviness which woke her up from sleep. Other chest pain brief, sometimes triggered with inspiration. But also pain in anterior left shoulder, posterior and anterior left side neck. She was additionally assessed with echocardiogram and stress test, which showed normal ejection fraction, no regional wall motion abnormality, stress test without evidence of ischemia. Additionally assessed with CT cervical spine which showed chronic degenerative disease predominately C5-C6. Soft tissue neck/thyroid ultrasound with noted prominent isoechoic solid nodule in the interpolar region of the left thyroid lobe, 1.84 cm in greatest dimension, biopsy recommended. Discussed with her discussed should follow with endocrinology. Additionally small hypoechoic ill-defined nodular density seen inferior right thyroid lobe which does not have suspicious appearance however follow-up ultrasound in 6-8 months would be recommended for surveillance. This measures 0.64 cm in greatest dimension. Please arrange follow-up for this nodule. Additionally previously with DVT back in July after COVID-19 infection, but on reassessment duplex lower extremities in August DVT was no longer present. Discussed with her consideration of possible PE as well, with possibility contributing to her symptoms. CT angiogram was initially requested, however, this was canceled as she had reported just had CT angiogram at [facility]. Those records were requested. D-dimer was normal on presentation. Additional possibility which could contribute to her symptoms could be reflux disease secondary to large hiatal hernia, she also reports occasionally having cough, sometimes wheezing. She will be following up with regards to this with her community center coordinator. She is instructed in the meantime to avoid food or drink 4 hours before bed, elevate head of bed. He is also instructed to use her inhaler in case she of wheezing which she states she has not yet tried. Physical Exam Narrative: Reports today she is feeling well. Some discomfort in the left side of her neck, but otherwise no chest pain or pressure. Const: COMMON NORMALS: patient oriented x3 and alert GENERAL APPEARANCE: cooperative ORIENTATION/CONSCIOUSNESS: Yes awake HENMT: COMMON NORMALS: oropharynx normal Neck/C-Spine: COMMON NORMALS: no JVD Resp: COMMON NORMALS: normal respiratory effort and clear to auscultation bilaterally AUSCULTATION: clear to auscultation bilaterally Cardio: COMMON NORMALS: no JVD, regular rhythm, S1 normal heart sound present, S2 normal heart sound present and No murmurs present (Cardio) RHYTHM: regular rhythm HEART SOUNDS: S1 normal heart sound present and S2 normal heart sound present GI: COMMON NORMALS: Normal to inspection, nondistended, normoactive bowel sounds present, Soft to palpation and non-tender PALPATION: Yes Soft to palpation Extremity: COMMON NORMALS: no joint enlargement and no pedal edema OTHER: Good range of motion left shoulder, without pain on ROM. No pain on palpation. Neuro: COMMON NORMALS: patient oriented x3 and moves all extremities SENSORIUM/ORIENTATION: Yes alert Skin: COMMON NORMALS: no rashes or lesions noted GENERAL SKIN EXAM: no rashes or lesions noted Discharge Data Studies Completed and Pending Completed Studies During Hospitalization Category Date Time Status CT cervical spin wo con* [id number] Routine Cat Scan 03/07/22 15:27 Completed Cardiac Stress Test MIBI [Sestamibi Stress Test Request Exams 03/06/22 09:06 Completed ] Routine NM genesis perf SPECT r/s* [id number] Routine Nuc Med 03/06/22 09:07 Completed CV. echo complete* [id number] Routine Ultrasound 03/06/22 17:20 Completed US thyroid [id number] Routine Ultrasound 03/06/22 15:27 Completed Radiology Impressions Thyroid Ultrasound 03/06/22 15:27 IMPRESSION: 1. Prominent isoechoic solid nodule seen in the interpolar region of the left thyroid lobe. This measures 1.84 cm at greatest dimension. Biopsy would be recommended based on size criteria. 2. Small hypoechoic ill-defined nodular density seen in the inferior right thyroid lobe which does not have suspicious appearance however a follow-up ultrasound in 6-8 months would be recommended for surveillance. This lesion measures about 0.64 cm at greatest dimension. Cervical Spine CT 03/07/22 15:27 IMPRESSION: Chronic degenerative disease predominantly at C5-C6. No acute abnormality. Laboratory Results WBC 8.4 10^3/uL (4.0-10.0) 03/07/22 05:13 RBC 3.27 10^6/uL (4.1-5.3) L 03/07/22 05:13 Hgb 9.3 g/dL (11.5-15.3) L 03/07/22 05:13 Hct 30.7 % (37.0-47.0) L 03/07/22 05:13 MCV 93.9 fl (81-99) 03/07/22 05:13 MCH 28.4 pg (28.0-34.0) 03/07/22 05:13 MCHC 30.3 g/dL (30.0-36.0) 03/07/22 05:13 RDW 14.9 % (12.1-15.1) 03/07/22 05:13 Plt Count 259 10^3/cmm (130-400) 03/07/22 05:13 MPV 11.2 fL (7.4-10.4) H 03/07/22 05:13 Neut % (Auto) 56.5 % 03/07/22 05:13 Lymph % (Auto) 30.5 % 03/07/22 05:13 Carroll % (Auto) 9.4 % 03/07/22 05:13 Eos % (Auto) 2.3 % 03/07/22 05:13 Baso % (Auto) 0.6 % 03/07/22 05:13 Neut # (Auto) 4.77 10^3/uL (1.8-7.7) 03/07/22 05:13 Lymph # (Auto) 2.6 10^3/uL (0.8-4.8) 03/07/22 05:13 Carroll # (Auto) 0.8 10^3/uL (0.2-0.9) 03/07/22 05:13 Eos # (Auto) 0.2 10^3/uL (0.0-0.8) 03/07/22 05:13 Baso # (Auto) 0.1 10^3/uL (0.0-0.1) 03/07/22 05:13 Nucleated RBC % (auto) 0 % 03/07/22 05:13 Nucleated RBCs # 0.0 /100WBC 03/07/22 05:13 PT 13.00 SECONDS (12.1-14.9) 03/05/22 17:12 INR 0.95 (0.8-1.2) 03/05/22 17:12 D-Dimer 0.53 ug/mIFEU (0-0.59) 03/05/22 17:12 Sodium 139 mmol/L (136-145) 03/07/22 05:13 Potassium 4.1 mmol/L (3.5-5.1) 03/07/22 05:13 Chloride 102 mmol/L (98-107) 03/07/22 05:13 Carbon Dioxide 28 mmol/L (22-29) 03/07/22 05:13 Anion Gap 13.1 (5-19) 03/07/22 05:13 BUN 24 mg/dL (8-23) H 03/07/22 05:13 Creatinine 1.1 mg/dL (0.5-0.9) H 03/07/22 05:13 GFR Calculation 49.1 mL/min (90-130) L 03/07/22 05:13 Glucose 172 mg/dL (65-115) H 03/07/22 05:13 POC Glucose 183 mg/dL (70-110) H 03/07/22 11:56 Estimat Average Glucose 174 03/05/22 17:12 Hemoglobin A1c 7.7 % (4.0-6.0) H 03/05/22 17:12 Calculated Osmolality 296 mOsm/kg (285-295) H 03/07/22 05:13 Calcium 8.9 mg/dL (8.5-10.5) 03/07/22 05:13 Phosphorus 3.1 mg/dL (2.5-4.5) 03/05/22 17:12 Magnesium 2.1 mg/dL (1.7-2.3) 03/05/22 17:12 Iron 47 ug/dL (37-145) 03/05/22 17:12 TIBC 267 mcg/dl 03/05/22 17:12 % Saturation 17.6 % (20-50) L 03/05/22 17:12 Unsat Iron Binding 220 ug/dL (112-347) 03/05/22 17:12 Total Bilirubin 0.2 mg/dL (0.15-1.2) 03/06/22 04:50 AST 12 U/L (0-32) 03/06/22 04:50 ALT 14 U/L (0-33) 03/06/22 04:50 Alkaline Phosphatase 80 IU/L (35-105) 03/06/22 04:50 Troponin T Baseline 28 ng/L (0-10) H 03/05/22 17:12 Troponin T 120 Minute 24.90 ng/L (0-10) H 03/05/22 19:14 Delta Troponin T -3.10 ABS# (0-10) L 03/05/22 19:14 Troponin T Hi Sens 6Hr 21.70 ng/L (0-10) H 03/05/22 22:49 Troponin T Hi Sens 6Hr Delta -6.30 ng/L (0-12) L 03/05/22 22:49 NT-Pro-B Natriuret Pep 199 pg/mL (0-125) H 03/05/22 17:12 Total Protein 5.8 g/dL (6.6-8.7) L 03/06/22 04:50 Albumin 3.4 g/dL (3.5-5.2) L 03/06/22 04:50 Globulin 2.4 g/dL (1.3-4.6) 03/06/22 04:50 Triglycerides 332 mg/dL (0-150) H 03/06/22 04:50 Cholesterol 147 mg/dL (0-200) 03/06/22 04:50 LDL Cholesterol, Calc 49 mg/dL (50-129) L 03/06/22 04:50 HDL Cholesterol 32 mg/dL (60-100) L 03/06/22 04:50 LDL/HDL Ratio 1.53 RATIO (0.00-3.22) 03/06/22 04:50 Cholesterol/HDL Ratio 4.59 mg/dL (0.0-4.40) H 03/06/22 04:50 Vitamin B12 324 pg/mL (232-1245) 03/05/22 17:12 Folate 11.5 ng/mL (4.8-37.3) 03/05/22 17:12 Vitals Last Vital Signs Temp 98.4 F 03/07/22 15:57 Pulse 67 03/07/22 15:57 Resp 16 03/07/22 15:57 BP 118/77 03/07/22 15:57 Pulse Ox 92 03/07/22 15:57 O2 Del Method 03/07/22 15:57 O2 Flow Rate 2 03/06/22 08:00 Discharge Plan Discharge Patient Disposition: Home Condition: Stable Prescriptions: Continued furosemide [Lasix] 40 mg tablet 40 mg PO DAILY PRN (Reason: Edema) allopurinol 300 mg tablet 300 mg PO DAILY@08 ondansetron 4 mg tablet,disintegrating 4 mg PO Q6H PRN (Reason: Nausea) pantoprazole 40 mg tablet,delayed release (DR/EC) 40 mg PO BID methocarbamol 500 mg tablet 500 mg PO TID PRN (Reason: Muscle Spasticity) prednisone 10 mg tablet 10 mg PO DAILY PRN (Reason: gout) probenecid-colchicine 500-0.5 mg tablet 1 tab PO DAILY tramadol 50 mg tablet 50 mg PO Q6H PRN (Reason: Pain) albuterol sulfate 90 mcg/actuation Hfa Aerosol Inhaler 2 puff INHALATION QID PRN (Reason: Shortness Of Breath) metformin 500 mg tablet extended release 24 hr 1,000 mg PO QAM escitalopram oxalate 20 mg tablet 20 mg PO BEDTIME Changed metoprolol tartrate 50 mg tablet 25 mg PO BID Qty: 1 0RF Discontinued lisinopril 10 mg tablet 20 mg PO DAILY@0800 Discharge Orders: Discharge Order (Routine); Ordered 03/07/22 Ordered By: Aditya Lange Referrals: Mesha Kilgore MD [Primary Care Provider] - 4-7 days (will call patient with appointment information) Sara Valdes FNP [Nurse Practitioner] - 03/15/22 10:30 am (Interm chest pain, no ischemia on stress test, FHx CAD) Sangeeta Delvalle MD [Physician] - 2 weeks (Thyroid nodules and biopsy) Patient Instructions: Chronic Kidney Disease (GEN), High Troponin Levels (GEN), Opioid Safety Activity Restrictions/Additional Instructions: Please follow-up with cardiology, discussed intermittent chest pain. Discuss regarding stress test and echocardiogram results. Please discuss if any additional testing would be considered as opposed to continued monitoring. Please follow-up with your community center coordinator for continued work-up of iron deficiency anemia, as well as assessment for repair of large hiatal hernia. Please remember not to eat or drink anything 4 hours before going to bed. Elevate head of bed at 30 degrees. Discharge Attestations Time Spent in Discharge Care*: greater than 30 min Status at Discharge: Cognitive status at discharge: cognitively intact , Behavioral status at discharge: cooperative , Quality Metrics Clinical Quality Measures [ No reported AMI, CVA or VTE this stay] Coding Level of Care Code Acute [facility] note Diagnoses Chest pressure R07.89 CAD (coronary artery disease) I25.10 Coronary Disease-Associated Artery/Lesion type: [place] artery [place] vs. transplanted heart: [place] heart Associated angina: without angina Atrial fibrillation I48.21 Atrial fibrillation type: permanent DVT (deep venous thrombosis) I82.542 DVT location: lower extremity Affected thrombotic vein of extremity: tibial Chronicity: chronic Laterality: left CKD (chronic kidney disease) stage 2, GFR 60-89 ml/min N18.2 Anemia D64.9 HTN (hypertension) I10 Hypertension type: essential hypertension
== END 2022-03-07 16:52 | disposition home or self-care (01) | DRG 313 ==
PROVIDERS: Admitting Provider Student in an Organized Health Care Education/Training Program; PCP Internal Medicine; Visit Provider Internal Medicine
DX: R07.89 Other chest pain (principal); I25.10 Atherosclerotic heart disease of native coronary artery without angina pectoris; I48.21 Permanent atrial fibrillation; Z86.718 Personal history of other venous thrombosis and embolism; I12.9 Hypertensive chronic kidney disease with stage 1 through stage 4 chronic kidney disease, or unspecified chronic kidney disease; N18.2 Chronic kidney disease, stage 2 (mild); I82.542 Chronic embolism and thrombosis of left tibial vein; Z86.16 Personal history of COVID-19; I25.2 Old myocardial infarction; F41.9 Anxiety disorder, unspecified; G89.29 Other chronic pain; M54.9 Dorsalgia, unspecified; Z82.49 Family history of ischemic heart disease and other diseases of the circulatory system; E78.5 Hyperlipidemia, unspecified; Z87.440 Personal history of urinary (tract) infections; Z96.651 Presence of right artificial knee joint; D63.1 Anemia in chronic kidney disease; M50.322 Other cervical disc degeneration at C5-C6 level; M25.512 Pain in left shoulder; D50.9 Iron deficiency anemia, unspecified; Z79.51 Long term (current) use of inhaled steroids; Z79.891 Long term (current) use of opiate analgesic; K44.9 Diaphragmatic hernia without obstruction or gangrene; K21.9 Gastro-esophageal reflux disease without esophagitis
CPT/HCPCS: 36415; 36416; 72125; 76536; 78452; 80048; 80053; 80061; 82607; 82746; 82962; 83036; 83540; 83550; 83735; 83880; 84100; 84484; 85025; 85378; 85610; 93005; 93017; 93306; 94664; 96372; A9500; C9113; G0378; G0379; J1644; J1815; J2270; J2405; J2785

== ENCOUNTER → 2022-03-15 10:34 | Outpatient (BNVA) | payer MEDICARE, SELFPAY | PROVIDERS: PCP Internal Medicine; Visit Provider Nurse Practitioner Family | DX: I25.10 Atherosclerotic heart disease of native coronary artery without angina pectoris (principal); I48.21 Permanent atrial fibrillation; I11.0 Hypertensive heart disease with heart failure; I50.9 Heart failure, unspecified | CPT/HCPCS: 99213 ==

== ENCOUNTER 2022-05-23 11:18 | Outpatient (CLI) | payer MEDICARE, SELFPAY ==
--- NOTE | 2022-05-23 11:34 | XR_ITS ---
WS: [id number] KUB, AP view, 05/23/2022 Clinical Data: RULE OUT VIDEO CAPSULE RETENTION, IRON DEFICIENCY Comparison: None. Findings: No abnormal intraabdominal masses or calcifications are seen. There is no dilatated small bowel or ev idence of obstruction. No radiopaque foreign bodies are seen within the abdomen. There are clips in the right upper quadrant from a cholecystectomy. XR/XR KUB 11000 Impression: Negative KUB.
== END 2022-05-23 11:19 | disposition home or self-care (01) ==
LOC: RAD 11:22
PROVIDERS: PCP Internal Medicine; Visit Provider Internal Medicine Gastroenterology
DX: D50.9 Iron deficiency anemia, unspecified (principal)
CPT/HCPCS: 74018

== ENCOUNTER → 2022-08-09 13:57 | Outpatient (BNVA) | payer MEDICARE, SELFPAY | PROVIDERS: PCP Internal Medicine; Visit Provider Internal Medicine Cardiovascular Disease | DX: I47.1 Supraventricular tachycardia (principal); D50.9 Iron deficiency anemia, unspecified; I82.542 Chronic embolism and thrombosis of left tibial vein; I13.0 Hypertensive heart and chronic kidney disease with heart failure and stage 1 through stage 4 chronic kidney disease, or unspecified chronic kidney disease; N18.2 Chronic kidney disease, stage 2 (mild); I50.9 Heart failure, unspecified | CPT/HCPCS: 99214; Q3014 ==

== ENCOUNTER → 2022-08-31 09:05 | Day surgery (SDC) | payer MEDICARE, SELFPAY ==
[2022-08-31 09:27] VITALS: BP 123/76; PULSE 94; RESP 18; TEMP 36; O2SAT 94
[2022-08-31] MEDS: ferric carboxy (IVPB) 750 MG in sodium chloride 0.9% (100 ml) 100 ML 345 MG IV (09:30)
== END ==
PROVIDERS: PCP Internal Medicine; Visit Provider Internal Medicine
DX: D50.9 Iron deficiency anemia, unspecified (principal)
CPT/HCPCS: 96365; J1439

== ENCOUNTER → 2022-09-07 10:10 | Day surgery (SDC) | payer MEDICARE, SELFPAY ==
[2022-09-07] MEDS: ferric carboxy (IVPB) 750 MG in sodium chloride 0.9% (100 ml) 100 ML 300 MG IV (10:35)
[2022-09-07 10:37] VITALS: BP 150/90; PULSE 120; RESP 18; TEMP 35.9; O2SAT 95
== END ==
PROVIDERS: PCP Internal Medicine; Visit Provider Internal Medicine
DX: D50.9 Iron deficiency anemia, unspecified (principal)
CPT/HCPCS: 96365; J1439

== ENCOUNTER → 2022-11-29 08:24 | Outpatient (BNVA) | payer MEDICARE, SELFPAY | PROVIDERS: PCP Internal Medicine; Visit Provider Dermatology | DX: L72.11 Pilar cyst (principal) | CPT/HCPCS: 11423; 12034 ==

== ENCOUNTER 2023-02-06 08:55 | Outpatient (CLI) | payer MEDICARE, SELFPAY ==
--- NOTE | 2023-02-06 09:49 | MM_ITS ---
WS: [id number] BILATERAL 3D TOMOSYNTHESIS DIGITAL SCREENING MAMMOGRAPHY WITH CAD CLINICAL INFORMATION: SCREENING HISTORY: Screening mammogram. LEFT breast pain and soreness COMPARISON: January 25, 2022 TECHNIQUE: Bilateral CC and MLO views. FINDINGS: Scattered fibroglandular densities bilaterally. No suspicious focal mass, asymmetry, calcifications, or architectural distortion. No evidence of malignancy. MM/[place] [id number] IMPRESSION: BI-RADS: 1-Negative FOLLOW UP: 1 Year Follow-up Recommend return to annual screening mammography.
== END 2023-02-06 08:56 | disposition home or self-care (01) ==
LOC: RAD 08:58 → MOBLMAM 09:50
PROVIDERS: PCP Internal Medicine; Visit Provider Internal Medicine
DX: Z12.31 Encounter for screening mammogram for malignant neoplasm of breast (principal)
CPT/HCPCS: 77063; 77067

== ENCOUNTER 2023-07-19 07:38 | Outpatient (CLI) | payer MEDICARE, SELFPAY ==
--- NOTE | 2023-07-19 07:40 | CTR_ITS ---
PROCEDURE INFORMATION: Exam: CT Chest With Contrast; Diagnostic Exam date and time: 07/19/2023 8:01 AM Age: 73 years old Clinical indication: Cough; Additional info: Chronic cough TECHNIQUE: Imaging protocol: Diagnostic computed tomography of the chest with contrast. Radiation optimization: All CT scans at this facility use at least one of these dose optimization techniques: automated exposure control; mA and/or kV adjustment per patient size (includes targeted exams where dose is matched to clinical indication); or iterative reconstruction. Contrast material: OMNNI 350; Contrast volume: 100 ml; Contrast route: INTRAVENOUS (IV); REPORTING DATA: Count of CT and Cardiac NM exams in prior 12 months: This patient has received 0 known CTs and 0 known cardiac nuclear medicine studies in the 12 months prior to the current study. COMPARISON: CT angio chest PE protcl [id number] 08/09/2020 8:32 AM RADIATION DOSE METRICS: Total DLP (mGy-cm): 668.03 FINDINGS: Lungs: Unremarkable. No consolidation. No masses. Pleural spaces: Unremarkable. No pneumothorax. No pleural effusion. Heart: Unremarkable. No cardiomegaly. No pericardial effusion. Lymph nodes: Unremarkable. No enlarged lymph nodes. Vasculature: Unremarkable. No aortic aneurysm. Diaphragm: Small hiatal hernia. Liver: Marked hepatic steatosis. Gallbladder and bile ducts: Cholecystectomy. Bones/joints: Unremarkable. No acute fracture. Soft tissues: Unremarkable. Other findings: No PROCEDURE INFORMATION: CT/CT chest w con* [id number] IMPRESSION: 1. No acute intrathoracic pathology. 2. Hepatic steatosis.
[2023-07-19 08:03] LABS: Blood Urea Nitrogen 14 mg/dL (8-23)
== END 2023-07-19 07:39 | disposition home or self-care (01) ==
LOC: RAD 07:38
PROVIDERS: PCP Internal Medicine; Visit Provider Internal Medicine
DX: R05.3 Chronic cough (principal); K76.0 Fatty (change of) liver, not elsewhere classified
CPT/HCPCS: 71260; 82565; 84520; Q9967

== ENCOUNTER 2023-09-19 10:08 | Outpatient (CLI) | payer MEDICARE, SELFPAY ==
[2023-09-19 17:09] LABS: Anion Gap 16.4 (5-19); Blood Urea Nitrogen 19 mg/dL (8-23); Calcium 9.2 mg/dL (8.5-10.5); Carbon Dioxide 25 mmol/L (22-29); Chloride 99 mmol/L (98-107); Glucose 206 mg/dL (65-115); Osmolality Calculated 290 mOsm/kg (285-295); Potassium 4.4 mmol/L (3.5-5.1); Sodium 136 mmol/L (136-145)
== END 2023-09-19 10:09 | disposition home or self-care (01) ==
LOC: LAB 10:13
PROVIDERS: PCP Internal Medicine; Visit Provider Physician Assistant
DX: R19.7 Diarrhea, unspecified (principal); R10.13 Epigastric pain
CPT/HCPCS: 36415; 80048; 87045; 87328; 87329; 87427; 87449

== ENCOUNTER → 2023-10-18 10:09 | Outpatient (BNVA) | payer MEDICARE, SELFPAY | PROVIDERS: PCP Internal Medicine; Visit Provider Internal Medicine Cardiovascular Disease | DX: I48.21 Permanent atrial fibrillation (principal); I25.10 Atherosclerotic heart disease of native coronary artery without angina pectoris; I82.542 Chronic embolism and thrombosis of left tibial vein; I13.0 Hypertensive heart and chronic kidney disease with heart failure and stage 1 through stage 4 chronic kidney disease, or unspecified chronic kidney disease; N18.2 Chronic kidney disease, stage 2 (mild); I50.9 Heart failure, unspecified | CPT/HCPCS: 99214 ==

== ENCOUNTER → 2023-12-25 14:03 | Outpatient (BNVA) | payer MEDICARE, SELFPAY | PROVIDERS: PCP Internal Medicine; Visit Provider Dermatology | DX: L21.8 Other seborrheic dermatitis (principal); L72.11 Pilar cyst; L82.1 Other seborrheic keratosis; D22.39 Melanocytic nevi of other parts of face | CPT/HCPCS: 99214 ==

== ENCOUNTER → 2024-01-30 08:01 | Outpatient (BNVA) | payer MEDICARE, SELFPAY | PROVIDERS: PCP Internal Medicine; Visit Provider Dermatology | DX: D48.5 Neoplasm of uncertain behavior of skin (principal) | CPT/HCPCS: 11422; 11423; 12032; 13121 ==

== ENCOUNTER → 2024-02-13 10:26 | Outpatient (BNVA) | payer MEDICARE, SELFPAY | PROVIDERS: PCP Internal Medicine; Visit Provider Dermatology | DX: D48.5 Neoplasm of uncertain behavior of skin (principal) | CPT/HCPCS: 11423; 12034 ==

== ENCOUNTER 2024-02-22 10:23 | Outpatient (CLI) | payer MEDICARE, SELFPAY ==
--- NOTE | 2024-02-22 10:28 | MM_ITS ---
WS: [id number] Bilateral screening 3D tomosynthesis digital mammogram, 02/22/2024 Clinical Data: SCREENING Comparison: 02/06/2023, 01/25/2022, 10/22/2020, 10/04/2020, 02/28/2013, 02/17/2011, 09/07/2009. Findings: The breast parenchymal pattern shows fibroglandular tissue. No spiculated masses or clustered calcifi cations are seen. There are no secondary signs of carcinoma. Mole markers are present on both breasts . MM/[place] [id number] Impression: 1. Negative bilateral mammogram unchanged. 2. Recommend annual screening mammograms. BIRADS: 1-Negative FOLLOW UP: 1 Year Follow-up The CAD ends down checker was used.
== END 2024-02-22 10:24 | disposition home or self-care (01) ==
LOC: RAD 10:24
PROVIDERS: PCP Internal Medicine; Visit Provider Internal Medicine
DX: Z12.31 Encounter for screening mammogram for malignant neoplasm of breast (principal); R92.323 Mammographic fibroglandular density, bilateral breasts
CPT/HCPCS: 77063; 77067

== ENCOUNTER 2024-03-13 08:54 | Outpatient (CLI) | payer MEDICARE, SELFPAY ==
--- NOTE | 2024-03-13 09:07 | XR_ITS ---
WS: [id number] Lumbar spine, 7 views, AP, both obliques, spot L5-S1, lateral views in extension, flexion and neutral position, 03/13/2024 Clinical Data: LUMBAR SPINAL STENOSIS Comparison: Lumbar spine, 09/26/2017 Findings: No compression fractures or subluxation is seen. There is disc narrowing at L3-L4. There are spurs fr om L1-L5 most prominent at the L3-L4. The transverse processes and SI joints are normal. The oblique films show no spondylolysis. On flexion and extension there is no subluxation. There is f acet joint arthritis at all levels from L2-L3 through L5-S1. There are cholecystectomy clips in the right upper quadrant. XR/XR lumbar spine 6V w f/e [id number] Impression: 1. Degenerative disc narrowing at L3-L4. 2. Osteoarthritic spurs L1-L5. 3. Extensive facet joint arthritis L2-L3 through L5-S1. 4. Negative for subluxation on flexion or extension.
== END 2024-03-13 08:55 | disposition home or self-care (01) ==
PROVIDERS: PCP Internal Medicine; Visit Provider Internal Medicine
DX: M48.061 Spinal stenosis, lumbar region without neurogenic claudication (principal); M51.36 Other intervertebral disc degeneration, lumbar region; M25.78 Osteophyte, vertebrae; M47.896 Other spondylosis, lumbar region; M47.898 Other spondylosis, sacral and sacrococcygeal region; Z90.49 Acquired absence of other specified parts of digestive tract
CPT/HCPCS: 72114

== ENCOUNTER → 2024-04-28 09:19 | Outpatient (BNVA) | payer MEDICARE, SELFPAY | PROVIDERS: PCP Internal Medicine; Visit Provider Nurse Practitioner Family | DX: I48.21 Permanent atrial fibrillation (principal); I25.10 Atherosclerotic heart disease of native coronary artery without angina pectoris; I13.0 Hypertensive heart and chronic kidney disease with heart failure and stage 1 through stage 4 chronic kidney disease, or unspecified chronic kidney disease; N18.2 Chronic kidney disease, stage 2 (mild); I50.9 Heart failure, unspecified | CPT/HCPCS: 99214 ==

== ENCOUNTER 2024-06-12 07:56 | Outpatient (CLI) | payer MEDICARE, SELFPAY | END 2024-06-12 07:57 | disposition home or self-care (01) | LOC: RAD 13:20 | PROVIDERS: PCP Internal Medicine; Visit Provider Orthopaedic Surgery | DX: M51.360 Other intervertebral disc degeneration, lumbar region with discogenic back pain only (principal); M47.896 Other spondylosis, lumbar region; M25.78 Osteophyte, vertebrae; S22.080A Wedge compression fracture of T11-T12 vertebra, initial encounter for closed fracture; M51.34 Other intervertebral disc degeneration, thoracic region; X58.XXXA Exposure to other specified factors, initial encounter | CPT/HCPCS: 72072; 72110; 99204 ==

== ENCOUNTER 2024-06-16 14:11 | Outpatient (CLI) | payer MEDICARE, SELFPAY ==
--- NOTE | 2024-06-16 14:30 | MR_ITS ---
WS: [id number] MRI THORACIC SPINE WITHOUT CONTRAST TECHNIQUE: Sagittal T1, T2 and STIR imaging. Axial T2 imaging. Noncontrast imaging obtained. CLINICAL INFORMATION: Back PAin COMPARISON: None. FINDINGS: Mild thoracic curve. Mild thoracic kyphosis. Acute compression superior endplate T11 with mild edema. No significant retropulsion. Minimal loss of vertebral body height. Fracture cleft visualized in the superior endplate. Spinal canal is patent. No other acute appearing compression fractures. Normal caliber thoracic aorta. Adrenal glands are normal. Small esophageal hiatal hernia. MR/MR thoracic spin wo con* [id number] IMPRESSION: 1. Acute compression T11 with minimal loss of vertebral body height. 2. No significant retropulsion or central canal stenosis.
--- NOTE | 2024-06-16 14:30 | MR_ITS ---
WS: [id number] MRI LUMBAR SPINE NONCONTRAST TECHNIQUE: Sagittal T1, T2 and STIR imaging. Axial T1 and T2 imaging. CLINICAL INFORMATION: Back pain COMPARISON: MRI 2014 FINDINGS: Acute compression fracture T11 superior endplate as described on thoracic spine MRI. Minimal loss of vertebral body height. Diffuse edema. No significant retropulsion. L1-L2: Mild facet arthropathy. Spinal canal and foramen are patent. L2-L3: Mild annular bulging. Moderate facet arthropathy. Spinal canal and foramen are patent. L3-L4: Mild annular bulging with mild central canal stenosis. Slight effacement of the ventral thecal sac. Moderate facet arthropathy. Small LEFT foraminal protrusion with moderate LEFT foraminal narrow ing. Impingement on the exiting LEFT L3 nerve root. Mild RIGHT foraminal narrowing. L4-L5: Mild annular bulging with mild central canal stenosis. Moderate facet arthropathy. Spinal thierry l and foramen are patent. L5-S1: Mild annular bulging with slight effacement of the ventral thecal sac. Slight encroachment on the traversing LEFT S1 nerve root. Moderate facet arthropathy. Mild LEFT and no significant RIGHT for aminal narrowing. Visualized pelvic bony structures: Normal. Paravertebral soft tissues: Normal. MR/MR lumbar spine wo con* [id number] IMPRESSION: 1. Acute compression fracture T11 superior endplate as described on thoracic spine MRI. Minimal loss of vertebral body 2. Foraminal protrusion L3-4 impinges the exiting LEFT L3 nerve root with mode rate LEFT foraminal narrowing. This is progressed since 2014 with mild central canal stenosis at this level also progressed. 3. Shallow central disc bulging L4-5 with impingement on traversing L5 nerve r oots bilaterally with mild central canal stenosis. This is slightly progressed compared to 2014. 4. Disc bulging L5-S1 impinges the traversing LEFT S1 nerve root in the subart icular recess. This is also progressed compared to previous with mild LEFT L5-S 1 foraminal narrowing. 5. Moderate facet arthropathy L3-L5.
== END 2024-06-16 14:12 | disposition home or self-care (01) ==
LOC: RAD 14:11
PROVIDERS: PCP Internal Medicine; Visit Provider Orthopaedic Surgery
DX: S22.080A Wedge compression fracture of T11-T12 vertebra, initial encounter for closed fracture (principal); X58.XXXA Exposure to other specified factors, initial encounter; M47.896 Other spondylosis, lumbar region; M99.63 Osseous and subluxation stenosis of intervertebral foramina of lumbar region; M51.26 Other intervertebral disc displacement, lumbar region
CPT/HCPCS: 72146; 72148

== ENCOUNTER → 2024-06-24 10:30 | Outpatient (BNVA) | payer MEDICARE, SELFPAY | PROVIDERS: PCP Internal Medicine; Visit Provider Orthopaedic Surgery | DX: Z01.818 Encounter for other preprocedural examination (principal); R79.89 Other specified abnormal findings of blood chemistry; Z09 Encounter for follow-up examination after completed treatment for conditions other than malignant neoplasm | CPT/HCPCS: 36415; 80053; 81001; 83036; 85025; 99214 ==

== ENCOUNTER 2024-06-27 07:42 | Day surgery (SDC) | payer MEDICARE, SELFPAY ==
[2024-06-27] VITALS (14 sets, daily range): BP systolic 78–174; BP diastolic 56–110; PULSE 79–110; RESP 16–18; TEMP 36.4–36.8; O2SAT 92–95
--- NOTE | 2024-06-27 07:53 | SC_ITS ---
WS: [id number] Exam: C-arm FL for Kyphoplasty Date/Time of Exam: 06/27/2024 7:53 AM Reason For Exam: Surgery Intraoperative AP and lateral images of the thoracolumbar junction depict kyphoplasty of T11 secondar y to acute compression fracture.
--- NOTE | 2024-06-27 08:32 | P.ANESASSM_ITS ---
Pre-Anesthetic Assessment Height/Weight: Height 5 ft 7 in Weight 243 lb O2 Del Method Room Air 06/27/24 08:07 Preop Diagnosis: Thoracic 11 wedge osteoporotic compression fracture Operation Date: 06/27/24 09:25 Proposed Procedures p Kyphoplasty(Not Applicable) - Cyrus Zambrano, DO Was Beta Leesa taken within 24 hours: Yes Was Clonidine taken within 24 hours: N/A Last intake: Intake Last Liquid Date 06/26/24 Last Liquid Time 21:30 Last Solid Date 06/26/24 Last Solid Time 19:30 Social No alcohol and No tobacco Exam alert, oriented x 3, clear to auscultation bilaterally and regular rate & rhythm Airway Submandibular: within normal limits Cervical ROM: within normal limits Mallampati: Class III Dentition: false Anesthetic Plan ASA status: 3 Anesthesia: General Other: History of PONV NPO since yesterday History of hypertension on lisinopril and metoprolol, taken yesterday. CKD stage II Prior A-fib, previous EKG showing sinus prior echo showing EF 65% AYAAN, occasional treatment Type 2 diabetes, on insulin. Preop BS 208. Will give insulin Plan for TIVA with GETA Medications/Allergies Home Medications Medication Instructions Recorded Confirmed Last Taken Type allopurinol 300 mg tablet 300 mg PO DAILY@08 07/25/20 06/26/24 06/26/24 History ondansetron 4 mg disintegrating 4 mg PO Q6H PRN Nausea 07/25/20 06/26/24 09/07/22 History tablet furosemide 40 mg tablet (Lasix) 40 mg PO DAILY PRN Edema 05/26/21 06/26/24 09/07/22 History albuterol sulfate 90 mcg/actuation 2 puff inhalation QID PRN 03/06/22 06/26/24 09/07/22 History aerosol inhaler Shortness Of Breath escitalopram oxalate 20 mg tablet 20 mg PO BEDTIME 03/06/22 06/26/24 06/26/24 History methocarbamol 500 mg tablet 500 mg PO TID PRN Muscle Spasticity 03/06/22 06/26/24 06/26/24 History tramadol 50 mg tablet 50 mg PO Q6H PRN Pain 03/06/22 06/26/24 09/07/22 History lisinopril 20 mg tablet 20 mg PO DAILY 03/15/22 06/26/24 06/26/24 History metformin 500 mg tablet,extended 1,000 mg PO BID 08/09/22 06/26/24 06/26/24 History release 24 hr metoprolol tartrate 50 mg tablet 50 mg PO BID 08/09/22 06/26/24 06/27/24 History omeprazole 40 mg capsule,delayed 40 mg PO BID 08/09/22 06/26/24 06/26/24 History release dapagliflozin propanediol 5 mg 5 mg PO DAILY 10/18/23 06/26/24 06/26/24 History tablet (Farxiga) Allergies Allergy/AdvReac Type Severity Reaction Status Date / Time No Known Allergies Allergy Verified 06/26/24 11:37 [facility] Anesthesia Medical History Hiatal hernia History of COVID-19 Anemia Microcytic. Being worked up for a possible GI bleed negative on work-up so far at [facility] with GI services CAD (coronary artery disease) Abdominal pain Heart failure DVT (deep venous thrombosis) Sepsis UTI (urinary tract infection) Pre-syncope Fall Hypoxia Hypokalemia Acute on chronic anemia CKD (chronic kidney disease) stage 2, GFR 60-89 ml/min Family history of heart disease Hyperlipidemia Paroxysmal SVT (supraventricular tachycardia) Chronic low back pain Anxiety Gout HTN (hypertension) Acute non-ST elevation myocardial infarction (NSTEMI) Atrial fibrillation Pt has Hiatal hernia nd GI bleed. Surgical History S/P cataract surgery S/P shoulder surgery left Status post glaucoma surgery History of back surgery History of cholecystectomy History of appendectomy Status post right knee replacement Family History Mother Cerebral hemorrhage Myocardial infarction Father Aortic valve replaced Social History Smoking and tobacco/nicotine status: unknown if used tobacco/nicotine Alcohol intake: never Substance/Drug Use: never Household members: spouse Marital status: Current occupational status: retired Data Anesthesia Cardiac Studies: Echocardiogram 03/06/22 Echocardiogram Ultrasound 12/10/20 Sestamibi Stress Test (Cardiology) 03/06
[2024-06-27 08:40] LABS: Glucose Point of Care 208 mg/dL (70-110)
[2024-06-27] MEDS: sodium chloride 0.9% 1,000 ML 30 ML IV (08:43)
[2024-06-27] MEDS: insulin regular-human 100 units/1 mL 5 UNIT IVP (08:57)
--- NOTE | 2024-06-27 08:57 | W.PM.OPSUD ---
Surgery/Procedure H&P Update DATE OF PROCEDURE: June 27, 2024 DATE H&P PERFORMED: 06/24/24 H&P UPDATE INFORMATION: I have reviewed H&P completed within last 30 days, I have examined patient prior to procedure and No changes to prior documentation PREOP DIAGNOSIS: Thoracic 11 wedge osteoporotic compression fracture PLANNED PROCEDURE: Operation Date: 06/27/24 09:25 Proposed Procedures p Kyphoplasty(Not Applicable) - Cyrus Zambrano DO
[2024-06-27] MEDS: ceFAZolin 2,000 mg SDV 2000 MG IVP (09:13)
[2024-06-27] MEDS: lidocaine-epi 1% 20 mL INJ INJECTION (09:45)
[2024-06-27] MEDS: iohexol 300 mg/mL 50 mL Btl XX (09:47)
--- NOTE | 2024-06-27 10:22 | PM.OP ---
Operative Report Date of procedure: June 27, 2024 Pre-op diagnosis: T11 wedge traumatic osteoporotic compression fracture Post-op diagnosis: same Procedure done: T11 kyphoplasty Pathology: Biopsy of T11 was sent Surgeon: Cyrus Zambrano DO Estimated blood loss (mL): 5 Procedure: T11 kyphoplasty Patient is brought to the operative suite after an Gonasi was placed in the prone position. All his impingement well-padded. Patient's prepped and draped normal sterile fashion. Biplanar fluoroscopy was brought in the T11 vertebrae was identified. Skin incision was made over the T11 pedicle on the left. Skin incision was made the awl was inserted first. Awl was removed the tube was remained. The drill was then inserted into the T11 vertebrae. Bone fragments from the drill were then sent for biopsy. Next the balloon was inserted and inflated. The cement was then injected. AP lateral fluoroscopy ensured the cement was in good position. Tubes were removed. Wounds irrigated and closed with nylon suture. Sterile dressing was applied and patient transferred to the PACU in stable condition.
[2024-06-27 10:49] LABS: Glucose Point of Care 192 mg/dL (70-110)
--- NOTE | 2024-06-27 11:38 | ANE.PACU2 ---
Inpatient post-anesthesia follow up: Airway intact: Yes Vital signs: Temperature 97.5 F Pulse Rate 86 Respiratory Rate 16 Blood Pressure 130/90 Pulse Oximetry 92 Oxygen Delivery Me thod Room Air Oxygen Flow Rate 2 Fraction of Inspir ed Oxygen Hydration adequate: Yes Nausea and vomiting: No Pain level: 2 Mental status: Baseline
== END 2024-06-27 11:39 | disposition home or self-care (01) ==
PROVIDERS: PCP Internal Medicine; Visit Provider Orthopaedic Surgery
PROC: (CPT 22513; principal; 2024-06-27 09:25)
DX: S22.080A Wedge compression fracture of T11-T12 vertebra, initial encounter for closed fracture (principal); X58.XXXA Exposure to other specified factors, initial encounter; E11.22 Type 2 diabetes mellitus with diabetic chronic kidney disease; I12.9 Hypertensive chronic kidney disease with stage 1 through stage 4 chronic kidney disease, or unspecified chronic kidney disease; N18.2 Chronic kidney disease, stage 2 (mild); I48.91 Unspecified atrial fibrillation; G47.33 Obstructive sleep apnea (adult) (pediatric); Z79.4 Long term (current) use of insulin; Z79.84 Long term (current) use of oral hypoglycemic drugs; I25.10 Atherosclerotic heart disease of native coronary artery without angina pectoris; Z86.718 Personal history of other venous thrombosis and embolism
CPT/HCPCS: 22513; 36416; 76000; 82962; 88307; 88311; J0690; J1100; J1200; J1815; J2250; J2405; J2704; J3010; J3490; J7030

== ENCOUNTER → 2024-07-10 07:44 | Outpatient (BNVA) | payer MEDICARE, SELFPAY | PROVIDERS: PCP Internal Medicine; Visit Provider Orthopaedic Surgery | DX: Z98.890 Other specified postprocedural states (principal); Z48.89 Encounter for other specified surgical aftercare | CPT/HCPCS: 72072; 99024 ==

== ENCOUNTER 2024-08-11 14:55 | Outpatient (CLI) | payer MEDICARE, SELFPAY ==
--- NOTE | 2024-08-11 15:00 | XR_ITS ---
WS: [id number] DEXA (DUAL ENERGY X-RAY ABSORPTIOMETRY) Bone mineral density was performed using a [employer] machine. HISTORY: POSTMENOPAUSAL COMPARISON: 10/04/2020 Lumbar spine BMD (L1-L4): 1.501 g/cm2 T score: 2.7 Z score: 3.2 Total hip BMD: Left: 1.117 g/cm2. T score: 0.9 Z score: 1.7 Right: 1.063 g/cm2. T score: 0.4 Z score: 1.2 10 year probability of a major osteoporotic fracture is 19.1%. Compared to the prior study from 10/04/2020. Lumbar spine bone mineral density has increased by 6.2%. Bilateral hips bone mineral density is unchanged. XR/XR DEXA axial skeleton* [id number] IMPRESSION: NORMAL BONE MINERAL DENSITY based upon the WHO classification for females. Significant increase in bone mineral density within the lumbar spine since the prior study. No change of bone mineral density in the hips.
== END 2024-08-11 14:56 | disposition home or self-care (01) ==
LOC: RAD 14:57
PROVIDERS: PCP Internal Medicine; Visit Provider Internal Medicine
DX: Z78.0 Asymptomatic menopausal state (principal)
CPT/HCPCS: 77080

== ENCOUNTER → 2024-08-12 07:56 | Outpatient (BNVA) | payer MEDICARE, SELFPAY | PROVIDERS: PCP Internal Medicine; Visit Provider Orthopaedic Surgery | DX: Z48.89 Encounter for other specified surgical aftercare (principal); M48.062 Spinal stenosis, lumbar region with neurogenic claudication; Z01.818 Encounter for other preprocedural examination; R79.89 Other specified abnormal findings of blood chemistry | CPT/HCPCS: 36415; 80053; 81001; 83036; 85025; 99214 ==

== ENCOUNTER → 2024-08-19 08:08 | Outpatient (BNVA) | payer MEDICARE, SELFPAY | PROVIDERS: PCP Internal Medicine; Visit Provider Family Medicine | DX: Z01.818 Encounter for other preprocedural examination (principal) | CPT/HCPCS: 93005 ==

== ENCOUNTER 2024-08-29 06:45 | Day surgery (SDC) | payer MEDICARE, SELFPAY ==
[2024-08-29] VITALS (19 sets, daily range): BP systolic 112–178; BP diastolic 70–114; PULSE 100–111; RESP 12–18; TEMP 36.1–36.4; O2SAT 90–98
--- NOTE | 2024-08-29 07:06 | W.PM.OPSUD ---
Surgery/Procedure H&P Update DATE OF PROCEDURE: August 29, 2024 DATE H&P PERFORMED: 08/19/24 H&P UPDATE INFORMATION: I have reviewed H&P completed within last 30 days, I have examined patient prior to procedure and No changes to prior documentation PLANNED PROCEDURE: Operation Date: 08/29/24 08:40 Proposed Procedures p Lumbar Decompression(Not Applicable) - Cyrus Zambrano DO
[2024-08-29 07:40] LABS: Glucose Point of Care 215 mg/dL (70-110)
--- NOTE | 2024-08-29 07:43 | ANES.PREANE2 ---
Pre-Anesthetic Assessment Height/Weight: Height 5 ft 7 in Weight 235 lb Temp Pulse Resp BP Pulse Ox 96.9 F L 107 H 16 162/114 94 08/29/24 07:39 08/29/24 07:39 08/29/24 07:39 08/29/24 07:39 08/29/24 07:39 Preop Diagnosis: Lumbar stenosis with neurogenic claudication Operation Date: 08/29/24 08:40 Proposed Procedures p Lumbar Decompression(Not Applicable) - Cyrus Zambrano, DO Was Beta Leesa taken within 24 hours: Yes Was Clonidine taken within 24 hours: N/A Social No alcohol and No tobacco Exam alert, oriented x 3, clear to auscultation bilaterally and regular rate & rhythm Airway Submandibular: within normal limits Cervical ROM: within normal limits Mallampati: Class II Dentition: full Anesthetic Plan ASA status: 3 Anesthesia: General Other: No prior issues with anesthesia, patient recently had a decompression and did well NPO since yesterday History of hypertension on lisinopril and metoprolol GERD on omeprazole Type 2 diabetes on insulin. Preop BS 215 CAD, echo 2021 showing EF 65% with PA pressures of 44 Labs reviewed and acceptable for procedure Plan for GETA Medications/Allergies Home Medications ?Medication ?Instructions ?Recorded ?Confirmed ?Last Taken ?Type allopurinol 300 mg tablet 300 mg PO DAILY@08 07/25/20 08/28/24 08/28/24 History furosemide 40 mg tablet (Lasix) 40 mg PO DAILY PRN Edema 05/26/21 08/28/24 08/28/24 History escitalopram oxalate 20 mg tablet 20 mg PO BEDTIME 03/06/22 08/28/24 08/28/24 History lisinopril 20 mg tablet 20 mg PO DAILY 03/15/22 08/28/24 08/28/24 History metformin 500 mg tablet,extended 1,000 mg PO BID 08/09/22 08/28/24 08/28/24 History release 24 hr metoprolol tartrate 50 mg tablet 50 mg PO BID 08/09/22 08/28/24 08/29/24 History omeprazole 40 mg capsule,delayed 40 mg PO BID 08/09/22 08/28/24 08/28/24 History release dapagliflozin propanediol 5 mg 5 mg PO DAILY 10/18/23 08/28/24 08/28/24 History tablet (Farxiga) insulin glargine 100 unit/mL (3 60 unit SUBCUT DAILY 08/28/24 08/28/24 08/28/24 History mL) subcutaneous pen (Lantus Solostar U-100 Insulin) Allergies Allergy/AdvReac Type Severity Reaction Status Date / Time No Known Allergies Allergy Verified 08/19/24 08:40 [facility] Anesthesia Medical History Hiatal hernia History of COVID-19 Anemia Microcytic. Being worked up for a possible GI bleed negative on work-up so far at [facility] with GI services CAD (coronary artery disease) Abdominal pain Heart failure DVT (deep venous thrombosis) Sepsis UTI (urinary tract infection) Pre-syncope Fall Hypoxia Hypokalemia Acute on chronic anemia CKD (chronic kidney disease) stage 2, GFR 60-89 ml/min Family history of heart disease Hyperlipidemia Paroxysmal SVT (supraventricular tachycardia) Chronic low back pain Anxiety Gout HTN (hypertension) Acute non-ST elevation myocardial infarction (NSTEMI) Atrial fibrillation Pt has Hiatal hernia nd GI bleed. Surgical History S/P cataract surgery S/P shoulder surgery left Status post glaucoma surgery History of back surgery History of cholecystectomy History of appendectomy Status post right knee replacement Family History Mother Cerebral hemorrhage Myocardial infarction Father Aortic valve replaced Social History Smoking and tobacco/nicotine status: never used tobacco/nicotine Alcohol intake: never Substance/Drug Use: never Household members: spouse Marital status: Current occupational status: retired Data Anesthesia Cardiac Studies: Echocardiogram 03/06/22 Echocardiogram Ultrasound 12/10/20 Sestamibi Stress Test (Cardiology) 03/06/22
[2024-08-29] MEDS: sodium chloride 0.9% 1,000 ML 30 ML IV (07:49)
[2024-08-29] MEDS: ceFAZolin 2,000 mg SDV 2000 MG IVP (08:34)
[2024-08-29] MEDS: lidocaine-epi 1% 20 mL INJ INJECTION (09:11)
--- NOTE | 2024-08-29 10:08 | PM.OP ---
Operative Report Date of procedure: August 29, 2024 Pre-op diagnosis: Lumbar stenosis with neurogenic claudication Post-op diagnosis: same Procedure done: L4-5 revision laminectomy and partial facetectomy Surgeon: Cyrus Zambrano DO Estimated blood loss (mL): 10 Procedure: L4-5 revision laminectomy and partial facetectomy Patient is brought to the operative suite. After undergoing anesthesia they are placed in the prone position. All areas of impingement are well padded. Patient is then prepped and draped in the normal sterile fashion. A skin incision is made over the L4/5 level. This is confirmed under c-arm guidance. A series of dilators are passed and the tubular retractor is docked on the L4 lamina. A bovie is used to clear the soft tissue off the lamina and the L 4/5 facet joint. A high speed orlin is then used to perform the laminectomy and take down the medial aspect of the L 4/5 facet joint. A kerrison rongeure was then used to take down the remaining lamina and smooth the edge of the laminectomy up to the point where the ligamentum flavum attaches. Attention was then brought to the medial aspect of the facet joint. The remaining medial aspect of the superior and inferior aspect of the facet joint were taken down with the kerrison from the pedicle of L4 to L 5. The facet joint had significant hypertrophy. Attention was then brought to the Ligamentum Flavum. The ligament was taken down from the lamina of L4 to L5 and out medially to the remaining facet joint. The ligament was thick. The dura was then exposed. The dura was in good repair. The L nerve was then traced with a curette out the L 4 foramen and found to be adequately decompressed. The L5 nerve was traced with a curette around the L5 pedicle. The lateral recess was opened with a kerrison helping to further decompress the L5 nerve. Wound is then irrigated copiously with saline and surgiflo is used to stop any bleeding. The tubular retractor is removed and the wound is closed with vicryl and monocryl suture. Glue is then used to protect the wound. A sterile dressing is then placed. Patient was then placed in the supine position and transferred to the PACU in stable condition.
--- NOTE | 2024-08-29 10:15 | XR_ITS ---
WS: [id number] Lumbar spine, C-arm fluoroscopy views, 08/29/2024 Clinical Data: OR PICS Comparison: Lumbar spine, 06/12/2024 Findings: Dr. Zambrano performed a lumbar decompression. XR/XR lumbar spine 2-3V* [id number] Impression: Lumbar decompression.
[2024-08-29] MEDS: fentaNYL 50 mcg/mL INJ 2mL IVP (10:21)
--- NOTE | 2024-08-29 10:35 | SUR.PHASEI ---
09:59 RECEIVED PT FROM OR STAFF. RESPONSIVE TO VOICE. VENTILATING WELL. ST ON MONITOR. 10:15 WARM BLANKETS APPLIED. ROM AND SENSATION IN ALL 4 EXTREMITIES. 10:21 MEDICATED FOR MILD BACK PAIN. 10:30 PLACED ON NASAL CANNULA
[2024-08-29 10:37] LABS: Glucose Point of Care 204 mg/dL (70-110)
--- NOTE | 2024-08-29 12:24 | ANE.PACU2 ---
Inpatient post-anesthesia follow up: Airway intact: Yes Vital signs: Temperature 97.5 F Pulse Rate 104 Respiratory Rate 16 Blood Pressure 130/81 Pulse Oximetry 95 Oxygen Delivery Me thod Room Air Oxygen Flow Rate 1 Fraction of Inspir ed Oxygen Hydration adequate: Yes Nausea and vomiting: No Pain level: 2 Mental status: Baseline
== END 2024-08-29 12:27 | disposition home or self-care (01) ==
PROVIDERS: PCP Internal Medicine; Visit Provider Orthopaedic Surgery
PROC: (CPT 63005; principal; 2024-08-29 08:20)
DX: M48.062 Spinal stenosis, lumbar region with neurogenic claudication (principal); K21.9 Gastro-esophageal reflux disease without esophagitis; I13.0 Hypertensive heart and chronic kidney disease with heart failure and stage 1 through stage 4 chronic kidney disease, or unspecified chronic kidney disease; E11.22 Type 2 diabetes mellitus with diabetic chronic kidney disease; N18.2 Chronic kidney disease, stage 2 (mild); Z79.899 Other long term (current) drug therapy; I25.10 Atherosclerotic heart disease of native coronary artery without angina pectoris; Z79.4 Long term (current) use of insulin; Z86.718 Personal history of other venous thrombosis and embolism; I25.2 Old myocardial infarction; I50.9 Heart failure, unspecified; I48.91 Unspecified atrial fibrillation
CPT/HCPCS: 63047; 63048; 36416; 72100; 76000; 82962; J0690; J1100; J2405; J2704; J3010; J3490; J7030

== ENCOUNTER 2024-09-02 07:43 | Observation (INO) | payer MEDICARE, SELFPAY ==
[2024-09-02] VITALS (8 sets, daily range): BP systolic 116–185; BP diastolic 62–112; PULSE 90–111; RESP 16–20; TEMP 36.7–36.9; O2SAT 92–96
[2024-09-02 08:17] LABS: Basophils # 0.1 10^3/uL (0.0-0.1); Basophils % 0.4 %; Eosinophils # 0.2 10^3/uL (0.0-0.8); Eosinophils % 1.5 %; Hematocrit 38.2 % (36-47); Lymphocytes # 2.2 10^3/uL (0.8-4.8); Lymphocytes % 17.7 %; Mean Corpuscular HGB Conc 31.9 g/dL (30-55); Mean Corpuscular Hemoglobin 29.3 pg (27-33); Mean Corpuscular Volume 91.8 fl (85-98); Monocytes # 0.9 10^3/uL (0.2-0.9); Monocytes % 7.4 %; Neutrophils # 8.91 10^3/uL (1.8-7.7); Neutrophils % 72.3 %; Nucleated Red Blood Cells % 0 %; Platelet Count 246 10^3/cmm (157-399); Red Blood Count 4.16 10^6/uL (3.85-5.65); Red Cell Distribution Width 14.3 % (12.1-15.1); White Blood Count 12.33 10^3/uL (3.29-11.43)
[2024-09-02] MEDS: morphine 4 mg/mL SDV 1 mL IVP ×2 (08:30→12:49)
[2024-09-02] MEDS: ondansetron 2 mg/ML SDV 2 mL 4 MG IVP (08:30)
[2024-09-02] MEDS: orphenadrine 30 mg/mL Inj 2 mL 60 MG IM (08:30)
[2024-09-02] MEDS: dexamethasone 10 mg/mL INJ IM (08:30)
[2024-09-02 08:34] LABS: Alanine Aminotransferase 15 U/L (0-33); Albumin Level 3.8 g/dL (3.5-5.2); Alkaline Phosphatase 119 U/L (35-105); Anion Gap 18.9 (5-19); Aspartate Amino Transferase 17 U/L (0-32); Blood Urea Nitrogen 14 mg/dL (8-23); Calcium 9.3 mg/dL (8.5-10.5); Carbon Dioxide 26 mmol/L (22-29); Chloride 94 mmol/L (98-107); Creatinine Clr Calc Pharmacy 79.0581; Globulin 3.1 g/dL (1.3-4.6); Glucose 155 mg/dL (65-115); Osmolality Calculated 284 mOsm/kg (285-295); Potassium 3.9 mmol/L (3.5-5.1); Sodium 135 mmol/L (136-145); Total Bilirubin 0.7 mg/dL (0.15-1.2); Total Protein 6.9 g/dL (6.6-8.7)
--- NOTE | 2024-09-02 09:09 | W.ED.BACK ---
HPI - Back Pain/Injury General: Chief Complaint: ER Hold Stated Complaint: post surgical Time Seen by Provider: 09/02/24 07:44 History of Present Illness: 74-year-old female postop pain. Patient had a L4-5 revision laminectomy and partial facetectomy ectomy. She presents to the emergency room with complaint of increasing pain in her back and radiating pain into her Left leg. States she has a difficult time feeling her legs and has some loss of proprioception. This is worsened since her surgery. She is not having difficulty with urinary retention or fecal incontinence. No reported falls or trauma since surgery Associated symptoms: Deny abdominal pain, chills, dysuria, fever(s) or urinary urgency Related Data Home Medications ?Medication ?Instructions ?Recorded ?Confirmed allopurinol 300 mg tablet 300 mg PO DAILY@08 07/25/20 09/02/24 furosemide 40 mg tablet (Lasix) 40 mg PO DAILY PRN Edema 05/26/21 09/02/24 escitalopram oxalate 20 mg tablet 20 mg PO BEDTIME 03/06/22 09/02/24 metformin 500 mg tablet,extended 1,000 mg PO BID 08/09/22 09/02/24 release 24 hr metoprolol tartrate 50 mg tablet 50 mg PO BID 08/09/22 09/02/24 omeprazole 40 mg capsule,delayed 40 mg PO BID 08/09/22 09/02/24 release insulin glargine 100 unit/mL (3 60 unit SUBCUT DAILY 08/28/24 09/02/24 mL) subcutaneous pen (Lantus Solostar U-100 Insulin) atorvastatin 20 mg tablet 20 mg PO BEDTIME 09/02/24 09/02/24 dapagliflozin propanediol 10 mg 10 mg PO DAILY 09/02/24 09/02/24 tablet (Farxiga) hydrocodone 5 mg-acetaminophen 325 1 - 2 tab PO .Q4-6H PRN Pain 09/02/24 09/02/24 mg tablet lisinopril 10 mg tablet 10 mg PO DAILY 09/02/24 09/02/24 semaglutide 1 mg/dose (4 mg/3 mL) 1 mg SUBCUT Q7D 09/02/24 09/02/24 subcutaneous pen injector (Ozempic) tramadol 50 mg tablet 50 mg PO Q6H PRN Pain 09/02/24 09/02/24 Allergies Allergy/AdvReac Type Severity Reaction Status Date / Time No Known Allergies Allergy Verified 08/19/24 08:40 Review of Systems Const: Denies: fever(s) or chills Card: Denies: chest pain Resp: Denies: dyspnea GI: Denies: abdominal pain : Denies: dysuria, urinary frequency or urinary urgency Musc: Reports: back pain and extremity pain; Denies: neck pain Skin/Breast: Denies: rash PFSH ED PFSH: Medical History Hiatal hernia History of COVID-19 Anemia Microcytic. Being worked up for a possible GI bleed negative on work-up so far at [facility] with GI services CAD (coronary artery disease) Abdominal pain Heart failure DVT (deep venous thrombosis) Sepsis UTI (urinary tract infection) Pre-syncope Fall Hypoxia Hypokalemia Acute on chronic anemia CKD (chronic kidney disease) stage 2, GFR 60-89 ml/min Family history of heart disease Hyperlipidemia Paroxysmal SVT (supraventricular tachycardia) Chronic low back pain Anxiety Gout HTN (hypertension) Acute non-ST elevation myocardial infarction (NSTEMI) Atrial fibrillation Pt has Hiatal hernia nd GI bleed. Surgical History S/P cataract surgery S/P shoulder surgery left Status post glaucoma surgery History of back surgery History of cholecystectomy History of appendectomy Status post right knee replacement Family History Mother Cerebral hemorrhage Myocardial infarction Father Aortic valve replaced Social History Smoking and tobacco/nicotine status: never used tobacco/nicotine Alcohol intake: never Substance/Drug Use: never Household members: spouse Marital status: Current occupational status: retired Physical Exam Const: COMMON NORMALS: no acute distress GENERAL APPEARANCE: cooperative and comfortable ORIENTATION/CONSCIOUSNESS: Yes awake, Yes oriented to person, Yes oriented to place and Yes oriented to time HENMT: COMMON NORMALS: normocephalic, atraumatic and hearing grossly normal bilaterally HEAD & SCALP: normocephalic and atraumatic Resp: COMMON NORMALS: normal respiratory effort, No retractions, No use of accessory muscles and clear to auscultation bilaterally AUSCULTATION: clear to auscultation bilaterally Cardio: COMMON NORMALS: regular rate, regular rhythm and No murmurs present (Cardio) RATE: regular rate RHYTHM: regular rhythm GI: COMMON NORMALS: Soft to palpation and No hepatosplenomegaly present AUSCULTATION: Yes normoactive bowel sounds PALPATION: Yes Soft to palpation, No Tenderness to palpation present (GI), No Guarding due to palpation present (GI) and Yes No hepatosplenomegaly present Back/Pelvis: OTHER: Examination of the wound no signs of infection no dehiscence. Skin edges well-approximated no drainage Extremity: OTHER: No pain or swelling in the lower extremities decreased sensation in the left leg weakness noted as well patient can feel touch. No localized erythema or induration Neuro: SENSORIUM/ORIENTATION: Yes oriented to person, Yes oriented to place and Yes oriented to time Skin: COMMON NORMALS: no rashes or lesions noted GENERAL SKIN EXAM: no rashes or lesions noted Course Vital Signs: Vital signs: Vital Signs Temperature 98.2 F 09/02/24 07:45 Pulse Rate 97 09/02/24 11:34 Respiratory Rate 16 09/02/24 10:01 Blood Pressure 185/109 09/02/24 10:01 Pulse Oximetry 94 09/02/24 11:34 Oxygen Delivery Me thod Nasal Cannula 09/02/24 11:34 Oxygen Flow Rate 2 09/02/24 11:34 MDM - Back Pain/Injury Medical Decision Making Pain improved after medications given steroid and muscle relaxer anti-inflammatory and narcotic. Will admit to for pain control to Dr. Zambrano. Consult hospitalist for diabetes management Dr. Zambrano is anticipating use of steroids to control pain which will cause difficulty with blood sugar control. Medical Records I reviewed the patient's medical records. Labs I reviewed the patient's lab results. 09/02/24 08:08 09/02/24 08:08 Laboratory Results WBC 12.33 10^3/uL (3.29-11.43) H 09/02/24 08:08 RBC 4.16 10^6/uL (3.85-5.65) 09/02/24 08:08 Hgb 12.20 g/dL (11.27-16.99) 09/02/24 08:08 Hct 38.2 % (36-47) 09/02/24 08:08 MCV 91.8 fl (85-98) 09/02/24 08:08 MCH 29.3 pg (27-33) 09/02/24 08:08 MCHC 31.9 g/dL (30-55) 09/02/24 08:08 RDW 14.3 % (12.1-15.1) 09/02/24 08:08 Plt Count 246 10^3/cmm (157-399) 09/02/24 08:08 MPV 11.0 fL (7.4-10.4) H 09/02/24 08:08 Neut % (Auto) 72.3 % 09/02/24 08:08 Lymph % (Auto) 17.7 % 09/02/24 08:08 [place] % (Auto) 7.4 % 09/02/24 08:08 Eos % (Auto) 1.5 % 09/02/24 08:08 Baso % (Auto) 0.4 % 09/02/24 08:08 Neut # (Auto) 8.91 10^3/uL (1.8-7.7) H 09/02/24 08:08 Lymph # (Auto) 2.2 10^3/uL (0.8-4.8) 09/02/24 08:08 [place] # (Auto) 0.9 10^3/uL (0.2-0.9) 09/02/24 08:08 Eos # (Auto) 0.2 10^3/uL (0.0-0.8) 09/02/24 08:08 Baso # (Auto) 0.1 10^3/uL (0.0-0.1) 09/02/24 08:08 Nucleated RBC % (auto) 0 % 09/02/24 08:08 Nucleated RBCs # 0.0 /100WBC 09/02/24 08:08 Sodium 135 mmol/L (136-145) L 09/02/24 08:08 Potassium 3.9 mmol/L (3.5-5.1) 09/02/24 08:08 Chloride 94 mmol/L (98-107) L 09/02/24 08:08 Carbon Dioxide 26 mmol/L (22-29) 09/02/24 08:08 Anion Gap 18.9 (5-19) 09/02/24 08:08 BUN 14 mg/dL (8-23) 09/02/24 08:08 Creatinine 0.8 mg/dL (0.5-0.9) 09/02/24 08:08 GFR Calculation Not Reportable 09/02/24 08:08 Glucose 155 mg/dL (65-115) H 09/02/24 08:08 POC Glucose 137 mg/dL (70-110) H 09/02/24 09:33 Calculated Osmolality 284 mOsm/kg (285-295) L 09/02/24 08:08 Calcium 9.3 mg/dL (8.5-10.5) 09/02/24 08:08 Total Bilirubin 0.7 mg/dL (0.15-1.2) 09/02/24 08:08 AST 17 U/L (0-32) 09/02/24 08:08 ALT 15 U/L (0-33) 09/02/24 08:08 Alkaline Phosphatase 119 U/L (35-105) H 09/02/24 08:08 Total Protein 6.9 g/dL (6.6-8.7) 09/02/24 08:08 Albumin 3.8 g/dL (3.5-5.2) 09/02/24 08:08 Globulin 3.1 g/dL (1.3-4.6) 09/02/24 08:08 No radiology studies performed this visit Discharge Plan Discharge Patient Disposition: Admitted As Inpatient Admit Provider: Cyrus Zambrano Clinical Impression: Postlaminectomy syndrome of lumbar region, Radicular leg pain, Diabetes mellitus Condition: Stable Coding Level of Care Code ED Recruitment Assistant for Alan Grijalva
[2024-09-02 09:38] LABS: Glucose Point of Care 137 mg/dL (70-110)
[2024-09-02] MEDS: insulin glargine 100 units/1 mL 25 UNIT SUBCUT (09:48)
[2024-09-02 10:58] LABS: Bilirubin Urine Negative (Negative); Blood Urine Negative (Negative); Glucose Urine UA Negative (Normal); Ketones Urine Negative (Negative); Leukocyte Esterase Urine Negative (Negative); Nitrate Urine Negative (Negative); Protein Urine Negative (Negative); Specific Gravity, Urine 1.021 (1.005-1.030); Urine Appearance Clear (CLEAR); Urine Color Yellow (Yellow)
[2024-09-02 11:03] LABS: Add Urine Microscopic? YES; Bacteria Urine Trace /hpf; Hyaline Casts Urine 0-4 /lpf
--- NOTE | 2024-09-02 12:46 | PM.CONSULT ---
Providers/Reason For Consult Consulting Physician/Specialty*: Hospitalist Reason for Consult*: DM management Attending Physician: Cyrus Zambrano DO Primary Care Provider: Mesha Kilgore MD History of Present Illness History of Present Illness Pleasant 74-year-old lady with history of diabetes, atrial fibrillation, CAD, CHF, CKD, HTN, DVT, chronic back pain, who had undergone L4-5 revision laminectomy and partial facetectomy on 08/29 returns to the hospital due to worsening of lower back, as well as left lateral hip pain since the surgery. She denies any fever chills, malaise, or any other acute recent illness. Denies recent fall or trauma. She has had some chronic issues with that hip in the past, although her symptoms currently are worse. She is being admitted by orthopedics for additional assessment management which will include corticosteroid. She has history of diabetes, uses insulin, Farxiga, metformin for management. She normally uses somewhere between 40 and 60 units of Lantus nightly together with oral medications and consult carbohydrate diet. Review of Systems Const: Denies: fever(s), chills, body aches or malaise ENMT: Denies: throat pain Card: Denies: chest pain, edema, pre-syncope or dyspnea on exertion Resp: Denies: dyspnea, productive cough, change in phlegm color or hemoptysis GI: Denies: abdominal pain, nausea, vomiting, diarrhea, constipation, hematochezia or melena : Denies: flank pain, urinary frequency or hematuria Musc: Reports: back pain and joint pain (L lat hip); Denies: joint swelling or joint redness Skin/Breast: Denies: rash or new lesions Neuro: Denies: headache(s), dizziness or confusion Endo: Denies: polyuria or polydipsia Medications/Allergies Home Medications ?Medication ?Instructions ?Recorded ?Confirmed ?Last Taken ?Type allopurinol 300 mg tablet 300 mg PO DAILY@08 07/25/20 09/02/24 09/01/24 History furosemide 40 mg tablet (Lasix) 40 mg PO DAILY PRN Edema 05/26/21 09/02/24 08/28/24 History escitalopram oxalate 20 mg tablet 20 mg PO BEDTIME 03/06/22 09/02/24 09/01/24 History metformin 500 mg tablet,extended 1,000 mg PO BID 08/09/22 09/02/24 09/01/24 History release 24 hr metoprolol tartrate 50 mg tablet 50 mg PO BID 08/09/22 09/02/24 09/01/24 History omeprazole 40 mg capsule,delayed 40 mg PO BID 08/09/22 09/02/24 09/01/24 History release insulin glargine 100 unit/mL (3 60 unit SUBCUT DAILY 08/28/24 09/02/24 09/01/24 History mL) subcutaneous pen (Lantus Solostar U-100 Insulin) atorvastatin 20 mg tablet 20 mg PO BEDTIME 09/02/24 09/02/24 09/01/24 History dapagliflozin propanediol 10 mg 10 mg PO DAILY 09/02/24 09/02/24 09/01/24 History tablet (Farxiga) hydrocodone 5 mg-acetaminophen 325 1 - 2 tab PO .Q4-6H PRN Pain 09/02/24 09/02/24 Unknown History mg tablet lisinopril 10 mg tablet 10 mg PO DAILY 09/02/24 09/02/24 09/01/24 History semaglutide 1 mg/dose (4 mg/3 mL) 1 mg SUBCUT Q7D 09/02/24 09/02/24 Unknown History subcutaneous pen injector (Ozempic) tramadol 50 mg tablet 50 mg PO Q6H PRN Pain 09/02/24 09/02/24 Unknown History Allergies Allergy/AdvReac Type Severity Reaction Status Date / Time No Known Allergies Allergy Verified 08/19/24 08:40 PFSH Acute PFSH: Medical History Hiatal hernia History of COVID-19 Anemia Microcytic. Being worked up for a possible GI bleed negative on work-up so far at [facility] with GI services CAD (coronary artery disease) Abdominal pain Heart failure DVT (deep venous thrombosis) Sepsis UTI (urinary tract infection) Pre-syncope Fall Hypoxia Hypokalemia Acute on chronic anemia CKD (chronic kidney disease) stage 2, GFR 60-89 ml/min Family history of heart disease Hyperlipidemia Paroxysmal SVT (supraventricular tachycardia) Chronic low back pain Anxiety Gout HTN (hypertension) Acute non-ST elevation myocardial infarction (NSTEMI) Atrial fibrillation Pt has Hiatal hernia nd GI bleed. Surgical History S/P cataract surgery S/P shoulder surgery left Status post glaucoma surgery History of back surgery History of cholecystectomy History of appendectomy Status post right knee replacement Family History Mother Cerebral hemorrhage Myocardial infarction Father Aortic valve replaced Social History Smoking and tobacco/nicotine status: never used tobacco/nicotine Alcohol intake: never Substance/Drug Use: never Household members: spouse Marital status: Current occupational status: retired Vitals/I&O/Wt Last Vital Signs Temp 98.2 F 09/02/24 07:45 Pulse 97 09/02/24 11:34 Resp 16 09/02/24 10:01 BP 185/109 09/02/24 10:01 Pulse Ox 94 09/02/24 11:34 O2 Del Method Room Air 09/02/24 11:47 O2 Flow Rate 2 09/02/24 11:34 Weight last 48 hrs Weight 107.501 kg Physical Exam Const: COMMON NORMALS: patient oriented x3 and alert GENERAL APPEARANCE: cooperative ORIENTATION/CONSCIOUSNESS: Yes awake HENMT: COMMON NORMALS: oropharynx normal Neck/C-Spine: COMMON NORMALS: no JVD Resp: COMMON NORMALS: normal respiratory effort and clear to auscultation bilaterally AUSCULTATION: clear to auscultation bilaterally Cardio: COMMON NORMALS: no JVD, regular rhythm, S1 normal heart sound present, S2 normal heart sound present and No murmurs present (Cardio) RHYTHM: regular rhythm HEART SOUNDS: S1 normal heart sound present and S2 normal heart sound present GI: COMMON NORMALS: Normal to inspection, nondistended, normoactive bowel sounds present, Soft to palpation and non-tender PALPATION: Yes Soft to palpation Extremity: COMMON NORMALS: no joint enlargement and no pedal edema Neuro: COMMON NORMALS: patient oriented x3 and moves all extremities SENSORIUM/ORIENTATION: Yes alert Skin: COMMON NORMALS: no rashes or lesions noted NARRATIVE SKIN EXAM: Noted bruising around dressing over lower spine incision, without surrounding erythema, swelling. GENERAL SKIN EXAM: no rashes or lesions noted Data 09/02/24 08:08 09/02/24 08:08 A&P Assessment and plan (1) Postlaminectomy syndrome of lumbar region: Status post L4-5 revision laminectomy and partial facetectomy on 08/29. Presenting to the hospital with lower back pain radiating to the left side, left lateral hip pain. Denies any trauma. Denies any fever. Leukocytosis noted postoperatively of 12.33. She is being admitted by orthopedic surgery for further assessment management including corticosteroids. Hospitalist is consulted due to underlying diabetes and risk of hyperglycemia. She so far received 10 mg of Decadron. She was given 25 units of Lantus in the ER. Reviewed vitals, CBC, CMP, UA, ER provider note, discussed with ER provider. Continue to monitor blood glucose with risk of hyperglycemia with steroids. Monitor for risk of hypertension, gastritis, encephalopathy. Plan Diabetes, with risk of hyperglycemia with corticosteroids. She has received 25 units Lantus this morning. Reviewed blood glucose. She normally takes somewhere between 40 and 60 units of Lantus nightly. She did not take her Lantus dose last night due to hypoglycemia. Today blood glucose as low as 137. Will hold off giving additional Lantus for now. Discussed with her possibly will give 20 units tonight. Discussed with her addition of sliding scale insulin, POC glucose monitoring. Monitor for risk of hyper, hypoglycemia with corticosteroids and insulin adjustment. AYAAN: On nightly BiPAP. Atrial fibrillation, continue metoprolol. CAD, continue metoprolol, atorvastatin. CHF, as needed. Currently does not appear in decompensated CHF. CKD, HTN, DVT, Chronic back pain PDMP PDMP Reviewed: Not Reviewed Consult Attestations Medical Necessity Statement: Hospitalization was believe necessary due to worsening pain postoperative after revision laminectomy and partial facetectomy L4-5 with need for corticosteroids in a lady with underlying diabetes. and High MDM includes amount and/or complexity of data reviewed/ordered [ previous or external records, resulted lab(s)/test(s), ordered lab(s)/test(s) and other healthcare professional discussion] and described risk of complication, morbidity or mortality of management as documented Diagnoses Postlaminectomy syndrome of lumbar region M96.1
--- NOTE | 2024-09-02 12:53 | PC.NURSE ---
PATIENT O2 SATURATION DROPS AFTER MORPHINE. PATIENT PLACED ON 2 L NC UNTIL ABLE TO MAINTAIN O2 SAT. PATIENT DOES NOT NORMALLY WEAR O2.
--- NOTE | 2024-09-02 14:31 | PM.HP ---
Providers/Chief Complaint Admitting Physician: Cyrus Zambrano DO Primary Care Provider: Mesha Kilgore MD Chief Complaint: post surgical History of Present Illness Mindy Cueva is a 74 year old female admitted today with severe pain in her left leg. Patient had surgery on 08/29/2024. This point patient did well for the first 2 days after surgery and progressively got worse. At this point will put her on some steroids and see if this improves her symptoms. Review of Systems Const: Denies: fever(s), chills, body aches or malaise ENMT: Denies: throat pain Card: Denies: chest pain, edema, pre-syncope or dyspnea on exertion Resp: Denies: dyspnea, productive cough, change in phlegm color or hemoptysis GI: Denies: abdominal pain, nausea, vomiting, diarrhea, constipation, hematochezia or melena : Denies: flank pain, urinary frequency or hematuria Musc: Reports: back pain and joint pain (L lat hip); Denies: joint swelling or joint redness Skin/Breast: Denies: rash or new lesions Neuro: Denies: headache(s), dizziness or confusion Endo: Denies: polyuria or polydipsia Medications/Allergies Home Medications ?Medication ?Instructions ?Recorded ?Confirmed ?Last Taken ?Type allopurinol 300 mg tablet 300 mg PO DAILY@08 07/25/20 09/02/24 09/01/24 History furosemide 40 mg tablet (Lasix) 40 mg PO DAILY PRN Edema 05/26/21 09/02/24 08/28/24 History escitalopram oxalate 20 mg tablet 20 mg PO BEDTIME 03/06/22 09/02/24 09/01/24 History metformin 500 mg tablet,extended 1,000 mg PO BID 08/09/22 09/02/24 09/01/24 History release 24 hr metoprolol tartrate 50 mg tablet 50 mg PO BID 08/09/22 09/02/24 09/01/24 History omeprazole 40 mg capsule,delayed 40 mg PO BID 08/09/22 09/02/24 09/01/24 History release insulin glargine 100 unit/mL (3 60 unit SUBCUT DAILY 08/28/24 09/02/24 09/01/24 History mL) subcutaneous pen (Lantus Solostar U-100 Insulin) atorvastatin 20 mg tablet 20 mg PO BEDTIME 09/02/24 09/02/24 09/01/24 History dapagliflozin propanediol 10 mg 10 mg PO DAILY 09/02/24 09/02/24 09/01/24 History tablet (Farxiga) hydrocodone 5 mg-acetaminophen 325 1 - 2 tab PO .Q4-6H PRN Pain 09/02/24 09/02/24 Unknown History mg tablet lisinopril 10 mg tablet 10 mg PO DAILY 09/02/24 09/02/24 09/01/24 History semaglutide 1 mg/dose (4 mg/3 mL) 1 mg SUBCUT Q7D 09/02/24 09/02/24 Unknown History subcutaneous pen injector (Ozempic) tramadol 50 mg tablet 50 mg PO Q6H PRN Pain 09/02/24 09/02/24 Unknown History Allergies Allergy/AdvReac Type Severity Reaction Status Date / Time No Known Allergies Allergy Verified 08/19/24 08:40 PFSH Acute PFSH: Medical History Hiatal hernia History of COVID-19 Anemia Microcytic. Being worked up for a possible GI bleed negative on work-up so far at [facility] with GI services CAD (coronary artery disease) Abdominal pain Heart failure DVT (deep venous thrombosis) Sepsis UTI (urinary tract infection) Pre-syncope Fall Hypoxia Hypokalemia Acute on chronic anemia CKD (chronic kidney disease) stage 2, GFR 60-89 ml/min Family history of heart disease Hyperlipidemia Paroxysmal SVT (supraventricular tachycardia) Chronic low back pain Anxiety Gout HTN (hypertension) Acute non-ST elevation myocardial infarction (NSTEMI) Atrial fibrillation Pt has Hiatal hernia nd GI bleed. Surgical History S/P cataract surgery S/P shoulder surgery left Status post glaucoma surgery History of back surgery History of cholecystectomy History of appendectomy Status post right knee replacement Family History Mother Cerebral hemorrhage Myocardial infarction Father Aortic valve replaced Social History Smoking and tobacco/nicotine status: never used tobacco/nicotine Alcohol intake: never Substance/Drug Use: never Household members: spouse Marital status: Current occupational status: retired Vitals/I&O/Wt Last Vital Signs Temp 98.4 F 09/02/24 13:58 Pulse 101 H 09/02/24 13:58 Resp 17 09/02/24 13:58 BP 164/84 09/02/24 13:58 Pulse Ox 94 09/02/24 12:49 O2 Del Method Room Air 09/02/24 13:29 O2 Flow Rate 2 09/02/24 11:34 Weight last 48 hrs Weight 243 lb 8 oz Weight 237 lb Physical Exam Narrative: Alert and oriented x 3 Head is normocephalic atraumatic Respirations are intact No evidence of any rashes or infection 5/5 strength in bilateral upper and lower extremities patient is pain hard to get a good assessment of strength of the left leg but does have strong plantarflexion dorsiflexion. When leg moves it hurts. Sensation intact in all extremities Deep tendon reflexes 2 out of 4 bilateral upper and lower extremities Data 09/02/24 08:08 09/02/24 08:08 A&P Assessment and plan (1) Status post lumbar laminectomy: Patient is status post laminectomy. Will put on Decadron and give morphine and hydrocodone for pain Will recheck in a.m. PDMP PDMP Reviewed: Not Reviewed Attestations Medical Necessity Statement*: Pain control Coding Level of Care Code Acute Code for Chg Fwd Diagnoses Status post lumbar laminectomy Z98.890
[2024-09-02] MEDS: lisinopril 10 mg Tablet PO (15:08)
[2024-09-02] MEDS: HYDROcodone-acetaminophen 5-325 mg Tablet 1 TAB PO ×2 (15:08→20:39)
[2024-09-02] MEDS: dexamethasone 10 mg/mL INJ IVP ×2 (15:08→20:38)
[2024-09-02 16:39] LABS: Glucose Point of Care 298 mg/dL (70-110)
[2024-09-02] MEDS: insulin lispro 100 unit/1 mL SUBCUT ×2 (17:05→21:06)
[2024-09-02] MEDS: metoprolol tartrate 50 mg Tablet PO (17:05)
[2024-09-02] MEDS: pantoprazole DR 40 mg Tablet PO (17:05)
[2024-09-02] MEDS: escitalopram 10 mg Tablet 20 MG PO (20:38)
[2024-09-02] MEDS: atorvastatin 40 mg Tablet 20 MG PO (20:39)
[2024-09-02 20:55] LABS: Glucose Point of Care 348 mg/dL (70-110)
[2024-09-03] VITALS: BP 132/84; PULSE 92; RESP 16; TEMP 36.6; O2SAT 98
[2024-09-03] MEDS: HYDROcodone-acetaminophen 5-325 mg Tablet 1 TAB PO ×4 (00:31→14:06)
[2024-09-03] MEDS: dexamethasone 10 mg/mL INJ IVP ×3 (02:35→14:06)
[2024-09-03 04:00] VITALS: BP 142/90; PULSE 90; RESP 16; TEMP 36.5; O2SAT 93
[2024-09-03 07:12] VITALS: BP 139/82; PULSE 92; RESP 15; TEMP 36.9; O2SAT 92
[2024-09-03] MEDS: metoprolol tartrate 50 mg Tablet PO ×2 (08:20→17:20)
[2024-09-03] MEDS: pantoprazole DR 40 mg Tablet PO ×2 (08:20→17:20)
[2024-09-03] MEDS: lisinopril 10 mg Tablet PO (08:20)
[2024-09-03] MEDS: allopurinol 300 mg Tablet PO (08:20)
[2024-09-03] MEDS: insulin lispro 100 unit/1 mL SUBCUT ×3 (08:22→17:20)
--- NOTE | 2024-09-03 09:55 | PC.CHAP ---
Pastoral Care Encounter/Spiritual Assessment Type of Contact [] Declined merchandise presentation associate visit [] Patient/Family/Request visit [] Outpatient visit [] Follow-up visit [] Physician referral [] Code/Alert [x] Routine visit [] Staff referral [] Actively dying [] Patient sleeping [x] Family support [] [] Out of room [] Palliative care [] [] Receiving care in room [] Pre-surgical visit [] Trauma [] Long length of stay [] ICU visit [] Other: Relational/Emotional Strength [x] Patient feels connected with others/family/visitors/staff [] Distress [] Loneliness/isolation [] Abandonment Spirituality of Patient [x] Person of Jackie [] Attends Spiritism of their Jackie [x] Believes in Prayer [] Reads Bible or Congregational materials [] There are Spiritual issues to be addressed Food General Manager Interventions [x] Prayer [x] Active listening [x] Non-anxious presence [x] Spiritual/emotional support [] Crisis/trauma care [] Spiritual counseling [] Bereavement support [] Provided bereavement packet [] Provided Bible/devotional materials [] Provided toy/stuffed animal, coloring book to patient or family member [] Provided Communion [] Anointing/[place] [] Salvation [x] Completed spiritual assessment [] Other: Impact on Illness or Injury [] Angry [] Fearful [] Anxious [] Often cries [] Exhaustion [] Unable to work [] Unable to attend rastafari [] Unable to walk/stand [] Unable to read [] Unable to drive [] Unable to eat/drink [] Unable to sleep [] Unable to be with family [] Patient intubated [] Other: Summary Time spent with patient 5 min
[2024-09-03 10:52] LABS: Glucose Point of Care 340 mg/dL (70-110)
--- NOTE | 2024-09-03 10:56 | CT_ITS ---
WS: [id number] Noncontrast CT LEFT hip TECHNIQUE: Noncontrast CT LEFT hip with coronal and sagittal reformatted images. CLINICAL INFORMATION: pain since fall COMPARISON: None. DLP: 619.[address] scans at [facility] use at least one of these dose optimization techniques: automated exposure control; mA and/or kV adjustment per patient size (includes targeted exams where dose is matched to clinical indication); or iterative reconstruction. FINDINGS: Moderate arthritis LEFT hip. Normal femoral head and neck. No acute femoral head or neck fractures. Hypertrophic changes about the greater trochanter. Proximal femoral shaft appears normal. Degenerative arthritis LEFT sacroiliac joint. Normal visualized LEFT pubic rami. Subchondral cystic change involving the acetabulum. Fat-containing LEFT inguinal hernia. A few sigmoid diverticuli. CT/CT hip LT wo con* [id number] IMPRESSION: No acute LEFT hip fractures
[2024-09-03] MEDS: insulin glargine 100 units/1 mL 40 UNIT SUBCUT (11:23)
[2024-09-03 11:35] VITALS: BP 127/72; PULSE 94; RESP 15; TEMP 36.8; O2SAT 92
[2024-09-03 15:15] VITALS: BP 167/106; PULSE 99; RESP 16; TEMP 36.8; O2SAT 95
[2024-09-03 17:05] LABS: Glucose Point of Care 299 mg/dL (70-110)
--- NOTE | 2024-09-03 17:06 | P.DS_ITS ---
Discharge Providers Date of Admission: 09/02/24 09:50 Date of Discharge: September 03, 2024 Attending Provider at Admission: Cyrus Zambrano DO Attending Provider at Discharge: Cyrus Zambrano DO Primary Care Provider: Mesha Kilgore MD Diagnoses at Discharge Discharge Diagnosis (1) Postlaminectomy syndrome of lumbar region: Status: Acute (2) Status post lumbar laminectomy: Status: Acute Reason for Visit Reason for Visit: post surgical Physical Exam Narrative: Patient doing much better at this point. She has point tenderness over her bursa I think there is a component of bursitis to her pain. Discharge Data Studies Completed and Pending Completed Studies During Hospitalization Category Date Time Status CT hip LT wo con* [id number] Routine Cat Scan 09/03/24 10:56 Completed Radiology Impressions Hip CT 09/03/24 10:56 IMPRESSION: No acute LEFT hip fractures Laboratory Results WBC 12.33 10^3/uL (3.29-11.43) H 09/02/24 08:08 RBC 4.16 10^6/uL (3.85-5.65) 09/02/24 08:08 Hgb 12.20 g/dL (11.27-16.99) 09/02/24 08:08 Hct 38.2 % (36-47) 09/02/24 08:08 MCV 91.8 fl (85-98) 09/02/24 08:08 MCH 29.3 pg (27-33) 09/02/24 08:08 MCHC 31.9 g/dL (30-55) 09/02/24 08:08 RDW 14.3 % (12.1-15.1) 09/02/24 08:08 Plt Count 246 10^3/cmm (157-399) 09/02/24 08:08 MPV 11.0 fL (7.4-10.4) H 09/02/24 08:08 Neut % (Auto) 72.3 % 09/02/24 08:08 Lymph % (Auto) 17.7 % 09/02/24 08:08 [place] % (Auto) 7.4 % 09/02/24 08:08 Eos % (Auto) 1.5 % 09/02/24 08:08 Baso % (Auto) 0.4 % 09/02/24 08:08 Neut # (Auto) 8.91 10^3/uL (1.8-7.7) H 09/02/24 08:08 Lymph # (Auto) 2.2 10^3/uL (0.8-4.8) 09/02/24 08:08 [place] # (Auto) 0.9 10^3/uL (0.2-0.9) 09/02/24 08:08 Eos # (Auto) 0.2 10^3/uL (0.0-0.8) 09/02/24 08:08 Baso # (Auto) 0.1 10^3/uL (0.0-0.1) 09/02/24 08:08 Nucleated RBC % (auto) 0 % 09/02/24 08:08 Nucleated RBCs # 0.0 /100WBC 09/02/24 08:08 Sodium 135 mmol/L (136-145) L 09/02/24 08:08 Potassium 3.9 mmol/L (3.5-5.1) 09/02/24 08:08 Chloride 94 mmol/L (98-107) L 09/02/24 08:08 Carbon Dioxide 26 mmol/L (22-29) 09/02/24 08:08 Anion Gap 18.9 (5-19) 09/02/24 08:08 BUN 14 mg/dL (8-23) 09/02/24 08:08 Creatinine 0.8 mg/dL (0.5-0.9) 09/02/24 08:08 GFR Calculation Not Reportable 09/02/24 08:08 Glucose 155 mg/dL (65-115) H 09/02/24 08:08 POC Glucose 299 mg/dL (70-110) H 09/03/24 16:51 Calculated Osmolality 284 mOsm/kg (285-295) L 09/02/24 08:08 Calcium 9.3 mg/dL (8.5-10.5) 09/02/24 08:08 Total Bilirubin 0.7 mg/dL (0.15-1.2) 09/02/24 08:08 AST 17 U/L (0-32) 09/02/24 08:08 ALT 15 U/L (0-33) 09/02/24 08:08 Alkaline Phosphatase 119 U/L (35-105) H 09/02/24 08:08 Total Protein 6.9 g/dL (6.6-8.7) 09/02/24 08:08 Albumin 3.8 g/dL (3.5-5.2) 09/02/24 08:08 Globulin 3.1 g/dL (1.3-4.6) 09/02/24 08:08 Urine Color Yellow (Yellow) 09/02/24 10:42 Urine Appearance Clear (CLEAR) 09/02/24 10:42 Urine pH 6.0 (5-7) 09/02/24 10:42 Ur Specific [place] 1.021 (1.005-1.030) 09/02/24 10:42 Urine Protein Negative (Negative) 09/02/24 10:42 Urine Glucose (UA) Negative (Normal) 09/02/24 10:42 Urine Ketones Negative (Negative) 09/02/24 10:42 Urine Blood Negative (Negative) 09/02/24 10:42 Urine Nitrate Negative (Negative) 09/02/24 10:42 Urine Bilirubin Negative (Negative) 09/02/24 10:42 Urine Urobilinogen 1.0 mg/dL (Negative) 09/02/24 10:42 Ur Leukocyte Esterase Negative (Negative) 09/02/24 10:42 Urine RBC 6-10 /hpf (0-2) 09/02/24 10:42 Urine WBC 6-10 /hpf (0-5) 09/02/24 10:42 Ur Squamous Epith Cells 6-10 /hpf (0-5) 09/02/24 10:42 Amorphous Sediment Not Reportable 09/02/24 10:42 Urine Bacteria Trace /hpf (NONE) 09/02/24 10:42 Hyaline Casts 0-4 /lpf H 09/02/24 10:42 Vitals Last Vital Signs Temp 98.3 F 09/03/24 15:15 Pulse 99 09/03/24 15:15 Resp 16 09/03/24 15:15 BP 167/106 09/03/24 15:15 Pulse Ox 95 09/03/24 15:15 O2 Del Method Room Air 09/03/24 15:15 O2 Flow Rate 2 09/02/24 11:34 Discharge Plan Discharge Patient Disposition: Home Condition: Stable Prescriptions: New hydrocodone-acetaminophen 5-325 mg tablet 1 - 2 tab PO .Q4-6H Qty: 40 0RF prednisone 20 mg tablet 20 mg PO DAILY 7 Days Qty: 15 0RF Rx Instructions: 60 mg day 1-3 (3 pills) 40 mg day 4-5 (2 pills) 20 mg day 6-7 (1 pill) monitor blood sugars closely Continued furosemide [Lasix] 40 mg tablet 40 mg PO DAILY PRN (Reason: Edema) metoprolol tartrate 50 mg tablet 50 mg PO BID Rx Instructions: May take extra 25mg PRN omeprazole 40 mg capsule,delayed release(DR/EC) 40 mg PO BID allopurinol 300 mg tablet 300 mg PO DAILY@08 insulin glargine [Lantus Solostar U-100 Insulin] 100 unit/mL (3 mL) insulin pen 60 unit SUBCUT DAILY atorvastatin 20 mg tablet 20 mg PO BEDTIME tramadol 50 mg tablet 50 mg PO Q6H PRN (Reason: Pain) lisinopril 10 mg tablet 10 mg PO DAILY dapagliflozin propanediol [Farxiga] 10 mg tablet 10 mg PO DAILY Ozempic 1 mg/dose (4 mg/3 mL) pen injector 1 mg SUBCUT Q7D escitalopram oxalate 20 mg tablet 20 mg PO BEDTIME metformin 500 mg tablet extended release 24 hr 1,000 mg PO BID Discontinued hydrocodone-acetaminophen 5-325 mg tablet 1 - 2 tab PO .Q4-6H PRN (Reason: Pain) Discharge Orders: Discharge Order (Routine); Ordered 09/03/24 Ordered By: Cyrus Zambrano Referrals: Mesha Kilgore MD [Primary Care Provider] - Discharge Diet: Advance as tolerated Discharge Activity: Limit activity as instructed Patient Instructions: Opioid Safety Activity Restrictions/Additional Instructions: Thank you for [facility] for your care! The following is a list of instructions, from your provider, to follow upon your discharge to ensure you have the optimal recovery from your recent injury orsurgery. Follow-up care is a [place] part of your treatment and safety. Be sure to make and go to all appointments, and call your doctor if you are having problems. If you do not already have a follow-up appointment made, call Dr. Zambrano office in the next 1-3 days to make follow up appointment for 1 weeks at [phone]. It is also a good idea to know your test results and keep a list of the medicines you take. Medications will be prescribed for you at your provider's discretion. These medications are to be used as instructed; if they are taken more often that prescribed they will not be refilled early and in most cases will not be refilled at all. > When a refill is needed,you should contact nika bernardo 2-3 business days before your prescription runs out. Medications will NOT be refilled by natural resource economist providers after hours! > Many pain medications contain Tylenol (Acetaminophen). Do not consume more than 4,000 mg of Tylenol per day in total with any combination ofmedications. > Pain medications can cause constipation. Please use an over the counter stool softener as directed, while taking pain medications. Consulty our local pharmacist with questions or recommendations on stool softeners. If constipation persists, contact our office or your primary care provider. > While under our care,you are not to receive pain medications or other controlled substances from any other provider unless our office is notified and approves. Any attempts to do so will result in refusal to prescribe any further pain medications and possible dismissal from our practice. ? Your wound and/or dressing should remain clean and dry for 2 days after surgery. On postoperative day 2 (48 hours after your surgery) the dressing (if present) should be removed and it is okay to shower and get the incision wet. Pad dry afterwards. No further dressing should be required from that point on. Do not put any creams or ointments on theincision > It is normal for there to be a small amount of discharge (bloody or blood tinged) present from a surgical wound for the first 1-3days. > The wound should be examined twice a day for signs of infection. Mild redness or bruising is to be expected but indications that an infection maybe starting would include; An increase in redness, swelling, or discharge, a foul odor present around the incision, and/or a fever greater than 101 ?F ? Showering is permitted, however we ask that you do not take a bath, sit in a whirlpool / Jacuzzi, or go swimming for 1 month. For only the first 2 days after surgery, lt wilt be necessary for you to cover your wound/dressing with plastic and tape to keep it dry. ? Walking is essential for the healing process after surgery. We would like you to slowly advance your walking. This should be done on relatively flat clear ground (inside or out) or can be done on a treadmill. Remember this goal does not have to happen all at once, slowly increase your distance and duration. This can be broken into more more than one walk per day as tolerated. Patients who walk as directed after surgery rarely require Physical Therapy. In the unlikely event this issue arises your provider will direct hospital staff to make the appropriate arrangements. ? No lifting over 5 pounds {a gallon of milk) or bending/twisting until further notice. Each of these activities places an unnecessary amount of stress onto the body and can impede the delicate healing process. > Instead of bending at the waist, keep your back straight and bend at the knees. > Instead of twisting your torso, keep your back straight and turn your entire body with your feet. ? You may sleep in any position which makes you comfortable. Many patients find comfort sleeping in a reclining chair. It is not abnormal to have difficulty sleeping for the first several weeks following your surgery. We recommend trying Benadry! or Tylenol PM as directed to help with your sleeping difficulties. Both medications are over the counter and available withoutprescription. ? NO SMOKING!!! Smoking dramatically increases the probability of developing postoperative wound infections. ? Common complaints after lumbar and/or thoracic spine surgery include, but are not limited to: numbness and/or tingling in the legs, pain around the incision and surrounding tissues, muscle spasms, or stiffness of the middle to low back. Contact our office if these symptoms persist or if an acute change occurs. ? No driving for the first 3-5days, and not while taking narcotics until seen at your follow-up appointment and cleared. There are no restrictions for riding on short trips, however if you take a longer trip, arrangements should be made to make regular stops to get out of the vehicle and stretch . ? Swelling is an unfortunate event that will take place with any surgery and is the primary source of your postoperative discomfort. While walking and regular approved activities helps control inflammation, there are additional steps you can take to minimizeswelling. > Place ice over the surgical site and surrounding tissue for twenty minutes, followed by applying a low/medium heat (heating pad) for an additional twenty minutes every 1-2 hours as needed for painrelief. > You may use of over the counter anti-inflammatory medications (Ibuprofen, Motrin, Aleve, Advil, etc) as directed on the package label. These types of medicines wm significantly reduce the amount of discomfort you experience after surgery from swelling. It should be noted that if you have and allergy to any of these medications, or a history of ulcers or kidney disease you should consult you primary care provider prior to starting these medications. Discharge Attestations Time Spent in Discharge Care*: less than 30 min Status at Discharge: Cognitive status at discharge: cognitively intact , Behavioral status at discharge: cooperative , Quality Metrics Clinical Quality Measures [ No reported AMI, CVA or VTE this stay] Coding Level of Care Code Acute Code for Chg Fwd Diagnoses Postlaminectomy syndrome of lumbar region M96.1 Status post lumbar laminectomy Z98.890
--- NOTE | 2024-09-03 17:17 | P.PN_ITS ---
Subjective 2 Subjective: She is feeling some improvement in her symptoms. This afternoon she discussed discharge home with orthopedic surgery. Vitals/I&O/Wt Last Vital Signs Temp 98.3 F 09/03/24 15:15 Pulse 99 09/03/24 15:15 Resp 16 09/03/24 15:15 BP 167/106 09/03/24 15:15 Pulse Ox 95 09/03/24 15:15 O2 Del Method Room Air 09/03/24 15:15 O2 Flow Rate 2 09/02/24 11:34 09/03/24 09/03/24 09/03/24 06:59 14:59 22:59 Intake Total 240 / 480 480 / 480 Output Total 1100 / 1600 Balance -860 / -1120 480 / 480 Weight last 48 hrs Weight 110.586 kg Weight 110.45 kg Weight 107.501 kg Physical Exam 2 Const: COMMON NORMALS: patient oriented x3 and alert GENERAL APPEARANCE: c ooperative ORIENTATION/CONSCIOUSNESS: Yes awake HENMT: COMMON NORMALS: oropharynx normal Neck/C-Spine: COMMON NORMALS: no JVD Resp: COMMON NORMALS: normal respiratory effort and clear to auscultation bilaterally AUSCULTATION: clear to auscultation bilaterally Cardio: COMMON NORMALS: no JVD, regular rhythm, S1 normal heart sound present, S2 normal heart sound present and No murmurs present (Cardio) RHYTHM: regular rhythm HEART SOUNDS: S1 normal heart sound present and S2 normal heart sound present GI: COMMON NORMALS: Normal to inspection, nondistended, normoactive bowel sounds present, Soft to palpation and non-tender PALPATION: Yes Soft to palpation Extremity: COMMON NORMALS: no joint enlargement and no pedal edema Neuro: COMMON NORMALS: patient oriented x3 and moves all extremities S ENSORIUM/ORIENTATION: Yes alert Skin: COMMON NORMALS: no rashes or lesions noted GENERAL SKIN EXAM: no rashes or lesions noted Data 09/02/24 08:08 09/02/24 08:08 A&P Assessment and plan (1) Postlaminectomy syndrome of lumbar region: She was reassessed by orthopedic surgery, and they have discussed return home with oral steroid. Discussed with her regarding hyperglycemia. For now continue Lantus at 45 units. Monitor blood glucose, in case of persistently elevated blood glucose, instructed to increase insulin dose slowly, 2-3 units over 24-hour period. Decrease quickly in case of hypoglycemia. Follow-up with primary care provider and reconciliation specialist. Reviewed orthopedic note. POC glucose. Discussed with nursing, case loader operator. Plan Diabetes, with risk of hyperglycemia with corticosteroids. Lantus dose adjusted as above. AYAAN: On nightly BiPAP. Atrial fibrillation, continue metoprolol. CAD, continue metoprolol, atorvastatin. CHF, as needed. Currently does not appear in decompensated CHF. CKD, HTN, DVT, Chronic back pain PDMP PDMP Reviewed: Not Reviewed Attestations 2 Medical Necessity Statement*: Returning home with follow-up. Coding Level of Care Code Acute Code for Chg Fwd Diagnoses Postlaminectomy syndrome of lumbar region M96.1
[2024-09-03 18:37] VITALS: BP 167/106; PULSE 99; RESP 16; TEMP 36.8; O2SAT 95
== END 2024-09-03 18:30 | disposition home or self-care (01) ==
LOC: ER 09:11 → ER IP 11:54 → MEDSURG 12:53 → ER IP 14:51
PROVIDERS: Admitting Provider Orthopaedic Surgery; Emergency Provider Family Medicine; PCP Internal Medicine; Visit Provider Orthopaedic Surgery
DX: M96.1 Postlaminectomy syndrome, not elsewhere classified (principal); Z79.899 Other long term (current) drug therapy; Z79.84 Long term (current) use of oral hypoglycemic drugs; Z79.4 Long term (current) use of insulin; Z79.85 Long-term (current) use of injectable non-insulin antidiabetic drugs; Z86.16 Personal history of COVID-19; I25.10 Atherosclerotic heart disease of native coronary artery without angina pectoris; Z86.718 Personal history of other venous thrombosis and embolism; I50.9 Heart failure, unspecified; Z87.440 Personal history of urinary (tract) infections; N18.2 Chronic kidney disease, stage 2 (mild); E78.5 Hyperlipidemia, unspecified; F41.9 Anxiety disorder, unspecified; M10.9 Gout, unspecified; I13.0 Hypertensive heart and chronic kidney disease with heart failure and stage 1 through stage 4 chronic kidney disease, or unspecified chronic kidney disease; I48.91 Unspecified atrial fibrillation; I25.2 Old myocardial infarction; Z90.49 Acquired absence of other specified parts of digestive tract; Z96.651 Presence of right artificial knee joint; G47.33 Obstructive sleep apnea (adult) (pediatric); Z98.890 Other specified postprocedural states
CPT/HCPCS: 36415; 36416; 73700; 80053; 81001; 82962; 85025; 96372; 96374; 96375; 96376; 97116; 97161; 99285; G0378; J1100; J1815; J2270; J2360; J2405

== ENCOUNTER → 2024-09-11 08:41 | Outpatient (BNVA) | payer MEDICARE, SELFPAY | PROVIDERS: PCP Internal Medicine; Visit Provider Orthopaedic Surgery | DX: Z98.890 Other specified postprocedural states (principal) | CPT/HCPCS: 99024 ==

== ENCOUNTER → 2024-10-09 08:00 | Outpatient (BNVA) | payer MEDICARE, SELFPAY | PROVIDERS: PCP Internal Medicine; Visit Provider Orthopaedic Surgery | DX: Z48.89 Encounter for other specified surgical aftercare (principal) | CPT/HCPCS: 72100; 99024 ==

== ENCOUNTER → 2024-10-29 14:56 | Outpatient (BNVA) | payer MEDICARE, SELFPAY | PROVIDERS: PCP Internal Medicine; Visit Provider Internal Medicine Cardiovascular Disease | DX: I47.11 Inappropriate sinus tachycardia, so stated (principal); I25.10 Atherosclerotic heart disease of native coronary artery without angina pectoris; G62.9 Polyneuropathy, unspecified; G47.30 Sleep apnea, unspecified; Z99.89 Dependence on other enabling machines and devices; I12.9 Hypertensive chronic kidney disease with stage 1 through stage 4 chronic kidney disease, or unspecified chronic kidney disease; N18.2 Chronic kidney disease, stage 2 (mild) | CPT/HCPCS: 99214 ==

== ENCOUNTER → 2024-11-12 13:07 | Outpatient (BNVA) | payer MEDICARE, SELFPAY | PROVIDERS: PCP Internal Medicine; Visit Provider Nurse Practitioner Family | DX: I13.0 Hypertensive heart and chronic kidney disease with heart failure and stage 1 through stage 4 chronic kidney disease, or unspecified chronic kidney disease (principal); N18.2 Chronic kidney disease, stage 2 (mild); I50.9 Heart failure, unspecified; R00.0 Tachycardia, unspecified; I48.91 Unspecified atrial fibrillation; G47.33 Obstructive sleep apnea (adult) (pediatric); I25.10 Atherosclerotic heart disease of native coronary artery without angina pectoris; R94.6 Abnormal results of thyroid function studies; I25.2 Old myocardial infarction | CPT/HCPCS: 36415; 84439; 84443; 84481; 93005; 99214 ==

== ENCOUNTER → 2024-11-20 08:06 | Outpatient (BNVA) | payer MEDICARE, SELFPAY | PROVIDERS: PCP Internal Medicine; Visit Provider Orthopaedic Surgery | DX: Z98.890 Other specified postprocedural states (principal) | CPT/HCPCS: 93005; 99024 ==

== ENCOUNTER → 2024-11-27 08:52 | Outpatient (BNVA) | payer MEDICARE, SELFPAY | PROVIDERS: PCP Internal Medicine; Visit Provider Nurse Practitioner Family | DX: I47.11 Inappropriate sinus tachycardia, so stated (principal); I10 Essential (primary) hypertension; I25.10 Atherosclerotic heart disease of native coronary artery without angina pectoris | CPT/HCPCS: 99213 ==

== ENCOUNTER → 2025-02-17 10:42 | Outpatient (BNVA) | payer MEDICARE, SELFPAY | PROVIDERS: PCP Internal Medicine; Visit Provider Dermatology | DX: L82.1 Other seborrheic keratosis (principal); L72.0 Epidermal cyst; D22.39 Melanocytic nevi of other parts of face; L72.11 Pilar cyst; D48.5 Neoplasm of uncertain behavior of skin; L57.0 Actinic keratosis | CPT/HCPCS: 11102; 17000; 99213 ==

== ENCOUNTER 2025-02-23 11:06 | Outpatient (CLI) | payer MEDICARE, SELFPAY ==
--- NOTE | 2025-02-23 11:13 | MM_ITS ---
WS: [id number] BILATERAL 3D TOMOSYNTHESIS DIGITAL SCREENING MAMMOGRAPHY WITH CAD CLINICAL INFORMATION: SCREENING HISTORY: Screening mammogram. No current complaints. COMPARISON: 2023 TECHNIQUE: Bilateral CC and MLO views. FINDINGS: Scattered fibroglandular densities bilaterally. Several new or progressed ovoid nodules upper outer quadrant LEFT breast anteriorly. Largest measures approximately 6 mm. Smaller adjacent nodule measuring 5 mm. Recommend further evaluation with LEFT breast diagnostic mammography and ultrasound. Incidental punctate and lucent centered calcifications. Unremarkable RIGHT breast. MM/MM [facility] tomosynthesis [id number] IMPRESSION: DENSITY: There are scattered areas of fibroglandular density. BI-RADS: 0 - Incomplete: Need additional imaging evaluation. FOLLOW UP: Need Additional Imaging Recommend LEFT breast diagnostic mammography and ultrasound.
== END 2025-02-23 11:07 | disposition home or self-care (01) ==
LOC: RAD 11:07
PROVIDERS: PCP Internal Medicine; Visit Provider Internal Medicine
DX: Z12.31 Encounter for screening mammogram for malignant neoplasm of breast (principal); R92.323 Mammographic fibroglandular density, bilateral breasts; N63.21 Unspecified lump in the left breast, upper outer quadrant; R91.8 Other nonspecific abnormal finding of lung field
CPT/HCPCS: 77063; 77067

== ENCOUNTER 2025-03-12 10:51 | Outpatient (CLI) | payer MEDICARE, SELFPAY ==
--- NOTE | 2025-03-12 11:00 | US_ITS ---
WS: [id number] LEFT 3D TOMOSYNTHESIS DIGITAL MAMMOGRAPHY WITH CAD CLINICAL INFORMATION: ABNORMAL MAMMOGRAM HISTORY: Additional views TECHNIQUE: 3 views of the left breast were obtained. FINDINGS: Scattered fibroglandular densities of the left breast. Again seen are a few small ovoid nodules upper outer quadrant LEFT breast anteriorly. Ultrasound is pending. ULTRASOUND BREAST LEFT TECHNIQUE: Ultrasound left breast focused area of concern. CLINICAL INFORMATION: ABNORMAL MAMMOGRAM FINDINGS: Ultrasound upper outer LEFT breast. Hypoechoic ovoid nodule at the 12 o'clock position approximately 6 cm from the nipple. This measures 8 x 7 x 5 mm and is indeterminant. Recommend further evaluation with ultrasound-guided biopsy. Additional adjacent similar-appearing nodule measuring 7 x 10 x 6 m US/US breast LT limited* [id number] IMPRESSION: DENSITY: There are scattered areas of fibroglandular density. BI-RADS: 4 - Suspicious Finding - Biopsy Should Be Considered. FOLLOW UP: US Guided Biopsy Recommended Recommend ultrasound-guided biopsy of at least 1 or both of the indeterminate h ypoechoic ovoid nodules at the 12 o'clock position. Determination will be made by radiologist at the time of biopsy
== END 2025-03-12 10:52 | disposition home or self-care (01) ==
LOC: RAD 10:53
PROVIDERS: PCP Internal Medicine; Visit Provider Internal Medicine
DX: N63.21 Unspecified lump in the left breast, upper outer quadrant (principal)
CPT/HCPCS: 76642; 77061; G0279

== ENCOUNTER → 2025-03-24 16:15 | Outpatient (BNVA) | payer MEDICARE, SELFPAY | PROVIDERS: PCP Internal Medicine; Visit Provider Internal Medicine Cardiovascular Disease | DX: R00.0 Tachycardia, unspecified (principal); I25.10 Atherosclerotic heart disease of native coronary artery without angina pectoris; I13.0 Hypertensive heart and chronic kidney disease with heart failure and stage 1 through stage 4 chronic kidney disease, or unspecified chronic kidney disease; N18.2 Chronic kidney disease, stage 2 (mild); I50.9 Heart failure, unspecified | CPT/HCPCS: 99204; 99214 ==